=== PATIENT | male | born 1945 | race Caucasian/White ===

== ENCOUNTER 2022-04-29 12:52 | Inpatient (IN) | payer MEDICARE, MEDICAID, SELFPAY ==
[2022-04-29] VITALS (17 sets, daily range): BP systolic 76–157; BP diastolic 38–77; PULSE 79–124; RESP 20–35; TEMP 36.4–39.9; O2SAT 91–97; BMI 29.7
--- NOTE | ~2022-04-29 | US_ITS ---
EXAMINATION: US ABDOMEN LIMITED CLINICAL INFORMATION: Elevated LFTs. Fever.. COMPARISON: None TECHNIQUE: Real-time imaging of the gallbladder only.. FINDINGS: GALLBLADDER: Gallbladder is distended. Tumefactive sludge within the gallbladder. There is associated echogenic focus within this sludge which does not clearly demonstrate posterior acoustic shadowing. This is indeterminate for a stone therefore. Gallbladder wall measures 0.2 cm. (The gallbladder wall does appear to be thickened however on the CAT scan 04/29/2022.) No significant pericholecystic fluid.. There is positive ultrasound Lopez's sign. COMMON BILE DUCT: Common bile duct is dilated to a diameter 1.2 cm. No intrahepatic bile duct dilatation. FREE FLUID: None. US/US abdomen limited IMPRESSION: Distended gallbladder. Tumefactive sludge in the neck of the gallbladder. Possible gallstone. Positive ultrasound Lopez's sign. Findings equivocal for acute cholecystitis. Consider HIDA scan for further assessment. MRCP may be helpful for assessment of the gallbladder and bile ducts.
--- NOTE | ~2022-04-29 | XR_ITS ---
EXAMINATION: XR CHEST CLINICAL INFORMATION: Fever COMPARISON: None TECHNIQUE: 2 views of the chest were obtained. FINDINGS: Lung volume low. This causes crowding the bronchovascular markings. There is also linear atelectasis at both lung bases. No large pleural effusion. No dense consolidation. Marked arthropathy of the glenohumeral joints bilateral. Multilevel degenerative spondylosis spine. XR/XR chest 2V IMPRESSION: Low inspiratory effort with bibasilar atelectasis.
--- NOTE | ~2022-04-29 | XR_ITS ---
EXAMINATION: XR CHEST CLINICAL INFORMATION: This is a 76-year-old male who is status post right central venous catheter placement. COMPARISON: Comparison is made to a previous study dated 04/29/2022. TECHNIQUE: Frontal view of the chest was obtained. FINDINGS: A right neck catheter is seen with its tip at the cavoatrial junction. There are bilateral lower lobe patchy opacities suggestive of subsegmental pneumonitis versus atelectasis. There is a probable small left pleural effusion. No pneumothorax is seen. There is mild cardiomegaly. Osteoarthritic changes are noted in both shoulder joints. XR/XR chest 1V IMPRESSION: 1. The tip of the catheter is seen at the cavoatrial junction. There is no pneumothorax.
--- NOTE | ~2022-04-29 | CT_ITS ---
EXAMINATION: CT ABDOMEN AND PELVIS WITH CONTRAST CLINICAL INFORMATION: Abdominal pain and fever. COMPARISON: None TECHNIQUE: Multidetector volumetric images were obtained from the superior aspect of the liver through the pubic symphysis following administration 85 mL of Omnipaque 350 intravenous contrast. Sagittal and coronal reformatted images were obtained on the technologist's workstation. Oral contrast: No This CT examination was performed using dose optimization techniques as appropriate, variously including the following: *Automated exposure control *Adjustment of mA and/or kV according to patient size (this includes techniques or standardized protocols for targeted exams where dose is matched to indication/reason for exam; i.e. extremities or head) *Use of iterative reconstruction technique DLP: 1813 mGy-cm FINDINGS: LUNG BASES: Lungs are hypoinflated. There are opacities with air bronchograms from airspace disease or atelectasis in the inferior lingula and lower lobes. No pleural effusion. Atherosclerotic calcifications of coronary arteries and partially visualized thoracic aorta. LIVER: Liver has normal size, contour and parenchymal attenuation. Intrahepatic bile ducts are mildly dilated. No evidence of liver mass or abscess. GALLBLADDER AND BILIARY TREE: There is gallbladder hydrops. The gallbladder wall is mildly, diffusely thickened. No radiopaque calculi within the gallbladder lumen. The common bile duct is dilated up to 1.1 cm. No stones are seen within the dilated common duct. PANCREAS: Pancreas is diffusely atrophied and without acute abnormality. SPLEEN: Splenomegaly is present. The spleen measures up to 15 cm maximum dimension. ADRENAL GLANDS: Normal. KIDNEYS AND URETERS: A right ureteral stent is well-positioned. Small, 0.3 cm calyceal stone of the posterior mid right kidney. No right-sided hydroureteronephrosis. Both kidneys have lobulated contour. Left kidney exhibits mild cortical atrophy. A calyceal stone of the posterior left upper pole measures up to 1.7 cm maximum dimension, density of 940 Hounsfield units, approximately 7.4 cm deep from the skin surface at the posterior axillary line. No left-sided hydronephrosis or hydroureter. BLADDER: Decompressed by Butts catheter. The bladder wall appears to be diffusely thickened. BOWEL AND PERITONEUM: Stomach is unremarkable. No dilated bowel loops. A large amount fecal material is present in the sigmoid colon and rectum. This suggests likelihood of constipation. The subtle haziness of perirectal fat raises suspicion for mild proctitis. Diverticula of the sigmoid colon without diverticulitis. No abdominal free fluid or free air. ABDOMINAL WALL: Mild diastases of rectus abdominis muscles. VASCULATURE: Atherosclerotic calcification of the abdominal aorta without aneurysm. LYMPH NODES: The lymph nodes in the periportal region measure up to 0.9 cm short axis dimension. A lymph node with fatty hilum in the left para-aortic region is approximately 1 cm short axis dimension. Otherwise, no pathologic sized retroperitoneal, iliac or inguinal lymph nodes. PELVIC VISCERA: Prostate gland is unremarkable. SKELETAL: Streak artifact is produced by components of the right total hip arthroplasty. Bones are diffusely osteopenic. There is ankylosis of sacroiliac joints. Chronic height loss of multiple vertebra of the visualized thoracic and lumbar spine. No acute fractures. Multilevel degenerative arthropathy of the spine. CT/CT abdomen pelvis w con IMPRESSION: * Gallbladder hydrops and mild thickening of gallbladder wall. Although the common duct and intrahepatic ducts are dilated, no obstructing stones are visualized within the biliary tree. Also, no stones are identified within the hydropic gallbladder. Consider correlation with liver function tests, bilirubin levels and right upper quadrant ultrasound (or MRCP). Acute cholecystitis and cholangitis would be considered in this patient with abdominal pain and fever. * There are opacities with air bronchograms from airspace disease and/or atelectasis in the visualized bases. * Splenomegaly is of uncertain chronicity. There are no comparison abdominal imaging exams. * Bilateral renal stones. Well-positioned right ureteral stent in place. No hydronephrosis. * Large amount of fecal material in the sigmoid colon and rectum is suggestive of constipation. The subtle haziness of perirectal fat is suspicious for mild proctitis.
--- NOTE | ~2022-04-29 | NM_ITS ---
EXAMINATION: NUCLEAR MEDICINE HEPATOBILIARY WITHOUT PHARMACY. CLINICAL INFORMATION: Elevated LFTs, gallbladder hydrops. COMPARISON: CT abdomen and pelvis 04/29/2022 and ultrasound abdomen 04/29/2022. TECHNIQUE: Following intravenous and a 5 mCi of 99m technetium mebrofenin, imaging over the right upper quadrant was obtained up to one hour. Patient was unable to stay in one place Delayed 3.5 hours images were obtained. No CCK was given as patient is unable to stay after initial one hour of imaging.. FINDINGS: There is normal hepatic uptake without any focal defects. There is visualization of CBD and small bowel by 30 minutes. Gallbladder is not visualized up to 3 1/2 wires. NM/NM hepatobiliary wo pharm IMPRESSION: Obstructed cystic duct. Patent CBD. Normal hepatic uptake. Results were discussed with Dr. Dobson at 1:10 PM
--- NOTE | 2022-04-29 13:19 | ECG_ITS ---
Test Reason : FEVER Blood Pressure : / mmHG Vent. Rate : 122 BPM Atrial Rate : 122 BPM P-R Int : 152 ms QRS Dur : 132 ms QT Int : 334 ms P-R-T Axes : 046 -43 106 degrees QTc Int : 475 ms Sinus tachycardia Left axis deviation Left bundle branch block Abnormal ECG No previous ECGs available Referred By: Elana Jordan Electronically Signed By:JEFFERSON WAGGONER
--- NOTE | 2022-04-29 13:21 | ED_ITS ---
HPI - Abdominal Pain General Chief Complaint: Abdominal Pain <Elana López HENRY Jordan - Last Filed: 04/29/22 20:47> Stated Complaint: ABDO PAIN /FEVER <Elana López HENRY Jordan - Last Filed: 04/29/22 20:47> Time Seen by Provider: 04/29/22 12:56 <Elana López HENRY Jordan - Last Filed: 04/29/22 20:47> Source: patient <Elana BurtonHENRY lovelace - Last Filed: 04/29/22 20:47> Mode of arrival: EMS <Elana López HENRY Jordan - Last Filed: 04/29/22 20:47> Limitations: no limitations <Elana López HENRY Jordan - Last Filed: 04/29/22 20:47> History of Present Illness HPI narrative: Patient presents to the emergency department via EMS from a custodial facility, [facility]. Patient was reportedly given a new bowel medication this morning, questions stool softener. He began reporting lower abdominal pain this morning, was noted to have a temp of 101.3 degrees therefore he was transferred to the emergency department. Patient's only reports that his abdomen is hurting and he is very cold. Reports last bowel movement was yesterday night. Denies headache, nausea, vomiting, chest pain, shortness of breath. <Elana BurtonHENRY lovelace - Last Filed: 04/29/22 20:47> Related Data Home Medications: Home Medications Medication Instructions Recorded Confirmed acetaminophen 325 mg tablet 650 mg PO TID 04/29/22 04/29/22 ammonium lactate 12 % topical cream 1 appl topical BID 04/29/22 04/29/22 apixaban 5 mg tablet (Eliquis) 1 tab PO BID 04/29/22 04/29/22 ascorbic acid (vitamin C) 500 mg 500 mg PO BID 04/29/22 04/29/22 tablet cyanocobalamin (vitamin B-12) 500 500 mcg PO DAILY 04/29/22 04/29/22 mcg tablet diclofenac sodium 1 % topical gel 2 g topical Q6H PRN Pain, Mild 04/29/22 04/29/22 finasteride 5 mg tablet 1 tab PO DAILY 04/29/22 04/29/22 furosemide 20 mg tablet 20 mg PO Q2D 04/29/22 04/29/22 ipratropium 0.5 mg-albuterol 3 mg 3 ml inhalation Q6H PRN Shortness 04/29/22 04/29/22 (2.5 mg base)/3 mL nebulization Of Breath Or Wheezing soln lactulose 10 gram/15 mL oral 20 ml PO DAILY 04/29/22 04/29/22 solution lidocaine 4 % topical patch 2 patch topical DAILY PRN Pain, 04/29/22 04/29/22 (Aspercreme (lidocaine)) Mild magnesium oxide 400 mg (241.3 mg 400 mg PO DAILY 04/29/22 04/29/22 magnesium) tablet melatonin 3 mg tablet 3 mg PO BEDTIME PRN Sleep 04/29/22 04/29/22 metoprolol succinate 25 mg 1 tab PO DAILY 04/29/22 04/29/22 tablet,extended release 24 hr morphine 30 mg tablet,extended 1 tab PO BID PRN Pain, Severe 04/29/22 04/29/22 release multivitamin with minerals 1 tab PO DAILY 04/29/22 04/29/22 (Multiple Vitamin-Minerals tablet) nystatin 100,000 unit/gram topical 1 appl topical TID 04/29/22 04/29/22 cream oxycodone 5 mg tablet 5 mg PO Q6H PRN Pain, Moderate 04/29/22 04/29/22 pregabalin 75 mg capsule 1 cap PO BID 04/29/22 04/29/22 sennosides 8.6 mg tablet (senna) 17.2 mg PO BEDTIME 04/29/22 04/29/22 tamsulosin 0.4 mg capsule 2 cap PO BEDTIME 04/29/22 04/29/22 zinc 50 mg tablet 50 mg PO DAILY 04/29/22 04/29/22 <Elana Jordan CNP - Last Filed: 04/29/22 20:47> Allergies/Adverse Reactions: Allergies Allergy/AdvReac Type Severity Reaction Status Date / Time Penicillins Allergy Unknown Unknown Verified 04/29/22 13:18 <Elana Jordan CNP - Last Filed: 04/29/22 20:47> Review of Systems Review of Systems Constitutional : Positive Fever, positive Chills ENT/Mouth :? No sore throat, No Rhinorrhea Eyes: No Swelling, No Redness Cardiovascular : No Chest Pain, No SOB, No Edema Respiratory : No Cough, No Sputum, No Wheezing Gastrointestinal : No Nausea, no Vomiting, no Diarrhea, positive abdominal pain, No Hematochezia, No Melena Genitourinary : No Dysuria, No Urinary Frequency, No Hematuria, No Urgency? Musculoskeletal : No joint pain, No Myalgias, No Joint Swelling Skin : No Skin Lesions, No rash Neuro : No Weakness, No Numbness, No Dizziness, No Headache Psych : No Anxiety/Panic, No Depression <Elana Jordan CNP - Last Filed: 04/29/22 20:47> Yes all other systems are reviewed and are negative <Elana Jordan CNP - Last Filed: 04/29/22 20:47> [facility] Past Medical History Attestation statement: The following information was validated with the patient. <Elana Jordan CNP - Last Filed: 04/29/22 20:47> Medical History: Medical History Cervical stenosis of spine Chronic indwelling Butts catheter COVID-19 DVT (deep venous thrombosis) Hyperlipidemia Hypertension Juvenile rheumatoid arthritis NSTEMI (non-ST elevated myocardial infarction) Psoriatic arthritis Urinary retention <Elana Jordan CNP - Last Filed: 04/29/22 20:47> Social History Social History: Social History Advance Directives: Yes Advance Directives Information Provided: No Advance Directives on File: No <Elana Jordan CNP - Last Filed: 04/29/22 20:47> Physical Exam ED Vital Signs: Vital Signs - 24 hr 04/29/22 13:12 04/29/22 13:55 04/29/22 14:10 Temperature 101.4 F H Pulse Rate 121 H 79 124 H Respiratory Rate 35 H 28 H 32 H Blood Pressure 157/77 H 129/55 L 127/56 L Pulse Oximetry 93 94 94 Oxygen Delivery Method Nasal Cannula Nasal Cannula Nasal Cannula Oxygen Flow Rate 2 2 04/29/22 15:14 04/29/22 15:55 04/29/22 17:04 Temperature 100.8 F H 103.8 F H Pulse Rate 123 H 116 H 118 H Respiratory Rate 26 H 28 H 30 H Blood Pressure 139/59 L 118/50 L 78/39 L Pulse Oximetry 92 91 L 91 L Oxygen Delivery Method Nasal Cannula Nasal Cannula Nasal Cannula Oxygen Flow Rate 2 2 2 04/29/22 17:12 04/29/22 18:04 04/29/22 18:33 Temperature 102 F H Pulse Rate 108 H 99 96 Respiratory Rate 28 H 28 H 24 H Blood Pressure 88/43 L 83/38 L 76/38 L Pulse Oximetry 94 94 94 Oxygen Delivery Method Nasal Cannula Nasal Cannula Nasal Cannula Oxygen Flow Rate 2 2 04/29/22 19:39 04/29/22 21:01 Temperature Pulse Rate 91 Respiratory Rate 22 H Blood Pressure 90/49 L 91/41 L Pulse Oximetry 95 Oxygen Delivery Method Room Air Oxygen Flow Rate BMI result Body Mass Index 29.7 Vital signs have been reviewed as normal and appeared to be correct. Blood p ressure normal.? Tachycardic. Tachypnea. Febrile. <Elana Jordan CNP - Last Filed: 04/29/22 20:47> Vital Signs - 24 hr 04/29/22 13:12 04/29/22 13:55 04/29/22 14:10 Temperature 101.4 F H Pulse Rate 121 H 79 124 H Respiratory Rate 35 H 28 H 32 H Blood Pressure 157/77 H 129/55 L 127/56 L Pulse Oximetry 93 94 94 Oxygen Delivery Method Nasal Cannula Nasal Cannula Nasal Cannula Oxygen Flow Rate 2 2 04/29/22 15:14 04/29/22 15:55 04/29/22 17:04 Temperature 100.8 F H 103.8 F H Pulse Rate 123 H 116 H 118 H Respiratory Rate 26 H 28 H 30 H Blood Pressure 139/59 L 118/50 L 78/39 L Pulse Oximetry 92 91 L 91 L Oxygen Delivery Method Nasal Cannula Nasal Cannula Nasal Cannula Oxygen Flow Rate 2 2 2 04/29/22 17:12 04/29/22 18:04 04/29/22 18:33 Temperature 102 F H Pulse Rate 108 H 99 96 Respiratory Rate 28 H 28 H 24 H Blood Pressure 88/43 L 83/38 L 76/38 L Pulse Oximetry 94 94 94 Oxygen Delivery Method Nasal Cannula Nasal Cannula Nasal Cannula Oxygen Flow Rate 2 2 04/29/22 19:39 04/29/22 21:01 Temperature Pulse Rate 91 Respiratory Rate 22 H Blood Pressure 90/49 L 91/41 L Pulse Oximetry 95 Oxygen Delivery Method Room Air Oxygen Flow Rate BMI result Body Mass Index 29.7 <Ferdinand Miller MD - Last Filed: 04/29/22 21:35> Appearance: Alert.?Oriented to person, place and time. No acute distress.?Normal affect. Eyes: Pupils equal, round and reactive to light.? ENT: Pharynx normal.?? Neck: Normal inspection.? Neck supple.?? CVS: Heart sounds normal. Normal heart rate and rhythm.? Pulses normal.?? Respiratory: No respiratory distress.? Lung sounds clear to auscultation bilaterally?? Abdomen: Soft and diffusely tender throughout the lower abdomen Normoactive bowel sounds. Genitourinary: Chronic indwelling Butts catheter patent. Skin: Skin warm and dry.? Skin appears pale. Stage II pressure ulcers to the bilateral buttocks Extremities: No lower extremity edema.? Neuro: Moves all extremities spontaneously. Sensation intact bilaterally. No focal neuro deficits. <Elana Jordan CNP - Last Filed: 04/29/22 20:47> Course Course Course Narrative: Patient is a 76-year-old male with a past medical history of juvenile rheumatoid arthritis, psoriatic arthritis, history of DVT on Eliquis, cervical stenosis, hypertension, hyperlipidemia, anxiety, urinary retention with chronic Butts catheter, NSTEMI, prior COVID-19. Review of records from custodial facility indicate recent admissions to [facility]. January 2022 admitted for it ABDI, CHF exacerbation, NSTEMI, pneumonia, and sepsis due to obstruction of right ureter and pyelonephritis requiring ureteral stent. Developed acute respiratory failure requiring intubation and pressor support. In February 2022 use admitted for fever and abdominal pain found to have Gram- negative bacteremia, thought to be secondary to urosepsis treated with cephalosporin, Butts placed for urinary retention, and additionally found to have constipation with possible colitis. He was again admitted at [facility] in March due to nephrolithiasis and sepsis with blood cultures at that time notable for Gram-positive cocci and Evy glabrata. At the time of exam his abdomen is tender to palpation in lower quadrants. Will obtain labs, urinalysis, lactic acid, blood cultures, chest x-ray, CT of the abdomen and pelvis. He is febrile tachypneic tachycardic on oxygen at baseline. History of heart failure, per custodial facility no most recent LVEF 55-65%, unknown date. At this time will gently hydrate with normal saline 500mL fluid bolus, and cover with Rocephin IV. Patient received oral Tylenol prior to arrival. <Elana Jordan CNP - Last Filed: 04/29/22 20:47> Reevaluation(s) Reevaluation #1: CBC reveals leukocytosis 11.9, normocytic anemia hemoglobin 10.7 hematocrit 33.2. No lactic acidosis, defers sepsis fluid bolus. Urinalysis consistent with urinary tract infection. Patient noted to have elevated transaminases, alk-phos, elevated from prior outpatient lab comparison 04/14/2022 with AST 17 ALT 13 alk-phos 132. Has had prior right upper quadrant ultrasound and HIDA scan which showed no evidence of cholecystitis or biliary obstruction in January 2022 as he had an initial right upper quadrant ultrasound which revealed sludge within the gallbladder and had surgical consult. <Elana Jordan CNP - Last Filed: 04/29/22 20:47> Time: 14:24 <Elana Jordan CNP - Last Filed: 04/29/22 20:47> Reevaluation #2: EKG reveals sinus tachycardia with left bundle-branch block. No prior EKGs available for review, however review of documentation from custodial facility indicates prior left bundle-branch block noted. <Elana Jordan CNP - Last Filed: 04/29/22 20:47> Time: 15:39 <Elana Jordan CNP - Last Filed: 04/29/22 20:47> Reevaluation #3: CT the abdomen and pelvis notable for mild thickening of the gallbladder wall, no obstructive stones within the biliary tree. Transaminases are elevated though he has no right upper quadrant tenderness, negative Lopez sign, no jaundice. Bilateral renal stones without hydronephrosis. Large amount of fecal material in the sigmoid colon and rectum, no evidence of obstruction. Patient is now status post a very large bowel movement, with improvement in his abdominal pain. <Elana Jordan CNP - Last Filed: 04/29/22 20:47> Time: 16:46 <Elana Jordan CNP - Last Filed: 04/29/22 20:47> Additional Reevaluation(s): 165: Spoke with hospitalist Dr. Hayden who accepts patient for admission to medicine service. Based on CT findings and elevated transaminases will obtain right upper quadrant ultrasound. 1710: Notified by nursing staff of hypotension. Patient has received 500 mL normal saline thus far, will order sepsis fluid bolus at ideal body weight, w hich will add an additional 1500 mL. Fever has increased, will order additional Tylenol at this time. 1830: Ultrasound reveals a distended gallbladder with sludge in the neck possible gallstones, equivocal for acute cholecystitis with recommendations for HIDA scan and/or MRCP. 1905: Remains hypotensive despite IV fluids. He is mentating well, CA&Ox3, tachycardia has improved, skin is warm and dry Contacted machine ironer Dr Seth, for consultation to advises to give additional 500mL fluid bolus based on actual body weight. 1944: Discussed case with Erwin BECERRA from ICU, patient receive albumin as well as glucagon as patient is on long-acting beta-demond. PA at bedside for evaluation. If after interventions blood pressure normalizes and stabilizes will consider admission again to hospitalist service. Discussed this case with ED attending Dr. Miller as well. <Elana Jordan CNP - Last Filed: 04/29/22 20:47> Consultations Consultation #1: Pt was signed out to me at 9 PM,I spoke with Erwin ICU pt will be admitted to ICU,he asked me to consult Surgery because ? cholecystitis,I spoke with Dr Escamilla ,he reviwed the scan nd he is consulted.No surgery Tonight too unstable.Remain Hypotensive will go to ICU Erwin wants to hold norephinephrine at this time and continue fluids/albumine <Ferdinand Miller MD - Last Filed: 04/29/22 21:35> MDM - Abdominal Pain Medical Records Attestation: I reviewed the patient's medical records. <Elana Jordan CNP - Last Filed: 04/29/22 20:47> Lab Data Attestation: I reviewed the patient's lab results. <Elana Jordan CNP - Last Filed: 04/29/22 20:47> Result diagrams: : 04/29/22 13:59 04/29/22 13:59 <Elana Jordan, [employer] - Last Filed: 04/29/22 20:47> Labs: Lab Results 04/29/22 04/29/22 04/29/22 Range/Units 13:28 13:28 13:28 WBC (4.8-10.8) X10*3/uL RBC (4.60-5.80) X10*6/uL Hgb (14.0-18.0) g/dl Hct (42.0-52.0) % MCV (80.0-98.0) fL MCH (27.0-33.0) pg MCHC (31.0-36.0) g/dl RDW (11.0-16.0) % Plt Count (160-400) X10*3/uL MPV (9.4-12.4) fL Immature Gran % (Auto) (0.0-0.4) % Neut % (Auto) (45-73) % Lymph % (Auto) (20-40) % [facility] % (Auto) (2-11) % Eos % (Auto) (0-4) % Baso % (Auto) (0-2) % Lymph # (Auto) (1.2-4.9) X10*3/uL [facility] # (Auto) (0.1-1.2) X10*3/uL Eos # (Auto) (0.0-0.4) X10*3/uL Baso # (Auto) (0.0-0.2) X10*3/uL Abs Immat Gran (auto) (0.00-0.03) X10*3/uL Absolute Neuts (auto) (2.0-8.3) x10*3/uL Absolute Nucleated RBC (0.0-0.012) X10*3/uL Nucleated RBC % (auto) (0.0-0.2) /100WBC Smear Tech's Comments Sodium (135-145) mmol/L Potassium (3.3-5.1) mmol/L Chloride (96-108) mmol/L Carbon Dioxide (22-29) mmol/L Anion Gap (12-20) BUN (9-16) mg/dL Creatinine (0.5-1.4) mg/dL Estim Creat Clear Calc Estimated GFR POC Glucose (60-115) mg/dL Random Glucose (60-115) mg/dL Lactic Acid 1.2 (0.5-2.0) mmol/L Calcium (8.4-10.2) mg/dL Magnesium (1.6-2.6) mg/dL Total Bilirubin (0.0-1.0) mg/dL AST (5-37) U/L ALT (0-40) U/L Alkaline Phosphatase (39-117) U/L Troponin I High Sens 4.9 (<3.5-35.0) ng/L B-Natriuretic Peptide 185 H (<100) pg/mL Total Protein (6.5-8.0) g/dL Albumin (3.5-5.0) g/dL Lipase (8-78) U/L Urine Color Urine Appearance Urine pH (5.0-8.0) Ur Specific [place] (1.005-1.025) Urine Protein (NEG-TRACE) MG/DL Urine Glucose (UA) (NEG) MG/DL Urine Ketones (NEG) MG/DL Urine Blood (NEG) Urine Nitrite (NEG) Ur Leukocyte Esterase (NEG) Urine RBC (0) /HPF Urine WBC (0-4) /HPF Ur Squamous Epith Cells /LPF Urine Bacteria /LPF COVID-19 (ELVI) (Negative) COVID-19 Clin Com 04/29/22 04/29/22 04/29/22 Range/Units 13:31 13:59 13:59 WBC 11.9 H (4.8-10.8) X10*3/uL RBC 4.07 L (4.60-5.80) X10*6/uL Hgb 10.7 L (14.0-18.0) g/dl Hct 33.2 L (42.0-52.0) % MCV 81.6 (80.0-98.0) fL MCH 26.3 L (27.0-33.0) pg MCHC 32.2 (31.0-36.0) g/dl RDW 14.4 (11.0-16.0) % Plt Count 210 (160-400) X10*3/uL MPV 8.8 L (9.4-12.4) fL Immature Gran % (Auto) 0.3 (0.0-0.4) % Neut % (Auto) 96.4 H (45-73) % Lymph % (Auto) 2.0 L (20-40) % [facility] % (Auto) 1.1 L (2-11) % Eos % (Auto) 0.0 (0-4) % Baso % (Auto) 0.2 (0-2) % Lymph # (Auto) 0.2 L (1.2-4.9) X10*3/uL [facility] # (Auto) 0.1 (0.1-1.2) X10*3/uL Eos # (Auto) 0.0 (0.0-0.4) X10*3/uL Baso # (Auto) 0.0 (0.0-0.2) X10*3/uL Abs Immat Gran (auto) 0.04 H (0.00-0.03) X10*3/uL Absolute Neuts (auto) 11.5 H (2.0-8.3) x10*3/uL Absolute Nucleated RBC 0.000 (0.0-0.012) X10*3/uL Nucleated RBC % (auto) 0.0 (0.0-0.2) /100WBC Smear Tech's Comments VERIFIED Sodium 139 (135-145) mmol/L Potassium 4.0 (3.3-5.1) mmol/L Chloride 95 L (96-108) mmol/L Carbon Dioxide 32 H (22-29) mmol/L Anion Gap 16 (12-20) BUN 13 (9-16) mg/dL Creatinine 0.62 (0.5-1.4) mg/dL Estim Creat Clear Calc 111.5 Estimated GFR > 60 POC Glucose (60-115) mg/dL Random Glucose 198 H (60-115) mg/dL Lactic Acid (0.5-2.0) mmol/L Calcium 8.3 L (8.4-10.2) mg/dL Magnesium 1.8 (1.6-2.6) mg/dL Total Bilirubin 2.5 H (0.0-1.0) mg/dL AST 242 H (5-37) U/L ALT 152 H (0-40) U/L Alkaline Phosphatase 680 H (39-117) U/L Troponin I High Sens (<3.5-35.0) ng/L B-Natriuretic Peptide (<100) pg/mL Total Protein 6.7 (6.5-8.0) g/dL Albumin 3.3 L (3.5-5.0) g/dL Lipase 141 H (8-78) U/L Urine Color Urine Appearance Urine pH (5.0-8.0) Ur Specific [place] (1.005-1.025) Urine Protein (NEG-TRACE) MG/DL Urine Glucose (UA) (NEG) MG/DL Urine Ketones (NEG) MG/DL Urine Blood (NEG) Urine Nitrite (NEG) Ur Leukocyte Esterase (NEG) Urine RBC (0) /HPF Urine WBC (0-4) /HPF Ur Squamous Epith Cells /LPF Urine Bacteria /LPF COVID-19 (ELVI) Negative (Negative) COVID-19 Clin Com See Note 04/29/22 04/29/22 Range/Units 14:16 19:59 WBC (4.8-10.8) X10*3/uL RBC (4.60-5.80) X10*6/uL Hgb (14.0-18.0) g/dl Hct (42.0-52.0) % MCV (80.0-98.0) fL MCH (27.0-33.0) pg MCHC (31.0-36.0) g/dl RDW (11.0-16.0) % Plt Count (160-400) X10*3/uL MPV (9.4-12.4) fL Immature Gran % (Auto) (0.0-0.4) % Neut % (Auto) (45-73) % Lymph % (Auto) (20-40) % [facility] % (Auto) (2-11) % Eos % (Auto) (0-4) % Baso % (Auto) (0-2) % Lymph # (Auto) (1.2-4.9) X10*3/uL [facility] # (Auto) (0.1-1.2) X10*3/uL Eos # (Auto) (0.0-0.4) X10*3/uL Baso # (Auto) (0.0-0.2) X10*3/uL Abs Immat Gran (auto) (0.00-0.03) X10*3/uL Absolute Neuts (auto) (2.0-8.3) x10*3/uL Absolute Nucleated RBC (0.0-0.012) X10*3/uL Nucleated RBC % (auto) (0.0-0.2) /100WBC Smear Tech's Comments Sodium (135-145) mmol/L Potassium (3.3-5.1) mmol/L Chloride (96-108) mmol/L Carbon Dioxide (22-29) mmol/L Anion Gap (12-20) BUN (9-16) mg/dL Creatinine (0.5-1.4) mg/dL Estim Creat Clear Calc Estimated GFR POC Glucose 147 H (60-115) mg/dL Random Glucose (60-115) mg/dL Lactic Acid (0.5-2.0) mmol/L Calcium (8.4-10.2) mg/dL Magnesium (1.6-2.6) mg/dL Total Bilirubin (0.0-1.0) mg/dL AST (5-37) U/L ALT (0-40) U/L Alkaline Phosphatase (39-117) U/L Troponin I High Sens (<3.5-35.0) ng/L B-Natriuretic Peptide (<100) pg/mL Total Protein (6.5-8.0) g/dL Albumin (3.5-5.0) g/dL Lipase (8-78) U/L Urine Color YELLOW Urine Appearance HAZY Urine pH 7.5 (5.0-8.0) Ur Specific [place] 1.015 (1.005-1.025) Urine Protein TRACE (NEG-TRACE) MG/DL Urine Glucose (UA) NEG (NEG) MG/DL Urine Ketones NEG (NEG) MG/DL Urine Blood 3+ H (NEG) Urine Nitrite POS H (NEG) Ur Leukocyte Esterase 3+ H (NEG) Urine RBC 1-4 (0) /HPF Urine WBC 76-150 H (0-4) /HPF Ur Squamous Epith Cells NONE /LPF Urine Bacteria 4+ /LPF COVID-19 (ELVI) (Negative) COVID-19 Clin Com <Elana Jordan CNP - Last Filed: 04/29/22 20:47> Lab Results 04/29/22 04/29/22 04/29/22 Range/Units 13:28 13:28 13:28 WBC (4.8-10.8) X10*3/uL RBC (4.60-5.80) X10*6/uL Hgb (14.0-18.0) g/dl Hct (42.0-52.0) % MCV (80.0-98.0) fL MCH (27.0-33.0) pg MCHC (31.0-36.0) g/dl RDW (11.0-16.0) % Plt Count (160-400) X10*3/uL MPV (9.4-12.4) fL Immature Gran % (Auto) (0.0-0.4) % Neut % (Auto) (45-73) % Lymph % (Auto) (20-40) % [facility] % (Auto) (2-11) % Eos % (Auto) (0-4) % Baso % (Auto) (0-2) % Lymph # (Auto) (1.2-4.9) X10*3/uL [facility] # (Auto) (0.1-1.2) X10*3/uL Eos # (Auto) (0.0-0.4) X10*3/uL Baso # (Auto) (0.0-0.2) X10*3/uL Abs Immat Gran (auto) (0.00-0.03) X10*3/uL Absolute Neuts (auto) (2.0-8.3) x10*3/uL Absolute Nucleated RBC (0.0-0.012) X10*3/uL Nucleated RBC % (auto) (0.0-0.2) /100WBC Smear Tech's Comments Sodium (135-145) mmol/L Potassium (3.3-5.1) mmol/L Chloride (96-108) mmol/L Carbon Dioxide (22-29) mmol/L Anion Gap (12-20) BUN (9-16) mg/dL Creatinine (0.5-1.4) mg/dL Estim Creat Clear Calc Estimated GFR POC Glucose (60-115) mg/dL Random Glucose (60-115) mg/dL Lactic Acid 1.2 (0.5-2.0) mmol/L Calcium (8.4-10.2) mg/dL Magnesium (1.6-2.6) mg/dL Total Bilirubin (0.0-1.0) mg/dL AST (5-37) U/L ALT (0-40) U/L Alkaline Phosphatase (39-117) U/L Troponin I High Sens 4.9 (<3.5-35.0) ng/L B-Natriuretic Peptide 185 H (<100) pg/mL Total Protein (6.5-8.0) g/dL Albumin (3.5-5.0) g/dL Lipase (8-78) U/L Urine Color Urine Appearance Urine pH (5.0-8.0) Ur Specific [place] (1.005-1.025) Urine Protein (NEG-TRACE) MG/DL Urine Glucose (UA) (NEG) MG/DL Urine Ketones (NEG) MG/DL Urine Blood (NEG) Urine Nitrite (NEG) Ur Leukocyte Esterase (NEG) Urine RBC (0) /HPF Urine WBC (0-4) /HPF Ur Squamous Epith Cells /LPF Urine Bacteria /LPF COVID-19 (ELVI) (Negative) COVID-19 Clin Com 04/29/22 04/29/22 04/29/22 Range/Units 13:31 13:59 13:59 WBC 11.9 H (4.8-10.8) X10*3/uL RBC 4.07 L (4.60-5.80) X10*6/uL Hgb 10.7 L (14.0-18.0) g/dl Hct 33.2 L (42.0-52.0) % MCV 81.6 (80.0-98.0) fL MCH 26.3 L (27.0-33.0) pg MCHC 32.2 (31.0-36.0) g/dl RDW 14.4 (11.0-16.0) % Plt Count 210 (160-400) X10*3/uL MPV 8.8 L (9.4-12.4) fL Immature Gran % (Auto) 0.3 (0.0-0.4) % Neut % (Auto) 96.4 H (45-73) % Lymph % (Auto) 2.0 L (20-40) % [facility] % (Auto) 1.1 L (2-11) % Eos % (Auto) 0.0 (0-4) % Baso % (Auto) 0.2 (0-2) % Lymph # (Auto) 0.2 L (1.2-4.9) X10*3/uL [facility] # (Auto) 0.1 (0.1-1.2) X10*3/uL Eos # (Auto) 0.0 (0.0-0.4) X10*3/uL Baso # (Auto) 0.0 (0.0-0.2) X10*3/uL Abs Immat Gran (auto) 0.04 H (0.00-0.03) X10*3/uL Absolute Neuts (auto) 11.5 H (2.0-8.3) x10*3/uL Absolute Nucleated RBC 0.000 (0.0-0.012) X10*3/uL Nucleated RBC % (auto) 0.0 (0.0-0.2) /100WBC Smear Tech's Comments VERIFIED Sodium 139 (135-145) mmol/L Potassium 4.0 (3.3-5.1) mmol/L Chloride 95 L (96-108) mmol/L Carbon Dioxide 32 H (22-29) mmol/L Anion Gap 16 (12-20) BUN 13 (9-16) mg/dL Creatinine 0.62 (0.5-1.4) mg/dL Estim Creat Clear Calc 111.5 Estimated GFR > 60 POC Glucose (60-115) mg/dL Random Glucose 198 H (60-115) mg/dL Lactic Acid (0.5-2.0) mmol/L Calcium 8.3 L (8.4-10.2) mg/dL Magnesium 1.8 (1.6-2.6) mg/dL Total Bilirubin 2.5 H (0.0-1.0) mg/dL AST 242 H (5-37) U/L ALT 152 H (0-40) U/L Alkaline Phosphatase 680 H (39-117) U/L Troponin I High Sens (<3.5-35.0) ng/L B-Natriuretic Peptide (<100) pg/mL Total Protein 6.7 (6.5-8.0) g/dL Albumin 3.3 L (3.5-5.0) g/dL Lipase 141 H (8-78) U/L Urine Color Urine Appearance Urine pH (5.0-8.0) Ur Specific [place] (1.005-1.025) Urine Protein (NEG-TRACE) MG/DL Urine Glucose (UA) (NEG) MG/DL Urine Ketones (NEG) MG/DL Urine Blood (NEG) Urine Nitrite (NEG) Ur Leukocyte Esterase (NEG) Urine RBC (0) /HPF Urine WBC (0-4) /HPF Ur Squamous Epith Cells /LPF Urine Bacteria /LPF COVID-19 (ELVI) Negative (Negative) COVID-19 Clin Com See Note 04/29/22 04/29/22 Range/Units 14:16 19:59 WBC (4.8-10.8) X10*3/uL RBC (4.60-5.80) X10*6/uL Hgb (14.0-18.0) g/dl Hct (42.0-52.0) % MCV (80.0-98.0) fL MCH (27.0-33.0) pg MCHC (31.0-36.0) g/dl RDW (11.0-16.0) % Plt Count (160-400) X10*3/uL MPV (9.4-12.4) fL Immature Gran % (Auto) (0.0-0.4) % Neut % (Auto) (45-73) % Lymph % (Auto) (20-40) % [facility] % (Auto) (2-11) % Eos % (Auto) (0-4) % Baso % (Auto) (0-2) % Lymph # (Auto) (1.2-4.9) X10*3/uL [facility] # (Auto) (0.1-1.2) X10*3/uL Eos # (Auto) (0.0-0.4) X10*3/uL Baso # (Auto) (0.0-0.2) X10*3/uL Abs Immat Gran (auto) (0.00-0.03) X10*3/uL Absolute Neuts (auto) (2.0-8.3) x10*3/uL Absolute Nucleated RBC (0.0-0.012) X10*3/uL Nucleated RBC % (auto) (0.0-0.2) /100WBC Smear Tech's Comments Sodium (135-145) mmol/L Potassium (3.3-5.1) mmol/L Chloride (96-108) mmol/L Carbon Dioxide (22-29) mmol/L Anion Gap (12-20) BUN (9-16) mg/dL Creatinine (0.5-1.4) mg/dL Estim Creat Clear Calc Estimated GFR POC Glucose 147 H (60-115) mg/dL Random Glucose (60-115) mg/dL Lactic Acid (0.5-2.0) mmol/L Calcium (8.4-10.2) mg/dL Magnesium (1.6-2.6) mg/dL Total Bilirubin (0.0-1.0) mg/dL AST (5-37) U/L ALT (0-40) U/L Alkaline Phosphatase (39-117) U/L Troponin I High Sens (<3.5-35.0) ng/L B-Natriuretic Peptide (<100) pg/mL Total Protein (6.5-8.0) g/dL Albumin (3.5-5.0) g/dL Lipase (8-78) U/L Urine Color YELLOW Urine Appearance HAZY Urine pH 7.5 (5.0-8.0) Ur Specific [place] 1.015 (1.005-1.025) Urine Protein TRACE (NEG-TRACE) MG/DL Urine Glucose (UA) NEG (NEG) MG/DL Urine Ketones NEG (NEG) MG/DL Urine Blood 3+ H (NEG) Urine Nitrite POS H (NEG) Ur Leukocyte Esterase 3+ H (NEG) Urine RBC 1-4 (0) /HPF Urine WBC 76-150 H (0-4) /HPF Ur Squamous Epith Cells NONE /LPF Urine Bacteria 4+ /LPF COVID-19 (ELVI) (Negative) COVID-19 Clin Com <Ferdinand Miller MD - Last Filed: 04/29/22 21:35> Imaging Data Chest x-ray: Radiologist's impression: FINDINGS: Lung volume low. This causes crowding the bronchovascular markings. There is also linear atelectasis at both lung bases. No large pleural effusion. No dense consolidation. Marked arthropathy of the glenohumeral joints bilateral. Multilevel degenerative spondylosis spine. XR/XR chest 2V IMPRESSION: Low inspiratory effort with bibasilar atelectasis. <Elana Jordan CNP - Last Filed: 04/29/22 20:47> CT scan - abdomen: Radiologist's impression: CT/CT abdomen pelvis w con IMPRESSION: *? Gallbladder hydrops and mild thickening of gallbladder wall. Although the common duct and intrahepatic ducts are dilated, no obstructing stones are visualized within the biliary tree. Also, no stones are identified within the hydropic gallbladder. Consider correlation with liver function tests, bilirubin levels and right upper quadrant ultrasound (or MRCP). Acute cholecystitis and cholangitis would be considered in this patient with abdominal pain and fever. *? There are opacities with air bronchograms from airspace disease and/or atelectasis in the visualized bases. *? Splenomegaly is of uncertain chronicity. There are no comparison abdominal imaging exams. *? Bilateral renal stones. Well-positioned right ureteral stent in place. No hydronephrosis. *? Large amount of fecal material in the sigmoid colon and rectum is suggestive of constipation. The subtle haziness of perirectal fat is suspicious for mild proctitis. <Elana Jordan CNP - Last Filed: 04/29/22 20:47> US - abdomen: Radiologist's impression: US/US abdomen limited IMPRESSION: Distended gallbladder. Tumefactive sludge in the neck of the gallbladder. Possible gallstone. Positive ultrasound Lopez's sign. Findings equivocal for acute cholecystitis. Consider HIDA scan for further assessment. MRCP may be helpful for assessment of the gallbladder and bile ducts. <Elana Jordan CNP - Last Filed: 04/29/22 20:47> ECG Data Attestation: I personally reviewed and interpreted this ECG as follows: <Elana Jordan CNP - Last Filed: 04/29/22 20:47> ECG interpretation date: 04/29/22 <Elana Jordan CNP - Last Filed: 04/29/22 20:47> Interpretation: Rate: 122 Rhythm:? Sinus tachycardia with left bundle-branch block [place]:? Left axis deviation Normal P waves.? Normal HODA.??? ST T wave :? No ST depression, no T-wave inversion qTC: 475 prior studies:? None available for review The study has been interpreted contemporaneously by me. <Elana Jordan CNP - Last Filed: 04/29/22 20:47> Discharge Plan Discharge Clinical Impression: Elevated transaminase level, Acute hypotension, Catheter-associated urinary tract infection <Elana Jordan CNP - Last Filed: 04/29/22 20:47> Patient Disposition: Admitted As Inpatient <Elana Jordan CNP - Last Filed: 04/29/22 20:47>
[2022-04-29] MEDS: 0.9 % Sodium Chloride 1,000 ML 999 ML IV (13:33)
[2022-04-29] MEDS: Morphine Sulfate 4 MG/ML CARTRIDGE IVPUSH (13:40)
[2022-04-29 13:58] LABS: B Type Natriuretic Peptide 185 pg/mL (<100); Troponin-I High Sensitivity 4.9 ng/L (<3.5-35.0)
[2022-04-29] MEDS: cefTRIAXone sodium 2 GM in 0.9 % Sodium Chloride 50 ML IV (13:59)
[2022-04-29 14:01] LABS: Lactic Acid 1.2 mmol/L (0.5-2.0)
[2022-04-29 14:09] LABS: Basophils Percent Auto 0.2 % (0-2); Hematocrit 33.2 % (42.0-52.0); Hemoglobin 10.7 g/dl (14.0-18.0); Imm Gran Abs Auto 0.04 X10*3/uL (0.00-0.03); Imm Gran Pct Auto 0.3 % (0.0-0.4); Lymphocytes Absolute Auto 0.2 X10*3/uL (1.2-4.9); MANUAL DIFF FLAG SCAN; Mean Corpuscular HGB Conc 32.2 g/dl (31.0-36.0); Mean Corpuscular Hemoglobin 26.3 pg (27.0-33.0); Mean Corpuscular Volume 81.6 fL (80.0-98.0); Mean Platelet Volume 8.8 fL (9.4-12.4); Monocytes Absolute Auto 0.1 X10*3/uL (0.1-1.2); Monocytes Percent Auto 1.1 % (2-11); Neutrophils Absolute Auto 11.5 x10*3/uL (2.0-8.3); Neutrophils Percent Auto 96.4 % (45-73); Platelet Count 210 X10*3/uL (160-400); Red Blood Count 4.07 X10*6/uL (4.60-5.80); Red Cell Distribution Width 14.4 % (11.0-16.0); SCAN SMEAR FLAG 1; White Blood Count 11.9 X10*3/uL (4.8-10.8)
[2022-04-29 14:26] LABS: Alanine Aminotransferase 152 U/L (0-40); Albumin Level 3.3 g/dL (3.5-5.0); Alkaline Phosphatase 680 U/L (39-117); Anion Gap 16 (12-20); Aspartate Amino Transferase 242 U/L (5-37); Bilirubin Total 2.5 mg/dL (0.0-1.0); Blood Urea Nitrogen 13 mg/dL (9-16); Calcium 8.3 mg/dL (8.4-10.2); Carbon Dioxide 32 mmol/L (22-29); Chloride 95 mmol/L (96-108); Creatinine Clr Calc Pharmacy 111.5; Estimated Glomerular Filt Rate > 60; Glucose Random 198 mg/dL (60-115); Magnesium 1.8 mg/dL (1.6-2.6); Sodium 139 mmol/L (135-145); Total Protein 6.7 g/dL (6.5-8.0)
[2022-04-29 14:40] LABS: Appearance Urine HAZY; Color Urine YELLOW; Glucose Urine UA NEG (NEG); Leukocyte Esterase Urine 3+ (NEG); Nitrite Urine POS (NEG); PH 7.5 (5.0-8.0); Specific Gravity - Urine 1.015 (1.005-1.025); UACC Culture Trigger YES; Urine Blood 3+ (NEG); Urine Ketones NEG (NEG); Urine Protein TRACE MG/DL (NEG-TRACE)
[2022-04-29 14:50] LABS: SLIDE REVIEW VERIFIED
[2022-04-29 14:55] LABS: Bacteria Urine 4+ /LPF
[2022-04-29 15:01] LABS: Lipase 141 U/L (8-78)
[2022-04-29] MEDS: iohexoL 350 MG/ML 100 ML INFUS..BTL IV (15:04)
[2022-04-29 15:22] LABS: COVID-19 Test Negative (Negative)
[2022-04-29] MEDS: Acetaminophen Supp 650 MG SUPP.RECT PR (17:04)
--- NOTE | 2022-04-29 17:05 | PC.NURSE ---
pt had a very large loose stool
[2022-04-29] MEDS: 0.9 % Sodium Chloride 500 ML IV ×2 (17:16→19:13)
[2022-04-29] MEDS: 0.9 % Sodium Chloride 2,052 ML 2052 ML IV (18:04)
--- NOTE | 2022-04-29 18:14 | PHA.MEDREC ---
Pharmacy Consult ? Medication Reconciliation Pharmacy has completed the medication reconciliation. ORDER SUMMARY REPORT FROM [facility]
[2022-04-29] MEDS: Albumin Human 25 % 100 ML IV ×3 (19:47→23:29)
[2022-04-29] MEDS: Lactated Ringers 500 ML 1000 ML IVCONT (20:02)
[2022-04-29 20:10] LABS: Glucose, Whole Blood 147 mg/dL (60-115)
--- NOTE | 2022-04-29 20:33 | PM.CCHP ---
History of Present Illness Date of Service: 04/29/22 Attending physician on admission: Edgardo Seth Chief Complaint: Severe Sepsis HPI: ?76-year-old male with underlying history of cervical stenosis of the spine, chronic indwelling Butts catheter due to retention and BPH, COVID-19, DVT about 1 year ago currently on Eliquis, hypertension, hyperlipidemia, rheumatoid arthritis, and STEMI, so right thick arthritis among others presents to us after being seen in the emergency room where he was sent from a detention facility ([facility] rehab) due to complaints of abdominal pain. ?Reportedly the patient had received a new bowel regimen medication in the form of a stool softener.? Later on in the day the patient had complained of lower abdominal pain, developed a fever of 101.3 and at that point they decided to call EMS.? The patient's only complaint at the time was feeling centralized epigastric abdominal pain and feeling very cold without any nausea, vomiting, chest pain or shortness of breath. ? Upon arrival to the emergency room, the patient was noted to be normotensive but febrile with temperature of 101.4 degrees F, heart rate of 121, respiratory rate of 35 and O2 sat 93% on 2 L nasal cannula; discontinue for the next 3-4 hours however around 5 in the afternoon the patient decompensated with a blood pressure of 78/39, is still tachycardic and tachypneic. ?His initial workup reveal a white count of 11.9, hemoglobin of 10.7 and hematocrit 33.2, platelets 210.? Sodium 139, potassium 4.0, chloride 95, carbon dioxide 32, BUN 13, creatinine 0.62, random glucose 198, calcium 8.3, magnesium 1.8, lactic acid 1.2. ?LFTs were abnormal with total bilirubin of 2.5, SATB2 42, ALT 152, alk-phos 680, lipase [address] of the abdomen and pelvis suggest mild thickening of the gallbladder wall and common duct as well as intrahepatic duct dilation without visualized obstructing is tone as well as evidence of fecal material consistent with constipation.? A follow-up ultrasound was reported as distended gallbladder with to meth factive is large in the neck of the gallbladder and possible stone with a positive Lopez sign.? Findings equivocal for acute cholecystitis consider HIDA scan versus MRCP. ?At this point I kindly asked the ER physician to contact the general surgeon for further input in this matter, to which no surgical intervention was deemed that the time. ? During my evaluation, the patient does complain of epigastric pain radiating towards the right upper quadrant 8/10 in waves, sharp, lasting a few seconds to a few minutes at a time, not sure what makes it worse but pain medications make it better and the morphine he received earlier did help somewhat, denies any nausea or vomiting.? He stills feels very cold. ? Review of systems: As above, otherwise the patient denies any prior history of strokes, cold intolerance, migraine headaches, head trauma, no eyes, ears or nose problems, no problems swallowing or with phonation, no thyroid disease, denies any history of chest pain, palpitations, coronary disease, cough, sputum production, pneumonia, bronchitis, COPD or emphysema, nausea, vomiting, diarrhea, melena, hematochezia, hematemesis, hematuria, kidney stones, liver problems, immunocompromise state of any kind, no history of PE, ?all other review of systems were reviewed and they were all negative. ? Past Medical History:? As above ? Past Surgical History: RTKA Lithotripsy ? Family history: ?Noncontributory ? Social History:? Residing at a detention facility/rehab, no history of alcohol, tobacco drug use.? 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 ? CODE STATUS: FULL CODE ? Allergies: NKDA ? Home Medications: See Med Rec ? SEPSIS PHYSICAL EXAM 1999 VS: 90/49; 96; 24; 94% 1L NC; 102 F General:? Alert oriented x3 no acute distress.? Speaking full sentences.? Speech is well articulated, thought process is coherent.? Following all commands. Skin:? Stage I sacrocoxcygeal ulcer? and Stage II of the R buttock pressure wounds; leg edema 1+ pitting up to mid tibia bilaterally; old surgical scar of the R knee area, otherwise no lesions, rash. HEENT:? Head is normocephalic, atraumatic, pupils equal round reactive to light accommodation bilaterally.? Extraocular movements appear intact. ?Buccal mucosa is dry, Neck is supple without lymphadenopathy. Cardiac:? Clear S1-S2, no murmurs rubs or gallops. No JVD. Pulmonary:? Diminished lung sounds bilaterally, however clear without wheezes, rales or rhonchi. Abdomen:? Protuberant, positive bowel sounds in all 4 quadrants.? Soft, slightly tender over the epigastric area without rebound or guarding.? He does have a positive Lopez's sign.? No CVA tenderness. Musculoskeletal:? Range of motion of the upper and lower extremities is difficult at the major joints with section of the wrist and hands due to chronic pain and stiffness.? No crepitus. ?Edema as above , no calf tenderness , no leg asymmetry.? Gait not assessed at this point. Neurologic:? As above, cranial nerves 2-12 are grossly intact.? No focal deficits noted. Vascular:? 2+ pulses upper and lower extremities distally. ?Less than 2nd capillary refill of the finger and toes bilaterally upper and lower extremities respectively. ? SIGNIFICANT LABORATORY DATA:? As above ? REVIEW OF IMAGES: CT ABDOMEN AND PELVIS IMPRESSION: *? Gallbladder hydrops and mild thickening of gallbladder wall. Although the common duct and intrahepatic ducts are dilated, no obstructing stones are visualized within the biliary tree. Also, no stones are identified within the hydropic gallbladder. Consider correlation with liver function tests, bilirubin levels and right upper quadrant ultrasound (or MRCP). Acute cholecystitis and cholangitis would be considered in this patient with abdominal pain and fever. *? There are opacities with air bronchograms from airspace disease and/or atelectasis in the visualized bases. *? Splenomegaly is of uncertain chronicity. There are no comparison abdominal imaging exams. *? Bilateral renal stones. Well-positioned right ureteral stent in place. No hydronephrosis. *? Large amount of fecal material in the sigmoid colon and rectum is suggestive of constipation. The subtle haziness of perirectal fat is suspicious for mild proctitis. ? CXR IMPRESSION: Low inspiratory effort with bibasilar atelectasis. EKG REVIEW: Sinus tachycardia 122 bpm, no ST elevations or depressions, LBBB ? chronicity, QT 334. ? Bedside ultrasound for hemodynamic instability: There is left ventricular hypertrophy, no noticeable wall motion abnormality to my view.? There is no tricuspid regurgitation, there is 1+ mitral regurg. The IVC measures 1.4 cm and is fully collapsible with inspiration. ? ASSESSMENT AND PLAN: 1. Acute severe sepsis possible shock likely multifactorial in setting of UTI and gallbladder disease 2. Urinary tract infection 3. Transaminitis likely related to gallbladder disease, I do believe there is a possible non radio opaque obstructing stone of the gallbladder neck causing inflammation of the gallbladder as well as the pancreatitis, therefore choledocholithiasis is not yet ruled out, less likely acute cholangitis 4.?Acute pancreatitis secondary to 3. 5. Hypotension due to the above and worsened by narcotic administration, volume depletion in the setting of third-spacing 6. Sacrococcygeal pressure ulcers stage I and 2 present on admission 7. Pseudo hypocalcemia with corrected level of 9.4 8. Acute hypokalemia 9. Hypoalbuminemia 10. Nonobstructive nephrolithiasis 11. chronic constipation PLAN OF CARE: 1. Admit to ICU, vital signs, I's and O's, will place a central line in order to administer vasopressors, will start him on cefepime 2 g IV every 12 hours which will cover the UTI as well as its intra-abdominal pathology. ?Patient has received almost 3 L of IV fluids thus far and was treated with ceftriaxone.? I will switch this to cefepime in and will consider adding metronidazole to cover for Gram-negative and anaerobic organisms in the setting of possible intra-abdominal pathology. 2. Even though surgery Dr. Escamilla was consulted and stated that at that point was nothing to do from a surgical standpoint in regards to the gallbladder findings, I do believe there is something more to a, I will ask for a 2nd opinion from Dr. Rubio (sheet metal mechanic) to determine if the patient needs in the the HIDA scan versus MRCP or she could discuss the case with the surgeon to further evaluate the above-mentioned issue. 3. In the meantime the patient will be kept NPO, will monitor closely the calcium, phosphorus levels, repeat full set of laboratories including LFTs and lipase in the morning.? 4. Start Levophed and administered normal saline with 40 mEq is a potassium for replacement. 5. Will order IV fluids as the patient appears to be dehydrated both by clinical exam as well as per echo for the IVC is small and fully collapsible. 6. Given the degree of illness, I suspect it could be some sort of adrenal insufficiency therefore hydrocortisone 100 mg IV x1 will be given. 7. In addition the patient appears to be on long-acting beta-demond, therefore I wonder if he is retaining the byproducts, I will give him glucagon 1 mg IV x1. 8. I will hold Eliryneis for now for I do suspect that the patient will have some sort of procedure once we have better define what is happening with his gallbladder and biliary duct system. 9. I do not think the patient has an ammonia despite of the CT or x-ray findings given that there is no symptomatology associated with it, no hypoxia, no cough or sputum production, no complaints of shortness of breath. ? GI PROPHYLAXIS: ?IV ppi DVT PROPHYLAXIS: ?Pneumatic stockings only, Eliquis on hold. ? Clinical update 1. At 2104 I received a phone call from the ER physician who received a call from the lab reported an increase in his white count to 30, 000 (from 11,000) it appears that the labs were drawn after the steroids were given and I wonder if it was either drawn off the line or from the same arm.? Nevertheless the patient's blood pressure does not seem to have improved despite of IV fluids and albumin after 2nd bag therefore patient will be burnham to the ICU where I will place a central line in place him on pressors. ? 2234 the case was discussed with the sheet metal mechanic Dr. Rubio? who upon discussing the case and reviewing all of the information agrees that this could be related to a obstructing stone sitting at the neck of the gallbladder, will speak with the general surgeon and further guide the patient's care. ? 230 at this point, the sheet metal mechanic has discussed the case with the general surgeon who advises the patient would have a cholecystotomy placed by Interventional Radiology, given that the patient is mentating well, is on antibiotics and now fully supported with vasopressors, this will wait until the morning unless he decompensates at which point he would have to be transferred to a tertiary facility but this is not expected. ?Eventually once the patient is more stable he may have a cholecystectomy. ? 8 it was reported from the lab the patient has 2 positive blood cultures with Gram-negative organisms.? He is being covered with cefepime, I will add metronidazole for anaerobic coverage. ? Follow-up sepsis exam done at 02:05 120/70; 110, 21, 96% 1L NC , 97.7 General:? Alert oriented x3 no acute distress. Skin:? no changes from above Cardiac:? Clear S1-S2, no murmurs rubs or gallops. No JVD. Pulmonary:? Diminished lung sounds bilaterally, however clear without wheezes, rales or rhonchi. Abdomen:? Protuberant, positive bowel sounds in all 4 quadrants.? Soft, nontender, no rebound or guarding.? No CVA tenderness and no Lopez?s sign on exam at this point Vascular:? 2+ pulses upper and lower extremities distally. ?Less than 2nd capillary refill of the finger and toes bilaterally upper and lower extremities respectively. ? Will continue with the above-mentioned plan of care, plan cholecystostomy with CT guidance by Interventional Radiology in the morning. ? Critical care time used for critical evaluation of this patient, diagnosis, treatment and coordination of care, review her records and documentation, discussion and planning with other providers TOTAL CRITICAL CARE TIME 200 MIN . ? Patient's care was discussed in detail with Dr. Seth.? He is aware of all the above as well as the plan of care for this patient. [facility] Past Medical History Medical History Cervical stenosis of spine Chronic indwelling Butts catheter COVID-19 DVT (deep venous thrombosis) Hyperlipidemia Hypertension Juvenile rheumatoid arthritis NSTEMI (non-ST elevated myocardial infarction) Psoriatic arthritis Urinary retention Social History Social History Household Members: None Housing: Other Housing Other:: SNF Patient Tobacco Use Status: Never used Tobacco Use of substances other than those prescribed or required for medical reasons: No Have you been hit, kicked, punched, or otherwise hurt by someone within the past year? If so, by whom?: No Do you feel safe in your current relationship?: No Current Relationship Is there a partner from a previous relationship who is making you feel unsafe now?: No Are you made to feel afraid or neglected: No Advance Directives: Yes Advance Directives Information Provided: No Advance Directives on File: No Advance Directives Date on File: 04/30/22 Do you have thoughts of harming others: None Do you have a plan to hurt others: No Plan Recently lost weight without trying: No Nutrition Risks: No Nutritional Risk Meds Allergies Allergy/AdvReac Type Severity Reaction Status Date / Time Penicillins Allergy Unknown Unknown Verified 04/29/22 13:18 Active Medications: Current Medications Acetaminophen (Acetaminophen 325 Mg Tablet) 650 mg PO TID DAVID Albuterol/Ipratropium (Albuterol/Iprat 2.5/0.5mg 3 Ml Ampul.Neb) 3 ml INHALE Q6H PRN PRN Reason: Shortness Of Breath Or Wheezing Hydromorphone HCl (Hydromorphone Hcl 0.5 Mg/0.5 Ml Syringe) 0.5 mg IVPUSH Q2H PRN; Protocol PRN Reason: Pain, Moderate (Pain Scale 4-6 Hydromorphone HCl (Hydromorphone Hcl 1 Mg/Ml Syringe) 1 mg IVPUSH Q3H PRN; Protocol PRN Reason: Pain, Severe (Pain Scale 7-10) Cefepime HCl 2 gm/ Sodium (Chloride) 50 mls @ 100 mls/hr IV Q12H [facility] Last Admin: 04/29/22 23:23 Dose: 100 mls/hr Potassium Chloride/Sodium Chloride () 40 meq in 1,000 mls @ 150 mls/hr IVCONT .Q6H40M [facility] Last Admin: 04/29/22 22:17 Dose: 150 mls/hr Norepinephrine Bitartrate (Levophed) 8 mg in 250 mls @ 0 mls/hr IVCONT .Q0M DAVID; Protocol Lidocaine (Lidocaine 4 % Patch Adh..Patch) 2 patch TRANSDERMA DAILY PRN; Protocol PRN Reason: Pain, Mild Pharmacy Consult (Consult Rx Perform Med Rec) 1 each MISCELLANE ONCE PRN PRN Reason: Consult order Home Medications Medication Instructions Recorded Confirmed Last Taken Type acetaminophen 325 mg tablet 650 mg PO TID 04/29/22 04/29/22 Unknown History ammonium lactate 12 % topical cream 1 appl topical BID 04/29/22 04/29/22 Unknown History apixaban 5 mg tablet (Eliquis) 1 tab PO BID 04/29/22 04/29/22 Unknown History ascorbic acid (vitamin C) 500 mg 500 mg PO BID 04/29/22 04/29/22 Unknown History tablet cyanocobalamin (vitamin B-12) 500 500 mcg PO DAILY 04/29/22 04/29/22 Unknown History mcg tablet diclofenac sodium 1 % topical gel 2 g topical Q6H PRN Pain, Mild 04/29/22 04/29/22 Unknown History finasteride 5 mg tablet 1 tab PO DAILY 04/29/22 04/29/22 Unknown History furosemide 20 mg tablet 20 mg PO Q2D 04/29/22 04/29/22 Unknown History ipratropium 0.5 mg-albuterol 3 mg 3 ml inhalation Q6H PRN Shortness 04/29/22 04/29/22 Unknown History (2.5 mg base)/3 mL nebulization Of Breath Or Wheezing soln lactulose 10 gram/15 mL oral 20 ml PO DAILY 04/29/22 04/29/22 Unknown History solution lidocaine 4 % topical patch 2 patch topical DAILY PRN Pain, 04/29/22 04/29/22 Unknown History (Aspercreme (lidocaine)) Mild magnesium oxide 400 mg (241.3 mg 400 mg PO DAILY 04/29/22 04/29/22 Unknown History magnesium) tablet melatonin 3 mg tablet 3 mg PO BEDTIME PRN Sleep 04/29/22 04/29/22 Unknown History metoprolol succinate 25 mg 1 tab PO DAILY 04/29/22 04/29/22 Unknown History tablet,extended release 24 hr morphine 30 mg tablet,extended 1 tab PO BID PRN Pain, Severe 04/29/22 04/29/22 Unknown History release multivitamin with minerals 1 tab PO DAILY 04/29/22 04/29/22 Unknown History (Multiple Vitamin-Minerals tablet) nystatin 100,000 unit/gram topical 1 appl topical TID 04/29/22 04/29/22 Unknown History cream oxycodone 5 mg tablet 5 mg PO Q6H PRN Pain, Moderate 04/29/22 04/29/22 Unknown History pregabalin 75 mg capsule 1 cap PO BID 04/29/22 04/29/22 Unknown History sennosides 8.6 mg tablet (senna) 17.2 mg PO BEDTIME 04/29/22 04/29/22 Unknown History tamsulosin 0.4 mg capsule 2 cap PO BEDTIME 04/29/22 04/29/22 Unknown History zinc 50 mg tablet 50 mg PO DAILY 04/29/22 04/29/22 Unknown History Physical Exam Vital Signs: Vital Signs: Last Vital Signs Temp 97.7 F 04/29/22 23:07 Pulse 102 H 04/29/22 23:00 Resp 21 H 04/29/22 23:00 BP 115/59 L 04/29/22 23:00 Pulse Ox 94 04/29/22 23:00 O2 Del Method 04/29/22 23:00 O2 Flow Rate 2 04/29/22 23:00 Oxygen Flow Rate 1 04/29/22 21:45 BMI result Body Mass Index 29.7 Results Labs CBC and Chem 7: 04/29/22 21:22 04/29/22 21:22 Labs: Laboratory Results - last 24 hr 04/29/22 04/29/22 04/29/22 13:28 13:28 13:31 MCV MCH MCHC RDW Plt Count MPV Immature Gran % (Auto) Neut % (Auto) Lymph % (Auto) [place] % (Auto) Eos % (Auto) Baso % (Auto) Lymph # (Auto) [place] # (Auto) Eos # (Auto) Baso # (Auto) Abs Immat Gran (auto) Absolute Neuts (auto) Absolute Nucleated RBC Nucleated RBC % (auto) Smear Tech's Comments Anion Gap Estim Creat Clear Calc Estimated GFR POC Glucose Random Glucose Lactic Acid 1.2 Calcium Phosphorus Magnesium Total Bilirubin Direct Bilirubin AST ALT Alkaline Phosphatase B-Natriuretic Peptide 185 H Total Protein Albumin Lipase Urine Color Urine Appearance Urine pH Ur Specific [place] Urine Protein Urine Glucose (UA) Urine Ketones Urine Blood Urine Nitrite Ur Leukocyte Esterase Urine RBC Urine WBC Ur Squamous Epith Cells Urine Bacteria COVID-19 (ELVI) Negative COVID-19 Clin Com See Note 04/29/22 04/29/22 04/29/22 13:59 13:59 14:16 MCV 81.6 MCH 26.3 L MCHC 32.2 RDW 14.4 Plt Count 210 MPV 8.8 L Immature Gran % (Auto) 0.3 Neut % (Auto) 96.4 H Lymph % (Auto) 2.0 L [place] % (Auto) 1.1 L Eos % (Auto) 0.0 Baso % (Auto) 0.2 Lymph # (Auto) 0.2 L [place] # (Auto) 0.1 Eos # (Auto) 0.0 Baso # (Auto) 0.0 Abs Immat Gran (auto) 0.04 H Absolute Neuts (auto) 11.5 H Absolute Nucleated RBC 0.000 Nucleated RBC % (auto) 0.0 Smear Tech's Comments VERIFIED Anion Gap 16 Estim Creat Clear Calc 111.5 Estimated GFR > 60 POC Glucose Random Glucose 198 H Lactic Acid Calcium 8.3 L Phosphorus Magnesium 1.8 Total Bilirubin 2.5 H Direct Bilirubin AST 242 H ALT 152 H Alkaline Phosphatase 680 H B-Natriuretic Peptide Total Protein 6.7 Albumin 3.3 L Lipase 141 H Urine Color YELLOW Urine Appearance HAZY Urine pH 7.5 Ur Specific [place] 1.015 Urine Protein TRACE Urine Glucose (UA) NEG Urine Ketones NEG Urine Blood 3+ H Urine Nitrite POS H Ur Leukocyte Esterase 3+ H Urine RBC 1-4 Urine WBC 76-150 H Ur Squamous Epith Cells NONE Urine Bacteria 4+ COVID-19 (ELVI) COVID-19 Clin Com 04/29/22 04/29/22 04/29/22 19:59 21:22 21:22 MCV 82.8 MCH 25.9 L MCHC 31.3 RDW 14.6 Plt Count 197 MPV 9.4 Immature Gran % (Auto) 3.1 H Neut % (Auto) 92.4 H Lymph % (Auto) 1.1 L [place] % (Auto) 3.3 Eos % (Auto) 0.0 Baso % (Auto) 0.1 Lymph # (Auto) 0.3 L [place] # (Auto) 1.0 Eos # (Auto) 0.0 Baso # (Auto) 0.0 Abs Immat Gran (auto) 0.93 H Absolute Neuts (auto) 27.7 H Absolute Nucleated RBC 0.000 Nucleated RBC % (auto) 0.0 Smear Tech's Comments Anion Gap Estim Creat Clear Calc Estimated GFR POC Glucose 147 H Random Glucose Lactic Acid 1.1 Calcium Phosphorus Magnesium Total Bilirubin Direct Bilirubin AST ALT Alkaline Phosphatase B-Natriuretic Peptide Total Protein Albumin Lipase Urine Color Urine Appearance Urine pH Ur Specific [place] Urine Protein Urine Glucose (UA) Urine Ketones Urine Blood Urine Nitrite Ur Leukocyte Esterase Urine RBC Urine WBC Ur Squamous Epith Cells Urine Bacteria COVID-19 (ELVI) COVID-19 Clin Com 04/29/22 21:22 MCV MCH MCHC RDW Plt Count MPV Immature Gran % (Auto) Neut % (Auto) Lymph % (Auto) [place] % (Auto) Eos % (Auto) Baso % (Auto) Lymph # (Auto) [place] # (Auto) Eos # (Auto) Baso # (Auto) Abs Immat Gran (auto) Absolute Neuts (auto) Absolute Nucleated RBC Nucleated RBC % (auto) Smear Tech's Comments Anion Gap 15 Estim Creat Clear Calc 103.2 Estimated GFR > 60 POC Glucose Random Glucose 172 H Lactic Acid Calcium 7.6 L D Phosphorus 3.1 Magnesium Total Bilirubin 2.9 H Direct Bilirubin 2.6 H AST 161 H ALT 121 H Alkaline Phosphatase 529 H D B-Natriuretic Peptide Total Protein 5.6 L Albumin 3.1 L Lipase 834 H Urine Color Urine Appearance Urine pH Ur Specific [place] Urine Protein Urine Glucose (UA) Urine Ketones Urine Blood Urine Nitrite Ur Leukocyte Esterase Urine RBC Urine WBC Ur Squamous Epith Cells Urine Bacteria COVID-19 (ELVI) COVID-19 Clin Com Imaging Radiologist's Impressions: Impressions Abdomen/Pelvis CT 04/29/22 15:01 IMPRESSION: * Gallbladder hydrops and mild thickening of gallbladder wall. Although the common duct and intrahepatic ducts are dilated, no obstructing stones are visualized within the biliary tree. Also, no stones are identified within the hydropic gallbladder. Consider correlation with liver function tests, bilirubin levels and right upper quadrant ultrasound (or MRCP). Acute cholecystitis and cholangitis would be considered in this patient with abdominal pain and fever. * There are opacities with air bronchograms from airspace disease and/or atelectasis in the visualized bases. * Splenomegaly is of uncertain chronicity. There are no comparison abdominal imaging exams. * Bilateral renal stones. Well-positioned right ureteral stent in place. No hydronephrosis. * Large amount of fecal material in the sigmoid colon and rectum is suggestive of constipation. The subtle haziness of perirectal fat is suspicious for mild proctitis. Chest X-Ray 04/29/22 15:02 IMPRESSION: Low inspiratory effort with bibasilar atelectasis. Abdomen Ultrasound 04/29/22 17:29 IMPRESSION: Distended gallbladder. Tumefactive sludge in the neck of the gallbladder. Possible gallstone. Positive ultrasound Lopez's sign. Findings equivocal for acute cholecystitis. Consider HIDA scan for further assessment. MRCP may be helpful for assessment of the gallbladder and bile ducts. Chest X-Ray 04/29/22 23:05 IMPRESSION: 1. The tip of the catheter is seen at the cavoatrial junction. There is no pneumothorax.
[2022-04-29] MEDS: Magnesium Sulfate/H2O 2 GM/50 ML PIGGYBACK IV (20:56)
[2022-04-29 21:28] LABS: Basophils Percent Auto 0.1 % (0-2); Hematocrit 26.5 % (42.0-52.0); Hemoglobin 8.3 g/dl (14.0-18.0); Imm Gran Abs Auto 0.93 X10*3/uL (0.00-0.03); Imm Gran Pct Auto 3.1 % (0.0-0.4); Lymphocytes Absolute Auto 0.3 X10*3/uL (1.2-4.9); Lymphocytes Percent Auto 1.1 % (20-40); Mean Corpuscular HGB Conc 31.3 g/dl (31.0-36.0); Mean Corpuscular Hemoglobin 25.9 pg (27.0-33.0); Mean Corpuscular Volume 82.8 fL (80.0-98.0); Mean Platelet Volume 9.4 fL (9.4-12.4); Monocytes Percent Auto 3.3 % (2-11); Neutrophils Absolute Auto 27.7 x10*3/uL (2.0-8.3); Neutrophils Percent Auto 92.4 % (45-73); Platelet Count 197 X10*3/uL (160-400); Red Cell Distribution Width 14.6 % (11.0-16.0); SCAN SMEAR FLAG 1
[2022-04-29] MEDS: Hydrocortisone Sod Succ/PF 100 MG VIAL IVPUSH (21:32)
--- NOTE | 2022-04-29 21:33 | PC.NURSE ---
pt provided perineal care, linen change, barrier cream applied and wound dressing. pt asking this RN repeatedly for pain medication, pt informed that due to low BPs pt cannot have pain medication at this time, pt continues to ask for pain medication, MD at bedside to explain to pt once more why we cannot administer pain medication at this time. to note pt did get morphine shortly after arrival. pt repositioned in bed with pillows underneath sacrum.
[2022-04-29 21:37] LABS: Lactic Acid 1.1 mmol/L (0.5-2.0)
[2022-04-29 21:53] LABS: Alanine Aminotransferase 121 U/L (0-40); Albumin Level 3.1 g/dL (3.5-5.0); Alkaline Phosphatase 529 U/L (39-117); Anion Gap 15 (12-20); Aspartate Amino Transferase 161 U/L (5-37); Bilirubin Direct 2.6 mg/dL (0.0-0.5); Bilirubin Total 2.9 mg/dL (0.0-1.0); Blood Urea Nitrogen 15 mg/dL (9-16); Calcium 7.6 mg/dL (8.4-10.2); Carbon Dioxide 28 mmol/L (22-29); Chloride 101 mmol/L (96-108); Creatinine Clr Calc Pharmacy 103.2; Estimated Glomerular Filt Rate > 60; Glucose Random 172 mg/dL (60-115); Lipase 834 U/L (8-78); Phosphorus 3.1 mg/dL (2.7-4.5); Potassium 3.1 mmol/L (3.3-5.1); Sodium 141 mmol/L (135-145); Total Protein 5.6 g/dL (6.5-8.0)
[2022-04-29 21:55] LABS: MANUAL DIFF FLAG SCAN
--- NOTE | 2022-04-29 22:04 | PC.NURSE ---
per PA decision made to transfer pt to ICU due to blood pressures not improving. pt transfered by this RN and EDT.
[2022-04-29] MEDS: KCl 40 mEq in 0.9 % Sodium Chl 40 MEQ/1,000 ML IV.SOLN 150 MEQ IVCONT (22:17)
--- NOTE | 2022-04-29 22:18 | W.PM.CCHP ---
Procedures Date of Service Date of Service: 04/30/22 Central Line Placement Right IJ: Central Line Comments: The patient is fully alert and oriented x3, the procedure was explained in detail with the patient is well as the necessity is and risks of placing a central line, he verbally agrees to the procedure in the presence of both his nurse (Charla) as well as the charge nurse (katie) A quick time-out was made for clarification and proper patient identification, patient was positioned, landmarks were identified, US used to locate a? large compressible IJ.? The right neck was widely prepped and draped in a full sterile fashion.? Ultrasound was used to locate again the right IJ, the vein was cannulated on the 1st pass with an 18 gauge thin needle, dark nonpulsatile blood return was obtained.? The wire was threaded, a small incision was made at its base and dilator inserted.? A triple-lumen central venous catheter was advanced into the vein up to the hub without problems, wired was removed. Ports had? good blood return and flushed x3.? The catheter was secured with 3 sutures at 3 sites, a Biopatch and dry sterile dressing were applied. Post procedure chest x-ray showed the line to be in good position without pneumothorax.? No bleeding or complications noted. Consent for Procedure: Elective - informed consent obtained
[2022-04-29] MEDS: HYDROmorphone HCl 1 MG/ML SYRINGE IVPUSH ×2 (22:28→23:53)
[2022-04-29] MEDS: cefEPime HCl 2 GM in 0.9 % Sodium Chloride 50 ML IV (23:23)
[2022-04-30] VITALS (27 sets, daily range): BP systolic 84–138; BP diastolic 46–82; PULSE 69–110; RESP 12–119; TEMP 36.1–36.8; O2SAT 90–100; BMI 29.2
[2022-04-30] MEDS: metroNIDAZOLE/NS 500 MG/100 ML PIGGYBACK 100 MG IV ×3 (01:13→17:05)
[2022-04-30] MEDS: Pantoprazole Sodium 40 MG/10 ML VIAL IVPUSH (05:18)
[2022-04-30 05:19] LABS: Hemoglobin 8.7 g/dl (14.0-18.0); Mean Corpuscular HGB Conc 31.1 g/dl (31.0-36.0); Mean Corpuscular Hemoglobin 26.5 pg (27.0-33.0); Mean Corpuscular Volume 85.4 fL (80.0-98.0); Mean Platelet Volume 9.7 fL (9.4-12.4); Platelet Count 223 X10*3/uL (160-400); Red Blood Count 3.28 X10*6/uL (4.60-5.80); Red Cell Distribution Width 14.9 % (11.0-16.0)
[2022-04-30 05:26] LABS: INTERNATIONAL NORM RATIO 2.3 (0.9-1.1); Prothrombin Time 26.8 SEC (10.0-13.1)
[2022-04-30 05:28] LABS: Partial Thromboplastin Time 37.2 SEC (26.0-36.4)
[2022-04-30 05:41] LABS: Band Neutrophils Percent 23 % (3-5); Lymphocytes Absolute Manual 1.4 X10*3/uL (1.2-4.9); Lymphocytes Percent Manual 3 % (20-40); Monocytes Absolute Manual 0.9 X10*3/uL (0.1-1.2); Monocytes Percent Manual 2 % (2-11); Neutrophils Absolute Manual 43.7 X10*3/uL (2.0-8.3); Neutrophils Percent Manual 72 % (45-73)
[2022-04-30 05:42] LABS: Alanine Aminotransferase 112 U/L (0-40); Albumin Level 3.5 g/dL (3.5-5.0); Alkaline Phosphatase 478 U/L (39-117); Anion Gap 14 (12-20); Aspartate Amino Transferase 119 U/L (5-37); Bilirubin Direct 2.7 mg/dL (0.0-0.5); Bilirubin Total 3.2 mg/dL (0.0-1.0); Blood Urea Nitrogen 15 mg/dL (9-16); C Reactive Protein 18.45 mg/dL (< or = 0.50); Carbon Dioxide 31 mmol/L (22-29); Chloride 103 mmol/L (96-108); Creatinine Clr Calc Pharmacy 103.2; Estimated Glomerular Filt Rate > 60; Glucose Random 148 mg/dL (60-115); Lipase 215 U/L (8-78); Sodium 144 mmol/L (135-145); Total Protein 5.9 g/dL (6.5-8.0)
[2022-04-30 05:43] LABS: Basophilic Stippling 1+ (0-2) /OIF; Hypochromasia 1+ (5-14) /OIF; Large Platelet PRESENT; Platelet Estimate NORMAL (NORMAL); Platelet Morphology Comment NOTED; RBC Morphology NOTED
[2022-04-30 05:44] LABS: Dohle Bodies PRESENT; Polychromasia 1+ (0-2) /OIF
[2022-04-30 06:19] LABS: Lactic Acid 0.6 mmol/L (0.5-2.0)
--- NOTE | 2022-04-30 07:11 | PM.GICN ---
History of Present Illness Data of Consult Service Date: 04/30/22 Requesting physician: Erwin Mandujano Primary Care Provider: Deniz Livingston MD [facility] Reason for consult: pancreatritis and GB disease 76 YM with cervical stenosis, chronic indwelling Butts catheter due to retention and BPH, COVID-19, DVT about 1 year ago (on Eliquis), hypertension, hyperlipidemia, rheumatoid arthritis, and STEMI, arthritis transferred to [facility] ED on 04/29/22 from SNF ([facility]) with abdominal pain. ? Reportedly patient had received a new bowel regimen (a stool softener).? Patient complained of lower abdominal pain with fever of 101.3 and EMS was called.? The patient's only complaint at the time was epigastric pain and feeling very cold without any nausea, vomiting, chest pain or shortness of breath. ? In the ED, the patient was noted to be normotensive but febrile with temperature of 101.4 F, HR of 121, RR 35 and O2 sat 93% on 2 L nasal cannula; Around 5 pm, the patient decompensated with a blood pressure of 78/39, tachycardic and tachypneic. ? Labs showed wbc count 11.9, hemoglobin of 10.7 and hematocrit 33.2, platelets 210.? BUN 13, creatinine 0.62, random glucose 198, calcium 8.3, magnesium 1.8, lactic acid 1.2. ? LFTs were abnormal with total bilirubin of 2.5, AST 42, ALT 152, alk-phos 680, lipase 141 albumin 3.3. Pt was admitted to the ICU and continued to complain of feeling very cold with 8/10 epigastric pain radiating to the RUQ in waves, sharp, lasting a few seconds to a few minutes at a time, Pain improved after pt was given IV morphine.? Pt complains of joint pain and states abdominal pain is not too bad today. IMAGING STUDIES: 04/29/[address] SCAN SHOWED: ?Gallbladder hydrops and mild thickening of gallbladder wall. Although the common duct and intrahepatic ducts are dilated, no obstructing stones are visualized within the biliary tree. Also, no stones are identified within the hydropic gallbladder. Consider correlation with liver function tests, bilirubin levels and right upper quadrant ultrasound (or MRCP). Acute cholecystitis and cholangitis would be considered in this patient with abdominal pain and fever. *? There are opacities with air bronchograms from airspace disease and/or atelectasis in the visualized bases. *? Splenomegaly is of uncertain chronicity. There are no comparison abdominal imaging exams. *? Bilateral renal stones. Well-positioned right ureteral stent in place. No hydronephrosis. *? Large amount of fecal material in the sigmoid colon and rectum is suggestive of constipation. The subtle haziness of perirectal fat is suspicious for mild proctitis. ABDOMINAL ULTRASOUND SHOWED: Distended gallbladder. Tumefactive sludge in the neck of the gallbladder. Possible gallstone. Positive ultrasound Lopez's sign. Findings equivocal for acute cholecystitis. Consider HIDA scan for further assessment. MRCP may be helpful for assessment of the gallbladder and bile ducts. Review of Systems Review of Systems: Constitutional : Positive Fever, positive Chills ENT/Mouth :? No sore throat, No Rhinorrhea Eyes: No Swelling, No Redness Cardiovascular : No Chest Pain, No SOB, No Edema Respiratory : No Cough, No Sputum, No Wheezing Gastrointestinal : No Nausea, no Vomiting, no Diarrhea, positive abdominal pain, No Hematochezia, No Melena Genitourinary : No Dysuria, No Urinary Frequency, No Hematuria, No Urgency? Musculoskeletal : No joint pain, No Myalgias, No Joint Swelling Skin : No Skin Lesions, No rash Neuro : No Weakness, No Numbness, No Dizziness, No Headache Psych : No Anxiety/Panic, No Depression Yes all other systems are reviewed and are negative Neurologic: Reports confusion Psychiatric: Psychiatric: Reports confusion [facility] Past Medical History Medical History (Updated 05/21/22 @ 00:03 by Darius Malcolm) Anemia Catheter-associated urinary tract infection Cervical stenosis of spine Chronic indwelling Butts catheter COVID-19 DVT (deep venous thrombosis) ESBL (extended spectrum beta-lactamase) producing bacteria infection Hyperlipidemia Hypertension Juvenile rheumatoid arthritis NSTEMI (non-ST elevated myocardial infarction) Psoriatic arthritis Stage 2 skin ulcer of sacral region Urinary retention Surgical History Surgical History History of laparoscopic cholecystectomy (05/04/22) Social History Social History Household Members: None Housing: Other Housing Other:: SNF Patient Tobacco Use Status: Never used Tobacco Advance Directives Date on File: 04/30/22 service: No Current occupational status: unemployed Meds Allergies Allergy/AdvReac Type Severity Reaction Status Date / Time Penicillins Allergy Unknown Unknown Verified 04/29/22 13:18 Active Medications: Current Medications Acetaminophen (Acetaminophen 325 Mg Tablet) 650 mg PO TID [facility] Albuterol/Ipratropium (Albuterol/Iprat 2.5/0.5mg 3 Ml Ampul.Neb) 3 ml INHALE Q6H PRN PRN Reason: Shortness Of Breath Or Wheezing Hydromorphone HCl (Hydromorphone Hcl 0.5 Mg/0.5 Ml Syringe) 0.5 mg IVPUSH Q2H PRN; Protocol PRN Reason: Pain, Moderate (Pain Scale 4-6 Hydromorphone HCl (Hydromorphone Hcl 1 Mg/Ml Syringe) 1 mg IVPUSH Q3H PRN; Protocol PRN Reason: Pain, Severe (Pain Scale 7-10) Last Admin: 04/29/22 23:53 Dose: 1 mg Cefepime HCl 2 gm/ Sodium (Chloride) 50 mls @ 100 mls/hr IV Q12H [facility] Last Infusion: 04/30/22 00:01 Dose: Infused Norepinephrine Bitartrate (Levophed) 8 mg in 250 mls @ 0 mls/hr IVCONT .Q0M [facility]; Protocol Last Titration: 04/30/22 04:46 Dose: 0.05 mcg/kg/min, 8.33 mls/hr Metronidazole (Flagyl) 500 mg in 100 mls @ 100 mls/hr IV Q8H [facility] Last Infusion: 04/30/22 02:34 Dose: Infused Potassium Chloride/Dextrose/Sod Cl () 20 meq in 1,000 mls @ 80 mls/hr IVCONT .[id number] [facility] Lidocaine (Lidocaine 4 % Patch Adh..Patch) 2 patch TRANSDERMA DAILY PRN; Protocol PRN Reason: Pain, Mild Pantoprazole Sodium (Pantoprazole Sodium 40 Mg/10 Ml Vial) 40 mg IVPUSH DAILY@0630 [facility] Last Admin: 04/30/22 05:18 Dose: 40 mg Pharmacy Consult (Consult Rx Perform Med Rec) 1 each MISCELLANE ONCE PRN PRN Reason: Consult order Home Medications Medication Instructions Recorded Confirmed Last Taken Type acetaminophen 325 mg tablet 650 mg PO TID 04/29/22 05/25/22 Unknown History ammonium lactate 12 % topical cream 1 appl topical BID 04/29/22 05/25/22 Unknown History apixaban 5 mg tablet (Eliquis) 1 tab PO BID 04/29/22 05/25/22 Unknown History ascorbic acid (vitamin C) 500 mg 500 mg PO BID 04/29/22 05/25/22 Unknown History tablet cyanocobalamin (vitamin B-12) 500 500 mcg PO DAILY 04/29/22 05/25/22 Unknown History mcg tablet diclofenac sodium 1 % topical gel 2 g topical Q6H PRN Pain, Mild 04/29/22 05/25/22 Unknown History finasteride 5 mg tablet 1 tab PO DAILY 04/29/22 05/25/22 Unknown History furosemide 20 mg tablet 20 mg PO Q2D 04/29/22 05/25/22 Unknown History ipratropium 0.5 mg-albuterol 3 mg 3 ml inhalation Q6H PRN Shortness 04/29/22 05/25/22 Unknown History (2.5 mg base)/3 mL nebulization Of Breath Or Wheezing soln lactulose 10 gram/15 mL oral 20 ml PO DAILY 04/29/22 05/25/22 Unknown History solution lidocaine 4 % topical patch 2 patch topical DAILY PRN Pain, 04/29/22 05/25/22 Unknown History (Aspercreme (lidocaine)) Mild magnesium oxide 400 mg (241.3 mg 400 mg PO DAILY 04/29/22 05/25/22 Unknown History magnesium) tablet melatonin 3 mg tablet 3 mg PO BEDTIME PRN Sleep 04/29/22 05/25/22 Unknown History metoprolol succinate 25 mg 1 tab PO DAILY 04/29/22 05/25/22 Unknown History tablet,extended release 24 hr multivitamin with minerals 1 tab PO DAILY 04/29/22 05/25/22 Unknown History (Multiple Vitamin-Minerals tablet) nystatin 100,000 unit/gram topical 1 appl topical TID 04/29/22 05/25/22 Unknown History cream sennosides 8.6 mg tablet (senna) 17.2 mg PO BEDTIME 04/29/22 05/25/22 Unknown History tamsulosin 0.4 mg capsule 2 cap PO BEDTIME 04/29/22 05/25/22 Unknown History zinc 50 mg tablet 50 mg PO DAILY 04/29/22 05/25/22 Unknown History Physical Exam Vital Signs: Vital Signs: Last Vital Signs Temp 97 F 04/30/22 05:57 Pulse 91 04/30/22 07:00 Resp 22 H 04/30/22 07:00 BP 118/59 L 04/30/22 07:00 Pulse Ox 97 04/30/22 07:00 O2 Del Method 04/30/22 07:00 O2 Flow Rate 1 04/30/22 07:00 Oxygen Flow Rate 1 04/29/22 21:45 BMI result Body Mass Index 29.2 Const: General: no acute distress, confusion and ill appearing Nutritional Appearance: overweight Orientation/consciousness: confusion Limitations: no limitations HEENT: Head: Yes normal to inspection Ears: hearing grossly normal bilaterally Mouth: Normal oral and palatal mucosa present Eyes: Sclerae: sclerae normal Neck: Neck: Yes normal visual inspection Chest: Chest palpation & inspection: normal inspection of the chest Resp: Effort & Inspection: normal respiratory effort Auscultation: clear to auscultation bilaterally Cardio: Palpation: normal PMI Rate: regular rate Rhythm: regular rhythm Heart sounds: S1 normal heart sound present, S2 normal heart sound present and no murmurs GI: Palpation (GI): Soft to palpation, nontender and No hepatosplenomegaly present Auscultation: normal bowel sounds Rectal Exam - Male: Yes deferred Skin: General skin exam: no rashes or lesions noted Neuro: General: gait normal, moves all extremities and confusion Results Labs CBC & Chem 7: 05/12/22 06:11 05/13/22 10:44 Labs: Short CBC 04/29/22 04/29/22 04/30/22 Range/Units 13:59 21:22 05:10 WBC 11.9 H 30.0 H* 46.0 H* (4.8-10.8) X10*3/uL Hgb 10.7 L 8.3 L D 8.7 L (14.0-18.0) g/dl Hct 33.2 L 26.5 L D 28.0 L (42.0-52.0) % Plt Count 210 197 223 (160-400) X10*3/uL BMP 04/29/22 04/29/22 04/30/22 13:59 21:22 05:10 Sodium 139 141 144 Potassium 4.0 3.1 L D 4.0 D Chloride 95 L 101 103 Carbon Dioxide 32 H 28 31 H BUN 13 15 15 Creatinine 0.62 0.67 0.67 Calcium 8.3 L 7.6 L D 8.0 L Liver Function 04/29/22 04/29/22 04/30/22 Range/Units 13:59 21:22 05:10 Total Bilirubin 2.5 H 2.9 H 3.2 H (0.0-1.0) mg/dL Direct Bilirubin 2.6 H 2.7 H (0.0-0.5) mg/dL AST 242 H 161 H 119 H (5-37) U/L ALT 152 H 121 H 112 H (0-40) U/L Alkaline Phosphatase 680 H 529 H D 478 H (39-117) U/L Albumin 3.3 L 3.1 L 3.5 (3.5-5.0) g/dL Urine 04/29/22 Range/Units 14:16 Urine Color YELLOW Urine Appearance HAZY Urine pH 7.5 (5.0-8.0) Ur Specific [place] 1.015 (1.005-1.025) Urine Protein TRACE (NEG-TRACE) MG/DL Urine Glucose (UA) NEG (NEG) MG/DL Microbiology Microbiology Results: Microbiology 04/29/22 13:59 Blood - Venous Blood Culture - Preliminary Prelim: GNR Gram Stain only 04/29/22 13:28 Blood - Venous Blood Culture - Preliminary Prelim: GNR Gram Stain only Assessment and Plan (1) Elevated transaminase level: Status: Resolved (2) Abnormal CT scan, gallbladder: Status: Resolved Plan 76 YM with cervical stenosis, chronic indwelling Butts catheter (urinary retention and BPH), COVID-19, DVT about 1 year ago (on quis), hypertension, hyperlipidemia, rheumatoid arthritis, and STEMI, arthritis admitted to [facility] ICU on 04/29/22 with abdominal pain, fever and chills.? Pt decompensated yesterday evening with a blood pressure of 78/39, tachycardic and tachypneic and stabilized with IVF and pressors. ? Labs showed wbc count 11.9, hemoglobin of 10.7 and hematocrit 33.2, platelets 210.? BUN 13, creatinine 0.62, random glucose 198, calcium 8.3, magnesium 1.8, lactic acid 1.2. ? LFTs were abnormal with total bilirubin of 2.5, AST 42, ALT 152, alk-phos 680, lipase 141 albumin 3.3. Pt complains of joint pain and states abdominal pain is not too bad today. 04/29/[address] SCAN SHOWED: ?Gallbladder hydrops and mild thickening of gallbladder wall. Although the common duct and intrahepatic ducts are dilated, no obstructing stones are visualized within the biliary tree. Also, no stones are identified within the hydropic gallbladder. Acute cholecystitis and cholangitis would be considered in this patient with abdominal pain and fever. Large amount of fecal material in the sigmoid colon and rectum is suggestive of constipation. The subtle haziness of perirectal fat is suspicious for mild proctitis. ABDOMINAL ULTRASOUND SHOWED: Distended gallbladder. Tumefactive sludge in the neck of the gallbladder. Possible gallstone. Positive ultrasound Lopez's sign. Findings equivocal for acute cholecystitis. Pt has hydrops of GB likely due to cystic/CBD duct obstruction from biliary sludge AP and transaminases have improved with increase in TB RECOMMENDATIONS: 1. Agree with IVF, IV antibiotics and pain medications 2. Follow LFTs daily 3. GB decompression with percutaneous cholecystostomy by IR (pt was discussed with Dr Escamilla and Dr Kaminski) Dr Thompson estate conservator for GI over the weekend. Procedures Date of Service Date of Service: 04/30/22
[2022-04-30] MEDS: KCl 20 mEq in 5% Dex/0.45% Sod 20 MEQ/1,000 ML IV.SOLN 80 MEQ IVCONT ×2 (07:38→17:59)
[2022-04-30] MEDS: HYDROmorphone HCl 1 MG/ML SYRINGE IVPUSH ×4 (08:02→19:53)
[2022-04-30] MEDS: cefEPime HCl 2 GM in 0.9 % Sodium Chloride 50 ML IV ×2 (09:24→21:07)
--- NOTE | 2022-04-30 12:23 | MHC.CM.PN ---
Met with patient to complete CM assessment. Patient preferred this commercial real estate underwriter to call HCP. Called and spoke with Efrain Salmon. Patient is LTC @ [facility], plan to return there. Will need BLS for transport. IMM explained.
--- NOTE | 2022-04-30 15:16 | P.PNCC_ITS ---
Subjective Subjective Date of Service: 04/30/22 Interval History: a 76-year-old male at a [facility] facility about 1 year status post COVID infection complicated by DVT on Eliquis otherwise hypertensive hyperlipidemic remote ST-elevation [place] and a background of rheumatoid arthritis presents with abdominal pain and a fever of 101 noted to have a hydrops gallbladder with with elevated transaminases and total and indirect bilirubin as well as alkaline phosphatase and that is a question of common duct dilatation as well and he awaits cholecystostomy tube placement once the INR corrects and once he is at least 48-72 hours off of his Eliquis and currently is on cefepime and metron idazole Critical Care Time (minutes): 60 Physical Exam Vital Signs: Vital Signs: Last Vital Signs Temp 97.8 F 04/30/22 12:00 Pulse 79 04/30/22 14:00 Resp 16 04/30/22 14:00 BP 115/52 L 04/30/22 14:00 Pulse Ox 97 04/30/22 14:00 O2 Del Method 04/30/22 14:00 O2 Flow Rate 1 04/30/22 13:00 Oxygen Flow Rate 1 04/29/22 21:45 BMI result Body Mass Index 29.2 awake alert oriented and nonfocal bedside echo with a little bit of septal paradox due to an underlying left bundle branch block otherwise no wall motion abnormality no primary valve or pericardial disease tender right upper quadrant on abdominal exam chest is clear central venous pressure is about 6-7 after he received his loading dose of IV fluids and is currently off of his Levophed Objective Data Labs CBC & Chem 7: 04/30/22 05:10 04/30/22 05:10 Labs: Laboratory Results - last 24 hr 04/29/22 04/29/22 04/29/22 13:31 19:59 21:22 WBC RBC Hgb Hct MCV MCH MCHC RDW Plt Count MPV Immature Gran % (Auto) Neut % (Auto) Lymph % (Auto) [place] % (Auto) Eos % (Auto) Baso % (Auto) Lymph # (Auto) [place] # (Auto) Eos # (Auto) Baso # (Auto) Abs Immat Gran (auto) Absolute Neuts (auto) Absolute Nucleated RBC Nucleated RBC % (auto) Neutrophils % (Manual) Band Neutrophils % Lymphocytes % (Manual) Monocytes % (Manual) Abs Neuts (Manual) Lymphocytes # (Manual) Monocytes # (Manual) Dohle Bodies Platelet Estimate Large Platelets Plt Morphology Comment RBC Morphology Polychromasia Hypochromasia Basophilic Stippling Smear Path Review PT INR APTT Sodium Potassium Chloride Carbon Dioxide Anion Gap BUN Creatinine Estim Creat Clear Calc Estimated GFR POC Glucose 147 H Random Glucose Lactic Acid 1.1 Calcium Phosphorus Total Bilirubin Direct Bilirubin AST ALT Alkaline Phosphatase C-Reactive Protein Total Protein Albumin Lipase COVID-19 (ELVI) Negative COVID-19 Clin Com See Note 04/29/22 04/29/22 04/30/22 21:22 21:22 05:10 WBC 30.0 H* RBC 3.20 L D Hgb 8.3 L D Hct 26.5 L D MCV 82.8 MCH 25.9 L MCHC 31.3 RDW 14.6 Plt Count 197 MPV 9.4 Immature Gran % (Auto) 3.1 H Neut % (Auto) 92.4 H Lymph % (Auto) 1.1 L [place] % (Auto) 3.3 Eos % (Auto) 0.0 Baso % (Auto) 0.1 Lymph # (Auto) 0.3 L [place] # (Auto) 1.0 Eos # (Auto) 0.0 Baso # (Auto) 0.0 Abs Immat Gran (auto) 0.93 H Absolute Neuts (auto) 27.7 H Absolute Nucleated RBC 0.000 Nucleated RBC % (auto) 0.0 Neutrophils % (Manual) Band Neutrophils % Lymphocytes % (Manual) Monocytes % (Manual) Abs Neuts (Manual) Lymphocytes # (Manual) Monocytes # (Manual) Dohle Bodies Platelet Estimate Large Platelets Plt Morphology Comment RBC Morphology Polychromasia Hypochromasia Basophilic Stippling Smear Path Review PT INR APTT Sodium 141 144 Potassium 3.1 L D 4.0 D Chloride 101 103 Carbon Dioxide 28 31 H Anion Gap 15 14 BUN 15 15 Creatinine 0.67 0.67 Estim Creat Clear Calc 103.2 103.2 Estimated GFR > 60 > 60 POC Glucose Random Glucose 172 H 148 H Lactic Acid Calcium 7.6 L D 8.0 L Phosphorus 3.1 Total Bilirubin 2.9 H 3.2 H Direct Bilirubin 2.6 H 2.7 H AST 161 H 119 H ALT 121 H 112 H Alkaline Phosphatase 529 H D 478 H C-Reactive Protein 18.45 H Total Protein 5.6 L 5.9 L Albumin 3.1 L 3.5 Lipase 834 H 215 H COVID-19 (ELVI) COVID-19 [employer] 04/30/22 04/30/22 04/30/22 05:10 05:10 05:36 WBC 46.0 H* RBC 3.28 L Hgb 8.7 L Hct 28.0 L MCV 85.4 MCH 26.5 L MCHC 31.1 RDW 14.9 Plt Count 223 MPV 9.7 Immature Gran % (Auto) Cancelled Neut % (Auto) Cancelled Lymph % (Auto) Cancelled [place] % (Auto) Cancelled Eos % (Auto) Cancelled Baso % (Auto) Cancelled Lymph # (Auto) Cancelled [place] # (Auto) Cancelled Eos # (Auto) Cancelled Baso # (Auto) Cancelled Abs Immat Gran (auto) Cancelled Absolute Neuts (auto) Cancelled Absolute Nucleated RBC 0.000 Nucleated RBC % (auto) 0.0 Neutrophils % (Manual) 72 Band Neutrophils % 23 H Lymphocytes % (Manual) 3 L Monocytes % (Manual) 2 Abs Neuts (Manual) 43.7 H Lymphocytes # (Manual) 1.4 Monocytes # (Manual) 0.9 Dohle Bodies PRESENT Platelet Estimate NORMAL Large Platelets PRESENT Plt Morphology Comment NOTED RBC Morphology NOTED Polychromasia 1+ (0-2) Hypochromasia 1+ (5-14) Basophilic Stippling 1+ (0-2) Smear Path Review SEE NOTE PT 26.8 H INR 2.3 H APTT 37.2 H Sodium Potassium Chloride Carbon Dioxide Anion Gap BUN Creatinine Estim Creat Clear Calc Estimated GFR POC Glucose Random Glucose Lactic Acid 0.6 Calcium Phosphorus Total Bilirubin Direct Bilirubin AST ALT Alkaline Phosphatase C-Reactive Protein Total Protein Albumin Lipase COVID-19 (ELVI) COVID-19 Clin Com Microbiology Microbiology Results: Microbiology 04/29/22 13:59 Blood - Venous Blood Culture - Preliminary Gram negative zainab 04/29/22 13:28 Blood - Venous Blood Culture - Preliminary Gram negative zainab 04/29/22 Unknown Urine clean catch - Urine downs top Urine Culture - Preliminary Culture in progress. Progress Note: A&P Assessment and plan (1) Anemia: Status: Acute (2) Hydrops of gallbladder: Status: Acute (3) Gram negative sepsis: Status: Acute (4) Abnormal CT scan, gallbladder: Status: Acute (5) Elevated transaminase level: Status: Acute (6) Acute hypotension: Status: Acute (7) Catheter-associated urinary tract infection: Status: Acute Plan we will maintain antibiotics as above and we await the metabolism of the Eliquis and then his initial procedure will be cholecystostomy tube placement Quality Stroke Does the patient have a stroke diagnosis?: No VTE Prior VTE?: Yes VTE Risk Level:: Medical - moderate - high VTE Device Contraindication: N/A - Device Ordered VTE Drug Contraindication: N/A - Med Ordered
[2022-04-30] MEDS: Acetaminophen 325 MG TABLET 650 MG PO ×2 (16:49→19:53)
[2022-04-30] MEDS: HYDROmorphone HCl 0.5 MG/0.5 ML SYRINGE IVPUSH (16:50)
[2022-04-30] MEDS: Lidocaine 4 % Patch ADH..PATCH 2 PATCH TRANSDERMA (21:28)
[2022-05-01] VITALS (20 sets, daily range): BP systolic 126–166; BP diastolic 64–95; PULSE 71–93; RESP 15–26; TEMP 36.1–37.2; O2SAT 91–96
[2022-05-01] MEDS: HYDROmorphone HCl 1 MG/ML SYRINGE IVPUSH ×7 (00:05→22:46)
[2022-05-01] MEDS: metroNIDAZOLE/NS 500 MG/100 ML PIGGYBACK 100 MG IV (00:05)
[2022-05-01] MEDS: oxyCODONE HCl Immed Release 5 MG TABLET PO ×4 (02:10→23:16)
[2022-05-01] MEDS: Pantoprazole Sodium 40 MG/10 ML VIAL IVPUSH ×2 (05:56→05:57)
[2022-05-01 06:04] LABS: Basophils Percent Auto 0.1 % (0-2); Hemoglobin 8.7 g/dl (14.0-18.0); Imm Gran Abs Auto 1.02 X10*3/uL (0.00-0.03); Imm Gran Pct Auto 3.8 % (0.0-0.4); Lymphocytes Absolute Auto 0.9 X10*3/uL (1.2-4.9); Lymphocytes Percent Auto 3.2 % (20-40); MANUAL DIFF FLAG SCAN; Mean Corpuscular HGB Conc 31.1 g/dl (31.0-36.0); Mean Corpuscular Hemoglobin 25.9 pg (27.0-33.0); Mean Corpuscular Volume 83.3 fL (80.0-98.0); Mean Platelet Volume 9.9 fL (9.4-12.4); Monocytes Absolute Auto 0.9 X10*3/uL (0.1-1.2); Monocytes Percent Auto 3.4 % (2-11); Neutrophils Absolute Auto 24.3 x10*3/uL (2.0-8.3); Neutrophils Percent Auto 89.5 % (45-73); Platelet Count 197 X10*3/uL (160-400); Red Blood Count 3.36 X10*6/uL (4.60-5.80); SCAN SMEAR FLAG 1; White Blood Count 27.2 X10*3/uL (4.8-10.8)
[2022-05-01 06:27] LABS: Alanine Aminotransferase 89 U/L (0-40); Alkaline Phosphatase 395 U/L (39-117); Anion Gap 11 (12-20); Aspartate Amino Transferase 65 U/L (5-37); Bilirubin Direct 1.2 mg/dL (0.0-0.5); Bilirubin Total 1.5 mg/dL (0.0-1.0); Blood Urea Nitrogen 18 mg/dL (9-16); C Reactive Protein 17.14 mg/dL (< or = 0.50); Calcium 7.9 mg/dL (8.4-10.2); Carbon Dioxide 30 mmol/L (22-29); Chloride 103 mmol/L (96-108); Creatinine Clr Calc Pharmacy 114.2; Estimated Glomerular Filt Rate > 60; Glucose Random 137 mg/dL (60-115); Phosphorus 2.2 mg/dL (2.7-4.5); Sodium 140 mmol/L (135-145); Total Protein 5.5 g/dL (6.5-8.0)
[2022-05-01 06:29] LABS: SLIDE REVIEW VERIFIED
[2022-05-01 06:41] LABS: Lipase 37 U/L (8-78)
[2022-05-01] MEDS: KCl 20 mEq in 5% Dex/0.45% Sod 20 MEQ/1,000 ML IV.SOLN 80 MEQ IVCONT ×2 (07:05→19:42)
--- NOTE | 2022-05-01 07:35 | PM.CCPN ---
Subjective Subjective Date of Service: 05/01/22 Interval History: 76-year-old male hypertensive and hyperlipidemic with remote history of ST-elevation [place] and what and about a year status post COVID 19 infection that was complicated by deep vein thrombosis and he remains on Eliquis on entry complaining of abdominal pain has hydrops of his gallbladder acute elevation of liver enzymes including alkaline phosphatase and bilirubin which today are all resolving with the diminishing alkaline phosphatase total bilirubin and transaminases also today afebrile with diminishing white count and apparently he was supposed to have a cholecystostomy done but because he was less than 24 hours out from his last dose of Eliquis it was being delayed until either Tuesday or Tuesday depending on needs Critical Care Time (minutes): 35 Physical Exam Vital Signs: Vital Signs: Last Vital Signs Temp 97.9 F 04/30/22 20:00 Pulse 82 05/01/22 07:00 Resp 23 H 05/01/22 07:00 BP 143/83 H 05/01/22 07:00 Pulse Ox 94 05/01/22 07:00 O2 Del Method 05/01/22 07:00 O2 Flow Rate 1 04/30/22 13:00 Oxygen Flow Rate 1 04/29/22 21:45 BMI result Body Mass Index 29.2 off Levophed for 24 hours pressure is 140/80 sinus rhythm at rate 86 and oxygen saturation is 94% awake alert verbal oriented and nonfocal neurologically bedside echo is essentially mild diminished systolic reserve based on underlying left bundle branch block and dyssynchrony abdomen softer positive bowel sounds no organomegaly chest clear no adventitious sounds Objective Data Labs CBC & Chem 7: 05/01/22 05:45 05/01/22 05:45 Labs: Laboratory Results - last 24 hr 04/30/22 05/01/22 05/01/22 05:10 05:45 05:45 WBC 27.2 H RBC 3.36 L Hgb 8.7 L Hct 28.0 L MCV 83.3 MCH 25.9 L MCHC 31.1 RDW 15.0 Plt Count 197 MPV 9.9 Immature Gran % (Auto) 3.8 H Neut % (Auto) 89.5 H Lymph % (Auto) 3.2 L [place] % (Auto) 3.4 Eos % (Auto) 0.0 Baso % (Auto) 0.1 Lymph # (Auto) 0.9 L [place] # (Auto) 0.9 Eos # (Auto) 0.0 Baso # (Auto) 0.0 Abs Immat Gran (auto) 1.02 H Absolute Neuts (auto) 24.3 H Absolute Nucleated RBC 0.000 Nucleated RBC % (auto) 0.0 Smear Tech's Comments VERIFIED Smear Path Review SEE NOTE Sodium 140 Potassium 4.0 Chloride 103 Carbon Dioxide 30 H Anion Gap 11 L BUN 18 H Creatinine 0.60 Estim Creat Clear Calc 114.2 Estimated GFR > 60 Random Glucose 137 H Calcium 7.9 L Phosphorus 2.2 L Total Bilirubin 1.5 H Direct Bilirubin 1.2 H AST 65 H ALT 89 H Alkaline Phosphatase 395 H C-Reactive Protein 17.14 H Total Protein 5.5 L Albumin 3.0 L Lipase 37 Microbiology Microbiology Results: Microbiology 04/29/22 13:59 Blood - Venous Blood Culture - Preliminary Gram negative zainab 04/29/22 13:28 Blood - Venous Blood Culture - Preliminary Gram negative zainab 04/29/22 Unknown Urine clean catch - Urine downs top Urine Culture - Preliminary Culture in progress. Progress Note: A&P Assessment and plan (1) Gram negative sepsis: Status: Acute (2) Hydrops of gallbladder: Status: Acute (3) Anemia: Status: Acute (4) Abnormal CT scan, gallbladder: Status: Acute (5) Elevated transaminase level: Status: Acute (6) Acute hypotension: Status: Acute (7) Catheter-associated urinary tract infection: Status: Acute Plan so actually defervescing on antibiotics without drainage so presumably this could be a passing stone my based on his clinical improvement so before cholecystostomy is placed presumably on Tuesday with me might benefit from [facility] HIDA scanning to prove the necessity for the intervention Quality Stroke Does the patient have a stroke diagnosis?: No VTE Prior VTE?: Yes VTE Risk Level:: Medical - moderate - high VTE Device Contraindication: N/A - Device Ordered VTE Drug Contraindication: N/A - Med Ordered
[2022-05-01 07:57] LABS: Prothrombin Time 23.1 SEC (10.0-13.1)
[2022-05-01] MEDS: cefEPime HCl 2 GM in 0.9 % Sodium Chloride 50 ML IV ×2 (08:57→21:34)
[2022-05-01] MEDS: Acetaminophen 325 MG TABLET 650 MG PO ×3 (08:57→21:41)
--- NOTE | 2022-05-01 16:39 | PM.EVENT ---
Event Note Date of Service: 05/01/22 Event Note: Patient seen and examined by ICU team already. Seen and examined again Denies any new complaint. phyicalexam Appearance: Alert.? Oriented.? not in distress.?. cvs: rrr, [id number]. res: Air entry fair, no rales or wheezing. abd: soft , bs present. ext pulses present. neuro: nonfocal. Assessment and plan: Coordinated in ICU note. Patient admitted for gram-negative sepsis possible related to gallbladder infection concern versus UTI LFTs are improving Continue IV antibiotics ased on his clinical improvement so before cholecystostomy is placed presumably on Tuesday with me might benefit from [facility] HIDA scanning to prove the necessity for the intervention will add Id eval. hcp updated by icu .
--- NOTE | 2022-05-01 18:59 | MHC.CARE ---
CARE team consult requested by hospitalists for Erasto due to severe anxiety, CARE team met with Erasto and he is calm, cooperative and does NOT exhibit any anxiety or agitation. He talks about his hobbies of fishing and being outdoors and reports he has been irritable because he has been in and out of hospitals and nursing homes/rehabs for two years. He tells CARE team he has recently been at [facility] and is very sad he has not been able to get out doors and do the activities that he loves. He also reports his memory has not been good and he forgets things often. Floor RN reports Erasto is very needy, he is always calling on staff and despite setting boundaries and setting limits he will yell out and get extremely anxious if his demands are not meet immediately. CARE team recommended psych consult to explore possible anxiety medication and RN and hospitalists in agreement and will put request for consult in.
[2022-05-01] MEDS: traZODone HCL 25 MG HALFTAB 12.5 MG PO (19:37)
[2022-05-01] MEDS: Lidocaine 4 % Patch ADH..PATCH 2 PATCH TRANSDERMA (19:48)
[2022-05-01] MEDS: Melatonin 3 MG TABLET 6 MG PO (21:41)
[2022-05-02] VITALS (7 sets, daily range): BP systolic 137–178; BP diastolic 81–89; PULSE 79–86; RESP 18–20; TEMP 36.1–37.1; O2SAT 92–98
[2022-05-02] MEDS: HYDROmorphone HCl 0.5 MG/0.5 ML SYRINGE IVPUSH ×7 (02:03→22:02)
[2022-05-02 06:42] LABS: Hematocrit 28.3 % (42.0-52.0); Mean Corpuscular HGB Conc 31.8 g/dl (31.0-36.0); Mean Corpuscular Hemoglobin 26.1 pg (27.0-33.0); Mean Platelet Volume 10.2 fL (9.4-12.4); Platelet Count 186 X10*3/uL (160-400); Red Blood Count 3.45 X10*6/uL (4.60-5.80)
[2022-05-02] MEDS: oxyCODONE HCl Immed Release 5 MG TABLET PO ×3 (06:44→20:54)
[2022-05-02 08:00] LABS: Anion Gap 13 (12-20); Blood Urea Nitrogen 11 mg/dL (9-16); Calcium 7.9 mg/dL (8.4-10.2); Carbon Dioxide 27 mmol/L (22-29); Chloride 104 mmol/L (96-108); Creatinine Clr Calc Pharmacy 124.6; Estimated Glomerular Filt Rate > 60; Glucose Random 128 mg/dL (60-115); Potassium 3.9 mmol/L (3.3-5.1); Sodium 140 mmol/L (135-145)
[2022-05-02] MEDS: Acetaminophen 325 MG TABLET 650 MG PO ×3 (09:09→20:45)
[2022-05-02] MEDS: Finasteride 5 MG TABLET PO (09:09)
[2022-05-02] MEDS: Cyanocobalamin (Vitamin B-12) 500 MCG TABLET PO (09:09)
[2022-05-02] MEDS: Metoprolol Succinate ER 25 MG TAB.ER.24H PO (09:10)
[2022-05-02] MEDS: Zinc Sulfate 220 MG CAPSULE PO (09:10)
[2022-05-02] MEDS: Multivitamin TABLET 1 TAB PO (09:10)
[2022-05-02] MEDS: cefEPime HCl 2 GM in 0.9 % Sodium Chloride 50 ML IV ×2 (09:11→20:46)
[2022-05-02] MEDS: HYDROmorphone HCl 1 MG/ML SYRINGE IVPUSH (10:59)
[2022-05-02 11:38] LABS: Alanine Aminotransferase 60 U/L (0-40); Albumin Level 2.8 g/dL (3.5-5.0); Alkaline Phosphatase 343 U/L (39-117); Aspartate Amino Transferase 25 U/L (5-37); Bilirubin Direct 0.8 mg/dL (0.0-0.5); Total Protein 5.3 g/dL (6.5-8.0)
--- NOTE | 2022-05-02 12:45 | PM.PSYCN ---
History of Present Illness Date of Service: 05/02/2022 Chief Complaint: septic shock Reason for Consult: anxiety Sources of Information: patient interviewed and chart reviewed Additional Sources of Information: CARE consult HPI Narrative: Pt admitted 04/29 from physical rehab with abdo pain and pyrexia. On Iv Abx. Chronic pain with now acute pain and ?cholycystecomy tomorrow. CAREs team leatha noted 05/01 ref anxiety. Pt reports main issue has been pain management- fearful at night and leads to anxiety. Sleep broken in context of pain. No depresiosn, SI, HI, psychosis. Reports pain slightly better controlled today and this lessens anxiety. Aware of reaon for admisison, treatment plan (Abx and potential Sx tomorrow) etc.. No past psych history. Has chronic pain (arthritis) on [place] opioids x years. Has been at [facility] since April 2021. Past Psychiatric History: None Medical Evaluation Reviewed: Yes Personal & Social History: Has been at [facility] since April 2021 [facility] Medical History (Updated 04/30/22 @ 16:09 by Edgardo Seth MD) Anemia Cervical stenosis of spine Chronic indwelling Butts catheter COVID-19 DVT (deep venous thrombosis) Hyperlipidemia Hypertension Juvenile rheumatoid arthritis NSTEMI (non-ST elevated myocardial infarction) Psoriatic arthritis Urinary retention Diagnostics Vital Signs (24Hr): Vital Signs - 24 hr 05/01/22 14:00 05/01/22 16:00 05/01/22 19:41 Temperature 98.6 F Pulse Rate 93 Respiratory Rate 16 18 20 Blood Pressure 166/81 H Pulse Oximetry 92 Oxygen Delivery Method Room Air Oxygen Flow Rate 05/01/22 19:47 05/01/22 23:20 05/02/22 03:15 Temperature 98.9 F 97.8 F 97.8 F Pulse Rate 81 80 80 Respiratory Rate 18 17 19 Blood Pressure 166/79 H 126/64 169/84 H Pulse Oximetry 94 95 96 Oxygen Delivery Method Nasal Cannula Nasal Cannula Nasal Cannula Oxygen Flow Rate 1 1 1 05/02/22 07:51 Temperature 98.0 F Pulse Rate 79 Respiratory Rate 20 Blood Pressure 172/81 H Pulse Oximetry 92 Oxygen Delivery Method Room Air Oxygen Flow Rate BMI result Body Mass Index 29.2 Labs Results: 05/02/22 06:02 05/02/22 06:02 Labs: Laboratory Results - last 48 hr 05/01/22 05/01/22 05/01/22 05:45 05:45 07:37 WBC 27.2 H RBC 3.36 L Hgb 8.7 L Hct 28.0 L MCV 83.3 MCH 25.9 L MCHC 31.1 RDW 15.0 Plt Count 197 MPV 9.9 Immature Gran % (Auto) 3.8 H Neut % (Auto) 89.5 H Lymph % (Auto) 3.2 L [place] % (Auto) 3.4 Eos % (Auto) 0.0 Baso % (Auto) 0.1 Lymph # (Auto) 0.9 L [place] # (Auto) 0.9 Eos # (Auto) 0.0 Baso # (Auto) 0.0 Abs Immat Gran (auto) 1.02 H Absolute Neuts (auto) 24.3 H Absolute Nucleated RBC 0.000 Nucleated RBC % (auto) 0.0 Smear Tech's Comments VERIFIED PT 23.1 H INR 2.0 H Sodium 140 Potassium 4.0 Chloride 103 Carbon Dioxide 30 H Anion Gap 11 L BUN 18 H Creatinine 0.60 Estim Creat Clear Calc 114.2 Estimated GFR > 60 Random Glucose 137 H Calcium 7.9 L Phosphorus 2.2 L Total Bilirubin 1.5 H Direct Bilirubin 1.2 H AST 65 H ALT 89 H Alkaline Phosphatase 395 H C-Reactive Protein 17.14 H Total Protein 5.5 L Albumin 3.0 L Lipase 37 05/02/22 05/02/22 06:02 06:02 WBC 19.0 H RBC 3.45 L Hgb 9.0 L Hct 28.3 L MCV 82.0 MCH 26.1 L MCHC 31.8 RDW 15.0 Plt Count 186 MPV 10.2 Immature Gran % (Auto) Neut % (Auto) Lymph % (Auto) [place] % (Auto) Eos % (Auto) Baso % (Auto) Lymph # (Auto) [place] # (Auto) Eos # (Auto) Baso # (Auto) Abs Immat Gran (auto) Absolute Neuts (auto) Absolute Nucleated RBC 0.000 Nucleated RBC % (auto) 0.0 Smear Tech's Comments PT INR Sodium 140 Potassium 3.9 Chloride 104 Carbon Dioxide 27 Anion Gap 13 BUN 11 Creatinine 0.55 Estim Creat Clear Calc 124.6 Estimated GFR > 60 Random Glucose 128 H Calcium 7.9 L Phosphorus Total Bilirubin 1.0 Direct Bilirubin 0.8 H AST 25 D ALT 60 H Alkaline Phosphatase 343 H C-Reactive Protein Total Protein 5.3 L Albumin 2.8 L Lipase Imaging Radiology Impressions: ITS Impressions Abdomen/Pelvis CT 04/29/22 15:01 IMPRESSION: * Gallbladder hydrops and mild thickening of gallbladder wall. Although the common duct and intrahepatic ducts are dilated, no obstructing stones are visualized within the biliary tree. Also, no stones are identified within the hydropic gallbladder. Consider correlation with liver function tests, bilirubin levels and right upper quadrant ultrasound (or MRCP). Acute cholecystitis and cholangitis would be considered in this patient with abdominal pain and fever. * There are opacities with air bronchograms from airspace disease and/or atelectasis in the visualized bases. * Splenomegaly is of uncertain chronicity. There are no comparison abdominal imaging exams. * Bilateral renal stones. Well-positioned right ureteral stent in place. No hydronephrosis. * Large amount of fecal material in the sigmoid colon and rectum is suggestive of constipation. The subtle haziness of perirectal fat is suspicious for mild proctitis. Chest X-Ray 04/29/22 15:02 IMPRESSION: Low inspiratory effort with bibasilar atelectasis. Abdomen Ultrasound 04/29/22 17:29 IMPRESSION: Distended gallbladder. Tumefactive sludge in the neck of the gallbladder. Possible gallstone. Positive ultrasound Lopez's sign. Findings equivocal for acute cholecystitis. Consider HIDA scan for further assessment. MRCP may be helpful for assessment of the gallbladder and bile ducts. Chest X-Ray 04/29/22 23:05 IMPRESSION: 1. The tip of the catheter is seen at the cavoatrial junction. There is no pneumothorax. Mental Status Exam Mental Status Exam Narrative: Pleasant. Engaged. Alert and oriented. No depression, psychosis, SI, HI agitation. Insight good Medications Medications Current Medications Acetaminophen (Acetaminophen 325 Mg Tablet) 650 mg PO TID DAVID Last Admin: 05/02/22 09:09 Dose: 650 mg Albuterol/Ipratropium (Albuterol/Iprat 2.5/0.5mg 3 Ml Ampul.Neb) 3 ml INHALE Q6H PRN PRN Reason: Shortness Of Breath Or Wheezing Cyanocobalamin (Cyanocobalamin (Vitamin B-12) 500 Mcg Tablet) 500 mcg PO DAILY [facility] Last Admin: 05/02/22 09:09 Dose: 500 mcg Finasteride (Finasteride 5 Mg Tablet) 5 mg PO DAILY [facility] Last Admin: 05/02/22 09:09 Dose: 5 mg Hydromorphone HCl (Hydromorphone Hcl 0.5 Mg/0.5 Ml Syringe) 0.5 mg IVPUSH Q2H PRN; Protocol PRN Reason: Pain, Moderate (Pain Scale 4-6 Last Admin: 05/02/22 09:13 Dose: 0.5 mg Hydromorphone HCl (Hydromorphone Hcl 1 Mg/Ml Syringe) 1 mg IVPUSH Q3H PRN; Protocol PRN Reason: Pain, Severe (Pain Scale 7-10) Last Admin: 05/02/22 10:59 Dose: 1 mg Cefepime HCl 2 gm/ Sodium (Chloride) 50 mls @ 100 mls/hr IV Q12H [facility] Last Infusion: 05/02/22 09:58 Dose: Infused Lidocaine (Lidocaine 4 % Patch Adh..Patch) 2 patch TRANSDERMA DAILY PRN; Protocol PRN Reason: Pain, Mild Last Admin: 05/01/22 19:48 Dose: 2 patch Melatonin (Melatonin 3 Mg Tablet) 6 mg PO BEDTIME PRN PRN Reason: Sleep Last Admin: 05/01/22 21:41 Dose: 6 mg Metoprolol Succinate (Metoprolol Succinate Er 25 Mg Tab.Er.24h) 25 mg PO DAILY [facility]; Protocol Last Admin: 05/02/22 09:10 Dose: 25 mg Multivitamins/Vitamin C (Multivitamin Tablet) 1 tab PO DAILY [facility] Last Admin: 05/02/22 09:10 Dose: 1 tab Oxycodone HCl (Oxycodone Hcl Immed Release 5 Mg Tablet) 5 mg PO Q6H PRN PRN Reason: Pain, Mild (Pain Scale 1-3) Last Admin: 05/02/22 06:44 Dose: 5 mg Pantoprazole Sodium (Pantoprazole Sodium 40 Mg/10 Ml Vial) 40 mg IVPUSH DAILY@0630 [facility] Last Admin: 05/01/22 05:57 Dose: 40 mg Pharmacy Consult (Consult Rx Perform Med Rec) 1 each MISCELLANE ONCE PRN PRN Reason: Consult order Tamsulosin HCl (Tamsulosin Hcl 0.4 Mg Capsule) 0.8 mg PO BEDTIME DAVID Zinc Sulfate (Zinc Sulfate 220 Mg Capsule) 220 mg PO DAILY DAVID Last Admin: 05/02/22 09:10 Dose: 220 mg Allergies Allergies Allergy/AdvReac Type Severity Reaction Status Date / Time Penicillins Allergy Unknown Unknown Verified 04/29/22 13:18 Assessment & Plan Assessment & Plan (1) Hydrops of gallbladder: Status: Acute Code(s): K82.1 - Hydrops of gallbladder Plan Anxiety secondary to pain management with acute on chronic pain in context of ?gallbladder infection, pending potential surgery 05/03. rec: adequate pain management. If needed could use gabapentin 100mg as needed up to 4 times a day for anxiety. No further follow up needed. Signed off case. I spent minutes with the patient and/or on the patient floor today, greater than?50% of which was spent counseling/coordinating care. Patient educated on: medication risk/benefits and therapeutic strategies Informed Consent: understands
[2022-05-02] MEDS: Gabapentin 100 MG CAPSULE PO (14:19)
--- NOTE | 2022-05-02 14:47 | HO.PM.IMPN ---
Subjective Subjective Date of Service: 05/03/22 Interval History: sepsis /ecoli bactermia Review of Systems Patient denies any cough or phlegm or nausea or vomiting. Feels anxious abd pain intermittent but improving Physical Exam Vital Signs: Vital Signs: Last Vital Signs Temp 98.0 F 05/02/22 07:51 Pulse 79 05/02/22 07:51 Resp 20 05/02/22 12:00 BP 178/89 H 05/02/22 14:38 Pulse Ox 93 05/02/22 12:00 O2 Del Method 05/02/22 12:00 O2 Flow Rate 1 05/02/22 03:15 Oxygen Flow Rate 1 04/29/22 21:45 BMI result Body Mass Index 29.2 Appearance: Alert.? Oriented.? anxious?. cvs: rrr, [id number]. res:? Air entry fair, no rales or wheezing. abd: soft , some abd pain ( does not speicfy reason) says intermittent,bs present. ext pulses present. neuro:? nonfocal. Objective Data Active Medications Acetaminophen (Acetaminophen 325 Mg Tablet) 650 mg PO TID COUNT INCLUDES THE [facility] Last Admin: 05/02/22 14:19 Dose: 650 mg Documented By: ALFREDA Albuterol/Ipratropium (Albuterol/Iprat 2.5/0.5mg 3 Ml Ampul.Neb) 3 ml INHALE Q6H PRN PRN Reason: Shortness Of Breath Or Wheezing Cyanocobalamin (Cyanocobalamin (Vitamin B-12) 500 Mcg Tablet) 500 mcg PO DAILY COUNT INCLUDES [facility] Last Admin: 05/02/22 09:09 Dose: 500 mcg Documented By: ALFREDA Finasteride (Finasteride 5 Mg Tablet) 5 mg PO DAILY COUNT INCLUDES [facility] Last Admin: 05/02/22 09:09 Dose: 5 mg Documented By: ALFREDA Gabapentin (Gabapentin 100 Mg Capsule) 100 mg PO DAILY PRN PRN Reason: Anxiety Last Admin: 05/02/22 14:19 Dose: 100 mg Documented By: ALFREDA Hydromorphone HCl (Hydromorphone Hcl 0.5 Mg/0.5 Ml Syringe) 0.5 mg IVPUSH Q2H PRN; Protocol PRN Reason: Pain, Moderate (Pain Scale 4-6 Last Admin: 05/02/22 13:35 Dose: 0.5 mg Documented By: ALFREDA Hydromorphone HCl (Hydromorphone Hcl 1 Mg/Ml Syringe) 1 mg IVPUSH Q3H PRN; Protocol PRN Reason: Pain, Severe (Pain Scale 7-10) Last Admin: 05/02/22 10:59 Dose: 1 mg Documented By: ALFREDA Cefepime HCl 2 gm/ Sodium (Chloride) 50 mls @ 100 mls/hr IV Q12H COUNT INCLUDES THE [facility] Last Infusion: 05/02/22 09:58 Dose: 100 mls/hr Documented By: ALFREDA Lidocaine (Lidocaine 4 % Patch Adh..Patch) 2 patch TRANSDERMA DAILY PRN; Protocol PRN Reason: Pain, Mild Last Admin: 05/01/22 19:48 Dose: 2 patch Documented By: REBECA Melatonin (Melatonin 3 Mg Tablet) 6 mg PO BEDTIME PRN PRN Reason: Sleep Last Admin: 05/01/22 21:41 Dose: 6 mg Documented By: REBECA Metoprolol Succinate (Metoprolol Succinate Er 25 Mg Tab.Er.24h) 25 mg PO DAILY COUNT INCLUDES [facility]; Protocol Last Admin: 05/02/22 09:10 Dose: 25 mg Documented By: ALFREDA Multivitamins/Vitamin C (Multivitamin Tablet) 1 tab PO DAILY COUNT INCLUDES [facility] Last Admin: 05/02/22 09:10 Dose: 1 tab Documented By: ALFREDA Oxycodone HCl (Oxycodone Hcl Immed Release 5 Mg Tablet) 5 mg PO Q6H PRN PRN Reason: Pain, Mild (Pain Scale 1-3) Last Admin: 05/02/22 06:44 Dose: 5 mg Documented By: EUGENE Pantoprazole Sodium (Pantoprazole Sodium 40 Mg/10 Ml Vial) 40 mg IVPUSH DAILY@0630 COUNT INCLUDES [facility] Last Admin: 05/01/22 05:57 Dose: 40 mg Documented By: KOFFI Pharmacy Consult (Consult Rx Perform Med Rec) 1 each MISCELLANE ONCE PRN PRN Reason: Consult order Tamsulosin HCl (Tamsulosin Hcl 0.4 Mg Capsule) 0.8 mg PO BEDTIME COUNT INCLUDES THE [facility] Zinc Sulfate (Zinc Sulfate 220 Mg Capsule) 220 mg PO DAILY COUNT INCLUDES [facility] Last Admin: 05/02/22 09:10 Dose: 220 mg Documented By: ALFREDA Labs CBC & Chem 7: 05/03/22 08:15 05/03/22 08:15 Labs: Laboratory Results - last 24 hr 05/02/22 05/02/22 06:02 06:02 MCV 82.0 MCH 26.1 L MCHC 31.8 RDW 15.0 Plt Count 186 MPV 10.2 Absolute Nucleated RBC 0.000 Nucleated RBC % (auto) 0.0 Anion Gap 13 Estim Creat Clear Calc 124.6 Estimated GFR > 60 Random Glucose 128 H Calcium 7.9 L Total Bilirubin 1.0 Direct Bilirubin 0.8 H AST 25 D ALT 60 H Alkaline Phosphatase 343 H Total Protein 5.3 L Albumin 2.8 L Microbiology Microbiology Results: Microbiology 04/29/22 Unknown Urine Culture - Final Urine clean catch - Urine downs top Pseudomonas aeruginosa Citrobacter freundii 04/29/22 13:59 Blood Culture - Final Blood - Venous Escherichia coli 04/29/22 13:28 Blood Culture - Final Blood - Venous Escherichia coli Assessment and Plan (1) Gram negative sepsis: Status: Acute (2) Hydrops of gallbladder: Status: Acute Plan ?76-year-old male? hypertensive and hyperlipidemic with remote history of ST-elevation [place] and what and about a year status post COVID 19 infection that was complicated by deep vein thrombosis and he remains on Eliquis-came with abdominal pain-initially admitted to the ICU because of severe sepsis . 1. gram-negative sepsis possible related to gallbladder infection concern versus UTI Gallbladder hydrops and mild thickening of gallbladder wall. LFTs are improving urine culture -citrobacter and psudomonas blood culture -ecoli-senstive to ceftriaxone Continue IV antibiotics-cefpime, adjusted (taper )pain meds. as per Gi eval: may need cholecystostomy, we may add hida ( will d/w GI). added ID eval 2.htn: continue metoprolol 3.dvt : apixiban on hold in anticipation for possible cholecytostomy if needed , we will add hida scan inthe am add s/clovenox 4.bph has ch barton: continue flomax /fenestride. 5. possible anxiety: added psych -recomended gabapentin prn for anxiety dvt prophylax -on lovenox Quality Stroke Does the patient have a stroke diagnosis?: No VTE Prior VTE?: Yes VTE Risk Level:: Medical - moderate - high VTE Device Contraindication: N/A - Device Ordered VTE Drug Contraindication: N/A - Med Ordered
[2022-05-02] MEDS: Lidocaine 4 % Patch ADH..PATCH 2 PATCH TRANSDERMA (17:17)
[2022-05-02] MEDS: Enoxaparin Sodium 100 MG/ML SYRINGE 85 MG SUBCUT (18:40)
[2022-05-02] MEDS: Tamsulosin HCL 0.4 MG CAPSULE 0.8 MG PO (20:46)
[2022-05-02] MEDS: Melatonin 3 MG TABLET 6 MG PO (20:54)
[2022-05-03] MEDS: HYDROmorphone HCl 0.5 MG/0.5 ML SYRINGE IVPUSH ×11 (00:51→23:42)
[2022-05-03 03:32] VITALS: BP 159/79; PULSE 79; RESP 19; TEMP 36.9; O2SAT 96
[2022-05-03] MEDS: Pantoprazole Sodium 40 MG/10 ML VIAL IVPUSH (05:00)
[2022-05-03 07:59] VITALS: BP 166/86; PULSE 89; RESP 16; TEMP 36.8; O2SAT 93
[2022-05-03] MEDS: Metoprolol Succinate ER 25 MG TAB.ER.24H PO (08:30)
[2022-05-03] MEDS: Lactated Ringers 1,000 ML 80 ML IVCONT (08:31)
[2022-05-03 08:32] LABS: Hematocrit 31.4 % (42.0-52.0); Hemoglobin 9.8 g/dl (14.0-18.0); Mean Corpuscular HGB Conc 31.2 g/dl (31.0-36.0); Mean Corpuscular Hemoglobin 25.6 pg (27.0-33.0); Mean Platelet Volume 10.2 fL (9.4-12.4); Platelet Count 187 X10*3/uL (160-400); Red Blood Count 3.83 X10*6/uL (4.60-5.80); Red Cell Distribution Width 14.7 % (11.0-16.0); White Blood Count 11.1 X10*3/uL (4.8-10.8)
[2022-05-03 08:47] LABS: Anion Gap 18 (12-20); Blood Urea Nitrogen 10 mg/dL (9-16); Calcium 8.2 mg/dL (8.4-10.2); Carbon Dioxide 25 mmol/L (22-29); Chloride 104 mmol/L (96-108); Creatinine Clr Calc Pharmacy 126.9; Estimated Glomerular Filt Rate > 60; Glucose Random 66 mg/dL (60-115); Potassium 3.7 mmol/L (3.3-5.1); Sodium 143 mmol/L (135-145)
[2022-05-03 09:27] LABS: INTERNATIONAL NORM RATIO 1.4 (0.9-1.1); Prothrombin Time 16.5 SEC (10.0-13.1)
[2022-05-03] MEDS: cefEPime HCl 2 GM in 0.9 % Sodium Chloride 50 ML IV ×2 (10:36→21:16)
[2022-05-03] MEDS: Lidocaine 4 % Patch ADH..PATCH 2 PATCH TRANSDERMA (10:48)
[2022-05-03 11:07] VITALS: BP 169/79; PULSE 86; RESP 17; TEMP 36.6; O2SAT 99
[2022-05-03 11:37] VITALS: BMI 29.2
--- NOTE | 2022-05-03 11:40 | MHC.CLN ---
F/U PT WITH INCREASED RISK R/T PRESSURE INJURY AND NOW NPO/C/L DIET X 5 DAYS DIET RX: NPO WHEN DIET TO ADVANCE; RECOMMEND ENSURE TID TO INCREASE KCALS SUPP TO PROVIDE 1050KCALS, 60G PROTEIN MONITOR FOR DIET ADVANCEMENT IF DIET UNABLE TO ADVANCE TODAY; CONSULT RD FOR ALTERNATIVE NUTRITION SEE FULL CLINICAL NUTRITION ASSESSMENT
--- NOTE | 2022-05-03 14:24 | PM.CNGS ---
History of Present Illness Consult details Consult date: 05/03/22 Requesting physician: Joseph Dobson Narrative: 76-year-old male patient presented to the emergency department on 04/29/2022 with complaints of lower abdominal pain, fever of 101.3 as well as chills without nausea, vomiting, chest pain, or shortness of breath. He presented to the emergency department for further evaluation by EMS. His past history is significant for BPH, COVID-19, DVT currently on Eliquis, hypertension, hyperlipidemia, rheumatoid arthritis, and STEMI. He is resident of a care home facility. Workup revealed a WBC of 30 K and elevated LFTs. CT abdomen and pelvis revealed a large hydropic gallbladder. Ultrasound the abdomen was suggestive of sludge at the neck of the gallbladder with a sonographic Lopez sign. HIDA scan today revealed an obstructed cystic duct but a patent common bile duct. Surgical consultation is requested for possible cholecystectomy. Patient currently reports pain mainly in the right lower and right upper quadrant. Denies nausea or vomiting. He is hungry currently but has not eaten since admission. Review of Systems Constitutional: Constitutional: Reports chills, Reports fever(s), Denies poor appetite, Reports weakness and Denies weight gain Cardiovascular: Cardiovascular: Denies chest pain, Reports Epigastric Pain, Denies rapid heart rate, Denies palpitations and Reports dyspnea on exertion Respiratory: Respiratory: Reports dyspnea on exertion, Denies stridor and Denies wheezing Gastrointestinal: Gastrointestinal: Reports as per HPI, Reports abdominal pain, Denies constipation, Denies heartburn, Denies diarrhea, Denies vomiting and Denies hematemesis Genitourinary: Comments: Previous kidney stones Neurologic: Reports weakness Endocrine: Endocrine: Denies palpitations Allergic/Immunologic: Allergic/Immunologic: Denies wheezing PMF Past Medical History Medical History Anemia Cervical stenosis of spine Chronic indwelling Butts catheter COVID-19 DVT (deep venous thrombosis) Hyperlipidemia Hypertension Juvenile rheumatoid arthritis NSTEMI (non-ST elevated myocardial infarction) Psoriatic arthritis Urinary retention Social History Social History Household Members: None Housing: Other Housing Other:: SNF Patient Tobacco Use Status: Never used Tobacco Use of substances other than those prescribed or required for medical reasons: No Currently Displaying Signs/Symptoms of Drug Intoxication Withdrawal: No Have you been hit, kicked, punched, or otherwise hurt by someone within the past year? If so, by whom?: No Do you feel safe in your current relationship?: No Current Relationship Is there a partner from a previous relationship who is making you feel unsafe now?: No Are you made to feel afraid or neglected: No Advance Directives: Yes Advance Directives Information Provided: No Advance Directives on File: No Advance Directives Date on File: 04/30/22 Do you have thoughts of harming others: None Do you have a plan to hurt others: No Plan Recently lost weight without trying: No Nutrition Risks: No Nutritional Risk service: No Current occupational status: unemployed Meds Allergies Allergy/AdvReac Type Severity Reaction Status Date / Time Penicillins Allergy Unknown Unknown Verified 04/29/22 13:18 Active Medications: Current Medications Acetaminophen (Acetaminophen 325 Mg Tablet) 650 mg PO TID [facility] Last Admin: 05/03/22 08:36 Dose: Not Given Albuterol/Ipratropium (Albuterol/Iprat 2.5/0.5mg 3 Ml Ampul.Neb) 3 ml INHALE Q6H PRN PRN Reason: Shortness Of Breath Or Wheezing Cyanocobalamin (Cyanocobalamin (Vitamin B-12) 500 Mcg Tablet) 500 mcg PO DAILY [facility] Last Admin: 05/03/22 08:36 Dose: Not Given Enoxaparin Sodium (Enoxaparin Sodium 100 Mg/Ml Syringe) 85 mg SUBCUT ONCE [facility] Last Admin: 05/02/22 18:40 Dose: 85 mg Finasteride (Finasteride 5 Mg Tablet) 5 mg PO DAILY [facility] Last Admin: 05/03/22 08:36 Dose: Not Given Gabapentin (Gabapentin 100 Mg Capsule) 100 mg PO DAILY PRN PRN Reason: Anxiety Last Admin: 05/02/22 14:19 Dose: 100 mg Hydromorphone HCl (Hydromorphone Hcl 0.5 Mg/0.5 Ml Syringe) 0.5 mg IVPUSH Q2H PRN; Protocol PRN Reason: Pain, Moderate (Pain Scale 4-6 Last Admin: 05/03/22 13:27 Dose: 0.5 mg Hydromorphone HCl (Hydromorphone Hcl 1 Mg/Ml Syringe) 1 mg IVPUSH Q3H PRN; Protocol PRN Reason: Pain, Severe (Pain Scale 7-10) Last Admin: 05/02/22 10:59 Dose: 1 mg Cefepime HCl 2 gm/ Sodium (Chloride) 50 mls @ 100 mls/hr IV Q12H [facility] Last Infusion: 05/03/22 11:06 Dose: Infused Lactated Ringer's (Lr) 1,000 mls @ 80 mls/hr IVCONT .[id number] [facility] Last Admin: 05/03/22 08:31 Dose: 80 mls/hr Lidocaine (Lidocaine 4 % Patch Adh..Patch) 2 patch TRANSDERMA DAILY PRN; Protocol PRN Reason: Pain, Mild Last Admin: 05/03/22 10:48 Dose: 2 patch Melatonin (Melatonin 3 Mg Tablet) 6 mg PO BEDTIME PRN PRN Reason: Sleep Last Admin: 05/02/22 20:54 Dose: 6 mg Metoprolol Succinate (Metoprolol Succinate Er 25 Mg Tab.Er.24h) 25 mg PO DAILY [facility]; Protocol Last Admin: 05/03/22 08:30 Dose: 25 mg Multivitamins/Vitamin C (Multivitamin Tablet) 1 tab PO DAILY [facility] Last Admin: 05/03/22 08:36 Dose: Not Given Oxycodone HCl (Oxycodone Hcl Immed Release 5 Mg Tablet) 5 mg PO Q6H PRN PRN Reason: Pain, Mild (Pain Scale 1-3) Last Admin: 05/02/22 20:54 Dose: 5 mg Pantoprazole Sodium (Pantoprazole Sodium 40 Mg/10 Ml Vial) 40 mg IVPUSH DAILY@0630 [facility] Last Admin: 05/03/22 05:00 Dose: 40 mg Pharmacy Consult (Consult Rx Perform Med Rec) 1 each MISCELLANE ONCE PRN PRN Reason: Consult order Tamsulosin HCl (Tamsulosin Hcl 0.4 Mg Capsule) 0.8 mg PO BEDTIME [facility] Last Admin: 05/02/22 20:46 Dose: 0.8 mg Zinc Sulfate (Zinc Sulfate 220 Mg Capsule) 220 mg PO DAILY [facility] Last Admin: 05/03/22 08:37 Dose: Not Given Home Medications Medication Instructions Recorded Confirmed Last Taken Type acetaminophen 325 mg tablet 650 mg PO TID 04/29/22 04/29/22 Unknown History ammonium lactate 12 % topical cream 1 appl topical BID 04/29/22 04/29/22 Unknown History apixaban 5 mg tablet (Eliquis) 1 tab PO BID 04/29/22 04/29/22 Unknown History ascorbic acid (vitamin C) 500 mg 500 mg PO BID 04/29/22 04/29/22 Unknown History tablet cyanocobalamin (vitamin B-12) 500 500 mcg PO DAILY 04/29/22 04/29/22 Unknown History mcg tablet diclofenac sodium 1 % topical gel 2 g topical Q6H PRN Pain, Mild 04/29/22 04/29/22 Unknown History finasteride 5 mg tablet 1 tab PO DAILY 04/29/22 04/29/22 Unknown History furosemide 20 mg tablet 20 mg PO Q2D 04/29/22 04/29/22 Unknown History ipratropium 0.5 mg-albuterol 3 mg 3 ml inhalation Q6H PRN Shortness 04/29/22 04/29/22 Unknown History (2.5 mg base)/3 mL nebulization Of Breath Or Wheezing soln lactulose 10 gram/15 mL oral 20 ml PO DAILY 04/29/22 04/29/22 Unknown History solution lidocaine 4 % topical patch 2 patch topical DAILY PRN Pain, 04/29/22 04/29/22 Unknown History (Aspercreme (lidocaine)) Mild magnesium oxide 400 mg (241.3 mg 400 mg PO DAILY 04/29/22 04/29/22 Unknown History magnesium) tablet melatonin 3 mg tablet 3 mg PO BEDTIME PRN Sleep 04/29/22 04/29/22 Unknown History metoprolol succinate 25 mg 1 tab PO DAILY 04/29/22 04/29/22 Unknown History tablet,extended release 24 hr morphine 30 mg tablet,extended 1 tab PO BID PRN Pain, Severe 04/29/22 04/29/22 Unknown History release multivitamin with minerals 1 tab PO DAILY 04/29/22 04/29/22 Unknown History (Multiple Vitamin-Minerals tablet) nystatin 100,000 unit/gram topical 1 appl topical TID 04/29/22 04/29/22 Unknown History cream oxycodone 5 mg tablet 5 mg PO Q6H PRN Pain, Moderate 04/29/22 04/29/22 Unknown History pregabalin 75 mg capsule 1 cap PO BID 04/29/22 04/29/22 Unknown History sennosides 8.6 mg tablet (senna) 17.2 mg PO BEDTIME 04/29/22 04/29/22 Unknown History tamsulosin 0.4 mg capsule 2 cap PO BEDTIME 04/29/22 04/29/22 Unknown History zinc 50 mg tablet 50 mg PO DAILY 04/29/22 04/29/22 Unknown History Physical Exam Vital Signs: Vital Signs: Last Vital Signs Temp 97.8 F 05/03/22 11:07 Pulse 86 05/03/22 11:07 Resp 17 05/03/22 11:07 BP 169/79 H 05/03/22 11:07 Pulse Ox 99 05/03/22 11:07 O2 Del Method 05/03/22 11:07 O2 Flow Rate 2 05/03/22 11:07 Oxygen Flow Rate 1 04/29/22 21:45 BMI result Body Mass Index 29.2 Const: General: comfortable and well developed Nutritional Appearance: well nourished Orientation/consciousness: patient oriented x3 HEENT: Head: Yes normocephalic and Yes atraumatic Ears: hearing grossly normal bilaterally Eyes: Sclerae: sclerae normal EOM: EOMs intact bilaterally Resp: Effort & Inspection: normal respiratory effort, no cough and no respiratory distress Auscultation: diminished lung sounds (At base) bilateral GI: Inspection: Yes normal to inspection Palpation (GI): Soft to palpation, Tenderness to palpation present (GI) in the RUQ; Lopez's sign negative and with no rebound tenderness and no masses Percussion: Yes normal to percussion Auscultation: normal bowel sounds Rectal Exam - Male: Yes deferred Skin: General skin exam: no rashes or lesions noted and no jaundice Neuro: General: patient oriented x3 Extrem: General: Yes no clubbing, cyanosis or edema Results Labs Result diagrams: 05/03/22 08:15 05/03/22 08:15 Labs: Abnormal lab results 05/03/22 05/03/22 05/03/22 Range/Units 08:15 08:15 09:12 WBC 11.1 H (4.8-10.8) X10*3/uL RBC 3.83 L (4.60-5.80) X10*6/uL Hgb 9.8 L (14.0-18.0) g/dl Hct 31.4 L (42.0-52.0) % MCH 25.6 L (27.0-33.0) pg PT 16.5 H (10.0-13.1) SEC INR 1.4 H (0.9-1.1) Calcium 8.2 L (8.4-10.2) mg/dL Short CBC 05/03/22 Range/Units 08:15 WBC 11.1 H (4.8-10.8) X10*3/uL Hgb 9.8 L (14.0-18.0) g/dl Hct 31.4 L (42.0-52.0) % Plt Count 187 (160-400) X10*3/uL BMP 05/03/22 08:15 Sodium 143 Potassium 3.7 Chloride 104 Carbon Dioxide 25 BUN 10 Creatinine 0.54 Calcium 8.2 L Urine 04/29/22 Range/Units 14:16 Urine Color YELLOW Urine Appearance HAZY Urine pH 7.5 (5.0-8.0) Ur Specific [place] 1.015 (1.005-1.025) Urine Protein TRACE (NEG-TRACE) MG/DL Urine Glucose (UA) NEG (NEG) MG/DL All other labs normal. Assessment and Plan (1) Hydrops of gallbladder: Status: Acute (2) Gram negative sepsis: Status: Acute (3) Abnormal CT scan, gallbladder: Status: Acute Plan 76-year-old male patient with a recent history of sepsis possibly due to acute cholecystitis. Patient found to have a hydropic gallbladder by CT with sludge noted on ultrasound. Patient was initially in septic shock at which time I recommended cholecystostomy tube from hydropic gallbladder. Patient was in ICU and never had the cholecystostomy tube placed. Patient is now on proved but continues to have abdominal pain in the right upper quadrant and right lower quadrant. Laboratories are improving with normal dilation of the WBC improvement in the LFTs. I recommended a laparoscopic or possible open cholecystectomy if he is medically clear for this procedure. I discussed the procedure with the patient and he is willing to proceed the surgery. I spoke with Dr. Dobson who asked me to call his healthcare proxy, Maddy. Call was placed to her however there was no answer of her phone and her voicemail was full so no voicemail was left. Procedures Date of Service Date of Service: 05/03/22
--- NOTE | 2022-05-03 15:23 | MHC.CM.PN ---
per rounds pts lfts improving there an id consult, blood and urine cultures pending
[2022-05-03 15:37] VITALS: BP 170/79; PULSE 80; RESP 15; TEMP 36.6; O2SAT 98
[2022-05-03] MEDS: Acetaminophen 325 MG TABLET 650 MG PO ×2 (15:58→19:50)
[2022-05-03 16:29] LABS: INTERNATIONAL NORM RATIO 1.4 (0.9-1.1); Prothrombin Time 15.7 SEC (10.0-13.1)
[2022-05-03 16:32] LABS: Partial Thromboplastin Time 33.5 SEC (26.0-36.4)
--- NOTE | 2022-05-03 16:51 | HO.PM.IMPN ---
Subjective Subjective Date of Service: 05/03/22 Interval History: sepsis /ecoli bactermia Review of Systems Patient denies any cough or phlegm or nausea or vomiting. Feels less anxious today denies abd pain Physical Exam Vital Signs: Vital Signs: Last Vital Signs Temp 98 F 05/03/22 15:37 Pulse 80 05/03/22 15:37 Resp 15 05/03/22 15:37 BP 170/79 H 05/03/22 15:37 Pulse Ox 98 05/03/22 15:37 O2 Del Method 05/03/22 15:37 O2 Flow Rate 2 05/03/22 15:37 Oxygen Flow Rate 1 04/29/22 21:45 BMI result Body Mass Index 29.2 ?Appearance: Alert.? Oriented.? anxious?. cvs: rrr, [id number]. res:? Air entry fair, no rales or wheezing. abd: soft , some abd pain ( does not speicfy reason) says intermittent,bs present. ext pulses present. neuro:? nonfocal. Objective Data Active Medications Acetaminophen (Acetaminophen 325 Mg Tablet) 650 mg PO TID [facility] Last Admin: 05/03/22 15:58 Dose: 650 mg Documented By: ANGELA Albuterol/Ipratropium (Albuterol/Iprat 2.5/0.5mg 3 Ml Ampul.Neb) 3 ml INHALE Q6H PRN PRN Reason: Shortness Of Breath Or Wheezing Cyanocobalamin (Cyanocobalamin (Vitamin B-12) 500 Mcg Tablet) 500 mcg PO DAILY [facility] Last Admin: 05/03/22 08:36 Dose: Not Given Documented By: ANGELA Non-Admin Reason: NPO Enoxaparin Sodium (Enoxaparin Sodium 100 Mg/Ml Syringe) 90 mg SUBCUT Q12H [facility] Finasteride (Finasteride 5 Mg Tablet) 5 mg PO DAILY [facility] Last Admin: 05/03/22 08:36 Dose: Not Given Documented By: ANGELA Non-Admin Reason: NPO Gabapentin (Gabapentin 100 Mg Capsule) 100 mg PO DAILY PRN PRN Reason: Anxiety Last Admin: 05/02/22 14:19 Dose: 100 mg Documented By: ALFREDA Hydromorphone HCl (Hydromorphone Hcl 0.5 Mg/0.5 Ml Syringe) 0.5 mg IVPUSH Q2H PRN; Protocol PRN Reason: Pain, Moderate (Pain Scale 4-6 Last Admin: 05/03/22 15:58 Dose: 0.5 mg Documented By: ANGELA Hydromorphone HCl (Hydromorphone Hcl 1 Mg/Ml Syringe) 1 mg IVPUSH Q3H PRN; Protocol PRN Reason: Pain, Severe (Pain Scale 7-10) Last Admin: 05/02/22 10:59 Dose: 1 mg Documented By: ALFREDA Cefepime HCl 2 gm/ Sodium (Chloride) 50 mls @ 100 mls/hr IV Q12H [facility] Last Infusion: 05/03/22 11:06 Dose: 0 mls/hr Documented By: ANGELA Lidocaine (Lidocaine 4 % Patch Adh..Patch) 2 patch TRANSDERMA DAILY PRN; Protocol PRN Reason: Pain, Mild Last Admin: 05/03/22 10:48 Dose: 2 patch Documented By: ANGELA Melatonin (Melatonin 3 Mg Tablet) 6 mg PO BEDTIME PRN PRN Reason: Sleep Last Admin: 05/02/22 20:54 Dose: 6 mg Documented By: RONN Metoprolol Succinate (Metoprolol Succinate Er 25 Mg Tab.Er.24h) 25 mg PO DAILY [facility]; Protocol Last Admin: 05/03/22 08:30 Dose: 25 mg Documented By: ANGELA Multivitamins/Vitamin C (Multivitamin Tablet) 1 tab PO DAILY [facility] Last Admin: 05/03/22 08:36 Dose: Not Given Documented By: ANGELA Non-Admin Reason: NPO Oxycodone HCl (Oxycodone Hcl Immed Release 5 Mg Tablet) 5 mg PO Q6H PRN PRN Reason: Pain, Mild (Pain Scale 1-3) Last Admin: 05/02/22 20:54 Dose: 5 mg Documented By: RONN Pantoprazole Sodium (Pantoprazole Sodium 40 Mg/10 Ml Vial) 40 mg IVPUSH DAILY@0630 [facility] Last Admin: 05/03/22 05:00 Dose: 40 mg Documented By: RONN Pharmacy Consult (Consult Rx Perform Med Rec) 1 each MISCELLANE ONCE PRN PRN Reason: Consult order Tamsulosin HCl (Tamsulosin Hcl 0.4 Mg Capsule) 0.8 mg PO BEDTIME [facility] Last Admin: 05/02/22 20:46 Dose: 0.8 mg Documented By: RONN Zinc Sulfate (Zinc Sulfate 220 Mg Capsule) 220 mg PO DAILY [facility] Last Admin: 05/03/22 08:37 Dose: Not Given Documented By: ANGELA Non-Admin Reason: NPO Labs CBC & Chem 7: 05/03/22 08:15 05/03/22 08:15 Labs: Laboratory Results - last 24 hr 05/03/22 05/03/22 05/03/22 08:15 08:15 09:12 MCV 82.0 MCH 25.6 L MCHC 31.2 RDW 14.7 Plt Count 187 MPV 10.2 Absolute Nucleated RBC 0.000 Nucleated RBC % (auto) 0.0 PT 16.5 H INR 1.4 H APTT Anion Gap 18 Estim Creat Clear Calc 126.9 Estimated GFR > 60 Random Glucose 66 D Calcium 8.2 L 05/03/22 16:09 MCV MCH MCHC RDW Plt Count MPV Absolute Nucleated RBC Nucleated RBC % (auto) PT 15.7 H INR 1.4 H APTT 33.5 Anion Gap Estim Creat Clear Calc Estimated GFR Random Glucose Calcium Assessment and Plan (1) Hydrops of gallbladder: Status: Acute (2) Gram negative sepsis: Status: Acute Plan 76-year-old male? hypertensive and hyperlipidemic with remote history of ST-elevation [place], possible chf (etiology unclear) and what and about a year status post COVID 19 infection that was complicated by deep vein thrombosis and he remains on Eliquis-came with abdominal pain-initially admitted to the ICU because of severe sepsis . ( patient had few admissions to [facility] for sepsis/pneumonia, nstemi ,chf , gram neg sepsis in from last few months -january to now) -records are in the chart. 1. gram-negative sepsis possible related to gallbladder infection concern versus UTI Gallbladder hydrops and mild thickening of gallbladder wall. LFTs are improving urine culture -citrobacter and psudomonas blood culture -ecoli-senstive to ceftriaxone Continue IV antibiotics-cefpime, adjusted (taper )pain meds. as per Gi eval: may need cholecystostomy, we may add? hida ( will d/w GI). hida scan seems positive surgery eval added , also added cardiac clearence for surgery ( seems chronically sick , multiple cardiac risk factors as above) . 2.htn: continue metoprolol 3.dvt : apixiban on hold in anticipation for possible cholecytostomy s/clovenox 4.bph has ch barton: continue flomax /fenestride. 5. possible anxiety: added psych -recomended gabapentin prn for anxiety dvt prophylax -on lovenox family updated /surgery will update the family. Quality Stroke Does the patient have a stroke diagnosis?: No VTE Prior VTE?: Yes VTE Risk Level:: Medical - moderate - high VTE Device Contraindication: N/A - Device Ordered VTE Drug Contraindication: N/A - Med Ordered
[2022-05-03] MEDS: Enoxaparin Sodium 100 MG/ML SYRINGE 90 MG SUBCUT (18:21)
[2022-05-03] MEDS: Tamsulosin HCL 0.4 MG CAPSULE 0.8 MG PO (19:50)
[2022-05-03 20:00] VITALS: BP 151/73; PULSE 77; RESP 18; TEMP 36.8; O2SAT 98
[2022-05-03 23:38] VITALS: BP 163/88; PULSE 82; RESP 18; TEMP 37; O2SAT 96
[2022-05-04] VITALS (20 sets, daily range): BP systolic 117–176; BP diastolic 55–84; PULSE 80–100; RESP 16–26; TEMP 36.5–37.3; O2SAT 94–99
[2022-05-04] MEDS: HYDROmorphone HCl 0.5 MG/0.5 ML SYRINGE IVPUSH ×7 (01:39→23:46)
--- NOTE | 2022-05-04 04:15 | MHC.PIE ---
P 8 BEAT VTACH I.NOTED TO HAVE 8 BEAT VTACH ON TELE.PT ASLEEP,ASYMPTOMATIC.DR KNOX NOTIFIED.NO NEW ORDERS AT PRESENT E.CONT TO MONITOR
[2022-05-04] MEDS: Pantoprazole Sodium 40 MG/10 ML VIAL IVPUSH (06:02)
[2022-05-04 06:09] LABS: Hematocrit 31.2 % (42.0-52.0); Hemoglobin 9.7 g/dl (14.0-18.0); Mean Corpuscular HGB Conc 31.1 g/dl (31.0-36.0); Mean Corpuscular Hemoglobin 25.5 pg (27.0-33.0); Mean Corpuscular Volume 81.9 fL (80.0-98.0); Mean Platelet Volume 9.7 fL (9.4-12.4); Platelet Count 199 X10*3/uL (160-400); Red Blood Count 3.81 X10*6/uL (4.60-5.80); Red Cell Distribution Width 14.7 % (11.0-16.0)
[2022-05-04 06:36] LABS: Alanine Aminotransferase 33 U/L (0-40); Albumin Level 2.9 g/dL (3.5-5.0); Alkaline Phosphatase 300 U/L (39-117); Anion Gap 17 (12-20); Aspartate Amino Transferase 12 U/L (5-37); Bilirubin Direct 0.5 mg/dL (0.0-0.5); Bilirubin Total 0.7 mg/dL (0.0-1.0); Blood Urea Nitrogen 10 mg/dL (9-16); Carbon Dioxide 27 mmol/L (22-29); Chloride 101 mmol/L (96-108); Creatinine Clr Calc Pharmacy 122.3; Estimated Glomerular Filt Rate > 60; Glucose Random 71 mg/dL (60-115); Potassium 3.6 mmol/L (3.3-5.1); Sodium 141 mmol/L (135-145); Total Protein 5.6 g/dL (6.5-8.0)
[2022-05-04] MEDS: Acetaminophen 325 MG TABLET 650 MG PO (08:19)
[2022-05-04] MEDS: Cyanocobalamin (Vitamin B-12) 500 MCG TABLET PO (08:19)
[2022-05-04] MEDS: Multivitamin TABLET 1 TAB PO (08:19)
[2022-05-04] MEDS: Finasteride 5 MG TABLET PO (08:19)
[2022-05-04] MEDS: Zinc Sulfate 220 MG CAPSULE PO (08:19)
[2022-05-04] MEDS: Metoprolol Succinate ER 25 MG TAB.ER.24H PO (08:19)
[2022-05-04] MEDS: Potassium Chloride/H20 10 MEQ/100 ML PIGGYBACK 100 MEQ IV ×2 (09:17→10:51)
[2022-05-04] MEDS: Magnesium Sulfate/D5W 1 GM/100 ML PIGGYBACK IV (09:17)
[2022-05-04] MEDS: Lactated Ringers 1,000 ML 100 ML IVCONT ×2 (09:17→19:49)
[2022-05-04] MEDS: cefEPime HCl 2 GM in 0.9 % Sodium Chloride 50 ML IV ×2 (09:17→21:23)
[2022-05-04 09:21] LABS: Magnesium 1.6 mg/dL (1.6-2.6)
--- NOTE | 2022-05-04 10:39 | MHC.CLN ---
F/U PT IS DAY 5 NPO/C/L DIET PT WITH INCREASED RISK R/T PRESSURE INJURY AND NOW NPO/C/L DIET X 5 DAYS RECOMMEND PPN D10AA4.25 TO START AT 50ML/HR TODAY TO PROVIDE 612KCALS, 51G PROTEIN REPLETE LYTES NEEDED
--- NOTE | 2022-05-04 10:51 | P.PNGS_ITS ---
Subjective Subjective Date of Service: 05/04/22 Interval history: Patient reports continued abdominal pain in the right upper quadrant. He has not eaten at all this morning and is anxious to proceed with surgery. Physical Exam Vital Signs: Vital Signs: Last Vital Signs Temp 98.0 F 05/04/22 08:00 Pulse 80 05/04/22 08:00 Resp 17 05/04/22 08:00 BP 167/81 H 05/04/22 08:00 Pulse Ox 98 05/04/22 08:00 O2 Del Method 05/04/22 08:00 O2 Flow Rate 2 05/04/22 08:00 Oxygen Flow Rate 1 04/29/22 21:45 BMI result Body Mass Index 29.2 Const: General: no acute distress and well developed Nutritional Appearance: well nourished Orientation/consciousness: patient oriented x3 Limitations: no limitations Eyes: Sclerae: sclerae normal Resp: Effort & Inspection: normal respiratory effort, no audible wheezes, no cough and no respiratory distress Auscultation: clear to auscultation bilaterally GI: Inspection: Yes normal to inspection Palpation (GI): Soft to palpation, Tenderness to palpation present (GI) in the RUQ and Lopez's sign positive; with no rebound tenderness, no guarding and not rigid Auscultation: normal bowel sounds Rectal Exam - Male: Yes deferred Skin: General skin exam: no rashes or lesions noted Neuro: General: patient oriented x3 Extrem: General: Yes no clubbing, cyanosis or edema Objective Data Active Medications Acetaminophen (Acetaminophen 325 Mg Tablet) 650 mg PO TID [facility] Last Admin: 05/04/22 08:19 Dose: 650 mg Documented By: BRYAN Albuterol/Ipratropium (Albuterol/Iprat 2.5/0.5mg 3 Ml Ampul.Neb) 3 ml INHALE Q6H PRN PRN Reason: Shortness Of Breath Or Wheezing Cyanocobalamin (Cyanocobalamin (Vitamin B-12) 500 Mcg Tablet) 500 mcg PO DAILY [facility] Last Admin: 05/04/22 08:19 Dose: 500 mcg Documented By: DEEPAK-JONO Enoxaparin Sodium (Enoxaparin Sodium 100 Mg/Ml Syringe) 90 mg SUBCUT Q12H [facility] Last Admin: 05/03/22 18:21 Dose: 90 mg Documented By: ANGELA Finasteride (Finasteride 5 Mg Tablet) 5 mg PO DAILY [facility] Last Admin: 05/04/22 08:19 Dose: 5 mg Documented By: BRYAN Gabapentin (Gabapentin 100 Mg Capsule) 100 mg PO DAILY PRN PRN Reason: Anxiety Last Admin: 05/02/22 14:19 Dose: 100 mg Documented By: ALFREDA Hydromorphone HCl (Hydromorphone Hcl 0.5 Mg/0.5 Ml Syringe) 0.5 mg IVPUSH Q2H PRN; Protocol PRN Reason: Pain, Moderate (Pain Scale 4-6 Last Admin: 05/04/22 10:51 Dose: 0.5 mg Documented By: BRYAN Hydromorphone HCl (Hydromorphone Hcl 1 Mg/Ml Syringe) 1 mg IVPUSH Q3H PRN; Protocol PRN Reason: Pain, Severe (Pain Scale 7-10) Last Admin: 05/02/22 10:59 Dose: 1 mg Documented By: ALFREDA Cefepime HCl 2 gm/ Sodium (Chloride) 50 mls @ 100 mls/hr IV Q12H [facility] Last Infusion: 05/04/22 10:03 Dose: 0 mls/hr Documented By: BRYAN Lactated Ringer's (Lr) 1,000 mls @ 100 mls/hr IVCONT .Q10H [facility] Last Admin: 05/04/22 09:17 Dose: 100 mls/hr Documented By: BRYAN Lidocaine (Lidocaine 4 % Patch Adh..Patch) 2 patch TRANSDERMA DAILY PRN; Protocol PRN Reason: Pain, Mild Last Admin: 05/03/22 10:48 Dose: 2 patch Documented By: ANGELA Melatonin (Melatonin 3 Mg Tablet) 6 mg PO BEDTIME PRN PRN Reason: Sleep Last Admin: 05/02/22 20:54 Dose: 6 mg Documented By: RONN Metoprolol Succinate (Metoprolol Succinate Er 25 Mg Tab.Er.24h) 25 mg PO DAILY [facility]; Protocol Last Admin: 05/04/22 08:19 Dose: 25 mg Documented By: BRYAN Multivitamins/Vitamin C (Multivitamin Tablet) 1 tab PO DAILY [facility] Last Admin: 05/04/22 08:19 Dose: 1 tab Documented By: BRYAN Oxycodone HCl (Oxycodone Hcl Immed Release 5 Mg Tablet) 5 mg PO Q6H PRN PRN Reason: Pain, Mild (Pain Scale 1-3) Last Admin: 05/02/22 20:54 Dose: 5 mg Documented By: RONN Pantoprazole Sodium (Pantoprazole Sodium 40 Mg/10 Ml Vial) 40 mg IVPUSH DAILY@0630 [facility] Last Admin: 05/04/22 06:02 Dose: 40 mg Documented By: YOSEPH Pharmacy Consult (Consult Rx Perform Med Rec) 1 each MISCELLANE ONCE PRN PRN Reason: Consult order Tamsulosin HCl (Tamsulosin Hcl 0.4 Mg Capsule) 0.8 mg PO BEDTIME [facility] Last Admin: 05/03/22 19:50 Dose: 0.8 mg Documented By: EUGENE Zinc Sulfate (Zinc Sulfate 220 Mg Capsule) 220 mg PO DAILY [facility] Last Admin: 05/04/22 08:19 Dose: 220 mg Documented By: BRYAN Labs CBC & Chem 7: 05/04/22 05:49 05/04/22 05:49 Labs: Laboratory Results - last 24 hr 05/03/22 05/04/22 05/04/22 16:09 05:49 05:49 MCV 81.9 Cancelled MCH 25.5 L Cancelled MCHC 31.1 Cancelled RDW 14.7 Cancelled Plt Count 199 Cancelled MPV 9.7 Cancelled Absolute Nucleated RBC 0.000 Cancelled Nucleated RBC % (auto) 0.0 Cancelled PT 15.7 H INR 1.4 H APTT 33.5 Anion Gap Estim Creat Clear Calc Estimated GFR Random Glucose Calcium Magnesium Total Bilirubin Direct Bilirubin AST ALT Alkaline Phosphatase Total Protein Albumin 05/04/22 05:49 MCV MCH MCHC RDW Plt Count MPV Absolute Nucleated RBC Nucleated RBC % (auto) PT INR APTT Anion Gap 17 Estim Creat Clear Calc 122.3 Estimated GFR > 60 Random Glucose 71 Calcium 8.0 L Magnesium 1.6 Total Bilirubin 0.7 Direct Bilirubin 0.5 AST 12 D ALT 33 Alkaline Phosphatase 300 H Total Protein 5.6 L Albumin 2.9 L Procedures Date of Service Date of Service: 05/04/22 Progress Note: A&P Assessment and plan (1) Hydrops of gallbladder: Status: Acute Plan 76-year-old male patient presenting with hydrops of the gallbladder and previous history of sepsis possibly related to cholecystitis. Patient continues to have abdominal symptoms in the right upper quadrant and is anxious to proceed with a laparoscopic or possible open cholecystectomy. I discussed the procedure, risks, and alternatives with the patient as well as his his family members and he consents to a laparoscopic or possible open cholecystectomy. He has been added onto the operative schedule for today. Time Spent With Patient Time: Total time spent is greater than 50% in coordination of care (as documented) at patient's floor/unit and/or counseling patient: Quality Stroke Does the patient have a stroke diagnosis?: No VTE Prior VTE?: Yes VTE Risk Level:: Medical - moderate - high VTE Device Contraindication: N/A - Device Ordered VTE Drug Contraindication: N/A - Med Ordered
--- NOTE | 2022-05-04 11:36 | P.CONCA_ITS ---
History of Present Illness History of Present Illness Date of Service: 05/04/22 Requesting physician: Joseph Dobson Chief complaint: preop CV risk assessment Narrative: 76-year-old gentleman who presented with Gram-negative sepsis and hydrops of gallbladder. He is being assessed for cholecystectomy today. We have been asked to assess his perioperative risk. He has been in an out of hospital for many months. His presentations mostly have been with sepsis. He also has reported history of NSTEMI at [facility]. His troponins on this admission was 4.9. He has been denying chest pains or shortness of breath but has not been physically active for long time. EKG has shown left bundle-branch block. [facility] Past Medical History Medical History Anemia Cervical stenosis of spine Chronic indwelling Butts catheter COVID-19 DVT (deep venous thrombosis) Hyperlipidemia Hypertension Juvenile rheumatoid arthritis NSTEMI (non-ST elevated myocardial infarction) Psoriatic arthritis Urinary retention Social History Social History Household Members: None Housing: Other Housing Other:: SNF Patient Tobacco Use Status: Never used Tobacco Use of substances other than those prescribed or required for medical reasons: No Currently Displaying Signs/Symptoms of Drug Intoxication Withdrawal: No Have you been hit, kicked, punched, or otherwise hurt by someone within the past year? If so, by whom?: No Do you feel safe in your current relationship?: No Current Relationship Is there a partner from a previous relationship who is making you feel unsafe now?: No Are you made to feel afraid or neglected: No Are you DNR?: No Advance Directives: Yes Advance Directives Information Provided: No Advance Directives on File: No Advance Directives Date on File: 04/30/22 Do you have thoughts of harming others: None Do you have a plan to hurt others: No Plan Recently lost weight without trying: No Nutrition Risks: No Nutritional Risk service: No Current occupational status: unemployed Meds Allergies Allergy/AdvReac Type Severity Reaction Status Date / Time Penicillins Allergy Unknown Unknown Verified 04/29/22 13:18 Active Medications: Current Medications Acetaminophen (Acetaminophen 325 Mg Tablet) 650 mg PO TID [facility] Last Admin: 05/04/22 08:19 Dose: 650 mg Albuterol/Ipratropium (Albuterol/Iprat 2.5/0.5mg 3 Ml Ampul.Neb) 3 ml INHALE Q6H PRN PRN Reason: Shortness Of Breath Or Wheezing Cyanocobalamin (Cyanocobalamin (Vitamin B-12) 500 Mcg Tablet) 500 mcg PO DAILY [facility] Last Admin: 05/04/22 08:19 Dose: 500 mcg Enoxaparin Sodium (Enoxaparin Sodium 100 Mg/Ml Syringe) 90 mg SUBCUT Q12H [facility] Last Admin: 05/03/22 18:21 Dose: 90 mg Finasteride (Finasteride 5 Mg Tablet) 5 mg PO DAILY [facility] Last Admin: 05/04/22 08:19 Dose: 5 mg Gabapentin (Gabapentin 100 Mg Capsule) 100 mg PO DAILY PRN PRN Reason: Anxiety Last Admin: 05/02/22 14:19 Dose: 100 mg Hydromorphone HCl (Hydromorphone Hcl 0.5 Mg/0.5 Ml Syringe) 0.5 mg IVPUSH Q2H PRN; Protocol PRN Reason: Pain, Moderate (Pain Scale 4-6 Last Admin: 05/04/22 10:51 Dose: 0.5 mg Hydromorphone HCl (Hydromorphone Hcl 1 Mg/Ml Syringe) 1 mg IVPUSH Q3H PRN; Protocol PRN Reason: Pain, Severe (Pain Scale 7-10) Last Admin: 05/02/22 10:59 Dose: 1 mg Cefepime HCl 2 gm/ Sodium (Chloride) 50 mls @ 100 mls/hr IV Q12H [facility] Last Infusion: 05/04/22 10:03 Dose: Infused Lactated Ringer's (Lr) 1,000 mls @ 100 mls/hr IVCONT .Q10H [facility] Last Admin: 05/04/22 09:17 Dose: 100 mls/hr Lidocaine (Lidocaine 4 % Patch Adh..Patch) 2 patch TRANSDERMA DAILY PRN; Protocol PRN Reason: Pain, Mild Last Admin: 05/03/22 10:48 Dose: 2 patch Melatonin (Melatonin 3 Mg Tablet) 6 mg PO BEDTIME PRN PRN Reason: Sleep Last Admin: 05/02/22 20:54 Dose: 6 mg Metoprolol Succinate (Metoprolol Succinate Er 25 Mg Tab.Er.24h) 25 mg PO DAILY [facility]; Protocol Last Admin: 05/04/22 08:19 Dose: 25 mg Multivitamins/Vitamin C (Multivitamin Tablet) 1 tab PO DAILY [facility] Last Admin: 05/04/22 08:19 Dose: 1 tab Oxycodone HCl (Oxycodone Hcl Immed Release 5 Mg Tablet) 5 mg PO Q6H PRN PRN Reason: Pain, Mild (Pain Scale 1-3) Last Admin: 05/02/22 20:54 Dose: 5 mg Pantoprazole Sodium (Pantoprazole Sodium 40 Mg/10 Ml Vial) 40 mg IVPUSH DAILY@0630 [facility] Last Admin: 05/04/22 06:02 Dose: 40 mg Pharmacy Consult (Consult Rx Perform Med Rec) 1 each MISCELLANE ONCE PRN PRN Reason: Consult order Tamsulosin HCl (Tamsulosin Hcl 0.4 Mg Capsule) 0.8 mg PO BEDTIME [facility] Last Admin: 05/03/22 19:50 Dose: 0.8 mg Zinc Sulfate (Zinc Sulfate 220 Mg Capsule) 220 mg PO DAILY [facility] Last Admin: 05/04/22 08:19 Dose: 220 mg Home Medications Medication Instructions Recorded Confirmed Last Taken Type acetaminophen 325 mg tablet 650 mg PO TID 04/29/22 04/29/22 Unknown History ammonium lactate 12 % topical cream 1 appl topical BID 04/29/22 04/29/22 Unknown History apixaban 5 mg tablet (Eliquis) 1 tab PO BID 04/29/22 04/29/22 Unknown History ascorbic acid (vitamin C) 500 mg 500 mg PO BID 04/29/22 04/29/22 Unknown History tablet cyanocobalamin (vitamin B-12) 500 500 mcg PO DAILY 04/29/22 04/29/22 Unknown History mcg tablet diclofenac sodium 1 % topical gel 2 g topical Q6H PRN Pain, Mild 04/29/22 04/29/22 Unknown History finasteride 5 mg tablet 1 tab PO DAILY 04/29/22 04/29/22 Unknown History furosemide 20 mg tablet 20 mg PO Q2D 04/29/22 04/29/22 Unknown History ipratropium 0.5 mg-albuterol 3 mg 3 ml inhalation Q6H PRN Shortness 04/29/22 04/29/22 Unknown History (2.5 mg base)/3 mL nebulization Of Breath Or Wheezing soln lactulose 10 gram/15 mL oral 20 ml PO DAILY 04/29/22 04/29/22 Unknown History solution lidocaine 4 % topical patch 2 patch topical DAILY PRN Pain, 04/29/22 04/29/22 Unknown History (Aspercreme (lidocaine)) Mild magnesium oxide 400 mg (241.3 mg 400 mg PO DAILY 04/29/22 04/29/22 Unknown History magnesium) tablet melatonin 3 mg tablet 3 mg PO BEDTIME PRN Sleep 04/29/22 04/29/22 Unknown History metoprolol succinate 25 mg 1 tab PO DAILY 04/29/22 04/29/22 Unknown History tablet,extended release 24 hr morphine 30 mg tablet,extended 1 tab PO BID PRN Pain, Severe 04/29/22 04/29/22 Unknown History release multivitamin with minerals 1 tab PO DAILY 04/29/22 04/29/22 Unknown History (Multiple Vitamin-Minerals tablet) nystatin 100,000 unit/gram topical 1 appl topical TID 04/29/22 04/29/22 Unknown History cream oxycodone 5 mg tablet 5 mg PO Q6H PRN Pain, Moderate 04/29/22 04/29/22 Unknown History pregabalin 75 mg capsule 1 cap PO BID 04/29/22 04/29/22 Unknown History sennosides 8.6 mg tablet (senna) 17.2 mg PO BEDTIME 04/29/22 04/29/22 Unknown History tamsulosin 0.4 mg capsule 2 cap PO BEDTIME 04/29/22 04/29/22 Unknown History zinc 50 mg tablet 50 mg PO DAILY 04/29/22 04/29/22 Unknown History Physical Exam Vital Signs: Vital Signs: Last Vital Signs Temp 98.1 F 05/04/22 11:10 Pulse 86 05/04/22 11:10 Resp 17 05/04/22 11:10 BP 176/79 H 05/04/22 11:10 Pulse Ox 94 05/04/22 11:10 O2 Del Method 05/04/22 11:10 O2 Flow Rate 2 05/04/22 08:00 Oxygen Flow Rate 1 04/29/22 21:45 BMI result Body Mass Index 29.2 GENERAL APPEARANCE: in no acute distress, pleasant. NECK: no carotid bruit, no jugular venous distention. SKIN: no suspicious lesions, warm and dry. HEART: no murmurs, regular rate and rhythm. LUNGS: clear to auscultation bilaterally. ABDOMEN: soft, nontender. EXTREMITIES: no edema. PERIPHERAL PULSES: equal. NEUROLOGIC: No gross deficits, AAO X 3 Objective Labs and Meds Result diagrams: 05/04/22 05:49 05/04/22 05:49 Lab results: Laboratory Results - last 24 hr 05/03/22 05/04/22 05/04/22 16:09 05:49 05:49 WBC 9.0 Cancelled RBC 3.81 L Cancelled Hgb 9.7 L Cancelled Hct 31.2 L Cancelled MCV 81.9 Cancelled MCH 25.5 L Cancelled MCHC 31.1 Cancelled RDW 14.7 Cancelled Plt Count 199 Cancelled MPV 9.7 Cancelled Absolute Nucleated RBC 0.000 Cancelled Nucleated RBC % (auto) 0.0 Cancelled PT 15.7 H INR 1.4 H APTT 33.5 Sodium Potassium Chloride Carbon Dioxide Anion Gap BUN Creatinine Estim Creat Clear Calc Estimated GFR Random Glucose Calcium Magnesium Total Bilirubin Direct Bilirubin AST ALT Alkaline Phosphatase Total Protein Albumin 05/04/22 05:49 WBC RBC Hgb Hct MCV MCH MCHC RDW Plt Count MPV Absolute Nucleated RBC Nucleated RBC % (auto) PT INR APTT Sodium 141 Potassium 3.6 Chloride 101 Carbon Dioxide 27 Anion Gap 17 BUN 10 Creatinine 0.56 Estim Creat Clear Calc 122.3 Estimated GFR > 60 Random Glucose 71 Calcium 8.0 L Magnesium 1.6 Total Bilirubin 0.7 Direct Bilirubin 0.5 AST 12 D ALT 33 Alkaline Phosphatase 300 H Total Protein 5.6 L Albumin 2.9 L Imaging Radiologist's impression: Impressions Hepatobiliary Scan Nuclear Medicine 05/03/22 12:50 IMPRESSION: Obstructed cystic duct. Patent CBD. Normal hepatic uptake. Results were discussed with Dr. Dobson at 1:10 PM Assessment and Plan (1) Hydrops of gallbladder: Status: Acute (2) Preop cardiovascular exam: Status: Acute Plan 76-year-old gentleman who is here with Gram-negative sepsis. He has recovered but has been diagnosed with hydrops of gallbladder and needs cholecystectomy. Denying chest pain or shortness of breath. Physically he has not been active. Difficult to assess functional capacity which is the orozco determinant of perioperative risk. Overall he is intermediate to high risk for any procedures. I do not think doing a stress test will change this because his functional status is very poor and stress test will give us limited findings. Thank you for allowing me to participate in the care of your patient. Please feel free to contact me if you have any questions. Procedures Date of Service Date of Service: 05/04/22
--- NOTE | 2022-05-04 11:51 | HO.PM.IMPN ---
Subjective Subjective Date of Service: 05/04/22 Interval History: sepsis /ecoli bactermia Review of Systems Patient denies any chest pain or shortness of breath or fever chills Denies any new abdominal pain. Less anxious Physical Exam Vital Signs: Vital Signs: Last Vital Signs Temp 98.1 F 05/04/22 11:10 Pulse 86 05/04/22 11:10 Resp 17 05/04/22 11:10 BP 176/79 H 05/04/22 11:10 Pulse Ox 94 05/04/22 11:10 O2 Del Method 05/04/22 11:10 O2 Flow Rate 2 05/04/22 08:00 Oxygen Flow Rate 1 04/29/22 21:45 BMI result Body Mass Index 29.2 Appearance: Alert.? Oriented.? anxious?. cvs: rrr, [id number]. res:? Air entry fair, no rales or wheezing. abd: soft , some intermittent pain, nd ,bs present. ext pulses present. neuro:? nonfocal. Objective Data Active Medications Acetaminophen (Acetaminophen 325 Mg Tablet) 650 mg PO TID [facility] Last Admin: 05/04/22 08:19 Dose: 650 mg Documented By: BRYAN Albuterol/Ipratropium (Albuterol/Iprat 2.5/0.5mg 3 Ml Ampul.Neb) 3 ml INHALE Q6H PRN PRN Reason: Shortness Of Breath Or Wheezing Cyanocobalamin (Cyanocobalamin (Vitamin B-12) 500 Mcg Tablet) 500 mcg PO DAILY [facility] Last Admin: 05/04/22 08:19 Dose: 500 mcg Documented By: DEEPAK-JONO Enoxaparin Sodium (Enoxaparin Sodium 100 Mg/Ml Syringe) 90 mg SUBCUT Q12H [facility] Last Admin: 05/03/22 18:21 Dose: 90 mg Documented By: LYSBobo Finasteride (Finasteride 5 Mg Tablet) 5 mg PO DAILY [facility] Last Admin: 05/04/22 08:19 Dose: 5 mg Documented By: DEEPAK-JONO Gabapentin (Gabapentin 100 Mg Capsule) 100 mg PO DAILY PRN PRN Reason: Anxiety Last Admin: 05/02/22 14:19 Dose: 100 mg Documented By: ALFREDA Hydromorphone HCl (Hydromorphone Hcl 0.5 Mg/0.5 Ml Syringe) 0.5 mg IVPUSH Q2H PRN; Protocol PRN Reason: Pain, Moderate (Pain Scale 4-6 Last Admin: 05/04/22 10:51 Dose: 0.5 mg Documented By: BRYAN Hydromorphone HCl (Hydromorphone Hcl 1 Mg/Ml Syringe) 1 mg IVPUSH Q3H PRN; Protocol PRN Reason: Pain, Severe (Pain Scale 7-10) Last Admin: 05/02/22 10:59 Dose: 1 mg Documented By: ALFREDA Cefepime HCl 2 gm/ Sodium (Chloride) 50 mls @ 100 mls/hr IV Q12H [facility] Last Infusion: 05/04/22 10:03 Dose: 0 mls/hr Documented By: BRYAN Lactated Ringer's (Lr) 1,000 mls @ 100 mls/hr IVCONT .Q10H [facility] Last Admin: 05/04/22 09:17 Dose: 100 mls/hr Documented By: BRYAN Lidocaine (Lidocaine 4 % Patch Adh..Patch) 2 patch TRANSDERMA DAILY PRN; Protocol PRN Reason: Pain, Mild Last Admin: 05/03/22 10:48 Dose: 2 patch Documented By: ANGELA Melatonin (Melatonin 3 Mg Tablet) 6 mg PO BEDTIME PRN PRN Reason: Sleep Last Admin: 05/02/22 20:54 Dose: 6 mg Documented By: RONN Metoprolol Succinate (Metoprolol Succinate Er 25 Mg Tab.Er.24h) 25 mg PO DAILY [facility]; Protocol Last Admin: 05/04/22 08:19 Dose: 25 mg Documented By: BRYAN Multivitamins/Vitamin C (Multivitamin Tablet) 1 tab PO DAILY [facility] Last Admin: 05/04/22 08:19 Dose: 1 tab Documented By: BRYAN Oxycodone HCl (Oxycodone Hcl Immed Release 5 Mg Tablet) 5 mg PO Q6H PRN PRN Reason: Pain, Mild (Pain Scale 1-3) Last Admin: 05/02/22 20:54 Dose: 5 mg Documented By: RONN Pantoprazole Sodium (Pantoprazole Sodium 40 Mg/10 Ml Vial) 40 mg IVPUSH DAILY@0630 [facility] Last Admin: 05/04/22 06:02 Dose: 40 mg Documented By: YOSEPH Pharmacy Consult (Consult Rx Perform Med Rec) 1 each MISCELLANE ONCE PRN PRN Reason: Consult order Tamsulosin HCl (Tamsulosin Hcl 0.4 Mg Capsule) 0.8 mg PO BEDTIME [facility] Last Admin: 05/03/22 19:50 Dose: 0.8 mg Documented By: EUGENE Zinc Sulfate (Zinc Sulfate 220 Mg Capsule) 220 mg PO DAILY [facility] Last Admin: 05/04/22 08:19 Dose: 220 mg Documented By: BRYAN Labs CBC & Chem 7: 05/04/22 05:49 05/04/22 05:49 Labs: Laboratory Results - last 24 hr 05/03/22 05/04/22 05/04/22 16:09 05:49 05:49 MCV 81.9 Cancelled MCH 25.5 L Cancelled MCHC 31.1 Cancelled RDW 14.7 Cancelled Plt Count 199 Cancelled MPV 9.7 Cancelled Absolute Nucleated RBC 0.000 Cancelled Nucleated RBC % (auto) 0.0 Cancelled PT 15.7 H INR 1.4 H APTT 33.5 Anion Gap Estim Creat Clear Calc Estimated GFR Random Glucose Calcium Phosphorus Magnesium Total Bilirubin Direct Bilirubin AST ALT Alkaline Phosphatase Total Protein Albumin 05/04/22 05/04/22 05:49 11:10 MCV MCH MCHC RDW Plt Count MPV Absolute Nucleated RBC Nucleated RBC % (auto) PT INR APTT Anion Gap 17 Estim Creat Clear Calc 122.3 Estimated GFR > 60 Random Glucose 71 Calcium 8.0 L Phosphorus 3.0 Magnesium 1.6 Total Bilirubin 0.7 Direct Bilirubin 0.5 AST 12 D ALT 33 Alkaline Phosphatase 300 H Total Protein 5.6 L Albumin 2.9 L Assessment and Plan (1) Gram negative sepsis: Status: Acute (2) Hydrops of gallbladder: Status: Acute Plan 76-year-old male? hypertensive and hyperlipidemic with remote history of ST-elevation OR, possible chf (etiology unclear) ,htn ,lbbb,and what and about a year status post COVID 19 infection that was complicated by deep vein thrombosis and he remains on Eliquis-came with abdominal pain-initially admitted to the ICU because of severe sepsis . ( patient had few [facility] for sepsis/pneumonia, nstemi ,chf? , gram neg sepsis in from last few months -january to now) -records are in the chart. 1. gram-negative sepsis possible related to gallbladder infection concern versus UTI Gallbladder hydrops and mild thickening of gallbladder wall. LFTs are improving urine culture -citrobacter and psudomonas blood culture -ecoli-senstive to ceftriaxone Continue IV antibiotics-cefpime, adjusted (taper )pain meds. as per Gi eval/surgery:hida scan seems positive and hydrops of the gallbladder . seen by cardio-possible intermediate risk for surgery. surgery eval -possible lap letitia today. nutritional eval-added tpn 2.htn: continue metoprolol 3.dvt : apixiban on hold in anticipation for possible cholecytostomy ?s/clovenox 4.bph has ch barton: continue flomax /fenestride. 5. possible anxiety: added psych -recomended gabapentin prn for anxiety Seen after lap letitia (patient seems to be awake , has some soreness in lap letitia area, vital seems fine). Lap letitia site: Seems clean, no discharge. inpatient need:ecoli bacteremia, possible lap letitia . Quality Stroke Does the patient have a stroke diagnosis?: No VTE Prior VTE?: Yes VTE Risk Level:: Medical - moderate - high VTE Device Contraindication: N/A - Device Ordered VTE Drug Contraindication: N/A - Med Ordered
--- NOTE | 2022-05-04 11:56 | PC.NURSE ---
Awaiting cardiac clearance - draft in by Dr Akbar. Spoke with Dr Akbar over phone to expedite process per request of anesthesia team. Per Dr Akbar - patient intermediate to high risk, no stress or echo is going to change anything for him, he needs is gallbladder out. No further work up being ordered. Dr Akbar to notify Dr Peña of risk & to sign his note as soon as possible. Dr Marcial & Zen aware of risk/clearance.
--- NOTE | 2022-05-04 12:20 | P.CONAN_ITS ---
[facility] Active Problems Active Problems: All Active Problems (Updated 04/30/22 @ 16:09 by Edgardo Seth MD) Gram negative sepsis (Acute) Hydrops of gallbladder (Acute) Anemia (Acute) Abnormal CT scan, gallbladder (Acute) Elevated transaminase level (Acute) Acute hypotension (Acute) Catheter-associated urinary tract infection (Acute) Past Medical History Medical History Anemia Cervical stenosis of spine Chronic indwelling Butts catheter COVID-19 DVT (deep venous thrombosis) Hyperlipidemia Hypertension Juvenile rheumatoid arthritis NSTEMI (non-ST elevated myocardial infarction) Psoriatic arthritis Urinary retention Family History Family history of problems with anesthesia: No Surgical History History of Problems with Anesthesia: No Social History Social History Household Members: None Housing: Other Housing Other:: SNF Patient Tobacco Use Status: Never used Tobacco Use of substances other than those prescribed or required for medical reasons: No Currently Displaying Signs/Symptoms of Drug Intoxication Withdrawal: No Have you been hit, kicked, punched, or otherwise hurt by someone within the past year? If so, by whom?: No Do you feel safe in your current relationship?: No Current Relationship Is there a partner from a previous relationship who is making you feel unsafe now?: No Are you made to feel afraid or neglected: No Are you DNR?: No Advance Directives: Yes Advance Directives Information Provided: No Advance Directives on File: No Advance Directives Date on File: 04/30/22 Do you have thoughts of harming others: None Do you have a plan to hurt others: No Plan Recently lost weight without trying: No Nutrition Risks: No Nutritional Risk service: No Current occupational status: unemployed Meds Allergies Allergy/AdvReac Type Severity Reaction Status Date / Time Penicillins Allergy Unknown Unknown Verified 04/29/22 13:18 Active Medications: Current Medications Acetaminophen (Acetaminophen 325 Mg Tablet) 650 mg PO TID [facility] Last Admin: 05/04/22 08:19 Dose: 650 mg Albuterol/Ipratropium (Albuterol/Iprat 2.5/0.5mg 3 Ml Ampul.Neb) 3 ml INHALE Q6H PRN PRN Reason: Shortness Of Breath Or Wheezing Cyanocobalamin (Cyanocobalamin (Vitamin B-12) 500 Mcg Tablet) 500 mcg PO DAILY [facility] Last Admin: 05/04/22 08:19 Dose: 500 mcg Enoxaparin Sodium (Enoxaparin Sodium 100 Mg/Ml Syringe) 90 mg SUBCUT Q12H [facility] Last Admin: 05/03/22 18:21 Dose: 90 mg Finasteride (Finasteride 5 Mg Tablet) 5 mg PO DAILY [facility] Last Admin: 05/04/22 08:19 Dose: 5 mg Gabapentin (Gabapentin 100 Mg Capsule) 100 mg PO DAILY PRN PRN Reason: Anxiety Last Admin: 05/02/22 14:19 Dose: 100 mg Hydromorphone HCl (Hydromorphone Hcl 0.5 Mg/0.5 Ml Syringe) 0.5 mg IVPUSH Q2H PRN; Protocol PRN Reason: Pain, Moderate (Pain Scale 4-6 Last Admin: 05/04/22 10:51 Dose: 0.5 mg Hydromorphone HCl (Hydromorphone Hcl 1 Mg/Ml Syringe) 1 mg IVPUSH Q3H PRN; Protocol PRN Reason: Pain, Severe (Pain Scale 7-10) Last Admin: 05/02/22 10:59 Dose: 1 mg Cefepime HCl 2 gm/ Sodium (Chloride) 50 mls @ 100 mls/hr IV Q12H [facility] Last Infusion: 05/04/22 10:03 Dose: Infused Lactated Ringer's (Lr) 1,000 mls @ 100 mls/hr IVCONT .Q10H [facility] Last Admin: 05/04/22 09:17 Dose: 100 mls/hr Multivitamins 17 ml/ Trace Metals 1.7 ml/ Amino Acids/Electrolytes/Dextrose 1,200 mls @ 50 mls/hr IV DAILY@1800 [facility] Stop: 05/05/22 17:59 Lidocaine (Lidocaine 4 % Patch Adh..Patch) 2 patch TRANSDERMA DAILY PRN; Protocol PRN Reason: Pain, Mild Last Admin: 05/03/22 10:48 Dose: 2 patch Melatonin (Melatonin 3 Mg Tablet) 6 mg PO BEDTIME PRN PRN Reason: Sleep Last Admin: 05/02/22 20:54 Dose: 6 mg Metoprolol Succinate (Metoprolol Succinate Er 25 Mg Tab.Er.24h) 25 mg PO DAILY [facility]; Protocol Last Admin: 05/04/22 08:19 Dose: 25 mg Multivitamins/Vitamin C (Multivitamin Tablet) 1 tab PO DAILY [facility] Last Admin: 05/04/22 08:19 Dose: 1 tab Oxycodone HCl (Oxycodone Hcl Immed Release 5 Mg Tablet) 5 mg PO Q6H PRN PRN Reason: Pain, Mild (Pain Scale 1-3) Last Admin: 05/02/22 20:54 Dose: 5 mg Pantoprazole Sodium (Pantoprazole Sodium 40 Mg/10 Ml Vial) 40 mg IVPUSH DAILY@0630 [facility] Last Admin: 05/04/22 06:02 Dose: 40 mg Pharmacy Consult (Consult Rx Perform Med Rec) 1 each MISCELLANE ONCE PRN PRN Reason: Consult order Tamsulosin HCl (Tamsulosin Hcl 0.4 Mg Capsule) 0.8 mg PO BEDTIME [facility] Last Admin: 05/03/22 19:50 Dose: 0.8 mg Zinc Sulfate (Zinc Sulfate 220 Mg Capsule) 220 mg PO DAILY [facility] Last Admin: 05/04/22 08:19 Dose: 220 mg Home Medications Medication Instructions Recorded Confirmed Last Taken Type acetaminophen 325 mg tablet 650 mg PO TID 04/29/22 04/29/22 Unknown History ammonium lactate 12 % topical cream 1 appl topical BID 04/29/22 04/29/22 Unknown History apixaban 5 mg tablet (Eliquis) 1 tab PO BID 04/29/22 04/29/22 Unknown History ascorbic acid (vitamin C) 500 mg 500 mg PO BID 04/29/22 04/29/22 Unknown History tablet cyanocobalamin (vitamin B-12) 500 500 mcg PO DAILY 04/29/22 04/29/22 Unknown History mcg tablet diclofenac sodium 1 % topical gel 2 g topical Q6H PRN Pain, Mild 04/29/22 04/29/22 Unknown History finasteride 5 mg tablet 1 tab PO DAILY 04/29/22 04/29/22 Unknown History furosemide 20 mg tablet 20 mg PO Q2D 04/29/22 04/29/22 Unknown History ipratropium 0.5 mg-albuterol 3 mg 3 ml inhalation Q6H PRN Shortness 04/29/22 04/29/22 Unknown History (2.5 mg base)/3 mL nebulization Of Breath Or Wheezing soln lactulose 10 gram/15 mL oral 20 ml PO DAILY 04/29/22 04/29/22 Unknown History solution lidocaine 4 % topical patch 2 patch topical DAILY PRN Pain, 04/29/22 04/29/22 Unknown History (Aspercreme (lidocaine)) Mild magnesium oxide 400 mg (241.3 mg 400 mg PO DAILY 04/29/22 04/29/22 Unknown History magnesium) tablet melatonin 3 mg tablet 3 mg PO BEDTIME PRN Sleep 04/29/22 04/29/22 Unknown History metoprolol succinate 25 mg 1 tab PO DAILY 04/29/22 04/29/22 Unknown History tablet,extended release 24 hr morphine 30 mg tablet,extended 1 tab PO BID PRN Pain, Severe 04/29/22 04/29/22 Unknown History release multivitamin with minerals 1 tab PO DAILY 04/29/22 04/29/22 Unknown History (Multiple Vitamin-Minerals tablet) nystatin 100,000 unit/gram topical 1 appl topical TID 04/29/22 04/29/22 Unknown History cream oxycodone 5 mg tablet 5 mg PO Q6H PRN Pain, Moderate 04/29/22 04/29/22 Unknown History pregabalin 75 mg capsule 1 cap PO BID 04/29/22 04/29/22 Unknown History sennosides 8.6 mg tablet (senna) 17.2 mg PO BEDTIME 04/29/22 04/29/22 Unknown History tamsulosin 0.4 mg capsule 2 cap PO BEDTIME 04/29/22 04/29/22 Unknown History zinc 50 mg tablet 50 mg PO DAILY 04/29/22 04/29/22 Unknown History Exam Exam Date and Time: May 04, 2022 1220 Height,Weight and Vital Signs: Height 5 ft 8 in Weight 87.2 kg Last Vital Signs Temp 98.1 F 05/04/22 11:10 Pulse 86 05/04/22 11:10 Resp 17 05/04/22 11:10 BP 176/79 H 05/04/22 11:10 Pulse Ox 94 05/04/22 11:10 O2 Del Method 05/04/22 11:10 O2 Flow Rate 2 05/04/22 08:00 Oxygen Flow Rate 1 04/29/22 21:45 Pertinent Lab Results Pertinent Lab Results: Laboratory Tests 04/29/22 04/29/22 04/29/22 13:28 13:28 13:28 WBC RBC Hgb Hct MCV MCH MCHC RDW Plt Count MPV Immature Gran % (Auto) Neut % (Auto) Lymph % (Auto) [place] % (Auto) Eos % (Auto) Baso % (Auto) Lymph # (Auto) [place] # (Auto) Eos # (Auto) Baso # (Auto) Abs Immat Gran (auto) Absolute Neuts (auto) Absolute Nucleated RBC Nucleated RBC % (auto) Neutrophils % (Manual) Band Neutrophils % Lymphocytes % (Manual) Monocytes % (Manual) Abs Neuts (Manual) Lymphocytes # (Manual) Monocytes # (Manual) Dohle Bodies Platelet Estimate Large Platelets Plt Morphology Comment RBC Morphology Polychromasia Hypochromasia Basophilic Stippling Smear Tech's Comments Smear Path Review PT INR APTT Sodium Potassium Chloride Carbon Dioxide Anion Gap BUN Creatinine Estim Creat Clear Calc Estimated GFR POC Glucose Random Glucose Lactic Acid 1.2 Calcium Phosphorus Magnesium Total Bilirubin Direct Bilirubin AST ALT Alkaline Phosphatase Troponin I High Sens 4.9 C-Reactive Protein B-Natriuretic Peptide 185 H Total Protein Albumin Lipase Urine Color Urine Appearance Urine pH Ur Specific [place] Urine Protein Urine Glucose (UA) Urine Ketones Urine Blood Urine Nitrite Ur Leukocyte Esterase Urine RBC Urine WBC Ur Squamous Epith Cells Urine Bacteria COVID-19 (ELVI) COVID-19 Clin Com 04/29/22 04/29/22 04/29/22 13:31 13:59 13:59 WBC 11.9 H RBC 4.07 L Hgb 10.7 L Hct 33.2 L MCV 81.6 MCH 26.3 L MCHC 32.2 RDW 14.4 Plt Count 210 MPV 8.8 L Immature Gran % (Auto) 0.3 Neut % (Auto) 96.4 H Lymph % (Auto) 2.0 L [place] % (Auto) 1.1 L Eos % (Auto) 0.0 Baso % (Auto) 0.2 Lymph # (Auto) 0.2 L [place] # (Auto) 0.1 Eos # (Auto) 0.0 Baso # (Auto) 0.0 Abs Immat Gran (auto) 0.04 H Absolute Neuts (auto) 11.5 H Absolute Nucleated RBC 0.000 Nucleated RBC % (auto) 0.0 Neutrophils % (Manual) Band Neutrophils % Lymphocytes % (Manual) Monocytes % (Manual) Abs Neuts (Manual) Lymphocytes # (Manual) Monocytes # (Manual) Dohle Bodies Platelet Estimate Large Platelets Plt Morphology Comment RBC Morphology Polychromasia Hypochromasia Basophilic Stippling Smear Tech's Comments VERIFIED Smear Path Review PT INR APTT Sodium 139 Potassium 4.0 Chloride 95 L Carbon Dioxide 32 H Anion Gap 16 BUN 13 Creatinine 0.62 Estim Creat Clear Calc 111.5 Estimated GFR > 60 POC Glucose Random Glucose 198 H Lactic Acid Calcium 8.3 L Phosphorus Magnesium 1.8 Total Bilirubin 2.5 H Direct Bilirubin AST 242 H ALT 152 H Alkaline Phosphatase 680 H Troponin I High Sens C-Reactive Protein B-Natriuretic Peptide Total Protein 6.7 Albumin 3.3 L Lipase 141 H Urine Color Urine Appearance Urine pH Ur Specific [place] Urine Protein Urine Glucose (UA) Urine Ketones Urine Blood Urine Nitrite Ur Leukocyte Esterase Urine RBC Urine WBC Ur Squamous Epith Cells Urine Bacteria COVID-19 (ELVI) Negative COVID-19 [employer] Com See Note 04/29/22 04/29/22 04/29/22 14:16 19:59 21:22 WBC RBC Hgb Hct MCV MCH MCHC RDW Plt Count MPV Immature Gran % (Auto) Neut % (Auto) Lymph % (Auto) [place] % (Auto) Eos % (Auto) Baso % (Auto) Lymph # (Auto) [place] # (Auto) Eos # (Auto) Baso # (Auto) Abs Immat Gran (auto) Absolute Neuts (auto) Absolute Nucleated RBC Nucleated RBC % (auto) Neutrophils % (Manual) Band Neutrophils % Lymphocytes % (Manual) Monocytes % (Manual) Abs Neuts (Manual) Lymphocytes # (Manual) Monocytes # (Manual) Dohle Bodies Platelet Estimate Large Platelets Plt Morphology Comment RBC Morphology Polychromasia Hypochromasia Basophilic Stippling Smear Tech's Comments Smear Path Review PT INR APTT Sodium Potassium Chloride Carbon Dioxide Anion Gap BUN Creatinine Estim Creat Clear Calc Estimated GFR POC Glucose 147 H Random Glucose Lactic Acid 1.1 Calcium Phosphorus Magnesium Total Bilirubin Direct Bilirubin AST ALT Alkaline Phosphatase Troponin I High Sens C-Reactive Protein B-Natriuretic Peptide Total Protein Albumin Lipase Urine Color YELLOW Urine Appearance HAZY Urine pH 7.5 Ur Specific [place] 1.015 Urine Protein TRACE Urine Glucose (UA) NEG Urine Ketones NEG Urine Blood 3+ H Urine Nitrite POS H Ur Leukocyte Esterase 3+ H Urine RBC 1-4 Urine WBC 76-150 H Ur Squamous Epith Cells NONE Urine Bacteria 4+ COVID-19 (ELVI) COVID-19 Clin Com 04/29/22 04/29/2204/30/22 21:22 21:22 05:10 WBC 30.0 H* RBC 3.20 L D Hgb 8.3 L D Hct 26.5 L D MCV 82.8 MCH 25.9 L MCHC 31.3 RDW 14.6 Plt Count 197 MPV 9.4 Immature Gran % (Auto) 3.1 H Neut % (Auto) 92.4 H Lymph % (Auto) 1.1 L [place] % (Auto) 3.3 Eos % (Auto) 0.0 Baso % (Auto) 0.1 Lymph # (Auto) 0.3 L [place] # (Auto) 1.0 Eos # (Auto) 0.0 Baso # (Auto) 0.0 Abs Immat Gran (auto) 0.93 H Absolute Neuts (auto) 27.7 H Absolute Nucleated RBC 0.000 Nucleated RBC % (auto) 0.0 Neutrophils % (Manual) Band Neutrophils % Lymphocytes % (Manual) Monocytes % (Manual) Abs Neuts (Manual) Lymphocytes # (Manual) Monocytes # (Manual) Dohle Bodies Platelet Estimate Large Platelets Plt Morphology Comment RBC Morphology Polychromasia Hypochromasia Basophilic Stippling Smear Tech's Comments Smear Path Review PT INR APTT Sodium 141 144 Potassium 3.1 L D 4.0 D Chloride 101 103 Carbon Dioxide 28 31 H Anion Gap 15 14 BUN 15 15 Creatinine 0.67 0.67 Estim Creat Clear Calc 103.2 103.2 Estimated GFR > 60 > 60 POC Glucose Random Glucose 172 H 148 H Lactic Acid Calcium 7.6 L D 8.0 L Phosphorus 3.1 Magnesium Total Bilirubin 2.9 H 3.2 H Direct Bilirubin 2.6 H 2.7 H AST 161 H 119 H ALT 121 H 112 H Alkaline Phosphatase 529 H D 478 H Troponin I High Sens C-Reactive Protein 18.45 H B-Natriuretic Peptide Total Protein 5.6 L 5.9 L Albumin 3.1 L 3.5 Lipase 834 H 215 H Urine Color Urine Appearance Urine pH Ur Specific [place] Urine Protein Urine Glucose (UA) Urine Ketones Urine Blood Urine Nitrite Ur Leukocyte Esterase Urine RBC Urine WBC Ur Squamous Epith Cells Urine Bacteria COVID-19 (ELVI) COVID-19 Clin Com 04/30/22 04/30/22 04/30/22 05:10 05:10 05:36 WBC 46.0 H* RBC 3.28 L Hgb 8.7 L Hct 28.0 L MCV 85.4 MCH 26.5 L MCHC 31.1 RDW 14.9 Plt Count 223 MPV 9.7 Immature Gran % (Auto) Cancelled Neut % (Auto) Cancelled Lymph % (Auto) Cancelled [place] % (Auto) Cancelled Eos % (Auto) Cancelled Baso % (Auto) Cancelled Lymph # (Auto) Cancelled [place] # (Auto) Cancelled Eos # (Auto) Cancelled Baso # (Auto) Cancelled Abs Immat Gran (auto) Cancelled Absolute Neuts (auto) Cancelled Absolute Nucleated RBC 0.000 Nucleated RBC % (auto) 0.0 Neutrophils % (Manual) 72 Band Neutrophils % 23 H Lymphocytes % (Manual) 3 L Monocytes % (Manual) 2 Abs Neuts (Manual) 43.7 H Lymphocytes # (Manual) 1.4 Monocytes # (Manual) 0.9 Dohle Bodies PRESENT Platelet Estimate NORMAL Large Platelets PRESENT Plt Morphology Comment NOTED RBC Morphology NOTED Polychromasia 1+ (0-2) Hypochromasia 1+ (5-14) Basophilic Stippling 1+ (0-2) Smear Tech's Comments Smear Path Review SEE NOTE PT 26.8 H INR 2.3 H APTT 37.2 H Sodium Potassium Chloride Carbon Dioxide Anion Gap BUN Creatinine Estim Creat Clear Calc Estimated GFR POC Glucose Random Glucose Lactic Acid 0.6 Calcium Phosphorus Magnesium Total Bilirubin Direct Bilirubin AST ALT Alkaline Phosphatase Troponin I High Sens C-Reactive Protein B-Natriuretic Peptide Total Protein Albumin Lipase Urine Color Urine Appearance Urine pH Ur Specific [place] Urine Protein Urine Glucose (UA) Urine Ketones Urine Blood Urine Nitrite Ur Leukocyte Esterase Urine RBC Urine WBC Ur Squamous Epith Cells Urine Bacteria COVID-19 (ELVI) COVID-19 Clin Com 05/01/22 05/01/22 05/01/22 05:45 05:45 07:37 WBC 27.2 H RBC 3.36 L Hgb 8.7 L Hct 28.0 L MCV 83.3 MCH 25.9 L MCHC 31.1 RDW 15.0 Plt Count 197 MPV 9.9 Immature Gran % (Auto) 3.8 H Neut % (Auto) 89.5 H Lymph % (Auto) 3.2 L [place] % (Auto) 3.4 Eos % (Auto) 0.0 Baso % (Auto) 0.1 Lymph # (Auto) 0.9 L [place] # (Auto) 0.9 Eos # (Auto) 0.0 Baso # (Auto) 0.0 Abs Immat Gran (auto) 1.02 H Absolute Neuts (auto) 24.3 H Absolute Nucleated RBC 0.000 Nucleated RBC % (auto) 0.0 Neutrophils % (Manual) Band Neutrophils % Lymphocytes % (Manual) Monocytes % (Manual) Abs Neuts (Manual) Lymphocytes # (Manual) Monocytes # (Manual) Dohle Bodies Platelet Estimate Large Platelets Plt Morphology Comment RBC Morphology Polychromasia Hypochromasia Basophilic Stippling Smear Tech's Comments VERIFIED Smear Path Review PT 23.1 H INR 2.0 H APTT Sodium 140 Potassium 4.0 Chloride 103 Carbon Dioxide 30 H Anion Gap 11 L BUN 18 H Creatinine 0.60 Estim Creat Clear Calc 114.2 Estimated GFR > 60 POC Glucose Random Glucose 137 H Lactic Acid Calcium 7.9 L Phosphorus 2.2 L Magnesium Total Bilirubin 1.5 H Direct Bilirubin 1.2 H AST 65 H ALT 89 H Alkaline Phosphatase 395 H Troponin I High Sens C-Reactive Protein 17.14 H B-Natriuretic Peptide Total Protein 5.5 L Albumin 3.0 L Lipase 37 Urine Color Urine Appearance Urine pH Ur Specific [place] Urine Protein Urine Glucose (UA) Urine Ketones Urine Blood Urine Nitrite Ur Leukocyte Esterase Urine RBC Urine WBC Ur Squamous Epith Cells Urine Bacteria COVID-19 (ELVI) COVID-19 Clin Com 05/02/22 05/02/22 05/03/22 06:02 06:02 08:15 WBC 19.0 H 11.1 H RBC 3.45 L 3.83 L Hgb 9.0 L 9.8 L Hct 28.3 L 31.4 L MCV 82.0 82.0 MCH 26.1 L 25.6 L MCHC 31.8 31.2 RDW 15.0 14.7 Plt Count 186 187 MPV 10.2 10.2 Immature Gran % (Auto) Neut % (Auto) Lymph % (Auto) [place] % (Auto) Eos % (Auto) Baso % (Auto) Lymph # (Auto) [place] # (Auto) Eos # (Auto) Baso # (Auto) Abs Immat Gran (auto) Absolute Neuts (auto) Absolute Nucleated RBC 0.000 0.000 Nucleated RBC % (auto) 0.0 0.0 Neutrophils % (Manual) Band Neutrophils % Lymphocytes % (Manual) Monocytes % (Manual) Abs Neuts (Manual) Lymphocytes # (Manual) Monocytes # (Manual) Dohle Bodies Platelet Estimate Large Platelets Plt Morphology Comment RBC Morphology Polychromasia Hypochromasia Basophilic Stippling Smear Tech's Comments Smear Path Review PT INR APTT Sodium 140 Potassium 3.9 Chloride 104 Carbon Dioxide 27 Anion Gap 13 BUN 11 Creatinine 0.55 Estim Creat Clear Calc 124.6 Estimated GFR > 60 POC Glucose Random Glucose 128 H Lactic Acid Calcium 7.9 L Phosphorus Magnesium Total Bilirubin 1.0 Direct Bilirubin 0.8 H AST 25 D ALT 60 H Alkaline Phosphatase 343 H Troponin I High Sens C-Reactive Protein B-Natriuretic Peptide Total Protein 5.3 L Albumin 2.8 L Lipase Urine Color Urine Appearance Urine pH Ur Specific [place] Urine Protein Urine Glucose (UA) Urine Ketones Urine Blood Urine Nitrite Ur Leukocyte Esterase Urine RBC Urine WBC Ur Squamous Epith Cells Urine Bacteria COVID-19 (ELVI) COVID-19 Clin Com 05/03/22 05/03/22 05/03/22 08:15 09:12 16:09 WBC RBC Hgb Hct MCV MCH MCHC RDW Plt Count MPV Immature Gran % (Auto) Neut % (Auto) Lymph % (Auto) [place] % (Auto) Eos % (Auto) Baso % (Auto) Lymph # (Auto) [place] # (Auto) Eos # (Auto) Baso # (Auto) Abs Immat Gran (auto) Absolute Neuts (auto) Absolute Nucleated RBC Nucleated RBC % (auto) Neutrophils % (Manual) Band Neutrophils % Lymphocytes % (Manual) Monocytes % (Manual) Abs Neuts (Manual) Lymphocytes # (Manual) Monocytes # (Manual) Dohle Bodies Platelet Estimate Large Platelets Plt Morphology Comment RBC Morphology Polychromasia Hypochromasia Basophilic Stippling Smear Tech's Comments Smear Path Review PT 16.5 H 15.7 H INR 1.4 H 1.4 H APTT 33.5 Sodium 143 Potassium 3.7 Chloride 104 Carbon Dioxide 25 Anion Gap 18 BUN 10 Creatinine 0.54 Estim Creat Clear Calc 126.9 Estimated GFR > 60 POC Glucose Random Glucose 66 D Lactic Acid Calcium 8.2 L Phosphorus Magnesium Total Bilirubin Direct Bilirubin AST ALT Alkaline Phosphatase Troponin I High Sens C-Reactive Protein B-Natriuretic Peptide Total Protein Albumin Lipase Urine Color Urine Appearance Urine pH Ur Specific [place] Urine Protein Urine Glucose (UA) Urine Ketones Urine Blood Urine Nitrite Ur Leukocyte Esterase Urine RBC Urine WBC Ur Squamous Epith Cells Urine Bacteria COVID-19 (ELVI) COVID-19 Clin Com 05/04/22 05/04/22 05/04/22 05:49 05:49 05:49 WBC 9.0 Cancelled RBC 3.81 L Cancelled Hgb 9.7 L Cancelled Hct 31.2 L Cancelled MCV 81.9 Cancelled MCH 25.5 L Cancelled MCHC 31.1 Cancelled RDW 14.7 Cancelled Plt Count 199 Cancelled MPV 9.7 Cancelled Immature Gran % (Auto) Neut % (Auto) Lymph % (Auto) [place] % (Auto) Eos % (Auto) Baso % (Auto) Lymph # (Auto) [place] # (Auto) Eos # (Auto) Baso # (Auto) Abs Immat Gran (auto) Absolute Neuts (auto) Absolute Nucleated RBC 0.000 Cancelled Nucleated RBC % (auto) 0.0 Cancelled Neutrophils % (Manual) Band Neutrophils % Lymphocytes % (Manual) Monocytes % (Manual) Abs Neuts (Manual) Lymphocytes # (Manual) Monocytes # (Manual) Dohle Bodies Platelet Estimate Large Platelets Plt Morphology Comment RBC Morphology Polychromasia Hypochromasia Basophilic Stippling Smear Tech's Comments Smear Path Review PT INR APTT Sodium 141 Potassium 3.6 Chloride 101 Carbon Dioxide 27 Anion Gap 17 BUN 10 Creatinine 0.56 Estim Creat Clear Calc 122.3 Estimated GFR > 60 POC Glucose Random Glucose 71 Lactic Acid Calcium 8.0 L Phosphorus Magnesium 1.6 Total Bilirubin 0.7 Direct Bilirubin 0.5 AST 12 D ALT 33 Alkaline Phosphatase 300 H Troponin I High Sens C-Reactive Protein B-Natriuretic Peptide Total Protein 5.6 L Albumin 2.9 L Lipase Urine Color Urine Appearance Urine pH Ur Specific [place] Urine Protein Urine Glucose (UA) Urine Ketones Urine Blood Urine Nitrite Ur Leukocyte Esterase Urine RBC Urine WBC Ur Squamous Epith Cells Urine Bacteria COVID-19 (ELVI) COVID-19 Clin Com 05/04/22 11:10 WBC RBC Hgb Hct MCV MCH MCHC RDW Plt Count MPV Immature Gran % (Auto) Neut % (Auto) Lymph % (Auto) [place] % (Auto) Eos % (Auto) Baso % (Auto) Lymph # (Auto) [place] # (Auto) Eos # (Auto) Baso # (Auto) Abs Immat Gran (auto) Absolute Neuts (auto) Absolute Nucleated RBC Nucleated RBC % (auto) Neutrophils % (Manual) Band Neutrophils % Lymphocytes % (Manual) Monocytes % (Manual) Abs Neuts (Manual) Lymphocytes # (Manual) Monocytes # (Manual) Dohle Bodies Platelet Estimate Large Platelets Plt Morphology Comment RBC Morphology Polychromasia Hypochromasia Basophilic Stippling Smear Tech's Comments Smear Path Review PT INR APTT Sodium Potassium Chloride Carbon Dioxide Anion Gap BUN Creatinine Estim Creat Clear Calc Estimated GFR POC Glucose Random Glucose Lactic Acid Calcium Phosphorus 3.0 Magnesium Total Bilirubin Direct Bilirubin AST ALT Alkaline Phosphatase Troponin I High Sens C-Reactive Protein B-Natriuretic Peptide Total Protein Albumin Lipase Urine Color Urine Appearance Urine pH Ur Specific [place] Urine Protein Urine Glucose (UA) Urine Ketones Urine Blood Urine Nitrite Ur Leukocyte Esterase Urine RBC Urine WBC Ur Squamous Epith Cells Urine Bacteria COVID-19 (ELVI) COVID-19 Clin Com Airway Mallampati Class: III TM Dist: >3cm Neck ROM: Limited Denture: Upper Loose/Missing/Broken Teeth: Yes and Lower Assessment and Plan Assessment Anesthesia Assessment: Anesthesia Plan Discussed and Chart Reviewed Final Anesthetic Review Family History of Problems with Anesthesia: No History of Problems with Anesthesia: No NPO: Yes ASA Class: III and Emergency Final Preanesthetic Review: No Changes in Pt Med Stat, Meds/Allgs Chart Reviewed, Consent Obtained/Reviewed and Anes Risks/Benef Reviewed Patient Risk: Intermediate Procedure Risk: Intermediate Anesthetic Plan Anesthetic Plan: GA Disposition: Standard PACU and Inp. Admit - Standard Bed
--- NOTE | 2022-05-04 15:00 | P.OP_ITS ---
Operative Note Operative Note Date of Service: 05/04/22 Narrative: Preoperative diagnosis: Acute cholecystitis due to cholelithiasis Postoperative diagnosis: Same Procedure: Laparoscopic cholecystectomy Surgeon: Ry Escamilla MD Brush Head Maker: RENETTA Parks Anesthesia: General endotracheal Indications for procedure: 76-year-old male patient presenting with recent history of sepsis found to have a hydropic gallbladder by CT and elevated liver function tests. Patient reports abdominal pain in the right upper quadrant which has persisted during his admission. He presents today for laparoscopic or open cholecystectomy. Operative findings: Acutely inflamed, hydropic gallbladder, markedly distended with dense adhesions. Gallbladder is intrahepatic as well. Specimen: gallbladder Estimated blood loss: 20 mL Complications: non Procedure details: Patient was brought to the OR and placed in a supine position. After administering general anesthesia the patient's abdomen was prepped with ChloraPrep and draped in a sterile fashion. Local anesthesia consi sting of 0.5% Sensorcaine without epinephrine was infiltrated in a periumbilical region. A 5 mm incision was made above the umbilicus in a transverse fashion. a 5 mm Visiport trocar was inserted while insufflation with CO2. The abdominal cavity was entered and the abdomen insufflated to a pressure of 15 mmHg. The camera was inserted in the abdomen explored. A 12 mm trocar was then placed in the epigastrium. Two 5 mm trocars placed in the right upper quadrant by the child life assistant. The patient was placed in reverse Trendelenburg positioning and rotated to the left. Dense adhesions were noted to the surface of the gallbladder and liver. These were taken down using Endo Cricket and electrocautery. The gallbladder was grasped with the fundus and retracted cephalad by the child life assistant. The gallbladder was markedly distended and was unable to be grasped therefore a needle was inserted into the gallbladder in the gallbladder drained of the hydropic fluid. The infundibulum was then grasped and retracted away from the liver bed, also by the child life assistant. The Bradlyn dissector was then used by the surgeon to dissect the peritoneum off the infundibulum to reveal the junction with the cystic duct. Cystic artery was noted slightly medial and posterior to the cystic duct. After obtaining a critical view the cystic duct was doubly clipped and divided. The cystic artery was then doubly clipped and divided. The gallbladder was then dissected off the liver bed using electrocautery with an L hook. As the gallbladder was very intrahepatic, laparoscopic peanuts reviews to assist in the dissection off the liver bed. Hemostasis was assured all times using the electrocautery. When the gallbladder is completely dissected off the liver bed was placed in an Endo- Catch bag and brought out through the epigastric incision. The gallbladder was sent to pathology for further examination. A large Quoc-Simon drain was left in place and brought out through the lateral trocar incision. This was connected to the skin using a 3-0 nylon suture. The drain was left at the gallbladder fossa. The abdomen was then re-examined. The liver bed was irrigated and suctioned dry. No bleeding or bile leak could be identified. CO2 was then evacuated and all trocars removed. Fascia was closed at the epigastric incision using a [id number] 0 Polysorb suture. Skin was closed in all incisions using a subcuticular 4 0 Polysorb suture by both the surgeon and child life assistant. Sterile dressings consisting of Steri-Strips, 2 x 2 gauze, and Tegaderm were then applied. The patient tolerated the procedure well. Sponge instrument and needle counts reported as correct. The patient was transferred to PACU in stable condition.
[2022-05-04] MEDS: fentaNYL citrate/PF 100 MCG/2 ML VIAL 50 MCG IVPUSH ×2 (15:13→15:18)
[2022-05-04] MEDS: HYDROmorphone HCl 0.5 MG/0.5 ML SYRINGE 0.25 MG IVPUSH ×4 (15:30→15:55)
[2022-05-04] MEDS: Enoxaparin Sodium 100 MG/ML SYRINGE 90 MG SUBCUT (18:04)
[2022-05-04 18:38] LABS: INTERNATIONAL NORM RATIO 1.2 (0.9-1.1); Prothrombin Time 14.2 SEC (10.0-13.1)
--- NOTE | 2022-05-04 19:10 | PC.NURSE ---
pt refusing to be repositioned this shift. prn pain meds administered w/ minimal effect. pt scheduled for OR, report given, OR techs transporting pt. report taken from OR upon pt arrival. safety and fall precautions in place. call byrd within reach.
[2022-05-05] VITALS (8 sets, daily range): BP systolic 130–147; BP diastolic 63–72; PULSE 74–90; RESP 16–20; TEMP 36.1–37; O2SAT 97–99
[2022-05-05] MEDS: HYDROmorphone HCl 0.5 MG/0.5 ML SYRINGE IVPUSH ×8 (02:59→20:51)
[2022-05-05] MEDS: Enoxaparin Sodium 100 MG/ML SYRINGE 90 MG SUBCUT ×2 (05:25→18:08)
[2022-05-05] MEDS: Pantoprazole Sodium 40 MG/10 ML VIAL IVPUSH (05:36)
[2022-05-05 06:33] LABS: Blood Urea Nitrogen 12 mg/dL (9-16); Creatinine Clr Calc Pharmacy 103.8; Estimated Glomerular Filt Rate > 60
[2022-05-05 06:36] LABS: Anion Gap 15 (12-20); Calcium 7.8 mg/dL (8.4-10.2); Carbon Dioxide 28 mmol/L (22-29); Chloride 101 mmol/L (96-108); Glucose Random 192 mg/dL (60-115); Potassium 3.8 mmol/L (3.3-5.1); Sodium 140 mmol/L (135-145)
[2022-05-05] MEDS: oxyCODONE HCl Immed Release 5 MG TABLET PO ×2 (08:58→16:02)
[2022-05-05] MEDS: Metoprolol Succinate ER 25 MG TAB.ER.24H PO (09:00)
[2022-05-05] MEDS: Zinc Sulfate 220 MG CAPSULE PO (09:00)
[2022-05-05] MEDS: Multivitamin TABLET 1 TAB PO (09:00)
[2022-05-05] MEDS: Finasteride 5 MG TABLET PO (09:01)
[2022-05-05] MEDS: Cyanocobalamin (Vitamin B-12) 500 MCG TABLET PO (09:01)
[2022-05-05] MEDS: Lactated Ringers 1,000 ML 100 ML IVCONT (09:18)
[2022-05-05] MEDS: cefEPime HCl 2 GM in 0.9 % Sodium Chloride 50 ML IV (10:07)
[2022-05-05 10:15] LABS: Albumin Level 2.9 g/dL (3.5-5.0); Magnesium 1.6 mg/dL (1.6-2.6); Phosphorus 3.4 mg/dL (2.7-4.5); Triglycerides 125 mg/dL
--- NOTE | 2022-05-05 10:35 | HO.PM.IMPN ---
Subjective Subjective Date of Service: 05/05/22 Interval History: the patient was seen and evaluated this morning Laying in bed, reporting back and abdominal pain On TPN for now Growing ESBL E coli in blood cultures No reported other overnight events. Systemic review: No fever, chills or weakness No chest pain, palpitation No shortness of breath or coughing Reporting abdominal pain, nausea or vomiting No urinary symptoms No any rash or wounds Physical Exam Vital Signs: Vital Signs: Last Vital Signs Temp 97.8 F 05/05/22 07:29 Pulse 86 05/05/22 07:29 Resp 20 05/05/22 07:29 BP 140/63 H 05/05/22 07:29 Pulse Ox 99 05/05/22 07:29 O2 Del Method 05/05/22 07:29 O2 Flow Rate 2 05/05/22 07:29 Oxygen Flow Rate 1 04/29/22 21:45 BMI result Body Mass Index 29.2 Const: Other: Constitutional : Alert, in distress from pain Neck : Normal inspection, Supple Cardiovascular : RRR, no JVP, no lower extremity edema Respiratory : fair bilateral air entry, no crackles, wheezes or rhonchi, on oxygen supplement Gastrointestinal: soft, lax, Normal bowel sounds, generalized tenderness, surgical drain with small serous fluid Skin : Warm, Dry Neurological : Alert & oriented x3, No focal deficit , CN 2-12 within normal Objective Data Active Medications Albuterol/Ipratropium (Albuterol/Iprat 2.5/0.5mg 3 Ml Ampul.Neb) 3 ml INHALE Q6H PRN PRN Reason: Shortness Of Breath Or Wheezing Cyanocobalamin (Cyanocobalamin (Vitamin B-12) 500 Mcg Tablet) 500 mcg PO DAILY [facility] Last Admin: 05/05/22 09:01 Dose: 500 mcg Documented By: TOY Enoxaparin Sodium (Enoxaparin Sodium 100 Mg/Ml Syringe) 90 mg SUBCUT Q12H [facility] Last Admin: 05/05/22 05:25 Dose: 90 mg Documented By: YOSEPH Finasteride (Finasteride 5 Mg Tablet) 5 mg PO DAILY [facility] Last Admin: 05/05/22 09:01 Dose: 5 mg Documented By: TOY Gabapentin (Gabapentin 100 Mg Capsule) 100 mg PO DAILY PRN PRN Reason: Anxiety Last Admin: 05/02/22 14:19 Dose: 100 mg Documented By: ALFREDA Hydromorphone HCl (Hydromorphone Hcl 0.5 Mg/0.5 Ml Syringe) 0.5 mg IVPUSH Q2H PRN; Protocol PRN Reason: Pain, Moderate (Pain Scale 4-6 Last Admin: 05/05/22 09:00 Dose: 0.5 mg Documented By: TOY Cefepime HCl 2 gm/ Sodium (Chloride) 50 mls @ 100 mls/hr IV Q12H [facility] Last Admin: 05/05/22 10:07 Dose: 100 mls/hr Documented By: TOY Lactated Ringer's (Lr) 1,000 mls @ 100 mls/hr IVCONT .Q10H [facility] Last Admin: 05/05/22 09:18 Dose: 100 mls/hr Documented By: TOY Multivitamins 17 ml/ Trace Metals 1.7 ml/ Amino Acids/Electrolytes/Dextrose 1,200 mls @ 50 mls/hr IV DAILY@1800 [facility] Stop: 05/05/22 17:59 Last Admin: 05/04/22 18:04 Dose: 50 mls/hr Documented By: DEEPAK-SOFFA Acetaminophen (Ofirmev) 1,000 mg in 100 mls @ 400 mls/hr IV Q6H [facility] Last Infusion: 05/05/22 05:50 Dose: 0 mls/hr Documented By: YOSEPH Meropenem 1 gm/ Sodium (Chloride) 100 mls @ 200 mls/hr IV Q8H [facility] Last Admin: 05/05/22 09:47 Dose: 200 mls/hr Documented By: TOY Multivitamins 12 ml/ Trace Metals 1.2 ml/ Amino Acids/Electrolytes/Dextrose 1,680 mls @ 70 mls/hr IV DAILY@1800 [facility] Stop: 05/06/22 17:59 Lidocaine (Lidocaine 4 % Patch Adh..Patch) 2 patch TRANSDERMA DAILY PRN; Protocol PRN Reason: Pain, Mild Last Admin: 05/03/22 10:48 Dose: 2 patch Documented By: PERCYZ Melatonin (Melatonin 3 Mg Tablet) 6 mg PO BEDTIME PRN PRN Reason: Sleep Last Admin: 05/02/22 20:54 Dose: 6 mg Documented By: HO.CROP Metoprolol Succinate (Metoprolol Succinate Er 25 Mg Tab.Er.24h) 25 mg PO DAILY [facility]; Protocol Last Admin: 05/05/22 09:00 Dose: 25 mg Documented By: TOY Multivitamins/Vitamin C (Multivitamin Tablet) 1 tab PO DAILY [facility] Last Admin: 05/05/22 09:00 Dose: 1 tab Documented By: TOY Ondansetron HCl (Ondansetron Hcl 4 Mg/2 Ml Vial) 4 mg IVPUSH ONCE PRN PRN Reason: Nausea and Vomiting Oxycodone HCl (Oxycodone Hcl Immed Release 5 Mg Tablet) 5 mg PO Q6H PRN PRN Reason: Pain, Mild (Pain Scale 1-3) Last Admin: 05/05/22 08:58 Dose: 5 mg Documented By: TOY Pharmacy Consult (Consult Rx Perform Med Rec) 1 each MISCELLANE ONCE PRN PRN Reason: Consult order Tamsulosin HCl (Tamsulosin Hcl 0.4 Mg Capsule) 0.8 mg PO BEDTIME [facility] Last Admin: 05/04/22 21:35 Dose: Not Given Documented By: FABIOLA Non-Admin Reason: NPO Zinc Sulfate (Zinc Sulfate 220 Mg Capsule) 220 mg PO DAILY [facility] Last Admin: 05/05/22 09:00 Dose: 220 mg Documented By: TOY Labs CBC & Chem 7: 05/04/22 05:49 05/05/22 05:45 Labs: Laboratory Results - last 24 hr 05/04/22 05/04/22 05/05/22 11:10 18:20 05:45 PT 14.2 H INR 1.2 H Anion Gap 15 Estim Creat Clear Calc 103.8 Estimated GFR > 60 Random Glucose 192 H D Calcium 7.8 L Phosphorus 3.0 3.4 Magnesium 1.6 Albumin 2.9 L Triglycerides 125 Assessment and Plan (1) ESBL (extended spectrum beta-lactamase) producing bacteria infection: Status: Acute (2) Hydrops of gallbladder: Status: Acute Plan 76-year-old male? hypertensive and hyperlipidemic with remote history of ST-elevation CT, possible chf (etiology unclear) ,htn ,lbbb,and what and about a year status post COVID 19 infection that was complicated by deep vein thrombosis and he remains on Eliquis-came with abdominal pain-initially admitted to the ICU because of severe sepsis . ( patient had few admissions to [facility] for sepsis/pneumonia, nstemi ,chf? , gram neg sepsis in from last few months -january to now) -records are in the chart. ESBL E coli bacteremia Secondary to hydrops of gallbladder Pod 1 post cholecystectomy LFTs improving Start meropenem nutritional eval-continue tpn Advanced diet as tolerated Pending ID evaluation UTI related to chronic Barton catheter urine culture -citrobacter and psudomonas resistant to meropenem Continue cefepime htn continue metoprolol History of dvt Restart Eliquis once tolerates p.o. bph has ch barton continue flomax /fenestride. anxiety: Psych evaluation appreciated, recomended gabapentin prn for anxiety DVT PPX Lovenox The patient will continue to need overnight hospital stay for treatment of ESBL bacteremia and advancing diet after surgery to prevent possible decompensation. Quality Stroke Does the patient have a stroke diagnosis?: No VTE Prior VTE?: Yes VTE Risk Level:: Medical - moderate - high VTE Device Contraindication: N/A - Device Ordered VTE Drug Contraindication: N/A - Med Ordered
--- NOTE | 2022-05-05 11:24 | MHC.CLN ---
F/U TPN CONTINUES RECOMMEND DAY 2 INCREASE FORMULA D10AA4.25 AT 70ML/HR TO PROVIDE 857KCALS, 71G PROTEIN REVIEWED LABS; DISCUSSED WITH PHARMACY REPLETE LYTES NEEDED NOTED TRIGS WNL
--- NOTE | 2022-05-05 13:02 | MHC.CM.PN ---
Per ROUNDS discussion, Patient is not yet medically cleared for dc (post surgery, Bacteremic, TPN); Returning to [facility] is the plan and CM will continue to follow.
--- NOTE | 2022-05-05 14:20 | HO.WOUNDCONS ---
History of Present Illness Data of Consult Service Date: 05/05/22 Requesting physician: Georgette Hayden Primary Care Provider: Deniz Livingston MD HPI Reason for consult: scral /buttock wounds the patient is a 76-year-old male who has complicated medical history who came in complaining of abdominal pain epi gastric pain elevated LFTs. He was septic and hypertensive and was admitted to the ICU from the emergency room. CT scan and abdominal ultrasound workup revealed high drops of the all bladder elevate his were elevated was determined that he had cholecystitis. Plan was to get it closed ostomy tube however this was never carried out. In the meantime the patient was resuscitated in the ICU and did better and eventually 2 days ago underwent laparoscopic cholecystectomy with the drain placement. He has done okay since then. He does not move around much he says he has osteoarthritis issues and everything hurts and he has difficulty moving around. During this time he has some skin breakdown on the buttock areas probably more secondary to some shear injury in most of this looks like stage I of not little bit into stage II. There is no evidence of breakdown past the skin layer. Everything is sore to the patient and his complaints PMFSH Medical History Anemia Cervical stenosis of spine Chronic indwelling Butts catheter COVID-19 DVT (deep venous thrombosis) Hyperlipidemia Hypertension Juvenile rheumatoid arthritis NSTEMI (non-ST elevated myocardial infarction) Psoriatic arthritis Urinary retention Social History Household Members: None Housing: Other Housing Other:: SNF Patient Tobacco Use Status: Never used Tobacco Use of substances other than those prescribed or required for medical reasons: No Currently Displaying Signs/Symptoms of Drug Intoxication Withdrawal: No Have you been hit, kicked, punched, or otherwise hurt by someone within the past year? If so, by whom?: No Do you feel safe in your current relationship?: No Current Relationship Is there a partner from a previous relationship who is making you feel unsafe now?: No Are you made to feel afraid or neglected: No Are you DNR?: No Advance Directives: Yes Advance Directives Information Provided: No Advance Directives on File: No Advance Directives Date on File: 04/30/22 Do you have thoughts of harming others: None Do you have a plan to hurt others: No Plan Recently lost weight without trying: No Nutrition Risks: No Nutritional Risk service: No Current occupational status: unemployed Meds Allergies Allergy/AdvReac Type Severity Reaction Status Date / Time Penicillins Allergy Unknown Unknown Verified 04/29/22 13:18 Active Medications: Current Medications Albuterol/Ipratropium (Albuterol/Iprat 2.5/0.5mg 3 Ml Ampul.Neb) 3 ml INHALE Q6H PRN PRN Reason: Shortness Of Breath Or Wheezing Cyanocobalamin (Cyanocobalamin (Vitamin B-12) 500 Mcg Tablet) 500 mcg PO DAILY [facility] Last Admin: 05/06/22 10:32 Dose: 500 mcg Enoxaparin Sodium (Enoxaparin Sodium 100 Mg/Ml Syringe) 90 mg SUBCUT Q12H [facility] Last Admin: 05/06/22 06:25 Dose: 90 mg Finasteride (Finasteride 5 Mg Tablet) 5 mg PO DAILY [facility] Last Admin: 05/06/22 10:32 Dose: 5 mg Gabapentin (Gabapentin 100 Mg Capsule) 100 mg PO DAILY PRN PRN Reason: Anxiety Last Admin: 05/05/22 16:36 Dose: 100 mg Hydromorphone HCl (Hydromorphone Hcl 0.5 Mg/0.5 Ml Syringe) 0.5 mg IVPUSH Q2H PRN; Protocol PRN Reason: Pain, Moderate (Pain Scale 4-6 Last Admin: 05/06/22 13:29 Dose: 0.5 mg Acetaminophen (Ofirmev) 1,000 mg in 100 mls @ 400 mls/hr IV Q6H [facility] Last Infusion: 05/06/22 10:11 Dose: Infused Meropenem 1 gm/ Sodium (Chloride) 100 mls @ 200 mls/hr IV Q8H [facility] Last Infusion: 05/06/22 12:06 Dose: Infused Multivitamins 12 ml/ Trace Metals 1.2 ml/ Amino Acids/Electrolytes/Dextrose 1,680 mls @ 70 mls/hr IV DAILY@1800 [facility] Stop: 05/06/22 17:59 Last Admin: 05/05/22 18:09 Dose: 70 mls/hr Multivitamins 10 ml/ Trace Metals 1 ml/ Amino Acids/Electrolytes/Dextrose 2,000 mls @ 83.333 mls/hr IV DAILY@1800 [facility] Stop: 05/07/22 17:59 Fat Emulsion Intravenous (Intralipid) 168 mls @ 14 mls/hr IVCONT BID@0600,1800 [facility] Stop: 05/07/22 17:59 Lidocaine (Lidocaine 4 % Patch Adh..Patch) 2 patch TRANSDERMA DAILY PRN; Protocol PRN Reason: Pain, Mild Last Admin: 05/05/22 23:40 Dose: 2 patch Melatonin (Melatonin 3 Mg Tablet) 6 mg PO BEDTIME PRN PRN Reason: Sleep Last Admin: 05/02/22 20:54 Dose: 6 mg Metoprolol Succinate (Metoprolol Succinate Er 25 Mg Tab.Er.24h) 25 mg PO DAILY [facility]; Protocol Last Admin: 05/06/22 10:32 Dose: 25 mg Multivitamins/Vitamin C (Multivitamin Tablet) 1 tab PO DAILY [facility] Last Admin: 05/06/22 10:32 Dose: 1 tab Ondansetron HCl (Ondansetron Hcl 4 Mg/2 Ml Vial) 4 mg IVPUSH ONCE PRN PRN Reason: Nausea and Vomiting Oxycodone HCl (Oxycodone Hcl Immed Release 5 Mg Tablet) 10 mg PO Q4H PRN PRN Reason: Pain, Severe (Pain Scale 7-10) Last Admin: 05/06/22 10:55 Dose: 10 mg Pharmacy Consult (Consult Rx Perform Med Rec) 1 each MISCELLANE ONCE PRN PRN Reason: Consult order Tamsulosin HCl (Tamsulosin Hcl 0.4 Mg Capsule) 0.8 mg PO BEDTIME [facility] Last Admin: 05/05/22 20:50 Dose: 0.8 mg Zinc Oxide (Zinc Oxide 20% Ointment 28.35 Gm Tube) 1 appl TOPICAL ONCE PRN; Protocol PRN Reason: Rash Zinc Sulfate (Zinc Sulfate 220 Mg Capsule) 220 mg PO DAILY [facility] Last Admin: 05/06/22 10:33 Dose: 220 mg Home Medications Medication Instructions Recorded Confirmed Last Taken Type acetaminophen 325 mg tablet 650 mg PO TID 04/29/22 04/29/22 Unknown History ammonium lactate 12 % topical cream 1 appl topical BID 04/29/22 04/29/22 Unknown History apixaban 5 mg tablet (Eliquis) 1 tab PO BID 04/29/22 04/29/22 Unknown History ascorbic acid (vitamin C) 500 mg 500 mg PO BID 04/29/22 04/29/22 Unknown History tablet cyanocobalamin (vitamin B-12) 500 500 mcg PO DAILY 04/29/22 04/29/22 Unknown History mcg tablet diclofenac sodium 1 % topical gel 2 g topical Q6H PRN Pain, Mild 04/29/22 04/29/22 Unknown History finasteride 5 mg tablet 1 tab PO DAILY 04/29/22 04/29/22 Unknown History furosemide 20 mg tablet 20 mg PO Q2D 04/29/22 04/29/22 Unknown History ipratropium 0.5 mg-albuterol 3 mg 3 ml inhalation Q6H PRN Shortness 04/29/22 04/29/22 Unknown History (2.5 mg base)/3 mL nebulization Of Breath Or Wheezing soln lactulose 10 gram/15 mL oral 20 ml PO DAILY 04/29/22 04/29/22 Unknown History solution lidocaine 4 % topical patch 2 patch topical DAILY PRN Pain, 04/29/22 04/29/22 Unknown History (Aspercreme (lidocaine)) Mild magnesium oxide 400 mg (241.3 mg 400 mg PO DAILY 04/29/22 04/29/22 Unknown History magnesium) tablet melatonin 3 mg tablet 3 mg PO BEDTIME PRN Sleep 04/29/22 04/29/22 Unknown History metoprolol succinate 25 mg 1 tab PO DAILY 04/29/22 04/29/22 Unknown History tablet,extended release 24 hr morphine 30 mg tablet,extended 1 tab PO BID PRN Pain, Severe 04/29/22 04/29/22 Unknown History release multivitamin with minerals 1 tab PO DAILY 04/29/22 04/29/22 Unknown History (Multiple Vitamin-Minerals tablet) nystatin 100,000 unit/gram topical 1 appl topical TID 04/29/22 04/29/22 Unknown History cream oxycodone 5 mg tablet 5 mg PO Q6H PRN Pain, Moderate 04/29/22 04/29/22 Unknown History pregabalin 75 mg capsule 1 cap PO BID 04/29/22 04/29/22 Unknown History sennosides 8.6 mg tablet (senna) 17.2 mg PO BEDTIME 04/29/22 04/29/22 Unknown History tamsulosin 0.4 mg capsule 2 cap PO BEDTIME 04/29/22 04/29/22 Unknown History zinc 50 mg tablet 50 mg PO DAILY 04/29/22 04/29/22 Unknown History Physical Exam Vital Signs and Narrative: Vital Signs: Last Vital Signs Temp 96.8 F 05/06/22 11:24 Pulse 63 05/06/22 11:24 Resp 20 05/06/22 11:24 BP 126/60 05/06/22 11:24 Pulse Ox 100 05/06/22 11:24 O2 Del Method 05/06/22 11:24 O2 Flow Rate 2 05/06/22 11:24 Oxygen Flow Rate 1 04/29/22 21:45 BMI result Body Mass Index 29.2 Skin: Other: bilateral buttock areas and sacral areas have just an extensive rough skin area with maybe some breakdown of the epidermal down into the dermal tissue but no fatty tissue noted. The area was covered with barrier cream and coated it completely revealing no deeper open wounds. 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 Results Labs CBC and Chem 7: 05/04/22 05:49 05/06/22 07:14 Labs: Laboratory Results - last 24 hr 05/05/22 05/06/22 17:47 07:14 Anion Gap 9 L Estim Creat Clear Calc 114.2 Estimated GFR > 60 Random Glucose 212 H Calcium 8.1 L Phosphorus 3.1 Magnesium 1.7 Total Bilirubin 0.5 Direct Bilirubin 0.4 AST 12 ALT 26 Alkaline Phosphatase 249 H Total Protein 5.4 L Albumin 2.8 L Assessment and Plan (1) Stage 2 skin ulcer of sacral region: Status: Acute Plan Stage II sacral pressure ulcer plan is to continue with offloading and moving him. This is important to do as he does not move very much on his own secondary to his arthritis some pain. Keep the area dry. Use general rests zinc oxide in this area and no need to cover. This was extensively discussed with the patient and his nursing staff.
--- NOTE | 2022-05-05 16:00 | HO.POSTANES ---
Post Anesthesia Evaluation Post Anesthesia Evaluation Vital Signs: Vital Signs Temp Pulse Resp BP Pulse Ox O2 Del Method O2 Flow Rate 05/05/22 15:07 97.5 F 81 18 138/65 99 Nasal Cannula 2 05/05/22 11:00 97.0 F 82 20 147/68 H 98 Nasal Cannula 2 05/05/22 07:29 97.8 F 86 20 140/63 H 99 Nasal Cannula 2 05/05/22 05:23 20 Anesthesia: General Endotracheal-GETA Mental Status: Awake Pain Control: Satisfactory Nausea/Vomiting: None Hydration: Adequate Anesthesia-Related Issues: No Anes. Related Issues
--- NOTE | 2022-05-05 16:14 | P.CNID_ITS ---
History of Present Illness Data of Consult Service Date: 05/05/22 Requesting physician: Georgette Hayden Primary Care Provider: Deniz Livingstno MD HPI Reason for consult: sepsis,ESBL E coli He presents with RUQ discomfort day of admission,03/28. He had blood cultures drawn E coli ESBL. He had hydrops and cholecystectomy yesterday. He has been in [facility]dc for a year since COVID,NC and failure to thrive. He had hospitalzations at [facility] over few months and had gram negative bact eremia. He has chronic Butts. Review of Systems Review of Systems: Yes all other systems are reviewed and are negative PMFSH Past Medical History Medical History Anemia Cervical stenosis of spine Chronic indwelling Butts catheter COVID-19 DVT (deep venous thrombosis) Hyperlipidemia Hypertension Juvenile rheumatoid arthritis NSTEMI (non-ST elevated myocardial infarction) Psoriatic arthritis Urinary retention Family History Family history: reviewed and not pertinent Social History Social History Household Members: None Housing: Other Housing Other:: SNF Patient Tobacco Use Status: Never used Tobacco Use of substances other than those prescribed or required for medical reasons: No Currently Displaying Signs/Symptoms of Drug Intoxication Withdrawal: No Have you been hit, kicked, punched, or otherwise hurt by someone within the past year? If so, by whom?: No Do you feel safe in your current relationship?: No Current Relationship Is there a partner from a previous relationship who is making you feel unsafe now?: No Are you made to feel afraid or neglected: No Are you DNR?: No Advance Directives: Yes Advance Directives Information Provided: No Advance Directives on File: No Advance Directives Date on File: 04/30/22 Do you have thoughts of harming others: None Do you have a plan to hurt others: No Plan Recently lost weight without trying: No Nutrition Risks: No Nutritional Risk service: No Current occupational status: unemployed Meds Allergies Allergy/AdvReac Type Severity Reaction Status Date / Time Penicillins Allergy Unknown Unknown Verified 04/29/22 13:18 Active Medications: Current Medications Albuterol/Ipratropium (Albuterol/Iprat 2.5/0.5mg 3 Ml Ampul.Neb) 3 ml INHALE Q6H PRN PRN Reason: Shortness Of Breath Or Wheezing Cyanocobalamin (Cyanocobalamin (Vitamin B-12) 500 Mcg Tablet) 500 mcg PO DAILY [facility] Last Admin: 05/05/22 09:01 Dose: 500 mcg Enoxaparin Sodium (Enoxaparin Sodium 100 Mg/Ml Syringe) 90 mg SUBCUT Q12H [facility] Last Admin: 05/05/22 05:25 Dose: 90 mg Finasteride (Finasteride 5 Mg Tablet) 5 mg PO DAILY [facility] Last Admin: 05/05/22 09:01 Dose: 5 mg Gabapentin (Gabapentin 100 Mg Capsule) 100 mg PO DAILY PRN PRN Reason: Anxiety Last Admin: 05/02/22 14:19 Dose: 100 mg Hydromorphone HCl (Hydromorphone Hcl 0.5 Mg/0.5 Ml Syringe) 0.5 mg IVPUSH Q2H PRN; Protocol PRN Reason: Pain, Moderate (Pain Scale 4-6 Last Admin: 05/05/22 14:28 Dose: 0.5 mg Cefepime HCl 2 gm/ Sodium (Chloride) 50 mls @ 100 mls/hr IV Q12H [facility] Last Infusion: 05/05/22 11:15 Dose: Infused Multivitamins 17 ml/ Trace Metals 1.7 ml/ Amino Acids/Electrolytes/Dextrose 1,200 mls @ 50 mls/hr IV DAILY@1800 [facility] Stop: 05/05/22 17:59 Last Admin: 05/04/22 18:04 Dose: 50 mls/hr Acetaminophen (Ofirmev) 1,000 mg in 100 mls @ 400 mls/hr IV Q6H [facility] Last Infusion: 05/05/22 12:05 Dose: Infused Meropenem 1 gm/ Sodium (Chloride) 100 mls @ 200 mls/hr IV Q8H [facility] Last Infusion: 05/05/22 11:14 Dose: Infused Multivitamins 12 ml/ Trace Metals 1.2 ml/ Amino Acids/Electrolytes/Dextrose 1,680 mls @ 70 mls/hr IV DAILY@1800 [facility] Stop: 05/06/22 17:59 Lidocaine (Lidocaine 4 % Patch Adh..Patch) 2 patch TRANSDERMA DAILY PRN; Protocol PRN Reason: Pain, Mild Last Admin: 05/03/22 10:48 Dose: 2 patch Melatonin (Melatonin 3 Mg Tablet) 6 mg PO BEDTIME PRN PRN Reason: Sleep Last Admin: 05/02/22 20:54 Dose: 6 mg Metoprolol Succinate (Metoprolol Succinate Er 25 Mg Tab.Er.24h) 25 mg PO DAILY [facility]; Protocol Last Admin: 05/05/22 09:00 Dose: 25 mg Multivitamins/Vitamin C (Multivitamin Tablet) 1 tab PO DAILY [facility] Last Admin: 05/05/22 09:00 Dose: 1 tab Ondansetron HCl (Ondansetron Hcl 4 Mg/2 Ml Vial) 4 mg IVPUSH ONCE PRN PRN Reason: Nausea and Vomiting Oxycodone HCl (Oxycodone Hcl Immed Release 5 Mg Tablet) 5 mg PO Q6H PRN PRN Reason: Pain, Mild (Pain Scale 1-3) Last Admin: 05/05/22 16:02 Dose: 5 mg Pharmacy Consult (Consult Rx Perform Med Rec) 1 each MISCELLANE ONCE PRN PRN Reason: Consult order Tamsulosin HCl (Tamsulosin Hcl 0.4 Mg Capsule) 0.8 mg PO BEDTIME [facility] Last Admin: 05/04/22 21:35 Dose: Not Given Zinc Sulfate (Zinc Sulfate 220 Mg Capsule) 220 mg PO DAILY [facility] Last Admin: 05/05/22 09:00 Dose: 220 mg Home Medications Medication Instructions Recorded Confirmed Last Taken Type acetaminophen 325 mg tablet 650 mg PO TID 04/29/22 04/29/22 Unknown History ammonium lactate 12 % topical cream 1 appl topical BID 04/29/22 04/29/22 Unknown History apixaban 5 mg tablet (Eliquis) 1 tab PO BID 04/29/22 04/29/22 Unknown History ascorbic acid (vitamin C) 500 mg 500 mg PO BID 04/29/22 04/29/22 Unknown History tablet cyanocobalamin (vitamin B-12) 500 500 mcg PO DAILY 04/29/22 04/29/22 Unknown History mcg tablet diclofenac sodium 1 % topical gel 2 g topical Q6H PRN Pain, Mild 04/29/2204/19 Unknown History finasteride 5 mg tablet 1 tab PO DAILY 04/29/22 04/29/22 Unknown History furosemide 20 mg tablet 20 mg PO Q2D 04/29/22 04/29/22 Unknown History ipratropium 0.5 mg-albuterol 3 mg 3 ml inhalation Q6H PRN Shortness 04/29/22 04/29/22 Unknown History (2.5 mg base)/3 mL nebulization Of Breath Or Wheezing soln lactulose 10 gram/15 mL oral 20 ml PO DAILY 04/29/22 04/29/22 Unknown History solution lidocaine 4 % topical patch 2 patch topical DAILY PRN Pain, 04/29/22 04/29/22 Unknown History (Aspercreme (lidocaine)) Mild magnesium oxide 400 mg (241.3 mg 400 mg PO DAILY 04/29/22 04/29/22 Unknown History magnesium) tablet melatonin 3 mg tablet 3 mg PO BEDTIME PRN Sleep 04/29/22 04/29/22 Unknown History metoprolol succinate 25 mg 1 tab PO DAILY 04/29/22 04/29/22 Unknown History tablet,extended release 24 hr morphine 30 mg tablet,extended 1 tab PO BID PRN Pain, Severe 04/29/22 04/29/22 Unknown History release multivitamin with minerals 1 tab PO DAILY 04/29/22 04/29/22 Unknown History (Multiple Vitamin-Minerals tablet) nystatin 100,000 unit/gram topical 1 appl topical TID 04/29/22 04/29/22 Unknown History cream oxycodone 5 mg tablet 5 mg PO Q6H PRN Pain, Moderate 04/29/22 04/29/22 Unknown History pregabalin 75 mg capsule 1 cap PO BID 04/29/22 04/29/22 Unknown History sennosides 8.6 mg tablet (senna) 17.2 mg PO BEDTIME 04/29/22 04/29/22 Unknown History tamsulosin 0.4 mg capsule 2 cap PO BEDTIME 04/29/22 04/29/22 Unknown History zinc 50 mg tablet 50 mg PO DAILY 04/29/22 04/29/22 Unknown History Physical Exam Vital Signs: Vital Signs: Last Vital Signs Temp 97.5 F 05/05/22 15:07 Pulse 81 05/05/22 15:07 Resp 18 05/05/22 15:07 BP 138/65 05/05/22 15:07 Pulse Ox 99 05/05/22 15:07 O2 Del Method 05/05/22 15:07 O2 Flow Rate 2 05/05/22 15:07 Oxygen Flow Rate 1 04/29/22 21:45 BMI result Body Mass Index 29.2 Const: General: cooperative HEENT: Head: Yes normal to inspection Face and sinus: Yes normal facial exam Mouth: Normal oral and palatal mucosa present Teeth and gingiva: dentition normal Eyes: General: appearance normal, both eyes and all related structures Pupils: Equal, round and reactive pupils present Resp: Effort & Inspection: normal respiratory effort Cardio: Rate: regular rate Rhythm: regular rhythm GI: Other: appropriately postop Palpation (GI): Soft to palpation and nontender : General: Yes no CVA tenderness Back/Spine/Pelvis: Back: no CVA tenderness Skin: General skin exam: no rashes or lesions noted Neuro: General: moves all extremities Cranial nerves: Yes Equal, round and reactive pupils present Extrem: General: Yes normal to inspection Psych: Appearance: grossly normal Results Labs CBC & Chem 7: 05/04/22 05:49 05/05/22 05:45 Labs: BMP 05/05/22 05:45 Sodium 140 Potassium 3.8 Chloride 101 Carbon Dioxide 28 BUN 12 Creatinine 0.66 Calcium 7.8 L Liver Function 05/05/22 Range/Units 05:45 Albumin 2.9 L (3.5-5.0) g/dL Microbiology Microbiology Results: Microbiology 04/29/22 Unknown Urine clean catch - Urine downs top Urine Culture - Final Pseudomonas aeruginosa Citrobacter freundii 04/29/22 13:59 Blood - Venous Blood Culture - Final Escherichia coli 04/29/22 13:28 Blood - Venous Blood Culture - Final Escherichia coli Assessment and Plan (1) ESBL (extended spectrum beta-lactamase) producing bacteria infection: Status: Acute ESBL E coli likely from gallbladder Urine with Citrobacter and Pseudomonas old inactive bacteriruia and pyuria (2) Gram negative sepsis: Status: Acute (3) Hydrops of gallbladder: Status: Acute Plan 14 days Merem or Ertapenem. No need to treat urinary Citrobacter or Pseudomonas and stop Cefepime.
--- NOTE | 2022-05-05 16:23 | P.PNGS_ITS ---
Subjective Subjective Date of Service: 05/05/22 Interval history: Patient complains of incisional pain, reports not being hungry this morning. Denies nausea or vomiting. No flatus or BM. Physical Exam Vital Signs: Vital Signs: Last Vital Signs Temp 97.5 F 05/05/22 15:07 Pulse 81 05/05/22 15:07 Resp 18 05/05/22 15:07 BP 138/65 05/05/22 15:07 Pulse Ox 99 05/05/22 15:07 O2 Del Method 05/05/22 15:07 O2 Flow Rate 2 05/05/22 15:07 Oxygen Flow Rate 1 04/29/22 21:45 BMI result Body Mass Index 29.2 Const: General: ill appearing Nutritional Appearance: well nourished Orientation/consciousness: patient oriented x3 Eyes: Sclerae: sclerae normal GI: Other: Trocar incisions are clean, dry, and intact without redness or discharge. Abdomen is otherwise soft and nondistended. СВЕТЛАНА drain intact draining serosanguineous fluid. Neuro: General: patient oriented x3 Objective Data Active Medications Albuterol/Ipratropium (Albuterol/Iprat 2.5/0.5mg 3 Ml Ampul.Neb) 3 ml INHALE Q6H PRN PRN Reason: Shortness Of Breath Or Wheezing Cyanocobalamin (Cyanocobalamin (Vitamin B-12) 500 Mcg Tablet) 500 mcg PO DAILY [facility] Last Admin: 05/05/22 09:01 Dose: 500 mcg Documented By: TOY Enoxaparin Sodium (Enoxaparin Sodium 100 Mg/Ml Syringe) 90 mg SUBCUT Q12H [facility] Last Admin: 05/05/22 05:25 Dose: 90 mg Documented By: YOSEPH Finasteride (Finasteride 5 Mg Tablet) 5 mg PO DAILY [facility] Last Admin: 05/05/22 09:01 Dose: 5 mg Documented By: TOY Gabapentin (Gabapentin 100 Mg Capsule) 100 mg PO DAILY PRN PRN Reason: Anxiety Last Admin: 05/02/22 14:19 Dose: 100 mg Documented By: ALFREDA Hydromorphone HCl (Hydromorphone Hcl 0.5 Mg/0.5 Ml Syringe) 0.5 mg IVPUSH Q2H PRN; Protocol PRN Reason: Pain, Moderate (Pain Scale 4-6 Last Admin: 05/05/22 14:28 Dose: 0.5 mg Documented By: TOY Multivitamins 17 ml/ Trace Metals 1.7 ml/ Amino Acids/Electrolytes/Dextrose 1,200 mls @ 50 mls/hr IV DAILY@1800 [facility] Stop: 05/05/22 17:59 Last Admin: 05/04/22 18:04 Dose: 50 mls/hr Documented By: N-SOFFA Acetaminophen (Ofirmev) 1,000 mg in 100 mls @ 400 mls/hr IV Q6H [facility] Last Infusion: 05/05/22 12:05 Dose: 0 mls/hr Documented By: TOY Meropenem 1 gm/ Sodium (Chloride) 100 mls @ 200 mls/hr IV Q8H [facility] Last Infusion: 05/05/22 11:14 Dose: 0 mls/hr Documented By: TOY Multivitamins 12 ml/ Trace Metals 1.2 ml/ Amino Acids/Electrolytes/Dextrose 1,680 mls @ 70 mls/hr IV DAILY@1800 [facility] Stop: 05/06/22 17:59 Lidocaine (Lidocaine 4 % Patch Adh..Patch) 2 patch TRANSDERMA DAILY PRN; Protocol PRN Reason: Pain, Mild Last Admin: 05/03/22 10:48 Dose: 2 patch Documented By: ANGELA Melatonin (Melatonin 3 Mg Tablet) 6 mg PO BEDTIME PRN PRN Reason: Sleep Last Admin: 05/02/22 20:54 Dose: 6 mg Documented By: RONN Metoprolol Succinate (Metoprolol Succinate Er 25 Mg Tab.Er.24h) 25 mg PO DAILY [facility]; Protocol Last Admin: 05/05/22 09:00 Dose: 25 mg Documented By: TOY Multivitamins/Vitamin C (Multivitamin Tablet) 1 tab PO DAILY [facility] Last Admin: 05/05/22 09:00 Dose: 1 tab Documented By: TOY Ondansetron HCl (Ondansetron Hcl 4 Mg/2 Ml Vial) 4 mg IVPUSH ONCE PRN PRN Reason: Nausea and Vomiting Oxycodone HCl (Oxycodone Hcl Immed Release 5 Mg Tablet) 5 mg PO Q6H PRN PRN Reason: Pain, Mild (Pain Scale 1-3) Last Admin: 05/05/22 16:02 Dose: 5 mg Documented By: TOY Pharmacy Consult (Consult Rx Perform Med Rec) 1 each MISCELLANE ONCE PRN PRN Reason: Consult order Tamsulosin HCl (Tamsulosin Hcl 0.4 Mg Capsule) 0.8 mg PO BEDTIME [facility] Last Admin: 05/04/22 21:35 Dose: Not Given Documented By: FABIOLA Non-Admin Reason: NPO Zinc Sulfate (Zinc Sulfate 220 Mg Capsule) 220 mg PO DAILY [facility] Last Admin: 05/05/22 09:00 Dose: 220 mg Documented By: TOY Labs CBC & Chem 7: 05/04/22 05:49 05/05/22 05:45 Labs: Laboratory Results - last 24 hr 05/04/22 05/05/22 18:20 05:45 PT 14.2 H INR 1.2 H Anion Gap 15 Estim Creat Clear Calc 103.8 Estimated GFR > 60 Random Glucose 192 H D Calcium 7.8 L Phosphorus 3.4 Magnesium 1.6 Albumin 2.9 L Triglycerides 125 Procedures Date of Service Date of Service: 05/05/22 Progress Note: A&P Assessment and plan (1) Hydrops of gallbladder: Status: Acute Plan Pod 1 status post laparoscopic cholecystectomy for acute cholecystitis due to cholelithiasis. Patient has incisional pain and is moaning because of the pain. Wounds are clean, dry and intact without evidence of infection bleeding. СВЕТЛАНА in place draining serosanguineous fluid. Will start clear liquids today and monitor СВЕТЛАНА output. Time Spent With Patient Time: Total time spent is greater than 50% in coordination of care (as documented) at patient's floor/unit and/or counseling patient: Quality Stroke Does the patient have a stroke diagnosis?: No VTE Prior VTE?: Yes VTE Risk Level:: Medical - moderate - high VTE Device Contraindication: N/A - Device Ordered VTE Drug Contraindication: N/A - Med Ordered
[2022-05-05] MEDS: Gabapentin 100 MG CAPSULE PO (16:36)
[2022-05-05 18:21] LABS: Alanine Aminotransferase 26 U/L (0-40); Albumin Level 2.8 g/dL (3.5-5.0); Alkaline Phosphatase 249 U/L (39-117); Aspartate Amino Transferase 12 U/L (5-37); Bilirubin Direct 0.4 mg/dL (0.0-0.5); Bilirubin Total 0.5 mg/dL (0.0-1.0); Total Protein 5.4 g/dL (6.5-8.0)
--- NOTE | 2022-05-05 19:05 | PC.NURSE ---
Pt diet advanced today, tolerating well, has decreased PO intake. Pt had scant amt of BM today. Pt being repositioned after pain med administration. wound care MD assessed pt with RN at bedside. Per MD, place cream on pt's wound, do not placing dressing over wound bed. MD also adjusted pt's prn pain medications, increasing Oxy to 10mg d/t pt c/o increased pain despite current medication regimen. Central line dressing changed this shift. СВЕТЛАНА dressing change performed with md at bedside d/t dressing being saturated w/ serosang fluid. barton care perfomed, pt bathed this shift. safety can fall precautions in place. call byrd within reach.
[2022-05-05] MEDS: Tamsulosin HCL 0.4 MG CAPSULE 0.8 MG PO (20:50)
[2022-05-05] MEDS: oxyCODONE HCl Immed Release 5 MG TABLET 10 MG PO (23:02)
[2022-05-05] MEDS: Lidocaine 4 % Patch ADH..PATCH 2 PATCH TRANSDERMA (23:40)
[2022-05-06] VITALS (7 sets, daily range): BP systolic 114–126; BP diastolic 56–60; PULSE 63–77; RESP 17–20; TEMP 36–37.1; O2SAT 98–100
[2022-05-06] MEDS: HYDROmorphone HCl 0.5 MG/0.5 ML SYRINGE IVPUSH ×4 (03:01→21:30)
[2022-05-06] MEDS: Enoxaparin Sodium 100 MG/ML SYRINGE 90 MG SUBCUT ×2 (06:25→17:19)
[2022-05-06 07:40] LABS: Anion Gap 9 (12-20); Blood Urea Nitrogen 15 mg/dL (9-16); Calcium 8.1 mg/dL (8.4-10.2); Carbon Dioxide 32 mmol/L (22-29); Chloride 101 mmol/L (96-108); Creatinine Clr Calc Pharmacy 114.2; Estimated Glomerular Filt Rate > 60; Glucose Random 212 mg/dL (60-115); Sodium 138 mmol/L (135-145)
--- NOTE | 2022-05-06 07:44 | P.PNGS_ITS ---
Subjective Subjective Date of Service: 05/06/22 Interval history: Patient is more comfortable with adjustments to his pain medication. Physical Exam Vital Signs: Vital Signs: Last Vital Signs Temp 98.1 F 05/06/22 04:00 Pulse 72 05/06/22 04:00 Resp 17 05/06/22 04:00 BP 124/58 L 05/06/22 04:00 Pulse Ox 100 05/06/22 04:00 O2 Del Method 05/06/22 04:00 O2 Flow Rate 2 05/06/22 04:00 Oxygen Flow Rate 1 04/29/22 21:45 BMI result Body Mass Index 29.2 Const: General: tired appearing Nutritional Appearance: well nourished Eyes: Sclerae: sclerae normal GI: Inspection: Yes normal to inspection Palpation (GI): Soft to palpation, Tenderness to palpation present (GI) in the RUQ, no guarding and not rigid Percussion: Yes normal to percussion Auscultation: normal bowel sounds Extrem: General: Yes normal to inspection Objective Data Active Medications Albuterol/Ipratropium (Albuterol/Iprat 2.5/0.5mg 3 Ml Ampul.Neb) 3 ml INHALE Q6H PRN PRN Reason: Shortness Of Breath Or Wheezing Cyanocobalamin (Cyanocobalamin (Vitamin B-12) 500 Mcg Tablet) 500 mcg PO DAILY [facility] Last Admin: 05/05/22 09:01 Dose: 500 mcg Documented By: TOY Enoxaparin Sodium (Enoxaparin Sodium 100 Mg/Ml Syringe) 90 mg SUBCUT Q12H [facility] Last Admin: 05/06/22 06:25 Dose: 90 mg Documented By: ROSS Finasteride (Finasteride 5 Mg Tablet) 5 mg PO DAILY [facility] Last Admin: 05/05/22 09:01 Dose: 5 mg Documented By: TOY Gabapentin (Gabapentin 100 Mg Capsule) 100 mg PO DAILY PRN PRN Reason: Anxiety Last Admin: 05/05/22 16:36 Dose: 100 mg Documented By: TOY Hydromorphone HCl (Hydromorphone Hcl 0.5 Mg/0.5 Ml Syringe) 0.5 mg IVPUSH Q2H PRN; Protocol PRN Reason: Pain, Moderate (Pain Scale 4-6 Last Admin: 05/06/22 03:01 Dose: 0.5 mg Documented By: ROSS Acetaminophen (Ofirmev) 1,000 mg in 100 mls @ 400 mls/hr IV Q6H [facility] Last Admin: 05/06/22 06:22 Dose: 400 mls/hr Documented By: ROSS Meropenem 1 gm/ Sodium (Chloride) 100 mls @ 200 mls/hr IV Q8H [facility] Last Infusion: 05/05/22 23:45 Dose: 0 mls/hr Documented By: ROSS Multivitamins 12 ml/ Trace Metals 1.2 ml/ Amino Acids/Electrolytes/Dextrose 1 ,680 mls @ 70 mls/hr IV DAILY@1800 [facility] Stop: 05/06/22 17:59 Last Admin: 05/05/22 18:09 Dose: 70 mls/hr Documented By: TOY Lidocaine (Lidocaine 4 % Patch Adh..Patch) 2 patch TRANSDERMA DAILY PRN; Protocol PRN Reason: Pain, Mild Last Admin: 05/05/22 23:40 Dose: 2 patch Documented By: ROSS Melatonin (Melatonin 3 Mg Tablet) 6 mg PO BEDTIME PRN PRN Reason: Sleep Last Admin: 05/02/22 20:54 Dose: 6 mg Documented By: RONN Metoprolol Succinate (Metoprolol Succinate Er 25 Mg Tab.Er.24h) 25 mg PO DAILY [facility]; Protocol Last Admin: 05/05/22 09:00 Dose: 25 mg Documented By: TOY Multivitamins/Vitamin C (Multivitamin Tablet) 1 tab PO DAILY [facility] Last Admin: 05/05/22 09:00 Dose: 1 tab Documented By: TOY Ondansetron HCl (Ondansetron Hcl 4 Mg/2 Ml Vial) 4 mg IVPUSH ONCE PRN PRN Reason: Nausea and Vomiting Oxycodone HCl (Oxycodone Hcl Immed Release 5 Mg Tablet) 10 mg PO Q4H PRN PRN Reason: Pain, Severe (Pain Scale 7-10) Last Admin: 05/05/22 23:02 Dose: 10 mg Documented By: ROSS Pharmacy Consult (Consult Rx Perform Med Rec) 1 each MISCELLANE ONCE PRN PRN Reason: Consult order Tamsulosin HCl (Tamsulosin Hcl 0.4 Mg Capsule) 0.8 mg PO BEDTIME [facility] Last Admin: 05/05/22 20:50 Dose: 0.8 mg Documented By: ROSS Zinc Oxide (Zinc Oxide 20% Ointment 28.35 Gm Tube) 1 appl TOPICAL ONCE PRN; Protocol PRN Reason: Rash Zinc Sulfate (Zinc Sulfate 220 Mg Capsule) 220 mg PO DAILY [facility] Last Admin: 05/05/22 09:00 Dose: 220 mg Documented By: TOY Labs CBC & Chem 7: 05/04/22 05:49 05/06/22 07:14 Labs: Laboratory Results - last 24 hr 05/05/22 05/05/22 05/06/22 05:45 17:47 07:14 Anion Gap 9 L Estim Creat Clear Calc 114.2 Estimated GFR > 60 Random Glucose 212 H Calcium 8.1 L Phosphorus 3.4 Magnesium 1.6 Total Bilirubin 0.5 Direct Bilirubin 0.4 AST 12 ALT 26 Alkaline Phosphatase 249 H Total Protein 5.4 L Albumin 2.9 L 2.8 L Triglycerides 125 Procedures Date of Service Date of Service: 05/06/22 Progress Note: A&P Assessment and plan (1) Hydrops of gallbladder: Status: Acute Plan Pod 2 following laparoscopic cholecystectomy for hydropic gallbladder. Patient continues with incisional pain following the procedure. Pain control appears fair today with a change in his pain medications. Encouraged out of bed ambulation. Advance diet as tolerated. Time Spent With Patient Time: Total time spent is greater than 50% in coordination of care (as documented) at patient's floor/unit and/or counseling patient: Quality Stroke Does the patient have a stroke diagnosis?: No VTE Prior VTE?: Yes VTE Risk Level:: Medical - moderate - high VTE Device Contraindication: N/A - Device Ordered VTE Drug Contraindication: N/A - Med Ordered
[2022-05-06 07:49] LABS: Magnesium 1.7 mg/dL (1.6-2.6); Phosphorus 3.1 mg/dL (2.7-4.5)
[2022-05-06] MEDS: Metoprolol Succinate ER 25 MG TAB.ER.24H PO (10:32)
[2022-05-06] MEDS: Cyanocobalamin (Vitamin B-12) 500 MCG TABLET PO (10:32)
[2022-05-06] MEDS: Multivitamin TABLET 1 TAB PO (10:32)
[2022-05-06] MEDS: Finasteride 5 MG TABLET PO (10:32)
[2022-05-06] MEDS: Zinc Sulfate 220 MG CAPSULE PO (10:33)
[2022-05-06] MEDS: oxyCODONE HCl Immed Release 5 MG TABLET 10 MG PO ×2 (10:55→18:55)
--- NOTE | 2022-05-06 11:12 | MHC.CLN ---
F/U TPN CONTINUES DIET ADVANCED TODAY BUT PO INTAKE REMAINS POOR RECOMMEND DAY 3 INCREASE FORMULA D10AA4.25 AT 83.33ML/HR TO PROVIDE 1020KCALS, 85G PROTEIN (1.1G/KG BASED ON CMW) WILL ADD 14 ML OF 20% LIPIDS TO PROVIDE AN ADDITIONAL 672KCALS (1692KCALS TOTAL; 22KCALS/KG) REVIEWED LABS; DISCUSSED WITH PHARMACY REPLETE LYTES NEEDED MONITOR PO INTAKE CLOSELY
--- NOTE | 2022-05-06 15:36 | P.PNIM_ITS ---
Subjective Subjective Date of Service: 05/06/22 Interval History: the patient was seen and evaluated this morning Laying in bed, reporting back and abdominal pain On TPN for now Has ESBL E coli in blood cultures No reported other overnight events. Systemic review: No fever, chills or weakness No chest pain, palpitation No shortness of breath or coughing Reporting abdominal pain, nausea or vomiting No urinary symptoms No any rash or wounds Physical Exam Vital Signs: Vital Signs: Last Vital Signs Temp 97.6 F 05/06/22 15:14 Pulse 71 05/06/22 15:14 Resp 17 05/06/22 15:14 BP 119/56 L 05/06/22 15:14 Pulse Ox 100 05/06/22 15:14 O2 Del Method 05/06/22 15:14 O2 Flow Rate 2 05/06/22 15:14 Oxygen Flow Rate 1 04/29/22 21:45 BMI result Body Mass Index 29.2 Const: Other: Constitutional : Alert, in distress from pain Neck : Normal inspection, Supple Cardiovascular : RRR, no JVP, no lower extremity edema Respiratory : fair bilateral air entry, no crackles, wheezes or rhonchi, on oxygen supplement Gastrointestinal: soft, lax, Normal bowel sounds, generalized tenderness, surgical drain with small serous fluid Skin : Warm, Dry, stage II decubitus ulcers with no drainage Neurological : Alert & oriented x3, No focal deficit , CN 2-12 within normal Objective Data Active Medications Albuterol/Ipratropium (Albuterol/Iprat 2.5/0.5mg 3 Ml Ampul.Neb) 3 ml INHALE Q6H PRN PRN Reason: Shortness Of Breath Or Wheezing Cyanocobalamin (Cyanocobalamin (Vitamin B-12) 500 Mcg Tablet) 500 mcg PO DAILY [facility] Last Admin: 05/06/22 10:32 Dose: 500 mcg Documented By: KECIA Enoxaparin Sodium (Enoxaparin Sodium 100 Mg/Ml Syringe) 90 mg SUBCUT Q12H [facility] Last Admin: 05/06/22 06:25 Dose: 90 mg Documented By: ROSS Finasteride (Finasteride 5 Mg Tablet) 5 mg PO DAILY [facility] Last Admin: 05/06/22 10:32 Dose: 5 mg Documented By: KECIA Gabapentin (Gabapentin 100 Mg Capsule) 100 mg PO DAILY PRN PRN Reason: Anxiety Last Admin: 05/05/22 16:36 Dose: 100 mg Documented By: TOY Hydromorphone HCl (Hydromorphone Hcl 0.5 Mg/0.5 Ml Syringe) 0.5 mg IVPUSH Q2H PRN; Protocol PRN Reason: Pain, Moderate (Pain Scale 4-6 Last Admin: 05/06/22 13:29 Dose: 0.5 mg Documented By: CITLALLI Acetaminophen (Ofirmev) 1,000 mg in 100 mls @ 400 mls/hr IV Q6H [facility] Last Infusion: 05/06/22 10:11 Dose: 0 mls/hr Documented By: KECIA Meropenem 1 gm/ Sodium (Chloride) 100 mls @ 200 mls/hr IV Q8H [facility] Last Infusion: 05/06/22 12:06 Dose: 0 mls/hr Documented By: KECIA Multivitamins 12 ml/ Trace Metals 1.2 ml/ Amino Acids/Electrolytes/Dextrose 1,680 mls @ 70 mls/hr IV DAILY@1800 [facility] Stop: 05/06/22 17:59 Last Admin: 05/05/22 18:09 Dose: 70 mls/hr Documented By: TOY Multivitamins 10 ml/ Trace Metals 1 ml/ Amino Acids/Electrolytes/Dextrose 2,000 mls @ 83.333 mls/hr IV DAILY@1800 [facility] Stop: 05/07/22 17:59 Fat Emulsion Intravenous (Intralipid) 168 mls @ 14 mls/hr IVCONT BID@0600,1800 [facility] Stop: 05/07/22 17:59 Lidocaine (Lidocaine 4 % Patch Adh..Patch) 2 patch TRANSDERMA DAILY PRN; Protocol PRN Reason: Pain, Mild Last Admin: 05/05/22 23:40 Dose: 2 patch Documented By: ROSS Melatonin (Melatonin 3 Mg Tablet) 6 mg PO BEDTIME PRN PRN Reason: Sleep Last Admin: 05/02/22 20:54 Dose: 6 mg Documented By: RONN Metoprolol Succinate (Metoprolol Succinate Er 25 Mg Tab.Er.24h) 25 mg PO DAILY [facility]; Protocol Last Admin: 05/06/22 10:32 Dose: 25 mg Documented By: KECIA Multivitamins/Vitamin C (Multivitamin Tablet) 1 tab PO DAILY [facility] Last Admin: 05/06/22 10:32 Dose: 1 tab Documented By: KECIA Ondansetron HCl (Ondansetron Hcl 4 Mg/2 Ml Vial) 4 mg IVPUSH ONCE PRN PRN Reason: Nausea and Vomiting Oxycodone HCl (Oxycodone Hcl Immed Release 5 Mg Tablet) 10 mg PO Q4H PRN PRN Reason: Pain, Severe (Pain Scale 7-10) Last Admin: 05/06/22 10:55 Dose: 10 mg Documented By: KECIA Pharmacy Consult (Consult Rx Perform Med Rec) 1 each MISCELLANE ONCE PRN PRN Reason: Consult order Tamsulosin HCl (Tamsulosin Hcl 0.4 Mg Capsule) 0.8 mg PO BEDTIME [facility] Last Admin: 05/05/22 20:50 Dose: 0.8 mg Documented By: ROSS Zinc Oxide (Zinc Oxide 20% Ointment 28.35 Gm Tube) 1 appl TOPICAL ONCE PRN; Protocol PRN Reason: Rash Zinc Sulfate (Zinc Sulfate 220 Mg Capsule) 220 mg PO DAILY [facility] Last Admin: 05/06/22 10:33 Dose: 220 mg Documented By: KECIA Labs CBC & Chem 7: 05/04/22 05:49 05/06/22 07:14 Labs: Laboratory Results - last 24 hr 05/05/22 05/06/22 17:47 07:14 Anion Gap 9 L Estim Creat Clear Calc 114.2 Estimated GFR > 60 Random Glucose 212 H Calcium 8.1 L Phosphorus 3.1 Magnesium 1.7 Total Bilirubin 0.5 Direct Bilirubin 0.4 AST 12 ALT 26 Alkaline Phosphatase 249 H Total Protein 5.4 L Albumin 2.8 L Assessment and Plan (1) Stage 2 skin ulcer of sacral region: Status: Acute (2) ESBL (extended spectrum beta-lactamase) producing bacteria infection: Status: Acute (3) Hydrops of gallbladder: Status: Acute Plan 76-year-old male? 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 ( [facility]neumonia, nstemi ,chf? , gram neg sepsis in from last few months -january to now) -records are in the chart. ESBL E coli bacteremia Secondary to hydrops of gallbladder Pod 2 post cholecystectomy LFTs improving Continue meropenem On TPN, consider DC tomorrow if tolerating diet well Advanced diet as tolerated ID evaluation , 14 days of meropenem or ertapenem, no need to treat Pseudomonas Pending Midline placement UTI related to chronic Barton catheter urine culture -citrobacter and psudomonas resistant to meropenem DC cefepime per ID evaluation Stage II decubitus ulcers Pending wound care evaluation Local measures, turned the patient of id htn continue metoprolol History of dvt Restart Eliquis once tolerates p.o. bph has ch barton continue flomax anxiety Psych evaluation appreciated, recomended gabapentin prn for anxiety DVT PPX Lovenox The patient will continue to need overnight hospital stay for treatment of ESBL bacteremia and advancing diet as tolerated after surgery to prevent possible decompensation. Quality Stroke Does the patient have a stroke diagnosis?: No VTE Prior VTE?: Yes VTE Risk Level:: Medical - moderate - high VTE Device Contraindication: N/A - Device Ordered VTE Drug Contraindication: N/A - Med Ordered
[2022-05-06] MEDS: Fat Emulsions 20% 250 ML 14 ML IVCONT (18:46)
[2022-05-06] MEDS: Gabapentin 100 MG CAPSULE PO (18:54)
[2022-05-06] MEDS: Tamsulosin HCL 0.4 MG CAPSULE 0.8 MG PO (21:29)
[2022-05-06] MEDS: Melatonin 3 MG TABLET 6 MG PO (21:30)
[2022-05-07] MEDS: oxyCODONE HCl Immed Release 5 MG TABLET 10 MG PO ×5 (00:51→22:54)
[2022-05-07] MEDS: HYDROmorphone HCl 0.5 MG/0.5 ML SYRINGE IVPUSH (03:44)
[2022-05-07 04:00] VITALS: BP 119/56; PULSE 82; RESP 20; TEMP 37; O2SAT 95
[2022-05-07] MEDS: Enoxaparin Sodium 100 MG/ML SYRINGE 90 MG SUBCUT (06:07)
[2022-05-07] MEDS: Fat Emulsions 20% 250 ML 14 ML IVCONT (06:08)
[2022-05-07 06:27] LABS: Hematocrit 29.4 % (42.0-52.0); Hemoglobin 8.8 g/dl (14.0-18.0); Mean Corpuscular HGB Conc 29.9 g/dl (31.0-36.0); Mean Corpuscular Hemoglobin 25.7 pg (27.0-33.0); Mean Corpuscular Volume 85.7 fL (80.0-98.0); Mean Platelet Volume 10.2 fL (9.4-12.4); Platelet Count 187 X10*3/uL (160-400); Red Blood Count 3.43 X10*6/uL (4.60-5.80); Red Cell Distribution Width 15.2 % (11.0-16.0)
[2022-05-07 07:06] LABS: Alanine Aminotransferase 17 U/L (0-40); Albumin Level 2.6 g/dL (3.5-5.0); Alkaline Phosphatase 203 U/L (39-117); Anion Gap 10 (12-20); Aspartate Amino Transferase 11 U/L (5-37); Bilirubin Direct 0.3 mg/dL (0.0-0.5); Bilirubin Total 0.5 mg/dL (0.0-1.0); Blood Urea Nitrogen 19 mg/dL (9-16); Calcium 8.2 mg/dL (8.4-10.2); Carbon Dioxide 33 mmol/L (22-29); Chloride 99 mmol/L (96-108); Creatinine Clr Calc Pharmacy 120.2; Estimated Glomerular Filt Rate > 60; Glucose Random 196 mg/dL (60-115); Magnesium 1.8 mg/dL (1.6-2.6); Phosphorus 2.5 mg/dL (2.7-4.5); Potassium 4.2 mmol/L (3.3-5.1); Sodium 138 mmol/L (135-145); Total Protein 5.2 g/dL (6.5-8.0); Triglycerides 111 mg/dL
[2022-05-07 08:00] VITALS: BP 133/60; PULSE 74; RESP 20; TEMP 36.8; O2SAT 98
[2022-05-07] MEDS: HYDROmorphone HCl 0.5 MG/0.5 ML SYRINGE 1 MG IVPUSH ×5 (08:56→21:17)
[2022-05-07] MEDS: Finasteride 5 MG TABLET PO (09:01)
[2022-05-07] MEDS: Multivitamin TABLET 1 TAB PO (09:01)
[2022-05-07] MEDS: Metoprolol Succinate ER 25 MG TAB.ER.24H PO (09:01)
[2022-05-07] MEDS: Zinc Sulfate 220 MG CAPSULE PO (09:01)
[2022-05-07] MEDS: Cyanocobalamin (Vitamin B-12) 500 MCG TABLET PO (09:01)
--- NOTE | 2022-05-07 11:09 | P.PNIM_ITS ---
Subjective Subjective Date of Service: 05/07/22 Interval History: cc: abd pain interval history:no bm, tolerated breakfast Cardiovascular Cardiovascular: Reports no additional cardiovascular complaints Respiratory Respiratory: Reports no additional respiratory complaints Physical Exam Vital Signs: Vital Signs: Last Vital Signs Temp 98.2 F 05/07/22 08:00 Pulse 74 05/07/22 08:00 Resp 20 05/07/22 08:00 BP 133/60 05/07/22 08:00 Pulse Ox 98 05/07/22 08:00 O2 Del Method 05/07/22 08:00 O2 Flow Rate 2 05/07/22 08:00 Oxygen Flow Rate 2 05/06/22 15:00 BMI result Body Mass Index 29.2 Const: Other: Constitutional : Alert, in distress from pain Neck : Normal inspection, Supple Cardiovascular : RRR, no JVP, no lower extremity edema Respiratory : fair bilateral air entry, no crackles, wheezes or rhonchi, on oxygen supplement Gastrointestinal: soft, lax, Normal bowel sounds, generalized tenderness, surgical drain with small serous fluid Skin : Warm, Dry, stage II decubitus ulcers with no drainage Neurological : Alert & oriented x3, No focal deficit , CN 2-12 within normal Objective Data Active Medications Albuterol/Ipratropium (Albuterol/Iprat 2.5/0.5mg 3 Ml Ampul.Neb) 3 ml INHALE Q6H PRN PRN Reason: Shortness Of Breath Or Wheezing Apixaban (Apixaban 5 Mg Tablet) 5 mg PO BID [facility] Cyanocobalamin (Cyanocobalamin (Vitamin B-12) 500 Mcg Tablet) 500 mcg PO DAILY [facility] Last Admin: 05/07/22 09:01 Dose: 500 mcg Documented By: CITLALLI Finasteride (Finasteride 5 Mg Tablet) 5 mg PO DAILY [facility] Last Admin: 05/07/22 09:01 Dose: 5 mg Documented By: CITLALLI Gabapentin (Gabapentin 100 Mg Capsule) 100 mg PO DAILY PRN PRN Reason: Anxiety Last Admin: 05/06/22 18:54 Dose: 100 mg Documented By: KECIA Hydromorphone HCl (Hydromorphone Hcl 0.5 Mg/0.5 Ml Syringe) 1 mg IVPUSH Q2H PRN; Protocol PRN Reason: Pain, Severe (Pain Scale 7-10) Last Admin: 05/07/22 08:56 Dose: 1 mg Documented By: CITLALLI Meropenem 1 gm/ Sodium (Chloride) 100 mls @ 200 mls/hr IV Q8H [facility] Last Admin: 05/07/22 09:22 Dose: 200 mls/hr Documented By: CITLALLI Multivitamins 10 ml/ Trace Metals 1 ml/ Amino Acids/Electrolytes/Dextrose 2,000 mls @ 83.333 mls/hr IV DAILY@1800 [facility] Stop: 05/07/22 17:59 Last Admin: 05/06/22 18:48 Dose: 83.33 mls/hr Documented By: KECIA Fat Emulsion Intravenous (Intralipid) 168 mls @ 14 mls/hr IVCONT BID@0600,1800 [facility] Stop: 05/07/22 17:59 Last Admin: 05/07/22 06:08 Dose: 14 mls/hr Documented By: ROSS Lidocaine (Lidocaine 4 % Patch Adh..Patch) 2 patch TRANSDERMA DAILY PRN; Protocol PRN Reason: Pain, Mild Last Admin: 05/05/22 23:40 Dose: 2 patch Documented By: ROSS Melatonin (Melatonin 3 Mg Tablet) 6 mg PO BEDTIME PRN PRN Reason: Sleep Last Admin: 05/06/22 21:30 Dose: 6 mg Documented By: ROSS Metoprolol Succinate (Metoprolol Succinate Er 25 Mg Tab.Er.24h) 25 mg PO DAILY [facility]; Protocol Last Admin: 05/07/22 09:01 Dose: 25 mg Documented By: CITLALLI Multivitamins/Vitamin C (Multivitamin Tablet) 1 tab PO DAILY [facility] Last Admin: 05/07/22 09:01 Dose: 1 tab Documented By: CITLALLI Ondansetron HCl (Ondansetron Hcl 4 Mg/2 Ml Vial) 4 mg IVPUSH ONCE PRN PRN Reason: Nausea and Vomiting Oxycodone HCl (Oxycodone Hcl Immed Release 5 Mg Tablet) 10 mg PO Q4H PRN PRN Reason: Pain, Severe (Pain Scale 7-10) Last Admin: 05/07/22 10:42 Dose: 10 mg Documented By: CITLALLI Pharmacy Consult (Consult Rx Perform Med Rec) 1 each MISCELLANE ONCE PRN PRN Reason: Consult order Tamsulosin HCl (Tamsulosin Hcl 0.4 Mg Capsule) 0.8 mg PO BEDTIME [facility] Last Admin: 05/06/22 21:29 Dose: 0.8 mg Documented By: ROSS Zinc Oxide (Zinc Oxide 20% Ointment 28.35 Gm Tube) 1 appl TOPICAL ONCE PRN; Protocol PRN Reason: Rash Zinc Sulfate (Zinc Sulfate 220 Mg Capsule) 220 mg PO DAILY [facility] Last Admin: 05/07/22 09:01 Dose: 220 mg Documented By: CITLALLI Zolpidem Tartrate (Zolpidem Tartrate 5 Mg Tablet) 5 mg PO BEDTIME PRN PRN Reason: Insomnia Labs CBC & Chem 7: 05/07/22 06:10 05/07/22 06:10 Labs: Laboratory Results - last 24 hr 05/07/22 05/07/22 06:10 06:10 MCV 85.7 MCH 25.7 L MCHC 29.9 L RDW 15.2 Plt Count 187 MPV 10.2 Absolute Nucleated RBC 0.000 Nucleated RBC % (auto) 0.0 Anion Gap 10 L Estim Creat Clear Calc 120.2 Estimated GFR > 60 Random Glucose 196 H Calcium 8.2 L Phosphorus 2.5 L Magnesium 1.8 Total Bilirubin 0.5 Direct Bilirubin 0.3 AST 11 ALT 17 Alkaline Phosphatase 203 H Total Protein 5.2 L Albumin 2.6 L Triglycerides 111 Assessment and Plan (1) Stage 2 skin ulcer of sacral region: Status: Acute (2) ESBL (extended spectrum beta-lactamase) producing bacteria infection: Status: Acute (3) Hydrops of gallbladder: Status: Acute Plan 76-year-old male? hypertensive and hyperlipidemic with remote history of ST- elevation [place], possible chf (etiology unclear) ,htn ,lbbb,and what and about a year status post COVID 19 infection that was complicated by deep vein thrombosis and he remains on Eliquis-came with abdominal pain-initially admitted to the ICU because of severe sepsis . ( patient had few admissions [facility] for sepsis/pneumonia, nstemi ,chf? , gram neg sepsis in from last few months -january to now) -records are in the chart. ESBL E coli bacteremia Secondary to hydrops of gallbladder Pod 3 post cholecystectomy LFTs improving Continue meropenem tolerating diet, will dc tpn ID evaluation , 14 days of meropenem or ertapenem, no need to treat Pseudomonas Pending Midline placement Stage II decubitus ulcers Pending wound care evaluation Local measures, turned the patient of id htn continue metoprolol History of dvt Eliquis bph has ch barton continue flomax anxiety Psych evaluation appreciated, recomended gabapentin prn for anxiety DVT PPX Lovenox reason for continued hospitalization:awaiting return of bowel function Quality Stroke Does the patient have a stroke diagnosis?: No VTE Prior VTE?: Yes VTE Risk Level:: Medical - moderate - high VTE Device Contraindication: N/A - Device Ordered VTE Drug Contraindication: N/A - Med Ordered
[2022-05-07 11:30] VITALS: BP 133/63; PULSE 78; RESP 20; TEMP 37.1; O2SAT 98
--- NOTE | 2022-05-07 11:48 | MHC.CLN ---
F/U TPN D/C TODAY DIET ADVANCED TO LOW FAT RECOMMEND STARTING ENSURE TID TO INCREASE KCALS SUPP TO PROVIDE 1050KCALS, 60G PROTEIN MONITOR PO INTAKE CLOSELY
--- NOTE | 2022-05-07 13:36 | MHC.CM.PN ---
per rounds no anticapted dc at this time plan remains return to [facility]
--- NOTE | 2022-05-07 14:05 | PM.PNGS ---
Subjective Subjective Date of Service: 05/07/22 Interval history: Patient continues to complain of incisional pain mainly in the right upper quadrant. He was able to tolerate some food and denied nausea or vomiting. He also complains of back pain. Physical Exam Vital Signs: Vital Signs: Last Vital Signs Temp 98.8 F 05/07/22 11:30 Pulse 78 05/07/22 11:30 Resp 20 05/07/22 11:30 BP 133/63 05/07/22 11:30 Pulse Ox 98 05/07/22 11:30 O2 Del Method 05/07/22 11:30 O2 Flow Rate 2 05/07/22 08:00 Oxygen Flow Rate 2 05/06/22 15:00 BMI result Body Mass Index 29.2 Const: General: tired appearing Nutritional Appearance: well nourished Orientation/consciousness: patient oriented x3 Limitations: no limitations Neck: Neck: Yes normal visual inspection and Yes no JVD Resp: Effort & Inspection: normal respiratory effort, no audible wheezes, no cough and no respiratory distress GI: Other: Trocar incisions are clean, dry, and intact without redness or discharge. СВЕТЛАНА is draining serous fluid. СВЕТЛАНА was removed and dry sterile dressings applied. Skin: General skin exam: no rashes or lesions noted Neuro: General: patient oriented x3 Extrem: General: Yes no clubbing, cyanosis or edema Objective Data Active Medications Albuterol/Ipratropium (Albuterol/Iprat 2.5/0.5mg 3 Ml Ampul.Neb) 3 ml INHALE Q6H PRN PRN Reason: Shortness Of Breath Or Wheezing Apixaban (Apixaban 5 Mg Tablet) [address] [facility] Cyanocobalamin (Cyanocobalamin (Vitamin B-12) 500 Mcg Tablet) [address] [facility] Last Admin: 05/07/22 09:01 Dose: 500 mcg Documented By: CITLALLI Finasteride (Finasteride 5 Mg Tablet) [address] [facility] Last Admin: 05/07/22 09:01 Dose: 5 mg Documented By: CITLALLI Gabapentin (Gabapentin 100 Mg Capsule) 100 mg PO DAILY PRN PRN Reason: Anxiety Last Admin: 05/06/22 18:54 Dose: 100 mg Documented By: KECIA Hydromorphone HCl (Hydromorphone Hcl 0.5 Mg/0.5 Ml Syringe) 1 mg IVPUSH Q2H PRN; Protocol PRN Reason: Pain, Severe (Pain Scale 7-10) Last Admin: 05/07/22 12:24 Dose: 1 mg Documented By: CITLALLI Meropenem 1 gm/ Sodium (Chloride) 100 mls @ 200 mls/hr IV Q8H [facility] Last Infusion: 05/07/22 11:42 Dose: 0 mls/hr Documented By: KECIA Multivitamins 10 ml/ Trace Metals 1 ml/ Amino Acids/Electrolytes/Dextrose 2,000 mls @ 83.333 mls/hr IV DAILY@1800 [facility] Stop: 05/07/22 17:59 Last Admin: 05/06/22 18:48 Dose: 83.33 mls/hr Documented By: KECIA Fat Emulsion Intravenous (Intralipid) 168 mls @ 14 mls/hr IVCONT BID@0600,1800 [facility] Stop: 05/07/22 17:59 Last Admin: 05/07/22 06:08 Dose: 14 mls/hr Documented By: ROSS Lidocaine (Lidocaine 4 % Patch Adh..Patch) 2 patch TRANSDERMA DAILY PRN; Protocol PRN Reason: Pain, Mild Last Admin: 05/05/22 23:40 Dose: 2 patch Documented By: ROSS Melatonin (Melatonin 3 Mg Tablet) 6 mg PO BEDTIME PRN PRN Reason: Sleep Last Admin: 05/06/22 21:30 Dose: 6 mg Documented By: ROSS Metoprolol Succinate (Metoprolol Succinate Er 25 Mg Tab.Er.24h) [address] [facility]; Protocol Last Admin: 05/07/22 09:01 Dose: 25 mg Documented By: CITLALLI Multivitamins/Vitamin C (Multivitamin Tablet) [address] [facility] Last Admin: 05/07/22 09:01 Dose: 1 tab Documented By: CITLALLI Ondansetron HCl (Ondansetron Hcl 4 Mg/2 Ml Vial) 4 mg IVPUSH ONCE PRN PRN Reason: Nausea and Vomiting Oxycodone HCl (Oxycodone Hcl Immed Release 5 Mg Tablet) 10 mg PO Q4H PRN PRN Reason: Pain, Severe (Pain Scale 7-10) Last Admin: 05/07/22 10:42 Dose: 10 mg Documented By: CITLALLI Pharmacy Consult (Consult Rx Perform Med Rec) 1 each MISCELLANE ONCE PRN PRN Reason: Consult order Tamsulosin HCl (Tamsulosin Hcl 0.4 Mg Capsule) 0.[address] [facility] Last Admin: 05/06/22 21:29 Dose: 0.8 mg Documented By: ROSS Zinc Oxide (Zinc Oxide 20% Ointment 28.35 Gm Tube) 1 appl TOPICAL ONCE PRN; Protocol PRN Reason: Rash Zinc Sulfate (Zinc Sulfate 220 Mg Capsule) [address] [facility] Last Admin: 05/07/22 09:01 Dose: 220 mg Documented By: CITLALLI Zolpidem Tartrate (Zolpidem Tartrate 5 Mg Tablet) 5 mg PO BEDTIME PRN PRN Reason: Insomnia Labs CBC & Chem 7: 05/07/22 06:10 05/07/22 06:10 Labs: Laboratory Results - last 24 hr 05/07/22 05/07/22 06:10 06:10 MCV 85.7 MCH 25.7 L MCHC 29.9 L RDW 15.2 Plt Count 187 MPV 10.2 Absolute Nucleated RBC 0.000 Nucleated RBC % (auto) 0.0 Anion Gap 10 L Estim Creat Clear Calc 120.2 Estimated GFR > 60 Random Glucose 196 H Calcium 8.2 L Phosphorus 2.5 L Magnesium 1.8 Total Bilirubin 0.5 Direct Bilirubin 0.3 AST 11 ALT 17 Alkaline Phosphatase 203 H Total Protein 5.2 L Albumin 2.6 L Triglycerides 111 Procedures Date of Service Date of Service: 05/07/22 Progress Note: A&P Assessment and plan (1) Hydrops of gallbladder: Status: Acute (2) Elevated transaminase level: Status: Acute Plan 76-year-old male patient presenting with hydrops of the gallbladder due to gallstones. He is status post laparoscopic cholecystectomy. His postoperative course has been marked by incisional pain as well as chronic back pain. He reports previously taking pain medication prior to surgery. He is able to tolerate some food although his appetite is poor at this point. It does not appear that he has gotten out of bed since the surgery. Time Spent With Patient Time: Total time spent is greater than 50% in coordination of care (as documented) at patient's floor/unit and/or counseling patient: Quality Stroke Does the patient have a stroke diagnosis?: No VTE Prior VTE?: Yes VTE Risk Level:: Medical - moderate - high VTE Device Contraindication: N/A - Device Ordered VTE Drug Contraindication: N/A - Med Ordered
[2022-05-07] MEDS: TiZANidine HCL 4 MG TABLET PO (14:17)
--- NOTE | 2022-05-07 16:38 | HO.MIDLINE_ITS ---
Midline Insertion MIDLINE INSERTION Diagnosis: [E Coli Bacteremia] Indication: Jail Antibiotics needed Pertinent Labs: Reviewed Technique: Using sterile technique including cap and mask, glove and drape, the right arm was prepped and draped in the usual sterile fashion of full barrier technique with CHG. Using ultrasound guidance, right cephalic vein access was obtained once by Prosper Reina RN, but unable to advance midline. Right cephalic vein was accessed twice by Piotr Feliciano RN and midline placed on second attempt. A 20G X10CM Power [place] ST midline was positioned. The procedure was performed in S272. Ultrasound was used to document vein patency and for needle entry. A formal ultrasound picture was recorded. Vascular Supervisor [employer] has released the line for use and it is currently dressed with a StatLock, Tegaderm, and CHG disc. Verification has been performed for blood return and line patency. Arm Circumference:pt refused (too much pain) Equipment: BARD PowerGlide ST midline Catheter Type: [id number] NON-PASV midline Lot #: [id number]
[2022-05-07 20:00] VITALS: BP 133/65; PULSE 82; RESP 18; TEMP 36.6; O2SAT 97
[2022-05-07] MEDS: Melatonin 3 MG TABLET 6 MG PO (20:49)
[2022-05-07] MEDS: Apixaban 5 MG TABLET PO (20:49)
[2022-05-07] MEDS: Tamsulosin HCL 0.4 MG CAPSULE 0.8 MG PO (20:49)
[2022-05-07] MEDS: Heparin Sodium,Porcine Flush 50 UNITS, 0.9 % Sodium Chloride Flush 5 ML IVFLUSH (21:00)
[2022-05-07 21:17] VITALS: RESP 18
[2022-05-07] MEDS: Gabapentin 100 MG CAPSULE PO (22:54)
[2022-05-07 23:58] VITALS: BP 133/89; PULSE 76; RESP 17; TEMP 37; O2SAT 98
[2022-05-08] VITALS (9 sets, daily range): BP systolic 124–151; BP diastolic 65–76; PULSE 77–84; RESP 16–20; TEMP 36.1–36.7; O2SAT 92–100
[2022-05-08] MEDS: HYDROmorphone HCl 0.5 MG/0.5 ML SYRINGE 1 MG IVPUSH ×10 (00:26→23:37)
[2022-05-08] MEDS: oxyCODONE HCl Immed Release 5 MG TABLET 10 MG PO ×4 (03:43→20:14)
[2022-05-08 06:54] LABS: Hematocrit 28.6 % (42.0-52.0); Hemoglobin 8.8 g/dl (14.0-18.0); Mean Corpuscular HGB Conc 30.8 g/dl (31.0-36.0); Mean Corpuscular Hemoglobin 25.9 pg (27.0-33.0); Mean Corpuscular Volume 84.1 fL (80.0-98.0); Mean Platelet Volume 10.5 fL (9.4-12.4); Platelet Count 226 X10*3/uL (160-400); Red Cell Distribution Width 15.3 % (11.0-16.0); White Blood Count 10.2 X10*3/uL (4.8-10.8)
[2022-05-08 07:18] LABS: Anion Gap 11 (12-20); Blood Urea Nitrogen 16 mg/dL (9-16); Calcium 8.4 mg/dL (8.4-10.2); Carbon Dioxide 36 mmol/L (22-29); Chloride 97 mmol/L (96-108); Creatinine Clr Calc Pharmacy 129.3; Estimated Glomerular Filt Rate > 60; Glucose Fasting 139 mg/dL (60-99); Potassium 4.2 mmol/L (3.3-5.1); Sodium 140 mmol/L (135-145)
[2022-05-08] MEDS: Heparin Sodium,Porcine Flush 50 UNITS, 0.9 % Sodium Chloride Flush 5 ML IVFLUSH ×3 (08:23→20:15)
[2022-05-08] MEDS: Finasteride 5 MG TABLET PO (08:24)
[2022-05-08] MEDS: Multivitamin TABLET 1 TAB PO (08:24)
[2022-05-08] MEDS: Zinc Sulfate 220 MG CAPSULE PO (08:25)
[2022-05-08] MEDS: Metoprolol Succinate ER 25 MG TAB.ER.24H PO (08:25)
[2022-05-08] MEDS: Cyanocobalamin (Vitamin B-12) 500 MCG TABLET PO (08:25)
[2022-05-08] MEDS: Apixaban 5 MG TABLET PO ×2 (08:25→20:15)
--- NOTE | 2022-05-08 09:28 | P.PNGS_ITS ---
Subjective Subjective Date of Service: 05/08/22 Interval history: Patient reports difficulty sleeping. Was not given Ambien last night and reports not sleeping all night. He continues to report pain mainly in the back and right shoulder. Abdominal pain seems improved however. He is tolerating his diet without nausea or vomiting. He was reported to have had a bowel movement yesterday. Physical Exam Vital Signs: Vital Signs: Last Vital Signs Temp 97.7 F 05/08/22 07:54 Pulse 82 05/08/22 07:54 Resp 18 05/08/22 07:54 BP 132/69 05/08/22 07:54 Pulse Ox 98 05/08/22 07:54 O2 Del Method 05/08/22 07:54 O2 Flow Rate 2 05/08/22 07:54 Oxygen Flow Rate 2 05/07/22 15:00 BMI result Body Mass Index 29.2 Const: General: no acute distress Nutritional Appearance: well nourished Orientation/consciousness: patient oriented x3 Limitations: no limitations Resp: Effort & Inspection: normal respiratory effort GI: Other: Abdominal incisions are clean, dry, and intact without redness or discharge. Abdomen is soft and nondistended. Neuro: General: patient oriented x3 Extrem: General: Yes normal to inspection Objective Data Active Medications Albuterol/Ipratropium (Albuterol/Iprat 2.5/0.5mg 3 Ml Ampul.Neb) 3 ml INHALE Q6H PRN PRN Reason: Shortness Of Breath Or Wheezing Apixaban (Apixaban 5 Mg Tablet) 5 mg PO BID ON LICENSE OF [facility] Last Admin: 05/08/22 08:25 Dose: 5 mg Documented By: ALANNAH Heparin Sodium (Porcine) 50 (units/ Sodium Chloride 5 ml) 0 units IVFLUSH TID ON LICENSE OF [facility] Last Admin: 05/08/22 08:23 Dose: 50 unit Documented By: ALANNAH Cyanocobalamin (Cyanocobalamin (Vitamin B-12) 500 Mcg Tablet) 500 mcg PO DAILY ON LICENSE OF [facility] Last Admin: 05/08/22 08:25 Dose: 500 mcg Documented By: ALANNAH Finasteride (Finasteride 5 Mg Tablet) 5 mg PO DAILY ON LICENSE OF [facility] Last Admin: 05/08/22 08:24 Dose: 5 mg Documented By: ALANNAH Gabapentin (Gabapentin 100 Mg Capsule) 100 mg PO DAILY PRN PRN Reason: Anxiety Last Admin: 05/07/22 22:54 Dose: 100 mg Documented By: SHYAM Hydromorphone HCl (Hydromorphone Hcl 0.5 Mg/0.5 Ml Syringe) 1 mg IVPUSH Q2H PRN; Protocol PRN Reason: Pain, Severe (Pain Scale 7-10) Last Admin: 05/08/22 08:26 Dose: 1 mg Documented By: ALANNAH Meropenem 1 gm/ Sodium (Chloride) 100 mls @ 200 mls/hr IV Q8H DAVID Last Admin: 05/08/22 08:25 Dose: 200 mls/hr Documented By: ALANNAH Lidocaine (Lidocaine 4 % Patch Adh..Patch) 2 patch TRANSDERMA DAILY PRN; Protocol PRN Reason: Pain, Mild Last Admin: 05/05/22 23:40 Dose: 2 patch Documented By: ROSS Melatonin (Melatonin 3 Mg Tablet) 6 mg PO BEDTIME PRN PRN Reason: Sleep Last Admin: 05/07/22 20:49 Dose: 6 mg Documented By: SHYAM Metoprolol Succinate (Metoprolol Succinate Er 25 Mg Tab.Er.24h) 25 mg PO DAILY ON LICENSE OF [facility]; Protocol Last Admin: 05/08/22 08:25 Dose: 25 mg Documented By: ALANNAH Multivitamins/Vitamin C (Multivitamin Tablet) 1 tab PO DAILY ON LICENSE OF [facility] Last Admin: 05/08/22 08:24 Dose: 1 tab Documented By: ALANNAH Ondansetron HCl (Ondansetron Hcl 4 Mg/2 Ml Vial) 4 mg IVPUSH ONCE PRN PRN Reason: Nausea and Vomiting Oxycodone HCl (Oxycodone Hcl Immed Release 5 Mg Tablet) 10 mg PO Q4H PRN PRN Reason: Pain, Severe (Pain Scale 7-10) Last Admin: 05/08/22 08:24 Dose: 10 mg Documented By: ALANNAH Pharmacy Consult (Consult Rx Perform Med Rec) 1 each MISCELLANE ONCE PRN PRN Reason: Consult order Tamsulosin HCl (Tamsulosin Hcl 0.4 Mg Capsule) 0.8 mg PO BEDTIME ON LICENSE OF [facility] Last Admin: 05/07/22 20:49 Dose: 0.8 mg Documented By: SHYAM Zinc Oxide (Zinc Oxide 20% Ointment 28.35 Gm Tube) 1 appl TOPICAL ONCE PRN; Protocol PRN Reason: Rash Zinc Sulfate (Zinc Sulfate 220 Mg Capsule) 220 mg PO DAILY [facility] Last Admin: 05/08/22 08:25 Dose: 220 mg Documented By: ALANNAH Zolpidem Tartrate (Zolpidem Tartrate 5 Mg Tablet) 5 mg PO BEDTIME PRN PRN Reason: Insomnia Labs CBC & Chem 7: 05/08/22 06:10 05/08/22 06:24 Labs: Laboratory Results - last 24 hr 05/08/22 05/08/22 06:10 06:24 MCV 84.1 MCH 25.9 L MCHC 30.8 L RDW 15.3 Plt Count 226 MPV 10.5 Absolute Nucleated RBC 0.000 Nucleated RBC % (auto) 0.0 Anion Gap 11 L Estim Creat Clear Calc 129.3 Estimated GFR > 60 Random Glucose TNP Fasting Glucose 139 H Calcium 8.4 Procedures Date of Service Date of Service: 05/08/22 Progress Note: A&P Assessment and plan (1) Hydrops of gallbladder: Status: Acute (2) Elevated transaminase level: Status: Acute Plan POD #4 s/p laparoscopic cholecystectomy for hydropic gallbladder. Patient appears much improved and is tolerating a diet. He continues to have chronic back and shoulder pain from arthritis. Because of this he is having difficulty sleeping. Patient needs to be out of bed and ambulate, sit up in chair. Needs to be transition to oral pain medication. Time Spent With Patient Time: Total time spent is greater than 50% in coordination of care (as documented) at patient's floor/unit and/or counseling patient: Quality Stroke Does the patient have a stroke diagnosis?: No VTE Prior VTE?: Yes VTE Risk Level:: Medical - moderate - high VTE Device Contraindication: N/A - Device Ordered VTE Drug Contraindication: N/A - Med Ordered
--- NOTE | 2022-05-08 10:14 | HO.PM.IMPN ---
Subjective Subjective Date of Service: 05/08/22 Interval History: cc: abd pain interval history: had bm Cardiovascular Cardiovascular: Reports no additional cardiovascular complaints Respiratory Respiratory: Reports no additional respiratory complaints Physical Exam Vital Signs: Vital Signs: Last Vital Signs Temp 97.7 F 05/08/22 07:54 Pulse 82 05/08/22 07:54 Resp 18 05/08/22 07:54 BP 132/69 05/08/22 07:54 Pulse Ox 98 05/08/22 07:54 O2 Del Method 05/08/22 07:54 O2 Flow Rate 2 05/08/22 07:54 Oxygen Flow Rate 2 05/07/22 15:00 BMI result Body Mass Index 29.2 Const: General: no acute distress Nutritional Appearance: well nourished Orientation/consciousness: patient oriented x3 Limitations: no limitations Resp: Effort & Inspection: normal respiratory effort GI: Other: Abdominal incisions are clean, dry, and intact without redness or discharge. Abdomen is soft and nondistended. Neuro: General: patient oriented x3 Extrem: General: Yes normal to inspection Objective Data Active Medications Albuterol/Ipratropium (Albuterol/Iprat 2.5/0.5mg 3 Ml Ampul.Neb) 3 ml INHALE Q6H PRN PRN Reason: Shortness Of Breath Or Wheezing Apixaban (Apixaban 5 Mg Tablet) 5 mg PO BID [facility] Last Admin: 05/08/22 08:25 Dose: 5 mg Documented By: ALANNAH Heparin Sodium (Porcine) 50 (units/ Sodium Chloride 5 ml) 0 units IVFLUSH TID [facility] Last Admin: 05/08/22 08:23 Dose: 50 unit Documented By: ALANNAH Cyanocobalamin (Cyanocobalamin (Vitamin B-12) 500 Mcg Tablet) 500 mcg PO DAILY [facility] Last Admin: 05/08/22 08:25 Dose: 500 mcg Documented By: ALANNAH Finasteride (Finasteride 5 Mg Tablet) 5 mg PO DAILY [facility] Last Admin: 05/08/22 08:24 Dose: 5 mg Documented By: ALANNAH Gabapentin (Gabapentin 100 Mg Capsule) 100 mg PO DAILY PRN PRN Reason: Anxiety Last Admin: 05/07/22 22:54 Dose: 100 mg Documented By: GUERITAUMOC Hydromorphone HCl (Hydromorphone Hcl 0.5 Mg/0.5 Ml Syringe) 1 mg IVPUSH Q2H PRN; Protocol PRN Reason: Pain, Severe (Pain Scale 7-10) Last Admin: 05/08/22 08:26 Dose: 1 mg Documented By: ALANNAH Meropenem 1 gm/ Sodium (Chloride) 100 mls @ 200 mls/hr IV Q8H [facility] Last Admin: 05/08/22 08:25 Dose: 200 mls/hr Documented By: ALANNAH Lidocaine (Lidocaine 4 % Patch Adh..Patch) 2 patch TRANSDERMA DAILY PRN; Protocol PRN Reason: Pain, Mild Last Admin: 05/05/22 23:40 Dose: 2 patch Documented By: ROSS Melatonin (Melatonin 3 Mg Tablet) 6 mg PO BEDTIME PRN PRN Reason: Sleep Last Admin: 05/07/22 20:49 Dose: 6 mg Documented By: SHYAM Metoprolol Succinate (Metoprolol Succinate Er 25 Mg Tab.Er.24h) 25 mg PO DAILY [facility]; Protocol Last Admin: 05/08/22 08:25 Dose: 25 mg Documented By: ALANNAH Multivitamins/Vitamin C (Multivitamin Tablet) 1 tab PO DAILY [facility] Last Admin: 05/08/22 08:24 Dose: 1 tab Documented By: ALANNAH Ondansetron HCl (Ondansetron Hcl 4 Mg/2 Ml Vial) 4 mg IVPUSH ONCE PRN PRN Reason: Nausea and Vomiting Oxycodone HCl (Oxycodone Hcl Immed Release 5 Mg Tablet) 10 mg PO Q4H PRN PRN Reason: Pain, Severe (Pain Scale 7-10) Last Admin: 05/08/22 08:24 Dose: 10 mg Documented By: ALANNAH Pharmacy Consult (Consult Rx Perform Med Rec) 1 each MISCELLANE ONCE PRN PRN Reason: Consult order Tamsulosin HCl (Tamsulosin Hcl 0.4 Mg Capsule) 0.8 mg PO BEDTIME [facility] Last Admin: 05/07/22 20:49 Dose: 0.8 mg Documented By: SHYAM Zinc Oxide (Zinc Oxide 20% Ointment 28.35 Gm Tube) 1 appl TOPICAL ONCE PRN; Protocol PRN Reason: Rash Zinc Sulfate (Zinc Sulfate 220 Mg Capsule) 220 mg PO DAILY [facility] Last Admin: 05/08/22 08:25 Dose: 220 mg Documented By: ALANNAH Zolpidem Tartrate (Zolpidem Tartrate 5 Mg Tablet) 5 mg PO BEDTIME PRN PRN Reason: Insomnia Labs CBC & Chem 7: 05/08/22 06:10 05/08/22 06:24 Labs: Laboratory Results - last 24 hr 05/08/22 05/08/22 06:10 06:24 MCV 84.1 MCH 25.9 L MCHC 30.8 L RDW 15.3 Plt Count 226 MPV 10.5 Absolute Nucleated RBC 0.000 Nucleated RBC % (auto) 0.0 Anion Gap 11 L Estim Creat Clear Calc 129.3 Estimated GFR > 60 Random Glucose TNP Fasting Glucose 139 H Calcium 8.4 Assessment and Plan (1) Stage 2 skin ulcer of sacral region: Status: Acute (2) ESBL (extended spectrum beta-lactamase) producing bacteria infection: Status: Acute (3) Hydrops of gallbladder: Status: Acute Plan 76-year-old male? hypertensive and hyperlipidemic with remote history of ST-elevation [place], possible chf (etiology unclear) ,htn ,lbbb,and what and about a year status post COVID 19 infection that was complicated by deep vein thrombosis and he remains on Eliquis-came with abdominal pain-initially admitted to the ICU because of severe sepsis . ( patient had few admissions to [facility] for sepsis/pneumonia, nstemi ,chf? , gram neg sepsis in from last few months -may to now) -records are in the chart. ESBL E coli bacteremia Secondary to hydrops of gallbladder Pod 4 post cholecystectomy LFTs improving Continue meropenem tolerating diet, had BM ID evaluation , 14 days of meropenem or ertapenem, no need to treat Pseudomonas, end may 18 Midline placed Stage II decubitus ulcers Pending wound care evaluation Local measures, turned the patient of id htn continue metoprolol History of dvt Eliquis bph has ch barton continue flomax anxiety Psych evaluation appreciated, recomended gabapentin prn for anxiety DVT PPX Lovenox reason for continued hospitalization: in pain requiring iv pain meds Quality Stroke Does the patient have a stroke diagnosis?: No VTE Prior VTE?: Yes VTE Risk Level:: Medical - moderate - high VTE Device Contraindication: N/A - Device Ordered VTE Drug Contraindication: N/A - Med Ordered
[2022-05-08] MEDS: Lidocaine 4 % Patch ADH..PATCH 2 PATCH TRANSDERMA (10:40)
[2022-05-08] MEDS: clonazePAM 0.5 MG TABLET PO (11:43)
[2022-05-08] MEDS: QUEtiapine Fumarate 25 MG TABLET PO (13:07)
[2022-05-08] MEDS: Tamsulosin HCL 0.4 MG CAPSULE 0.8 MG PO (20:15)
[2022-05-08] MEDS: Melatonin 3 MG TABLET 6 MG PO (20:15)
[2022-05-09] VITALS: BP 156/69; PULSE 84; RESP 17; TEMP 37.1; O2SAT 91
[2022-05-09] MEDS: oxyCODONE HCl Immed Release 5 MG TABLET 10 MG PO ×4 (01:02→16:27)
[2022-05-09] MEDS: QUEtiapine Fumarate 25 MG TABLET PO ×3 (01:04→22:40)
[2022-05-09 07:12] VITALS: BP 159/70; PULSE 79; RESP 19; TEMP 36.7; O2SAT 96
[2022-05-09] MEDS: Heparin Sodium,Porcine Flush 50 UNITS, 0.9 % Sodium Chloride Flush 5 ML IVFLUSH ×3 (07:24→21:49)
[2022-05-09] MEDS: HYDROmorphone HCl 0.5 MG/0.5 ML SYRINGE 1 MG IVPUSH ×4 (07:27→21:50)
[2022-05-09] MEDS: Finasteride 5 MG TABLET PO (07:27)
[2022-05-09] MEDS: Metoprolol Succinate ER 25 MG TAB.ER.24H PO (07:28)
[2022-05-09] MEDS: Lidocaine 4 % Patch ADH..PATCH 2 PATCH TRANSDERMA (07:28)
[2022-05-09] MEDS: Apixaban 5 MG TABLET PO ×2 (07:28→21:50)
[2022-05-09] MEDS: Cyanocobalamin (Vitamin B-12) 500 MCG TABLET PO (07:28)
[2022-05-09] MEDS: Multivitamin TABLET 1 TAB PO (07:28)
[2022-05-09] MEDS: Zinc Sulfate 220 MG CAPSULE PO (07:28)
[2022-05-09 07:52] LABS: Hematocrit 26.9 % (42.0-52.0); Hemoglobin 8.4 g/dl (14.0-18.0); Mean Corpuscular HGB Conc 31.2 g/dl (31.0-36.0); Mean Corpuscular Hemoglobin 26.1 pg (27.0-33.0); Mean Corpuscular Volume 83.5 fL (80.0-98.0); Mean Platelet Volume 9.8 fL (9.4-12.4); Platelet Count 194 X10*3/uL (160-400); Red Blood Count 3.22 X10*6/uL (4.60-5.80); Red Cell Distribution Width 15.3 % (11.0-16.0); White Blood Count 8.4 X10*3/uL (4.8-10.8)
[2022-05-09 08:16] LABS: Anion Gap 10 (12-20); Blood Urea Nitrogen 9 mg/dL (9-16); Calcium 8.5 mg/dL (8.4-10.2); Carbon Dioxide 40 mmol/L (22-29); Chloride 96 mmol/L (96-108); Creatinine Clr Calc Pharmacy 148.9; Estimated Glomerular Filt Rate > 60; Glucose Fasting 112 mg/dL (60-99); Potassium 3.9 mmol/L (3.3-5.1); Sodium 142 mmol/L (135-145)
--- NOTE | 2022-05-09 09:46 | PM.PNGS ---
Subjective Subjective Date of Service: 05/09/22 Interval history: Patient complaining of back pain from skin sore. Denies significant abdominal pain. He was able to tolerate a regular diet today without nausea or vomiting. Physical Exam Vital Signs: Vital Signs: Last Vital Signs Temp 98.1 F 05/09/22 07:12 Pulse 79 05/09/22 07:12 Resp 19 05/09/22 07:12 BP 159/70 H 05/09/22 07:12 Pulse Ox 96 05/09/22 07:12 O2 Del Method 05/09/22 07:12 O2 Flow Rate 2 05/09/22 07:12 Oxygen Flow Rate 2 05/08/22 15:00 BMI result Body Mass Index 29.2 Const: General: in distress (Due to back pain) and anxious Nutritional Appearance: well nourished Orientation/consciousness: patient oriented x3 Limitations: no limitations Resp: Effort & Inspection: normal respiratory effort GI: Other: Trocar incisions are clean Inspection: Yes normal to inspection Palpation (GI): Soft to palpation, nontender, no guarding and not rigid Neuro: General: patient oriented x3 Extrem: Right upper extremity: shoulder/upper arm (Tenderness due to arthritis) Objective Data Active Medications Albuterol/Ipratropium (Albuterol/Iprat 2.5/0.5mg 3 Ml Ampul.Neb) 3 ml INHALE Q6H PRN PRN Reason: Shortness Of Breath Or Wheezing Apixaban (Apixaban 5 Mg Tablet) 5 mg PO BID [facility] Last Admin: 05/09/22 07:28 Dose: 5 mg Documented By: LUCINA Heparin Sodium (Porcine) 50 (units/ Sodium Chloride 5 ml) 0 units IVFLUSH TID [facility] Last Admin: 05/09/22 07:24 Dose: 5 unit Documented By: LUCINA Cyanocobalamin (Cyanocobalamin (Vitamin B-12) 500 Mcg Tablet) 500 mcg PO DAILY [facility] Last Admin: 05/09/22 07:28 Dose: 500 mcg Documented By: LUCINA Finasteride (Finasteride 5 Mg Tablet) 5 mg PO DAILY [facility] Last Admin: 05/09/22 07:27 Dose: 5 mg Documented By: LUCINA Gabapentin (Gabapentin 100 Mg Capsule) 100 mg PO DAILY PRN PRN Reason: Anxiety Last Admin: 05/07/22 22:54 Dose: 100 mg Documented By: SHYAM Hydromorphone HCl (Hydromorphone Hcl 0.5 Mg/0.5 Ml Syringe) 1 mg IVPUSH Q2H PRN; Protocol PRN Reason: Pain, Severe (Pain Scale 7-10) Last Admin: 05/09/22 07:27 Dose: 1 mg Documented By: LUCINA Meropenem 1 gm/ Sodium (Chloride) 100 mls @ 200 mls/hr IV Q8H DAVID Stop: 05/19/22 00:29 Last Infusion: 05/09/22 08:22 Dose: 200 mls/hr Documented By: LUCINA Lidocaine (Lidocaine 4 % Patch Adh..Patch) 2 patch TRANSDERMA DAILY PRN; Protocol PRN Reason: Pain, Mild Last Admin: 05/09/22 07:28 Dose: 2 patch Documented By: LUCINA Melatonin (Melatonin 3 Mg Tablet) 6 mg PO BEDTIME PRN PRN Reason: Sleep Last Admin: 05/08/22 20:15 Dose: 6 mg Documented By: SUSAN Metoprolol Succinate (Metoprolol Succinate Er 25 Mg Tab.Er.24h) 25 mg PO DAILY [facility]; Protocol Last Admin: 05/09/22 07:28 Dose: 25 mg Documented By: LUCINA Multivitamins/Vitamin C (Multivitamin Tablet) 1 tab PO DAILY [facility] Last Admin: 05/09/22 07:28 Dose: 1 tab Documented By: LUCINA Ondansetron HCl (Ondansetron Hcl 4 Mg/2 Ml Vial) 4 mg IVPUSH ONCE PRN PRN Reason: Nausea and Vomiting Oxycodone HCl (Oxycodone Hcl Immed Release 5 Mg Tablet) 10 mg PO Q4H PRN PRN Reason: Pain, Severe (Pain Scale 7-10) Last Admin: 05/09/22 06:26 Dose: 10 mg Documented By: YOSEPH Pharmacy Consult (Consult Rx Perform Med Rec) 1 each MISCELLANE ONCE PRN PRN Reason: Consult order Quetiapine Fumarate (Quetiapine Fumarate 25 Mg Tablet) 25 mg PO BID PRN PRN Reason: agitation Last Admin: 05/09/22 09:05 Dose: 25 mg Documented By: LUCINA Tamsulosin HCl (Tamsulosin Hcl 0.4 Mg Capsule) 0.8 mg PO BEDTIME [facility] Last Admin: 05/08/22 20:15 Dose: 0.8 mg Documented By: SUSAN Zinc Oxide (Zinc Oxide 20% Ointment 28.35 Gm Tube) 1 appl TOPICAL ONCE PRN; Protocol PRN Reason: Rash Zinc Sulfate (Zinc Sulfate 220 Mg Capsule) 220 mg PO DAILY [facility] Last Admin: 05/09/22 07:28 Dose: 220 mg Documented By: LUCINA Zolpidem Tartrate (Zolpidem Tartrate 5 Mg Tablet) 5 mg PO BEDTIME PRN PRN Reason: Insomnia Labs CBC & Chem 7: 05/09/22 07:43 05/09/22 07:43 Labs: Laboratory Results - last 24 hr 05/09/22 05/09/22 07:43 07:43 MCV 83.5 MCH 26.1 L MCHC 31.2 RDW 15.3 Plt Count 194 MPV 9.8 Absolute Nucleated RBC 0.000 Nucleated RBC % (auto) 0.0 Anion Gap 10 L Estim Creat Clear Calc 148.9 Estimated GFR > 60 Random Glucose TNP Fasting Glucose 112 H Calcium 8.5 Procedures Date of Service Date of Service: 05/09/22 Progress Note: A&P Assessment and plan (1) Hydrops of gallbladder: Status: Acute (2) Elevated transaminase level: Status: Acute Plan 76-year-old male patient status post laparoscopic cholecystectomy for hydropic gallbladder. Patient now tolerating regular diet and having bowel movements. Patient with multiple other complaints including arthritic shoulder and back pain as well as decubitus skin changes. Recommend getting patient out of bed and into a chair. Should be rolled side the side while in bed. Further management per primary team. Time Spent With Patient Time: Total time spent is greater than 50% in coordination of care (as documented) at patient's floor/unit and/or counseling patient: Quality Stroke Does the patient have a stroke diagnosis?: No VTE Prior VTE?: Yes VTE Risk Level:: Medical - moderate - high VTE Device Contraindication: N/A - Device Ordered VTE Drug Contraindication: N/A - Med Ordered
[2022-05-09 09:57] LABS: VBG Base Excess 27.3 mmol/L; VBG HCO3 53 mmol/L (22-26); VBG pCO2 64 mmHg; VBG pH 7.53 (7.32-7.43); VBG pO2 108 mmHg
[2022-05-09 09:59] LABS: Venous Blood Gas Refer to POC result
--- NOTE | 2022-05-09 10:23 | P.PNIM_ITS ---
Subjective Subjective Date of Service: 05/09/22 Interval History: cc: abd pain interval history: had bm, anxious Cardiovascular Cardiovascular: Reports no additional cardiovascular complaints Respiratory Respiratory: Reports no additional respiratory complaints Physical Exam Vital Signs: Vital Signs: Last Vital Signs Temp 98.1 F 05/09/22 07:12 Pulse 79 05/09/22 07:12 Resp 19 05/09/22 07:12 BP 159/70 H 05/09/22 07:12 Pulse Ox 96 05/09/22 07:12 O2 Del Method 05/09/22 07:12 O2 Flow Rate 2 05/09/22 07:12 Oxygen Flow Rate 2 05/08/22 15:00 BMI result Body Mass Index 29.2 stage II buttocks Const: General: in distress (Due to back pain) and anxious Nutritional Appearance: well nourished Orientation/consciousness: patient oriented x3 Limitations: no limitations Resp: Effort & Inspection: normal respiratory effort GI: Other: Trocar incisions are clean Inspection: Yes normal to inspection Palpation (GI): Soft to palpation, nontender, no guarding and not rigid Neuro: General: patient oriented x3 Extrem: Right upper extremity: shoulder/upper arm (Tenderness due to arthritis) Objective Data Active Medications Albuterol/Ipratropium (Albuterol/Iprat 2.5/0.5mg 3 Ml Ampul.Neb) 3 ml INHALE Q6H PRN PRN Reason: Shortness Of Breath Or Wheezing Apixaban (Apixaban 5 Mg Tablet) 5 mg PO BID [facility] Last Admin: 05/09/22 07:28 Dose: 5 mg Documented By: LUCINA Heparin Sodium (Porcine) 50 (units/ Sodium Chloride 5 ml) 0 units IVFLUSH TID [facility] Last Admin: 05/09/22 07:24 Dose: 5 unit Documented By: LUCINA Cyanocobalamin (Cyanocobalamin (Vitamin B-12) 500 Mcg Tablet) 500 mcg PO DAILY [facility] Last Admin: 05/09/22 07:28 Dose: 500 mcg Documented By: LUCINA Finasteride (Finasteride 5 Mg Tablet) 5 mg PO DAILY [facility] Last Admin: 05/09/22 07:27 Dose: 5 mg Documented By: LUCINA Gabapentin (Gabapentin 100 Mg Capsule) 100 mg PO DAILY PRN PRN Reason: Anxiety Last Admin: 05/07/22 22:54 Dose: 100 mg Documented By: SYHAM Hydromorphone HCl (Hydromorphone Hcl 0.5 Mg/0.5 Ml Syringe) 1 mg IVPUSH Q2H PRN; Protocol PRN Reason: Pain, Severe (Pain Scale 7-10) Last Admin: 05/09/22 07:27 Dose: 1 mg Documented By: LUCINA Meropenem 1 gm/ Sodium (Chloride) 100 mls @ 200 mls/hr IV Q8H DAVID Stop: 05/19/22 00:29 Last Infusion: 05/09/22 08:22 Dose: 200 mls/hr Documented By: LUCINA Lidocaine (Lidocaine 4 % Patch Adh..Patch) 2 patch TRANSDERMA DAILY PRN; Protocol PRN Reason: Pain, Mild Last Admin: 05/09/22 07:28 Dose: 2 patch Documented By: LUCINA Melatonin (Melatonin 3 Mg Tablet) 6 mg PO BEDTIME PRN PRN Reason: Sleep Last Admin: 05/08/22 20:15 Dose: 6 mg Documented By: SUSNA Metoprolol Succinate (Metoprolol Succinate Er 25 Mg Tab.Er.24h) 25 mg PO DAILY [facility]; Protocol Last Admin: 05/09/22 07:28 Dose: 25 mg Documented By: LUCINA Multivitamins/Vitamin C (Multivitamin Tablet) 1 tab PO DAILY [facility] Last Admin: 05/09/22 07:28 Dose: 1 tab Documented By: LUCINA Ondansetron HCl (Ondansetron Hcl 4 Mg/2 Ml Vial) 4 mg IVPUSH ONCE PRN PRN Reason: Nausea and Vomiting Oxycodone HCl (Oxycodone Hcl Immed Release 5 Mg Tablet) 10 mg PO Q4H PRN PRN Reason: Pain, Severe (Pain Scale 7-10) Last Admin: 05/09/22 06:26 Dose: 10 mg Documented By: YOSEPH Pharmacy Consult (Consult Rx Perform Med Rec) 1 each MISCELLANE ONCE PRN PRN Reason: Consult order Quetiapine Fumarate (Quetiapine Fumarate 25 Mg Tablet) 25 mg PO BID PRN PRN Reason: agitation Last Admin: 05/09/22 09:05 Dose: 25 mg Documented By: LUCINA Tamsulosin HCl (Tamsulosin Hcl 0.4 Mg Capsule) 0.8 mg PO BEDTIME [facility] Last Admin: 05/08/22 20:15 Dose: 0.8 mg Documented By: SUSAN Zinc Oxide (Zinc Oxide 20% Ointment 28.35 Gm Tube) 1 appl TOPICAL ONCE PRN; Protocol PRN Reason: Rash Zinc Sulfate (Zinc Sulfate 220 Mg Capsule) 220 mg PO DAILY [facility] Last Admin: 05/09/22 07:28 Dose: 220 mg Documented By: LUCINA Zolpidem Tartrate (Zolpidem Tartrate 5 Mg Tablet) 5 mg PO BEDTIME PRN PRN Reason: Insomnia Labs CBC & Chem 7: 05/09/22 07:43 05/09/22 07:43 Labs: Laboratory Results - last 24 hr 05/09/22 05/09/22 05/09/22 07:43 07:43 09:52 MCV 83.5 MCH 26.1 L MCHC 31.2 RDW 15.3 Plt Count 194 MPV 9.8 Absolute Nucleated RBC 0.000 Nucleated RBC % (auto) 0.0 VBG pH 7.53 H VBG pCO2 64 VBG pO2 108 VBG HCO3 53 H VBG O2 Saturation 100.0 VBG Base Excess 27.3 Anion Gap 10 L Estim Creat Clear Calc 148.9 Estimated GFR > 60 Random Glucose TNP Fasting Glucose 112 H Calcium 8.5 Assessment and Plan (1) Stage 2 skin ulcer of sacral region: Status: Acute (2) ESBL (extended spectrum beta-lactamase) producing bacteria infection: Status: Acute (3) Hydrops of gallbladder: Status: Acute Plan 76-year-old male? hypertensive and hyperlipidemic with remote history of ST- elevation [place], possible chf (etiology unclear) ,htn ,lbbb,and what and about a year status post COVID 19 infection that was complicated by deep vein thrombosis and he remains on Eliquis-came with abdominal pain-initially admitted to the ICU because of severe sepsis . ( patient had few admissions to [facility] for sepsis/pneumonia, nstemi ,chf? , gram neg sepsis in from last few months -january to now) -records are in the chart. ESBL E coli bacteremia Secondary to hydrops of gallbladder Pod 5 post cholecystectomy LFTs improving Continue meropenem tolerating diet, had BM ID evaluation , 14 days of meropenem or ertapenem, no need to treat Pseudomonas, end may 18 Midline placed metabolic alkalosis nephro eval monitor Stage II decubitus ulcers Local measures htn continue metoprolol History of dvt Eliquis bph has ch barton continue flomax anxiety Psych evaluation appreciated, recomended gabapentin prn for anxiety DVT PPX Lovenox reason for continued hospitalization: wrosening alkalosis Quality Stroke Does the patient have a stroke diagnosis?: No VTE Prior VTE?: Yes VTE Risk Level:: Medical - moderate - high VTE Device Contraindication: N/A - Device Ordered VTE Drug Contraindication: N/A - Med Ordered
[2022-05-09 11:59] VITALS: BP 147/68; PULSE 75; RESP 18; TEMP 36.5; O2SAT 97
--- NOTE | 2022-05-09 13:16 | PC.NURSE ---
Pt alert and oriented x3-4. Pt C/O severe pain to the back, legs, right shoulder and knees. Pt given Diluadid every 2 hrs as well Oxycodone 10mg Q4hrs with some effect. Pt is also very anxious and stating I am going crazy. PRN Seroquel given with some effect. Pt calls family constantly, calls the nurses station as soon as one leaves the room, calls switchboard or the nursing supervisor concrete stone finishing even when staff is right in the room. Pt continues on 2L O2 via NC. He desatts with no O2 but does not display any signs and symptoms of respiratory distress. Pt has bilateral buttocks wounds. They are mostly excoriated. Wounds cleansed with soap and water and new foam dressing applied. Pt is also on a low air loss mattress. Pt up in the chair via mechanical lift. Critical high bicarb of 40 this am. notified. Urine Electrolytes ordered and obtained.
[2022-05-09 13:37] LABS: Creatinine Urine 15.26 mg/dL
[2022-05-09 16:15] VITALS: BP 140/60; PULSE 70; RESP 18; TEMP 36.7; O2SAT 96
--- NOTE | 2022-05-09 18:09 | PM.CNNEP ---
History of Present Illness Reason for Consult Consult date: 05/09/22 Chief Complaint Chief complaint: preop CV risk assessment Review of Systems Review of Systems Patient denies any chest pain or shortness of breath or fever chills Denies any new abdominal pain. Less anxious Yes all other systems are reviewed and are negative Constitutional: Reports chills, Reports fever(s), Denies poor appetite, Reports weakness and Denies weight gain Cardiovascular: Reports no additional cardiovascular complaints, Denies chest pain, Reports Epigastric Pain, Denies rapid heart rate, Denies palpitations and Reports dyspnea on exertion Respiratory: Reports no additional respiratory complaints, Reports dyspnea on exertion, Denies stridor and Denies wheezing Gastrointestinal: Reports as per HPI, Reports abdominal pain, Denies constipation, Denies heartburn, Denies diarrhea, Denies vomiting and Denies hematemesis Reports weakness Endocrine: Denies palpitations Allergic/Immunologic: Denies wheezing PMFSH Past Medical History Medical History Anemia Cervical stenosis of spine Chronic indwelling Barton catheter COVID-19 DVT (deep venous thrombosis) Hyperlipidemia Hypertension Juvenile rheumatoid arthritis NSTEMI (non-ST elevated myocardial infarction) Psoriatic arthritis Urinary retention Family History Family history: reviewed and not pertinent Social History Social History Household Members: None Housing: Other Housing Other:: SNF Patient Tobacco Use Status: Never used Tobacco Use of substances other than those prescribed or required for medical reasons: No Currently Displaying Signs/Symptoms of Drug Intoxication Withdrawal: No Have you been hit, kicked, punched, or otherwise hurt by someone within the past year? If so, by whom?: No Do you feel safe in your current relationship?: No Current Relationship Is there a partner from a previous relationship who is making you feel unsafe now?: No Are you made to feel afraid or neglected: No Are you DNR?: No Advance Directives: Yes Advance Directives Information Provided: No Advance Directives on File: No Advance Directives Date on File: 04/30/22 Do you have thoughts of harming others: None Do you have a plan to hurt others: No Plan Recently lost weight without trying: No Nutrition Risks: No Nutritional Risk service: No Current occupational status: unemployed Meds Allergies Allergy/AdvReac Type Severity Reaction Status Date / Time Penicillins Allergy Unknown Unknown Verified 04/29/22 13:18 Active Medications: Current Medications Albuterol/Ipratropium (Albuterol/Iprat 2.5/0.5mg 3 Ml Ampul.Neb) 3 ml INHALE Q6H PRN PRN Reason: Shortness Of Breath Or Wheezing Apixaban (Apixaban 5 Mg Tablet) 5 mg PO BID [facility] Last Admin: 05/09/22 07:28 Dose: 5 mg Heparin Sodium (Porcine) 50 (units/ Sodium Chloride 5 ml) 0 units IVFLUSH TID [facility] Last Admin: 05/09/22 16:26 Dose: 50 unit Cyanocobalamin (Cyanocobalamin (Vitamin B-12) 500 Mcg Tablet) 500 mcg PO DAILY [facility] Last Admin: 05/09/22 07:28 Dose: 500 mcg Finasteride (Finasteride 5 Mg Tablet) 5 mg PO DAILY [facility] Last Admin: 05/09/22 07:27 Dose: 5 mg Gabapentin (Gabapentin 100 Mg Capsule) 100 mg PO DAILY PRN PRN Reason: Anxiety Last Admin: 05/07/22 22:54 Dose: 100 mg Hydromorphone HCl (Hydromorphone Hcl 0.5 Mg/0.5 Ml Syringe) 1 mg IVPUSH Q2H PRN; Protocol PRN Reason: Pain, Severe (Pain Scale 7-10) Last Admin: 05/09/22 16:27 Dose: 1 mg Meropenem 1 gm/ Sodium (Chloride) 100 mls @ 200 mls/hr IV Q8H [facility] Stop: 05/19/22 00:29 Last Infusion: 05/09/22 17:46 Dose: Infused Lidocaine (Lidocaine 4 % Patch Adh..Patch) 2 patch TRANSDERMA DAILY PRN; Protocol PRN Reason: Pain, Mild Last Admin: 05/09/22 07:28 Dose: 2 patch Melatonin (Melatonin 3 Mg Tablet) 6 mg PO BEDTIME PRN PRN Reason: Sleep Last Admin: 05/08/22 20:15 Dose: 6 mg Metoprolol Succinate (Metoprolol Succinate Er 25 Mg Tab.Er.24h) 25 mg PO DAILY [facility]; Protocol Last Admin: 05/09/22 07:28 Dose: 25 mg Multivitamins/Vitamin C (Multivitamin Tablet) 1 tab PO DAILY [facility] Last Admin: 05/09/22 07:28 Dose: 1 tab Ondansetron HCl (Ondansetron Hcl 4 Mg/2 Ml Vial) 4 mg IVPUSH ONCE PRN PRN Reason: Nausea and Vomiting Oxycodone HCl (Oxycodone Hcl Immed Release 5 Mg Tablet) 10 mg PO Q4H PRN PRN Reason: Pain, Severe (Pain Scale 7-10) Last Admin: 05/09/22 16:27 Dose: 10 mg Pharmacy Consult (Consult Rx Perform Med Rec) 1 each MISCELLANE ONCE PRN PRN Reason: Consult order Quetiapine Fumarate (Quetiapine Fumarate 25 Mg Tablet) 25 mg PO BID PRN PRN Reason: agitation Last Admin: 05/09/22 09:05 Dose: 25 mg Tamsulosin HCl (Tamsulosin Hcl 0.4 Mg Capsule) 0.8 mg PO BEDTIME [facility] Last Admin: 05/08/22 20:15 Dose: 0.8 mg Zinc Oxide (Zinc Oxide 20% Ointment 28.35 Gm Tube) 1 appl TOPICAL ONCE PRN; Protocol PRN Reason: Rash Zinc Sulfate (Zinc Sulfate 220 Mg Capsule) 220 mg PO DAILY [facility] Last Admin: 05/09/22 07:28 Dose: 220 mg Zolpidem Tartrate (Zolpidem Tartrate 5 Mg Tablet) 5 mg PO BEDTIME PRN PRN Reason: Insomnia Home Medications Medication Instructions Recorded Confirmed Last Taken Type acetaminophen 325 mg tablet 650 mg PO TID 04/29/22 04/29/22 Unknown History ammonium lactate 12 % topical cream 1 appl topical BID 04/29/22 04/29/22 Unknown History apixaban 5 mg tablet (Eliquis) 1 tab PO BID 04/29/22 04/29/22 Unknown History ascorbic acid (vitamin C) 500 mg 500 mg PO BID 04/29/22 04/29/22 Unknown History tablet cyanocobalamin (vitamin B-12) 500 500 mcg PO DAILY 04/29/22 04/29/22 Unknown History mcg tablet diclofenac sodium 1 % topical gel 2 g topical Q6H PRN Pain, Mild 04/29/22 04/29/22 Unknown History finasteride 5 mg tablet 1 tab PO DAILY 04/29/22 04/29/22 Unknown History furosemide 20 mg tablet 20 mg PO Q2D 04/29/22 04/29/22 Unknown History ipratropium 0.5 mg-albuterol 3 mg 3 ml inhalation Q6H PRN Shortness 04/29/22 04/29/22 Unknown History (2.5 mg base)/3 mL nebulization Of Breath Or Wheezing soln lactulose 10 gram/15 mL oral 20 ml PO DAILY 04/29/22 04/29/22 Unknown History solution lidocaine 4 % topical patch 2 patch topical DAILY PRN Pain, 04/29/22 04/29/22 Unknown History (Aspercreme (lidocaine)) Mild magnesium oxide 400 mg (241.3 mg 400 mg PO DAILY 04/29/22 04/29/22 Unknown History magnesium) tablet melatonin 3 mg tablet 3 mg PO BEDTIME PRN Sleep 04/29/22 04/29/22 Unknown History metoprolol succinate 25 mg 1 tab PO DAILY 04/29/22 04/29/22 Unknown History tablet,extended release 24 hr morphine 30 mg tablet,extended 1 tab PO BID PRN Pain, Severe 04/29/22 04/29/22 Unknown History release multivitamin with minerals 1 tab PO DAILY 04/29/22 04/29/22 Unknown History (Multiple Vitamin-Minerals tablet) nystatin 100,000 unit/gram topical 1 appl topical TID 04/29/22 04/29/22 Unknown History cream oxycodone 5 mg tablet 5 mg PO Q6H PRN Pain, Moderate 04/29/22 04/29/22 Unknown History pregabalin 75 mg capsule 1 cap PO BID 04/29/22 04/29/22 Unknown History sennosides 8.6 mg tablet (senna) 17.2 mg PO BEDTIME 04/29/22 04/29/22 Unknown History tamsulosin 0.4 mg capsule 2 cap PO BEDTIME 04/29/22 04/29/22 Unknown History zinc 50 mg tablet 50 mg PO DAILY 04/29/22 04/29/22 Unknown History Physical Exam Vital Signs: Last Vital Signs Temp 98.0 F 05/09/22 16:15 Pulse 70 05/09/22 16:15 Resp 18 05/09/22 16:15 BP 140/60 H 05/09/22 16:15 Pulse Ox 96 05/09/22 16:15 O2 Del Method 05/09/22 16:15 O2 Flow Rate 2 05/09/22 16:15 Oxygen Flow Rate 2 05/08/22 15:00 BMI result Body Mass Index 29.2 Const Other: Constitutional : Alert, in distress from pain Neck : Normal inspection, Supple Cardiovascular : RRR, no JVP, no lower extremity edema Respiratory : fair bilateral air entry, no crackles, wheezes or rhonchi, on oxygen supplement Gastrointestinal: soft, lax, Normal bowel sounds, generalized tenderness, surgical drain with small serous fluid Skin : Warm, Dry, stage II decubitus ulcers with no drainage Neurological : Alert & oriented x3, No focal deficit , CN 2-12 within normal General: cooperative, comfortable, no acute distress, well developed, in distress (Due to back pain), anxious, ill appearing and tired appearing Nutritional Appearance: well nourished Orientation/consciousness: patient oriented x3 Limitations: no limitations and No language barrier HEENT Head: Yes normal to inspection, Yes normocephalic and Yes atraumatic Ears: hearing grossly normal bilaterally Face and sinus: Yes normal facial exam Mouth: Normal oral and palatal mucosa present Teeth and gingiva: dentition normal Eyes General: appearance normal, both eyes and all related structures Sclerae: sclerae normal Pupils: Equal, round and reactive pupils present EOM: EOMs intact bilaterally Neck Neck: Yes normal visual inspection and Yes no JVD Resp Effort & Inspection: normal respiratory effort, no audible wheezes, no cough and no respiratory distress Auscultation: clear to auscultation bilaterally and diminished lung sounds (At base) bilateral Cardio Rate: regular rate Rhythm: regular rhythm GI Other: Trocar incisions are clean Inspection: Yes normal to inspection Palpation (GI): Soft to palpation, nontender, no guarding, not rigid and no masses Percussion: Yes normal to percussion Auscultation: normal bowel sounds Rectal Exam - Male: Yes deferred General: Yes no CVA tenderness Back/Spine/Pelvis Back: no CVA tenderness Skin Other: bilateral buttock areas and sacral areas have just an extensive rough skin area with maybe some breakdown of the epidermal down into the dermal tissue but no fatty tissue noted. The area was covered with barrier cream and coated it completely revealing no deeper open wounds. 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 General skin exam: no rashes or lesions noted and no jaundice Neuro General: patient oriented x3 and moves all extremities Cranial nerves: Yes Equal, round and reactive pupils present Extrem General: Yes normal to inspection and Yes no clubbing, cyanosis or edema Right upper extremity: shoulder/upper arm (Tenderness due to arthritis) Psych Appearance: grossly normal Results Lab Results Result Diagrams: 05/09/22 07:43 05/09/22 07:43 Lab results: Chemistry 05/07/22 05/08/22 05/09/22 06:10 06:24 07:43 Sodium 138 140 142 Potassium 4.2 4.2 3.9 Carbon Dioxide 33 H 36 H 40 H* BUN 19 H 16 9 Creatinine 0.57 0.53 0.46 L Calcium 8.2 L 8.4 8.5 Phosphorus 2.5 L Hematology 05/07/22 05/08/22 05/09/22 06:10 06:10 07:43 WBC 9.0 10.2 8.4 Hgb 8.8 L 8.8 L 8.4 L Plt Count 187 226 194 Urine Studies 05/09/22 13:13 Urine Creatinine 15.26 Assessment and Plan (1) ESBL (extended spectrum beta-lactamase) producing bacteria infection: Status: Acute (2) Hydrops of gallbladder: Status: Acute (3) Metabolic alkalosis: Status: Acute no report of N OR V or diuretics so cause of alkalosis in not obvious it is sudden so other causes like hyper ald are unlikely volume replete with normal saline, normalize potassium with potassium chloride, hold all diuretics Plan 76-year-old male? hypertensive and hyperlipidemic with remote history of ST-elevation ID, possible chf (etiology unclear) ,htn ,lbbb,and what and about a year status post COVID 19 infection that was complicated by deep vein thrombosis and he remains on Eliquis-came with abdominal pain-initially admitted to the ICU because of severe sepsis . ( patient had few admissions to [facility] for sepsis/pneumonia, nstemi ,chf? , gram neg sepsis in from last few months -january to now) -records are in the chart. ESBL E coli bacteremia Secondary to hydrops of gallbladder Pod 5 post cholecystectomy LFTs improving Continue meropenem tolerating diet, had BM ID evaluation , 14 days of meropenem or ertapenem, no need to treat Pseudomonas, end may 18 Midline placed metabolic alkalosis nephro eval monitor Stage II decubitus ulcers Local measures htn continue metoprolol History of dvt Eliquis bph has ch barton continue flomax anxiety Psych evaluation appreciated, recomended gabapentin prn for anxiety DVT PPX Lovenox reason for continued hospitalization: wrosening alkalosis Procedures Date of Service Date of Service: 05/09/22
[2022-05-09 20:00] VITALS: BP 186/83; PULSE 84; RESP 20; TEMP 36.8; O2SAT 97
[2022-05-09] MEDS: Tamsulosin HCL 0.4 MG CAPSULE 0.8 MG PO (21:50)
[2022-05-09] MEDS: Zolpidem Tartrate 5 MG TABLET PO (22:40)
[2022-05-10] MEDS: HYDROmorphone HCl 0.5 MG/0.5 ML SYRINGE 1 MG IVPUSH ×5 (06:00→19:17)
[2022-05-10 07:28] LABS: Hematocrit 28.3 % (42.0-52.0); Hemoglobin 8.6 g/dl (14.0-18.0); Mean Corpuscular HGB Conc 30.4 g/dl (31.0-36.0); Mean Corpuscular Hemoglobin 25.7 pg (27.0-33.0); Mean Corpuscular Volume 84.7 fL (80.0-98.0); Mean Platelet Volume 9.9 fL (9.4-12.4); Platelet Count 205 X10*3/uL (160-400); Red Blood Count 3.34 X10*6/uL (4.60-5.80); Red Cell Distribution Width 15.3 % (11.0-16.0); White Blood Count 7.2 X10*3/uL (4.8-10.8)
[2022-05-10 07:49] VITALS: BP 178/84; PULSE 81; RESP 20; TEMP 36.8; O2SAT 98
[2022-05-10 07:51] LABS: Anion Gap 11 (12-20); Blood Urea Nitrogen 6 mg/dL (9-16); Calcium 8.4 mg/dL (8.4-10.2); Carbon Dioxide 43 mmol/L (22-29); Chloride 93 mmol/L (96-108); Creatinine Clr Calc Pharmacy 155.7; Estimated Glomerular Filt Rate > 60; Glucose Fasting 91 mg/dL (60-99); Potassium 3.9 mmol/L (3.3-5.1); Sodium 143 mmol/L (135-145)
[2022-05-10] MEDS: 0.9 % Sodium Chloride 1,000 ML 125 ML IVCONT (09:19)
[2022-05-10] MEDS: Heparin Sodium,Porcine Flush 50 UNITS, 0.9 % Sodium Chloride Flush 5 ML IVFLUSH ×3 (09:19→20:39)
[2022-05-10] MEDS: Zinc Sulfate 220 MG CAPSULE PO (09:20)
[2022-05-10] MEDS: Metoprolol Succinate ER 25 MG TAB.ER.24H PO (09:20)
[2022-05-10] MEDS: Multivitamin TABLET 1 TAB PO (09:20)
[2022-05-10] MEDS: Finasteride 5 MG TABLET PO (09:20)
[2022-05-10] MEDS: Apixaban 5 MG TABLET PO ×2 (09:20→20:38)
[2022-05-10] MEDS: Cyanocobalamin (Vitamin B-12) 500 MCG TABLET PO (09:20)
[2022-05-10] MEDS: Lidocaine 4 % Patch ADH..PATCH 2 PATCH TRANSDERMA (09:36)
--- NOTE | 2022-05-10 10:31 | HO.PM.IMPN ---
Subjective Subjective Date of Service: 05/10/22 Interval History: cc: abd pain interval history: had bm, anxious Cardiovascular Cardiovascular: Reports no additional cardiovascular complaints Respiratory Respiratory: Reports no additional respiratory complaints Physical Exam Vital Signs: Vital Signs: Last Vital Signs Temp 98.3 F 05/10/22 07:49 Pulse 81 05/10/22 07:49 Resp 20 05/10/22 07:49 BP 178/84 H 05/10/22 07:49 Pulse Ox 98 05/10/22 07:49 O2 Del Method 05/10/22 07:49 O2 Flow Rate 2 05/10/22 07:49 Oxygen Flow Rate 2 05/08/22 15:00 BMI result Body Mass Index 29.2 Const: Other: Constitutional : Alert, in distress from pain Neck : Normal inspection, Supple Cardiovascular : RRR, no JVP, no lower extremity edema Respiratory : fair bilateral air entry, no crackles, wheezes or rhonchi, on oxygen supplement Gastrointestinal: soft, lax, Normal bowel sounds, generalized tenderness, surgical drain with small serous fluid Skin : Warm, Dry, stage II decubitus ulcers with no drainage Neurological : Alert & oriented x3, No focal deficit , CN 2-12 within normal General: cooperative, comfortable, no acute distress, well developed, in distress (Due to back pain), anxious, ill appearing and tired appearing Nutritional Appearance: well nourished Orientation/consciousness: patient oriented x3 Limitations: no limitations and No language barrier HEENT: Head: Yes normal to inspection, Yes normocephalic and Yes atraumatic Ears: hearing grossly normal bilaterally Face and sinus: Yes normal facial exam Mouth: Normal oral and palatal mucosa present Teeth and gingiva: dentition normal Eyes: General: appearance normal, both eyes and all related structures Sclerae: sclerae normal Pupils: Equal, round and reactive pupils present EOM: EOMs intact bilaterally Neck: Neck: Yes normal visual inspection and Yes no JVD Resp: Effort & Inspection: normal respiratory effort, no audible wheezes, no cough and no respiratory distress Auscultation: clear to auscultation bilaterally and diminished lung sounds (At base) bilateral Cardio: Rate: regular rate Rhythm: regular rhythm GI: Other: Trocar incisions are clean Inspection: Yes normal to inspection Palpation (GI): Soft to palpation, nontender, no guarding, not rigid and no masses Percussion: Yes normal to percussion Auscultation: normal bowel sounds Rectal Exam - Male: Yes deferred : General: Yes no CVA tenderness Back/Spine/Pelvis: Back: no CVA tenderness Skin: Other: bilateral buttock areas and sacral areas have just an extensive rough skin area with maybe some breakdown of the epidermal down into the dermal tissue but no fatty tissue noted. The area was covered with barrier cream and coated it completely revealing no deeper open wounds. 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 General skin exam: no rashes or lesions noted and no jaundice Neuro: General: patient oriented x3 and moves all extremities Cranial nerves: Yes Equal, round and reactive pupils present Extrem: General: Yes normal to inspection and Yes no clubbing, cyanosis or edema Right upper extremity: shoulder/upper arm (Tenderness due to arthritis) Psych: Appearance: grossly normal Objective Data Active Medications Albuterol/Ipratropium (Albuterol/Iprat 2.5/0.5mg 3 Ml Ampul.Neb) 3 ml INHALE Q6H PRN PRN Reason: Shortness Of Breath Or Wheezing Apixaban (Apixaban 5 Mg Tablet) 5 mg PO BID [facility] Last Admin: 05/10/22 09:20 Dose: 5 mg Documented By: LIDYA Heparin Sodium (Porcine) 50 (units/ Sodium Chloride 5 ml) 0 units IVFLUSH TID [facility] Last Admin: 05/10/22 09:19 Dose: 50 unit Documented By: LIDYA Cyanocobalamin (Cyanocobalamin (Vitamin B-12) 500 Mcg Tablet) 500 mcg PO DAILY [facility] Last Admin: 05/10/22 09:20 Dose: 500 mcg Documented By: LIDYA Finasteride (Finasteride 5 Mg Tablet) 5 mg PO DAILY [facility] Last Admin: 05/10/22 09:20 Dose: 5 mg Documented By: LIDYA Gabapentin (Gabapentin 100 Mg Capsule) 100 mg PO DAILY PRN PRN Reason: Anxiety Last Admin: 05/07/22 22:54 Dose: 100 mg Documented By: SHYAM Hydromorphone HCl (Hydromorphone Hcl 0.5 Mg/0.5 Ml Syringe) 1 mg IVPUSH Q2H PRN; Protocol PRN Reason: Pain, Severe (Pain Scale 7-10) Last Admin: 05/10/22 06:00 Dose: 1 mg Documented By: YUDITH Meropenem 1 gm/ Sodium (Chloride) 100 mls @ 200 mls/hr IV Q8H [facility] Stop: 05/19/22 00:29 Last Admin: 05/10/22 09:19 Dose: 200 mls/hr Documented By: LIDYA Sodium Chloride (Ns) 1,000 mls @ 125 mls/hr IVCONT .Q8H [facility] Stop: 05/10/22 15:59 Last Admin: 05/10/22 09:19 Dose: 125 mls/hr Documented By: LIDYA Lidocaine (Lidocaine 4 % Patch Adh..Patch) 2 patch TRANSDERMA DAILY PRN; Protocol PRN Reason: Pain, Mild Last Admin: 05/10/22 09:36 Dose: 2 patch Documented By: LIDYA Melatonin (Melatonin 3 Mg Tablet) 6 mg PO BEDTIME PRN PRN Reason: Sleep Last Admin: 05/08/22 20:15 Dose: 6 mg Documented By: SUSAN Metoprolol Succinate (Metoprolol Succinate Er 25 Mg Tab.Er.24h) 25 mg PO DAILY [facility]; Protocol Last Admin: 05/10/22 09:20 Dose: 25 mg Documented By: LIDYA Multivitamins/Vitamin C (Multivitamin Tablet) 1 tab PO DAILY [facility] Last Admin: 05/10/22 09:20 Dose: 1 tab Documented By: LIDYA Ondansetron HCl (Ondansetron Hcl 4 Mg/2 Ml Vial) 4 mg IVPUSH ONCE PRN PRN Reason: Nausea and Vomiting Oxycodone HCl (Oxycodone Hcl Immed Release 5 Mg Tablet) 10 mg PO Q4H PRN PRN Reason: Pain, Severe (Pain Scale 7-10) Last Admin: 05/09/22 16:27 Dose: 10 mg Documented By: ALANNAH Pharmacy Consult (Consult Rx Perform Med Rec) 1 each MISCELLANE ONCE PRN PRN Reason: Consult order Quetiapine Fumarate (Quetiapine Fumarate 25 Mg Tablet) 25 mg PO BID PRN PRN Reason: agitation Last Admin: 05/09/22 22:40 Dose: 25 mg Documented By: YUDITH Tamsulosin HCl (Tamsulosin Hcl 0.4 Mg Capsule) 0.8 mg PO BEDTIME [facility] Last Admin: 05/09/22 21:50 Dose: 0.8 mg Documented By: YUDITH Zinc Oxide (Zinc Oxide 20% Ointment 28.35 Gm Tube) 1 appl TOPICAL ONCE PRN; Protocol PRN Reason: Rash Zinc Sulfate (Zinc Sulfate 220 Mg Capsule) 220 mg PO DAILY [facility] Last Admin: 05/10/22 09:20 Dose: 220 mg Documented By: LIDYA Zolpidem Tartrate (Zolpidem Tartrate 5 Mg Tablet) 5 mg PO BEDTIME PRN PRN Reason: Insomnia Last Admin: 05/09/22 22:40 Dose: 5 mg Documented By: YUDITH Labs CBC & Chem 7: 05/10/22 06:11 05/10/22 06:11 Labs: Laboratory Results - last 24 hr 05/09/22 05/10/22 05/10/22 13:13 06:11 06:11 MCV 84.7 MCH 25.7 L MCHC 30.4 L RDW 15.3 Plt Count 205 MPV 9.9 Absolute Nucleated RBC 0.000 Nucleated RBC % (auto) 0.0 Anion Gap 11 L Estim Creat Clear Calc 155.7 Estimated GFR > 60 Random Glucose TNP Fasting Glucose 91 Calcium 8.4 Ur Random Sodium 114.0 Ur Random Potassium 21.0 Ur Random Chloride 141.0 Urine Creatinine 15.26 Assessment and Plan (1) Stage 2 skin ulcer of sacral region: Status: Acute (2) ESBL (extended spectrum beta-lactamase) producing bacteria infection: Status: Acute (3) Hydrops of gallbladder: Status: Acute Plan 76-year-old male? hypertensive and hyperlipidemic with remote history of ST-elevation [place], possible chf (etiology unclear) ,htn ,lbbb,and what and about a year status post COVID 19 infection that was complicated by deep vein thrombosis and he remains on Eliquis-came with abdominal pain-initially admitted to the ICU because of severe sepsis . ( patient had few admissions to [facility] for sepsis/pneumonia, nstemi ,chf? , gram neg sepsis in from last few months -january to now) -records are in the chart. ESBL E coli bacteremia Secondary to hydrops of gallbladder Pod 6 post cholecystectomy LFTs improving Continue meropenem tolerating diet, had BM ID evaluation , 14 days of meropenem or ertapenem, no need to treat Pseudomonas, end may 18 Midline placed metabolic alkalosis low serum chloride, high urine chloride, not on diuretics will give NS, monitor nephro following Stage II decubitus ulcers Local measures htn continue metoprolol History of dvt Eliquis bph has ch barton continue flomax anxiety Psych evaluation appreciated, recommended gabapentin prn for anxiety DVT PPX Lovenox reason for continued hospitalization: worsening alkalosis Quality Stroke Does the patient have a stroke diagnosis?: No VTE Prior VTE?: Yes VTE Risk Level:: Medical - moderate - high VTE Device Contraindication: N/A - Device Ordered VTE Drug Contraindication: N/A - Med Ordered
--- NOTE | 2022-05-10 11:49 | MHC.CLN ---
F/U TPN DISCONTINUED 05/07. DIET=REGULAR, LOWFAT WITH ENSURE TID. SUPPLEMENT PROVIDES ADDITIONAL 1050 KCALS, 60 G PROTEIN. CURRENT INTAKE POOR, 0-25% CONTINUE TO FOLLOW FOR PO INTAKE.
[2022-05-10 11:57] VITALS: BP 163/74; PULSE 83; RESP 20; TEMP 37.1; O2SAT 97
--- NOTE | 2022-05-10 12:04 | MHC.CM.PN ---
per rounds pt needs to be on iv antibiotics till 05/18 not ready for dc at this time [facility]
[2022-05-10] MEDS: oxyCODONE HCl Immed Release 5 MG TABLET 10 MG PO (13:00)
[2022-05-10] MEDS: QUEtiapine Fumarate 25 MG TABLET PO ×2 (14:24→20:38)
[2022-05-10 15:00] VITALS: O2SAT 96
[2022-05-10 15:32] VITALS: BP 161/74; PULSE 70; RESP 18; TEMP 36.8; O2SAT 97
--- NOTE | 2022-05-10 16:45 | P.PNNP_ITS ---
Subjective Subjective Date of Service: 05/10/22 Interval history: Seen and examiend, events noted HCO3 43 this am Physical Exam Vital Signs: Vital Signs: Last Vital Signs Temp 98.3 F 05/10/22 15:32 Pulse 70 05/10/22 15:32 Resp 18 05/10/22 15:32 BP 161/74 H 05/10/22 15:32 Pulse Ox 97 05/10/22 15:32 O2 Del Method 05/10/22 15:32 O2 Flow Rate 2 05/10/22 11:57 Oxygen Flow Rate 2 05/08/22 15:00 BMI result Body Mass Index 29.2 Const: Other: Constitutional : Alert, in distress from pain Neck : Normal inspection, Supple Cardiovascular : RRR, no JVP, no lower extremity edema Respiratory : fair bilateral air entry, no crackles, wheezes or rhonchi, on oxygen supplement Gastrointestinal: soft, lax, Normal bowel sounds, generalized tenderness, surgical drain with small serous fluid Skin : Warm, Dry, stage II decubitus ulcers with no drainage Neurological : Alert & oriented x3, No focal deficit , CN 2-12 within normal General: cooperative, comfortable, no acute distress, well developed, in distress (Due to back pain), anxious, ill appearing and tired appearing N utritional Appearance: well nourished Orientation/consciousness: patient oriented x3 Limitations: no limitations and No language barrier HEENT: Head: Yes normal to inspection, Yes normocephalic and Yes atraumatic Ears: hearing grossly normal bilaterally Face and sinus: Yes normal facial exam Mouth: Normal oral and palatal mucosa present Teeth and gingiva: dentition normal Eyes: General: appearance normal, both eyes and all related structures Sclerae: sclerae normal Pupils: Equal, round and reactive pupils present EOM: EOMs intact bilaterally Neck: Neck: Yes normal visual inspection and Yes no JVD Resp: Effort & Inspection: normal respiratory effort, no audible wheezes, no cough and no respiratory distress Auscultation: clear to auscultation bilaterally and diminished lung sounds (At base) bilateral Cardio: Rate: regular rate Rhythm: regular rhythm GI: Other: Trocar incisions are clean Inspection: Yes normal to inspection Palpation (GI): Soft to palpation, nontender, no guarding, not rigid and no masses Percussion: Yes normal to percussion Auscultation: normal bowel sounds Rectal Exam - Male: Yes deferred : General: Yes no CVA tenderness Back/Spine/Pelvis: Back: no CVA tenderness Skin: Other: bilateral buttock areas and sacral areas have just an extensive rough skin area with maybe some breakdown of the epidermal down into the dermal tissue but no fatty tissue noted. The area was covered with barrier cream and coated it completely revealing no deeper open wounds. 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 General skin exam: no rashes or lesions noted and no jaundice Neuro: General: patient oriented x3 and moves all extremities Cranial nerves: Yes Equal, round and reactive pupils present Extrem: General: Yes normal to inspection and Yes no clubbing, cyanosis or edema Right upper extremity: shoulder/upper arm (Tenderness due to arthritis) Psych: Appearance: grossly normal Objective Data Labs CBC & Chem 7: 05/10/22 06:11 05/10/22 06:11 Labs: Laboratory Results - last 24 hr 05/10/22 05/10/22 06:11 06:11 WBC 7.2 RBC 3.34 L Hgb 8.6 L Hct 28.3 L MCV 84.7 MCH 25.7 L MCHC 30.4 L RDW 15.3 Plt Count 205 MPV 9.9 Absolute Nucleated RBC 0.000 Nucleated RBC % (auto) 0.0 Sodium 143 Potassium 3.9 Chloride 93 L Carbon Dioxide 43 H* Anion Gap 11 L BUN 6 L Creatinine 0.44 L Estim Creat Clear Calc 155.7 Estimated GFR > 60 Random Glucose TNP Fasting Glucose 91 Calcium 8.4 Microbiology Microbiology Results: Microbiology 04/29/22 Unknown Urine clean catch - Urine downs top Urine Culture - Final Pseudomonas aeruginosa Citrobacter freundii 04/29/22 13:59 Blood - Venous Blood Culture - Final Escherichia coli 04/29/22 13:28 Blood - Venous Blood Culture - Final Escherichia coli Procedures Date of Service Date of Service: 05/10/22 Assessment & Plan Assessment and plan (1) Stage 2 skin ulcer of sacral region: Status: Acute (2) ESBL (extended spectrum beta-lactamase) producing bacteria infection: Status: Acute (3) Hydrops of gallbladder: Status: Acute Plan 1. Metabolic Alkalosis of ? etiol: typical the cause can de surmized by the histoy with either GI loss of H+ --vomiting or rare cases of ZE asoc diaerrhea Urinary losses thru dehydration primary hyperaldo states His hsitory does not support any of these and furhtermore his elevate UrCl would go against a vol resposnive metabolic alkalosis REC: repeat urne studies; may need to treat with diamox short teerm will follow with nathan Time Spent With Patient Time: Total time spent is greater than 50% in coordination of care (as documented) at patient's floor/unit and/or counseling patient: Progress Note: Quality Stroke Does the patient have a stroke diagnosis?: No
[2022-05-10 19:26] VITALS: BP 141/65; PULSE 86; RESP 18; TEMP 37.1; O2SAT 96
[2022-05-10] MEDS: Melatonin 3 MG TABLET 6 MG PO (20:35)
[2022-05-10] MEDS: Tamsulosin HCL 0.4 MG CAPSULE 0.8 MG PO (20:37)
[2022-05-10] MEDS: Gabapentin 100 MG CAPSULE PO (20:38)
[2022-05-10] MEDS: Zolpidem Tartrate 5 MG TABLET PO (20:38)
[2022-05-11] VITALS (7 sets, daily range): BP systolic 149–177; BP diastolic 70–77; PULSE 72–92; RESP 17–20; TEMP 36.6–36.8; O2SAT 2–99
[2022-05-11 06:56] LABS: Hematocrit 27.2 % (42.0-52.0); Hemoglobin 8.4 g/dl (14.0-18.0); Mean Corpuscular HGB Conc 30.9 g/dl (31.0-36.0); Mean Corpuscular Hemoglobin 25.8 pg (27.0-33.0); Mean Corpuscular Volume 83.4 fL (80.0-98.0); Mean Platelet Volume 9.5 fL (9.4-12.4); Platelet Count 207 X10*3/uL (160-400); Red Blood Count 3.26 X10*6/uL (4.60-5.80); Red Cell Distribution Width 15.4 % (11.0-16.0); White Blood Count 6.9 X10*3/uL (4.8-10.8)
[2022-05-11 07:23] LABS: Anion Gap 10 (12-20); Blood Urea Nitrogen 4 mg/dL (9-16); Calcium 8.3 mg/dL (8.4-10.2); Carbon Dioxide 45 mmol/L (22-29); Chloride 92 mmol/L (96-108); Creatinine Clr Calc Pharmacy 159.3; Estimated Glomerular Filt Rate > 60; Glucose Fasting 108 mg/dL (60-99); Potassium 3.4 mmol/L (3.3-5.1); Sodium 144 mmol/L (135-145)
[2022-05-11] MEDS: Lidocaine 4 % Patch ADH..PATCH 2 PATCH TRANSDERMA (07:29)
[2022-05-11] MEDS: HYDROmorphone HCl 0.5 MG/0.5 ML SYRINGE 1 MG IVPUSH ×4 (07:30→20:20)
[2022-05-11] MEDS: Finasteride 5 MG TABLET PO (07:30)
[2022-05-11] MEDS: Apixaban 5 MG TABLET PO ×2 (07:31→20:19)
[2022-05-11] MEDS: Metoprolol Succinate ER 25 MG TAB.ER.24H PO (07:31)
[2022-05-11] MEDS: Zinc Sulfate 220 MG CAPSULE PO (07:32)
[2022-05-11] MEDS: QUEtiapine Fumarate 25 MG TABLET PO (07:32)
[2022-05-11] MEDS: Multivitamin TABLET 1 TAB PO (07:32)
[2022-05-11] MEDS: Cyanocobalamin (Vitamin B-12) 500 MCG TABLET PO (07:35)
[2022-05-11] MEDS: Heparin Sodium,Porcine Flush 50 UNITS, 0.9 % Sodium Chloride Flush 5 ML IVFLUSH ×3 (07:44→20:19)
[2022-05-11] MEDS: Potassium Chloride Packet 20 MEQ PACKET 40 MEQ PO (09:57)
[2022-05-11] MEDS: 0.9 % Sodium Chloride 1,000 ML 100 ML IVCONT ×2 (09:58→20:20)
[2022-05-11 10:46] LABS: Appearance Urine Clear; Color Urine Yellow; Glucose Urine UA Negative (Negative); Leukocyte Esterase Urine Trace (Negative); Nitrite Urine Positive (Negative); PH 7.5 (5.0-8.0); Urine Blood Negative (Negative); Urine Ketones Negative (Negative); Urine Protein 30 (1+) mg/dL (Neg-Trace)
[2022-05-11 10:48] LABS: Potassium Urine Random 15.2 mmol/L
[2022-05-11] MEDS: acetaZOLAMIDE sodium 500 MG VIAL IVPUSH ×2 (10:48→20:19)
[2022-05-11 10:57] LABS: Bacteria Urine None Seen (None Seen); Hyaline Casts Urine 0-2 /LPF (0-2); RBC Urine 0-2 /HPF (0-2); Squamous Epithelial Cell Urine 0-2 /HPF (0-2)
[2022-05-11 10:58] LABS: UACC Culture Trigger NO
--- NOTE | 2022-05-11 12:20 | P.PNIM_ITS ---
Subjective Subjective Date of Service: 05/11/22 Interval History: cc: abd pain interval history: anxious, in pain, lethargic Cardiovascular Cardiovascular: Reports no additional cardiovascular complaints Respiratory Respiratory: Reports no additional respiratory complaints Physical Exam Vital Signs: Vital Signs: Last Vital Signs Temp 98 F 05/11/22 11:35 Pulse 74 05/11/22 11:35 Resp 18 05/11/22 11:35 BP 160/77 H 05/11/22 11:35 Pulse Ox 98 05/11/22 11:35 O2 Del Method 05/11/22 11:35 O2 Flow Rate 2 05/11/22 11:35 Oxygen Flow Rate 2 05/10/22 15:00 BMI result Body Mass Index 29.2 General: lethargic, ill appearing Resp: Crackles bilateral, no accessory muscles used CVS: S1,S2,RRR GI: soft, non tender, non distended Neuro: motor grossly intact, lethargic Psych: appropriate affect, impaired insight Objective Data Active Medications Acetazolamide (Acetazolamide Sodium 500 Mg Vial) 500 mg IVPUSH Q8H [facility] Stop: 05/12/22 03:01 Last Admin: 05/11/22 10:48 Dose: 500 mg Documented By: LIDYA Albuterol/Ipratropium (Albuterol/Iprat 2.5/0.5mg 3 Ml Ampul.Neb) 3 ml INHALE Q 6H PRN PRN Reason: Shortness Of Breath Or Wheezing Apixaban (Apixaban 5 Mg Tablet) 5 mg PO BID [facility] Last Admin: 05/11/22 07:31 Dose: 5 mg Documented By: LIDYA Heparin Sodium (Porcine) 50 (units/ Sodium Chloride 5 ml) 0 units IVFLUSH TID [facility] Last Admin: 05/11/22 07:44 Dose: 50 unit Documented By: LIDYA Cyanocobalamin (Cyanocobalamin (Vitamin B-12) 500 Mcg Tablet) 500 mcg PO DAILY [facility] Last Admin: 05/11/22 07:35 Dose: 500 mcg Documented By: LIDYA Finasteride (Finasteride 5 Mg Tablet) 5 mg PO DAILY [facility] Last Admin: 05/11/22 07:30 Dose: 5 mg Documented By: LIDYA Gabapentin (Gabapentin 100 Mg Capsule) 100 mg PO DAILY PRN PRN Reason: Anxiety Last Admin: 05/10/22 20:38 Dose: 100 mg Documented By: YUDITH Hydromorphone HCl (Hydromorphone Hcl 0.5 Mg/0.5 Ml Syringe) 1 mg IVPUSH Q2H PRN; Protocol PRN Reason: Pain, Severe (Pain Scale 7-10) Last Admin: 05/11/22 07:30 Dose: 1 mg Documented By: LIDYA Meropenem 1 gm/ Sodium (Chloride) 100 mls @ 200 mls/hr IV Q8H [facility] Stop: 05/19/22 00:29 Last Infusion: 05/11/22 09:54 Dose: 0 mls/hr Documented By: LIDYA Sodium Chloride (Ns) 1,000 mls @ 100 mls/hr IVCONT .Q10H [facility] Last Admin: 05/11/22 09:58 Dose: 100 mls/hr Documented By: LIDYA Lidocaine (Lidocaine 4 % Patch Adh..Patch) 2 patch TRANSDERMA DAILY PRN; Protocol PRN Reason: Pain, Mild Last Admin: 05/11/22 07:29 Dose: 2 patch Documented By: LIDYA Melatonin (Melatonin 3 Mg Tablet) 6 mg PO BEDTIME PRN PRN Reason: Sleep Last Admin: 05/10/22 20:35 Dose: 6 mg Documented By: YUDITH Metoprolol Succinate (Metoprolol Succinate Er 25 Mg Tab.Er.24h) 25 mg PO DAILY [facility]; Protocol Last Admin: 05/11/22 07:31 Dose: 25 mg Documented By: LIDYA Multivitamins/Vitamin C (Multivitamin Tablet) 1 tab PO DAILY [facility] Last Admin: 05/11/22 07:32 Dose: 1 tab Documented By: LIDYA Ondansetron HCl (Ondansetron Hcl 4 Mg/2 Ml Vial) 4 mg IVPUSH ONCE PRN PRN Reason: Nausea and Vomiting Pharmacy Consult (Consult Rx Perform Med Rec) 1 each MISCELLANE ONCE PRN PRN Reason: Consult order Quetiapine Fumarate (Quetiapine Fumarate 25 Mg Tablet) 25 mg PO BID PRN PRN Reason: agitation Last Admin: 05/11/22 07:32 Dose: 25 mg Documented By: LIDYA Tamsulosin HCl (Tamsulosin Hcl 0.4 Mg Capsule) 0.8 mg PO BEDTIME [facility] Last Admin: 05/10/22 20:37 Dose: 0.8 mg Documented By: YUDITH Zinc Oxide (Zinc Oxide 20% Ointment 28.35 Gm Tube) 1 appl TOPICAL ONCE PRN; Protocol PRN Reason: Rash Zinc Sulfate (Zinc Sulfate 220 Mg Capsule) 220 mg PO DAILY [facility] Last Admin: 05/11/22 07:32 Dose: 220 mg Documented By: LIDYA Zolpidem Tartrate (Zolpidem Tartrate 5 Mg Tablet) 5 mg PO BEDTIME PRN PRN Reason: Insomnia Last Admin: 05/10/22 20:38 Dose: 5 mg Documented By: YUDITH Labs CBC & Chem 7: 05/11/22 06:35 05/11/22 06:35 Labs: Laboratory Results - last 24 hr 05/11/22 05/11/22 05/11/22 06:35 06:35 10:11 MCV 83.4 MCH 25.8 L MCHC 30.9 L RDW 15.4 Plt Count 207 MPV 9.5 Absolute Nucleated RBC 0.000 Nucleated RBC % (auto) 0.0 Anion Gap 10 L Estim Creat Clear Calc 159.3 Estimated GFR > 60 Random Glucose TNP Fasting Glucose 108 H Calcium 8.3 L Urine Color Yellow Urine Appearance Clear Urine pH 7.5 Ur Specific [place] 1.010 Urine Protein 30 (1+) H Urine Glucose (UA) Negative Urine Ketones Negative Urine Blood Negative Urine Nitrite Positive H Ur Leukocyte Esterase Trace H Urine RBC 0-2 Urine WBC 11-20 H Ur Squamous Epith Cells 0-2 Urine Bacteria None Seen Hyaline Casts 0-2 Ur Random Sodium Ur Random Potassium Ur Random Chloride 05/11/22 10:11 MCV MCH MCHC RDW Plt Count MPV Absolute Nucleated RBC Nucleated RBC % (auto) Anion Gap Estim Creat Clear Calc Estimated GFR Random Glucose Fasting Glucose Calcium Urine Color Urine Appearance Urine pH Ur Specific [place] Urine Protein Urine Glucose (UA) Urine Ketones Urine Blood Urine Nitrite Ur Leukocyte Esterase Urine RBC Urine WBC Ur Squamous Epith Cells Urine Bacteria Hyaline Casts Ur Random Sodium 84.0 Ur Random Potassium 15.2 Ur Random Chloride 87.0 Assessment and Plan (1) Stage 2 skin ulcer of sacral region: Status: Acute (2) ESBL (extended spectrum beta-lactamase) producing bacteria infection: Status: Acute (3) Hydrops of gallbladder: Status: Acute Plan 76-year-old male? hypertensive and hyperlipidemic with remote history of ST- elevation [place], possible chf (etiology unclear) ,htn ,lbbb,and what and about a year status post COVID 19 infection that was complicated by deep vein thrombosis and he remains on Eliquis-came with abdominal pain-initially admitted to the ICU because of severe sepsis . ( patient had few admissions to [facility] for sepsis/pneumonia, nstemi ,chf? , gram neg sepsis in from last few months -january to now) -records are in the chart. ESBL E coli bacteremia Secondary to hydrops of gallbladder Pod 7 post cholecystectomy LFTs improving Continue meropenem tolerating diet, had BM ID evaluation , 14 days of meropenem or ertapenem, no need to treat Pseudomonas, end may 18 Midline placed metabolic alkalosis low serum chloride, high urine chloride, not on diuretics ? due to meropenem causing renal K+ and H+ loss will give NS, diamox, potassium monitor bmp d/w ID and renal, will continue meropenem and manage metabolic effects rather than changing to gentamicin Stage II decubitus ulcers Local measures htn continue metoprolol History of dvt Eliquis bph has ch barton continue flomax anxiety Psych evaluation appreciated, recommended gabapentin prn for anxiety DVT PPX Lovenox reason for continued hospitalization: worsening alkalosis Quality Stroke Does the patient have a stroke diagnosis?: No VTE Prior VTE?: Yes VTE Risk Level:: Medical - moderate - high VTE Device Contraindication: N/A - Device Ordered VTE Drug Contraindication: N/A - Med Ordered
[2022-05-11 14:59] LABS: Osmolality Urine 321 mosm/kg (373-1093)
[2022-05-11] MEDS: Tamsulosin HCL 0.4 MG CAPSULE 0.8 MG PO (20:19)
[2022-05-11] MEDS: Zolpidem Tartrate 5 MG TABLET PO (20:25)
[2022-05-11] MEDS: Melatonin 3 MG TABLET 6 MG PO (20:25)
--- NOTE | 2022-05-11 21:06 | PM.PNNEP ---
Subjective Subjective Date of Service: 05/11/22 Interval history: Seen and examined, events noted Physical Exam Vital Signs: Vital Signs: Last Vital Signs Temp 97.9 F 05/11/22 19:23 Pulse 92 05/11/22 19:23 Resp 18 05/11/22 20:20 BP 177/74 H 05/11/22 19:23 Pulse Ox 96 05/11/22 19:23 O2 Del Method 05/11/22 19:23 O2 Flow Rate 2 05/11/22 19:23 Oxygen Flow Rate 2 05/10/22 15:00 BMI result Body Mass Index 29.2 Const: Other: Constitutional : Alert, in distress from pain Neck : Normal inspection, Supple Cardiovascular : RRR, no JVP, no lower extremity edema Respiratory : fair bilateral air entry, no crackles, wheezes or rhonchi, on oxygen supplement Gastrointestinal: soft, lax, Normal bowel sounds, generalized tenderness, surgical drain with small serous fluid Skin : Warm, Dry, stage II decubitus ulcers with no drainage Neurological : Alert & oriented x3, No focal deficit , CN 2-12 within normal General: cooperative, comfortable, no acute distress, well developed, in distress (Due to back pain), anxious, ill appearing and tired appearing Nutritional Appearance: well nourished Orientation/consciousness: patient oriented x3 Limitations: no limitations and No language barrier HEENT: Head: Yes normal to inspection, Yes normocephalic and Yes atraumatic Ears: hearing grossly normal bilaterally Face and sinus: Yes normal facial exam Mouth: Normal oral and palatal mucosa present Teeth and gingiva: dentition normal Eyes: General: appearance normal, both eyes and all related structures Sclerae: sclerae normal Pupils: Equal, round and reactive pupils present EOM: EOMs intact bilaterally Neck: Neck: Yes normal visual inspection and Yes no JVD Resp: Effort & Inspection: normal respiratory effort, no audible wheezes, no cough and no respiratory distress Auscultation: clear to auscultation bilaterally and diminished lung sounds (At base) bilateral Cardio: Rate: regular rate Rhythm: regular rhythm GI: Other: Trocar incisions are clean Inspection: Yes normal to inspection Palpation (GI): Soft to palpation, nontender, no guarding, not rigid and no masses Percussion: Yes normal to percussion Auscultation: normal bowel sounds Rectal Exam - Male: Yes deferred : General: Yes no CVA tenderness Back/Spine/Pelvis: Back: no CVA tenderness Skin: Other: bilateral buttock areas and sacral areas have just an extensive rough skin area with maybe some breakdown of the epidermal down into the dermal tissue but no fatty tissue noted. The area was covered with barrier cream and coated it completely revealing no deeper open wounds. 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 General skin exam: no rashes or lesions noted and no jaundice Neuro: General: patient oriented x3 and moves all extremities Cranial nerves: Yes Equal, round and reactive pupils present Extrem: General: Yes normal to inspection and Yes no clubbing, cyanosis or edema Right upper extremity: shoulder/upper arm (Tenderness due to arthritis) Psych: Appearance: grossly normal Objective Data Labs CBC & Chem 7: 05/11/22 06:35 05/11/22 06:35 Labs: Laboratory Results - last 24 hr 05/11/22 05/11/22 05/11/22 06:35 06:35 10:11 WBC 6.9 RBC 3.26 L Hgb 8.4 L Hct 27.2 L MCV 83.4 MCH 25.8 L MCHC 30.9 L RDW 15.4 Plt Count 207 MPV 9.5 Absolute Nucleated RBC 0.000 Nucleated RBC % (auto) 0.0 Sodium 144 Potassium 3.4 Chloride 92 L Carbon Dioxide 45 H* Anion Gap 10 L BUN 4 L Creatinine 0.43 L Estim Creat Clear Calc 159.3 Estimated GFR > 60 Random Glucose TNP Fasting Glucose 108 H Calcium 8.3 L Urine Color Yellow Urine Appearance Clear Urine pH 7.5 Ur Specific [place] 1.010 Urine Protein 30 (1+) H Urine Glucose (UA) Negative Urine Ketones Negative Urine Blood Negative Urine Nitrite Positive H Ur Leukocyte Esterase Trace H Urine RBC 0-2 Urine WBC 11-20 H Ur Squamous Epith Cells 0-2 Urine Bacteria None Seen Hyaline Casts 0-2 Urine Osmolality Ur Random Sodium Ur Random Potassium Ur Random Chloride 05/11/22 05/11/22 10:11 13:41 WBC RBC Hgb Hct MCV MCH MCHC RDW Plt Count MPV Absolute Nucleated RBC Nucleated RBC % (auto) Sodium Potassium Chloride Carbon Dioxide Anion Gap BUN Creatinine Estim Creat Clear Calc Estimated GFR Random Glucose Fasting Glucose Calcium Urine Color Urine Appearance Urine pH Ur Specific [place] Urine Protein Urine Glucose (UA) Urine Ketones Urine Blood Urine Nitrite Ur Leukocyte Esterase Urine RBC Urine WBC Ur Squamous Epith Cells Urine Bacteria Hyaline Casts Urine Osmolality 321 L Ur Random Sodium 84.0 Ur Random Potassium 15.2 Ur Random Chloride 87.0 Microbiology Microbiology Results: Microbiology 04/29/22 Unknown Urine clean catch - Urine downs top Urine Culture - Final Pseudomonas aeruginosa Citrobacter freundii 04/29/22 13:59 Blood - Venous Blood Culture - Final Escherichia coli 04/29/22 13:28 Blood - Venous Blood Culture - Final Escherichia coli Procedures Date of Service Date of Service: 05/11/22 Assessment & Plan Assessment and plan (1) Stage 2 skin ulcer of sacral region: Status: Acute (2) ESBL (extended spectrum beta-lactamase) producing bacteria infection: Status: Acute (3) Hydrops of gallbladder: Status: Acute Plan 1. Metabolic Alkalosis of ? etiol: typical the cause can de surmized by the histoy with either GI loss of H+ --vomiting or rare cases of ZE asoc diaerrhea Urinary losses thru dehydration primary hyperaldo states case reports of B-lactam causing metabolic alk d/t anion component of B-lac forcing H and K urine excretion--as pointed out by Hospitalist the timing fitsforthisbut it is surprising how signif the incr HCO3 is REC: agree withconsideration of switch ABx to gent but ID prefersnot todo this so will try IV diamox and replace K and track K and HCO3 clsoely will follow with nathan Time Spent With Patient Time: Total time spent is greater than 50% in coordination of care (as documented) at patient's floor/unit and/or counseling patient: Progress Note: Quality Stroke Does the patient have a stroke diagnosis?: No
[2022-05-11 21:51] LABS: Anion Gap 13 (12-20); Carbon Dioxide 34 mmol/L (22-29); Chloride 97 mmol/L (96-108); Potassium 3.8 mmol/L (3.3-5.1); Sodium 140 mmol/L (135-145)
[2022-05-12] VITALS (9 sets, daily range): BP systolic 119–157; BP diastolic 60–70; PULSE 75–85; RESP 16–20; TEMP 36.2–36.9; O2SAT 97–100
[2022-05-12] MEDS: QUEtiapine Fumarate 25 MG TABLET PO ×2 (00:06→09:31)
[2022-05-12] MEDS: HYDROmorphone HCl 0.5 MG/0.5 ML SYRINGE 1 MG IVPUSH ×4 (00:07→09:30)
[2022-05-12] MEDS: oxyCODONE HCl Immed Release 5 MG TABLET PO ×5 (01:14→20:57)
[2022-05-12] MEDS: acetaZOLAMIDE sodium 500 MG VIAL IVPUSH (02:30)
[2022-05-12] MEDS: 0.9 % Sodium Chloride 1,000 ML 100 ML IVCONT ×2 (06:32→16:42)
[2022-05-12 07:08] LABS: Hematocrit 26.7 % (42.0-52.0); Hemoglobin 8.1 g/dl (14.0-18.0); Mean Corpuscular HGB Conc 30.3 g/dl (31.0-36.0); Mean Corpuscular Hemoglobin 25.5 pg (27.0-33.0); Mean Platelet Volume 9.8 fL (9.4-12.4); Platelet Count 229 X10*3/uL (160-400); Red Blood Count 3.18 X10*6/uL (4.60-5.80); Red Cell Distribution Width 15.5 % (11.0-16.0); White Blood Count 7.7 X10*3/uL (4.8-10.8)
[2022-05-12 07:28] LABS: Anion Gap 10 (12-20); Blood Urea Nitrogen 6 mg/dL (9-16); Calcium 7.9 mg/dL (8.4-10.2); Carbon Dioxide 37 mmol/L (22-29); Chloride 99 mmol/L (96-108); Creatinine Clr Calc Pharmacy 152.3; Estimated Glomerular Filt Rate > 60; Glucose Fasting 147 mg/dL (60-99); Potassium 3.4 mmol/L (3.3-5.1); Sodium 143 mmol/L (135-145)
[2022-05-12] MEDS: Heparin Sodium,Porcine Flush 50 UNITS, 0.9 % Sodium Chloride Flush 5 ML IVFLUSH ×3 (09:28→20:59)
[2022-05-12] MEDS: Cyanocobalamin (Vitamin B-12) 500 MCG TABLET PO (09:31)
[2022-05-12] MEDS: Metoprolol Succinate ER 25 MG TAB.ER.24H PO (09:31)
[2022-05-12] MEDS: Multivitamin TABLET 1 TAB PO (09:31)
[2022-05-12] MEDS: Zinc Sulfate 220 MG CAPSULE PO (09:32)
[2022-05-12] MEDS: Finasteride 5 MG TABLET PO (09:32)
[2022-05-12] MEDS: Apixaban 5 MG TABLET PO ×2 (09:33→20:58)
--- NOTE | 2022-05-12 10:59 | MHC.CM.PN ---
Per ROUNDS discussion, Patient is not yet medically cleared for dc (IV Dilaudid today, IV Meropenem); Returning to LTC @ [facility] is the goal and CM will continue to follow.
--- NOTE | 2022-05-12 12:13 | P.PNIM_ITS ---
Subjective Subjective Date of Service: 05/12/22 Interval History: the patient was seen and evaluated this morning Laying in bed, feeling better overall but not comfortable in the bed Tolerating diet No reported other overnight events. Systemic review: No fever, chills or weakness No chest pain, palpitation No shortness of breath or coughing No abdominal pain, nausea or vomiting No urinary symptoms No any rash or wounds Physical Exam Vital Signs: Vital Signs: Last Vital Signs Temp 97.9 F 05/12/22 11:29 Pulse 75 05/12/22 11:29 Resp 20 05/12/22 11:29 BP 130/60 05/12/22 11:29 Pulse Ox 100 05/12/22 11:29 O2 Del Method 05/12/22 11:29 O2 Flow Rate 2 05/12/22 11:29 Oxygen Flow Rate 2 05/11/22 15:00 BMI result Body Mass Index 29.2 Const: Other: Constitutional : Alert, in distress from pain Neck : Normal inspection, Supple Cardiovascular : RRR, no JVP, no lower extremity edema Respiratory : fair bilateral air entry, no crackles, wheezes or rhonchi, on oxygen supplement Gastrointestinal: soft, lax, Normal bowel sounds, no tenderness Skin : Warm, Dry, stage II decubitus ulcers with no drainage Neurological : Alert & oriented x3, No focal deficit , CN 2-12 within normal Objective Data Active Medications Albuterol/Ipratropium (Albuterol/Iprat 2.5/0.5mg 3 Ml Ampul.Neb) 3 ml INHALE Q6H PRN PRN Reason: Shortness Of Breath Or Wheezing Apixaban (Apixaban 5 Mg Tablet) 5 mg PO BID [facility] Last Admin: 05/12/22 09:33 Dose: 5 mg Documented By: MARGARITA Heparin Sodium (Porcine) 50 (units/ Sodium Chloride 5 ml) 0 units IVFLUSH TID [facility] Last Admin: 05/12/22 09:28 Dose: 50 unit Documented By: MARGARITA Cyanocobalamin (Cyanocobalamin (Vitamin B-12) 500 Mcg Tablet) 500 mcg PO DAILY [facility] Last Admin: 05/12/22 09:31 Dose: 500 mcg Documented By: MARGARITA Finasteride (Finasteride 5 Mg Tablet) 5 mg PO DAILY [facility] Last Admin: 05/12/22 09:32 Dose: 5 mg Documented By: MARGARITA Meropenem 1 gm/ Sodium (Chloride) 100 mls @ 200 mls/hr IV Q8H [facility] Stop: 05/19/22 00:29 Last Infusion: 05/12/22 11:11 Dose: 0 mls/hr Documented By: MARGARITA Sodium Chloride (Ns) 1,000 mls @ 100 mls/hr IVCONT .Q10H [facility] Last Admin: 05/12/22 06:32 Dose: 100 mls/hr Documented By: SHYAM Lactulose (Lactulose 20 Gm/30 Ml Solution) 13.333 gm PO DAILY [facility] Lidocaine (Lidocaine 4 % Patch Adh..Patch) 2 patch TRANSDERMA DAILY PRN; Protocol PRN Reason: Pain, Mild Last Admin: 05/11/22 07:29 Dose: 2 patch Documented By: LIDYA Magnesium Oxide (Magnesium Oxide 400 Mg Tablet) 400 mg PO DAILY [facility] Melatonin (Melatonin 3 Mg Tablet) 6 mg PO BEDTIME PRN PRN Reason: Sleep Last Admin: 05/11/22 20:25 Dose: 6 mg Documented By: SHYAM Metoprolol Succinate (Metoprolol Succinate Er 25 Mg Tab.Er.24h) 25 mg PO DAILY [facility]; Protocol Last Admin: 05/12/22 09:31 Dose: 25 mg Documented By: MARGARITA Morphine Sulfate (Morphine Sulfate Er 30 Mg Tablet.Er) 30 mg PO BID PRN PRN Reason: Pain, Severe Multivitamins/Vitamin C (Multivitamin Tablet) 1 tab PO DAILY [facility] Last Admin: 05/12/22 09:31 Dose: 1 tab Documented By: MARGARITA Ondansetron HCl (Ondansetron Hcl 4 Mg/2 Ml Vial) 4 mg IVPUSH ONCE PRN PRN Reason: Nausea and Vomiting Oxycodone HCl (Oxycodone Hcl Immed Release 5 Mg Tablet) 5 mg PO Q4H PRN PRN Reason: Pain, Severe (Pain Scale 7-10) Last Admin: 05/12/22 07:54 Dose: 5 mg Documented By: SHYAM Pharmacy Consult (Consult Rx Perform Med Rec) 1 each MISCELLANE ONCE PRN PRN Reason: Consult order Pregabalin (Pregabalin 75 Mg Capsule) 75 mg PO BID [facility] Quetiapine Fumarate (Quetiapine Fumarate 25 Mg Tablet) 25 mg PO BID PRN PRN Reason: agitation Last Admin: 05/12/22 09:31 Dose: 25 mg Documented By: MARGARITA Senna (Sennosides 8.6 Mg Tablet) 17.2 mg PO BEDTIME [facility] Tamsulosin HCl (Tamsulosin Hcl 0.4 Mg Capsule) 0.8 mg PO BEDTIME [facility] Last Admin: 05/11/22 20:19 Dose: 0.8 mg Documented By: SHYAM Zinc Oxide (Zinc Oxide 20% Ointment 28.35 Gm Tube) 1 appl TOPICAL ONCE PRN; Protocol PRN Reason: Rash Zinc Sulfate (Zinc Sulfate 220 Mg Capsule) 220 mg PO DAILY [facility] Last Admin: 05/12/22 09:32 Dose: 220 mg Documented By: MARGARITA Zolpidem Tartrate (Zolpidem Tartrate 5 Mg Tablet) 5 mg PO BEDTIME PRN PRN Reason: Insomnia Last Admin: 05/11/22 20:25 Dose: 5 mg Documented By: SHYAM Labs CBC & Chem 7: 05/12/22 06:11 05/12/22 06:11 Labs: Laboratory Results - last 24 hr 05/11/22 05/11/22 05/12/22 13:41 21:16 06:11 MCV MCH MCHC RDW Plt Count MPV Absolute Nucleated RBC Nucleated RBC % (auto) Anion Gap 13 10 L Estim Creat Clear Calc 152.3 Estimated GFR > 60 Random Glucose TNP Fasting Glucose 147 H D Calcium 7.9 L Urine Osmolality 321 L 05/12/22 06:11 MCV 84.0 MCH 25.5 L MCHC 30.3 L RDW 15.5 Plt Count 229 MPV 9.8 Absolute Nucleated RBC 0.000 Nucleated RBC % (auto) 0.0 Anion Gap Estim Creat Clear Calc Estimated GFR Random Glucose Fasting Glucose Calcium Urine Osmolality Assessment and Plan (1) Metabolic alkalosis: Status: Acute (2) ESBL (extended spectrum beta-lactamase) producing bacteria infection: Status: Acute (3) Bacteremia: Status: Acute Plan 76-year-old male? hypertensive and hyperlipidemic with remote history of ST- elevation CT, possible chf (etiology unclear) ,htn ,lbbb,and what and about a y ear status post COVID 19 infection that was complicated by deep vein thrombosis and he remains on Eliquis-came with abdominal pain-initially admitted to the ICU because of severe sepsis . ( patient had few admissions to [facility] for sepsis/pneumonia, nstemi ,chf? , gram neg sepsis in from last few months -january to now) -records are in the chart. ESBL E coli bacteremia Secondary to hydrops of gallbladder Pod 8 post cholecystectomy LFTs improving Continue meropenem tolerating diet, had BM ID evaluation , 14 days of meropenem or ertapenem, no need to treat Pseudomonas, end may 18 Midline placed metabolic alkalosis Improving low serum chloride, high urine chloride, not on diuretics ? due to meropenem causing renal K+ and H+ loss Continue NS, diamox, potassium monitor bmp d/w ID and renal, will continue meropenem and manage metabolic effects rather than changing to gentamicin Stage II decubitus ulcers Local measures htn continue metoprolol History of dvt Eliquis bph has ch barton continue flomax anxiety Psych evaluation appreciated, recommended gabapentin prn for anxiety DVT PPX Lovenox reason for continued hospitalization: ESBL E coli bacteremia on meropenem with worsening alkalosis pending safe discharge plan and resolve electrolyte abnormality to prevent possible decompensation. Quality Stroke Does the patient have a stroke diagnosis?: No VTE Prior VTE?: Yes VTE Risk Level:: Medical - moderate - high VTE Device Contraindication: N/A - Device Ordered VTE Drug Contraindication: N/A - Med Ordered
[2022-05-12] MEDS: Lactulose 20 GM/30 ML SOLUTION 13.333 GM PO (12:19)
[2022-05-12] MEDS: Pregabalin 75 MG CAPSULE PO ×2 (12:19→20:59)
[2022-05-12] MEDS: Magnesium Oxide 400 MG TABLET PO (12:19)
[2022-05-12] MEDS: Morphine Sulfate ER 30 MG TABLET.ER PO (12:19)
[2022-05-12] MEDS: acetaZOLAMIDE 250 MG TABLET PO ×3 (13:59→21:04)
[2022-05-12] MEDS: Ertapenem Sodium 1 GM in 0.9 % Sodium Chloride 50 ML IV (16:47)
--- NOTE | 2022-05-12 19:02 | P.PNNP_ITS ---
Subjective Subjective Date of Service: 05/12/22 Interval history: Seen and examined, events noted Physical Exam Vital Signs: Vital Signs: Last Vital Signs Temp 97.3 F 05/12/22 15:13 Pulse 82 05/12/22 15:13 Resp 18 05/12/22 15:13 BP 150/70 H 05/12/22 15:13 Pulse Ox 98 05/12/22 15:13 O2 Del Method 05/12/22 15:13 O2 Flow Rate 2 05/12/22 15:13 Oxygen Flow Rate 2 05/12/22 15:00 BMI result Body Mass Index 29.2 Const: Other: Constitutional : Alert, in distress from pain Neck : Normal inspection, Supple Cardiovascular : RRR, no JVP, no lower extremity edema Respiratory : fair bilateral air entry, no crackles, wheezes or rhonchi, on oxygen supplement Gastrointestinal: soft, lax, Normal bowel sounds, generalized tenderness, surgical drain with small serous fluid Skin : Warm, Dry, stage II decubitus ulcers with no drainage Neurological : Alert & oriented x3, No focal deficit , CN 2-12 within normal General: cooperative, comfortable, no acute distress, well developed, in dis tress (Due to back pain), anxious, ill appearing and tired appearing Nutritional Appearance: well nourished Orientation/consciousness: patient jarrett ented x3 Limitations: no limitations and No language barrier HEENT: Head: Yes normal to inspection, Yes normocephalic and Yes atraumatic Ears: hearing grossly normal bilaterally Face and sinus: Yes normal facial exam Mouth: Normal oral and palatal mucosa present Teeth and gingiva: dentition normal Eyes: General: appearance normal, both eyes and all related structures Sclerae: sclerae normal Pupils: Equal, round and reactive pupils present EOM: EOMs intact bilaterally Neck: Neck: Yes normal visual inspection and Yes no JVD Resp: Effort & Inspection: normal respiratory effort, no audible wheezes, no cough and no respiratory distress Auscultation: clear to auscultation bilaterally and diminished lung sounds (At base) bilateral Cardio: Rate: regular rate Rhythm: regular rhythm GI: Other: Trocar incisions are clean Inspection: Yes normal to inspection Palpation (GI): Soft to palpation, nontender, no guarding, not rigid and no masses Percussion: Yes normal to percussion Auscultation: normal bowel sounds Rectal Exam - Male: Yes deferred : General: Yes no CVA tenderness Back/Spine/Pelvis: Back: no CVA tenderness Skin: Other: bilateral buttock areas and sacral areas have just an extensive rough skin area with maybe some breakdown of the epidermal down into the dermal tissue but no fatty tissue noted. The area was covered with barrier cream and coated it co mpletely revealing no deeper open wounds. 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 General skin exam: no rashes or lesions noted and no jaundice Neuro: General: patient oriented x3 and moves all extremities Cranial nerves: Yes Equal, round and reactive pupils present Extrem: General: Yes normal to inspection and Yes no clubbing, cyanosis or e sawyer Right upper extremity: shoulder/upper arm (Tenderness due to arthritis) Psych: Appearance: grossly normal Objective Data Labs CBC & Chem 7: 05/12/22 06:11 05/12/22 06:11 Labs: Laboratory Results - last 24 hr 05/11/22 05/12/22 05/12/22 21:16 06:11 06:11 WBC 7.7 RBC 3.18 L Hgb 8.1 L Hct 26.7 L MCV 84.0 MCH 25.5 L MCHC 30.3 L RDW 15.5 Plt Count 229 MPV 9.8 Absolute Nucleated RBC 0.000 Nucleated RBC % (auto) 0.0 Sodium 140 143 Potassium 3.8 3.4 Chloride 97 99 Carbon Dioxide 34 H 37 H Anion Gap 13 10 L BUN 6 L Creatinine 0.45 L Estim Creat Clear Calc 152.3 Estimated GFR > 60 Random Glucose TNP Fasting Glucose 147 H D Calcium 7.9 L Microbiology Microbiology Results: Microbiology 04/29/22 Unknown Urine clean catch - Urine downs top Urine Culture - Final Pseudomonas aeruginosa Citrobacter freundii 04/29/22 13:59 Blood - Venous Blood Culture - Final Escherichia coli 04/29/22 13:28 Blood - Venous Blood Culture - Final Escherichia coli Procedures Date of Service Date of Service: 05/12/22 Assessment & Plan Assessment and plan (1) Stage 2 skin ulcer of sacral region: Status: Acute (2) ESBL (extended spectrum beta-lactamase) producing bacteria infection: Status: Acute (3) Hydrops of gallbladder: Status: Acute Plan 1. Metabolic Alkalosis of ? etiol: typical the cause can de surmized by the histoy with either GI loss of H+ --vomiting or rare cases of ZE asoc diaerrhea Urinary losses thru dehydration primary hyperaldo states case reports of B-lactam causing metabolic alk d/t anion component of B-lac forcing H and K urine excretion--as pointed out by Hospitalist the timing fits for this but it is surprising how signif the incr HCO3 is Decrease HCO3 withIV Diamix 45--> 35 REC: agree with consideration of switch ABx to gent but ID prefers not to do this; will switch IV to Po diamx to see if this will be adequate to control HCO3; replace K will follow with nathan Time Spent With Patient Time: Total time spent is greater than 50% in coordination of care (as documented) at patient's floor/unit and/or counseling patient: Progress Note: Quality Stroke Does the patient have a stroke diagnosis?: No
--- NOTE | 2022-05-12 19:51 | MHC.CLN ---
F/U DIET=REGULAR, LOWFAT WITH ENSURE TID. SUPPLEMENT PROVIDES ADDITIONAL 1050 KCALS, 60 G PROTEIN. GOOD INTAKE X MOST RECENT 3 DAYS, USUALLY 75%. STAGE II WOUND TO BUTTOCKS. SUPPLEMENT PROVIDES ADDITIONAL KCALS/PROTEIN TO PROMOTE WOUND HEALING. CONTINUE TO FOLLOW FOR PO INTAKE.
[2022-05-12] MEDS: Tamsulosin HCL 0.4 MG CAPSULE 0.8 MG PO (20:56)
[2022-05-12] MEDS: Melatonin 3 MG TABLET 6 MG PO (20:56)
[2022-05-12] MEDS: Zolpidem Tartrate 5 MG TABLET PO (20:57)
[2022-05-12] MEDS: Sennosides 8.6 MG TABLET 17.2 MG PO (20:58)
[2022-05-13] VITALS: BP 110/54; PULSE 74; RESP 16; TEMP 36.6; O2SAT 99
[2022-05-13] MEDS: 0.9 % Sodium Chloride 1,000 ML 100 ML IVCONT (04:24)
[2022-05-13 07:47] VITALS: BP 121/58; PULSE 71; RESP 12; TEMP 36.6; O2SAT 100
[2022-05-13] MEDS: Heparin Sodium,Porcine Flush 50 UNITS, 0.9 % Sodium Chloride Flush 5 ML IVFLUSH ×2 (09:35→13:35)
[2022-05-13] MEDS: Lactulose 20 GM/30 ML SOLUTION 13.333 GM PO (09:35)
[2022-05-13] MEDS: oxyCODONE HCl Immed Release 5 MG TABLET PO ×3 (09:36→17:22)
[2022-05-13] MEDS: Morphine Sulfate ER 30 MG TABLET.ER PO (09:36)
[2022-05-13] MEDS: Multivitamin TABLET 1 TAB PO (09:36)
[2022-05-13] MEDS: QUEtiapine Fumarate 25 MG TABLET PO (09:37)
[2022-05-13] MEDS: Metoprolol Succinate ER 25 MG TAB.ER.24H PO (09:37)
[2022-05-13] MEDS: Zinc Sulfate 220 MG CAPSULE PO (09:37)
[2022-05-13] MEDS: Cyanocobalamin (Vitamin B-12) 500 MCG TABLET PO (09:37)
[2022-05-13] MEDS: Apixaban 5 MG TABLET PO (09:38)
[2022-05-13] MEDS: Magnesium Oxide 400 MG TABLET PO (09:38)
[2022-05-13] MEDS: Finasteride 5 MG TABLET PO (09:38)
[2022-05-13] MEDS: acetaZOLAMIDE 250 MG TABLET PO (09:45)
[2022-05-13 11:20] LABS: Anion Gap 8 (12-20); Blood Urea Nitrogen 6 mg/dL (9-16); Calcium 8.1 mg/dL (8.4-10.2); Carbon Dioxide 36 mmol/L (22-29); Chloride 102 mmol/L (96-108); Chloride 103 mmol/L (96-108); Creatinine Clr Calc Pharmacy 148.9; Estimated Glomerular Filt Rate > 60; Glucose Random 132 mg/dL (60-115); Potassium 3.4 mmol/L (3.3-5.1); Sodium 143 mmol/L (135-145); Sodium 144 mmol/L (135-145)
[2022-05-13 11:45] VITALS: BP 133/63; PULSE 71; RESP 20; TEMP 36.8; O2SAT 100
[2022-05-13] MEDS: acetaZOLAMIDE 250 MG TABLET 500 MG PO (13:34)
--- NOTE | 2022-05-13 14:10 | P.PNIM_ITS ---
Subjective Subjective Date of Service: 05/13/22 Interval History: the patient was seen and evaluated this morning Laying in bed, more sleepy this morning More alert in the afternoon, feeling better overall but not comfortable in the bed Bicarb level stable No reported other overnight events. Systemic review: No fever, chills but has generalized weakness No chest pain, palpitation No shortness of breath or coughing No abdominal pain, nausea or vomiting No urinary symptoms No any rash or wounds Reporting back pain Physical Exam 2 Vital Signs: Vital Signs: Last Vital Signs Temp 98.3 F 05/13/22 11:45 Pulse 71 05/13/22 11:45 Resp 20 05/13/22 11:45 BP 133/63 05/13/22 11:45 Pulse Ox 100 05/13/22 11:45 O2 Del Method 05/13/22 11:45 O2 Flow Rate 2 05/13/22 11:45 Oxygen Flow Rate 2 05/12/22 15:00 BMI result Body Mass Index 29.2 Const: Other: Constitutional : Alert, not in distress Neck : Normal inspection, Supple Cardiovascular : RRR, no JVP, no lower extremity edema Respiratory : fair bilateral air entry, no crackles, wheezes or rhonchi, on oxygen supplement Gastrointestinal: soft, lax, Normal bowel sounds, no tenderness Skin : Warm, Dry, stage II decubitus ulcers with no drainage Neurological : Alert & oriented x3, No focal deficit , CN 2-12 within normal Objective Data Active Medications Acetazolamide (Acetazolamide 250 Mg Tablet) 500 mg PO TID [facility] Last Admin: 05/13/22 13:34 Dose: 500 mg Documented By: MARGARITA Albuterol/Ipratropium (Albuterol/Iprat 2.5/0.5mg 3 Ml Ampul.Neb) 3 ml INHALE Q6H PRN PRN Reason: Shortness Of Breath Or Wheezing Apixaban (Apixaban 5 Mg Tablet) 5 mg PO BID [facility] Last Admin: 05/13/22 09:38 Dose: 5 mg Documented By: MARGARITA Heparin Sodium (Porcine) 50 (units/ Sodium Chloride 5 ml) 0 units IVFLUSH TID [facility] Last Admin: 05/13/22 13:35 Dose: 50 unit Documented By: MARGARITA Cyanocobalamin (Cyanocobalamin (Vitamin B-12) 500 Mcg Tablet) 500 mcg PO DAILY [facility] Last Admin: 05/13/22 09:37 Dose: 500 mcg Documented By: MARGARITA Finasteride (Finasteride 5 Mg Tablet) 5 mg PO DAILY [facility] Last Admin: 05/13/22 09:38 Dose: 5 mg Documented By: MARGARITA Lactulose (Lactulose 20 Gm/30 Ml Solution) 13.333 gm PO DAILY [facility] Last Admin: 05/13/22 09:35 Dose: 13.333 gm Documented By: MARGARITA Lidocaine (Lidocaine 4 % Patch Adh..Patch) 2 patch TRANSDERMA DAILY PRN; Protocol PRN Reason: Pain, Mild Last Admin: 05/11/22 07:29 Dose: 2 patch Documented By: LIDYA Magnesium Oxide (Magnesium Oxide 400 Mg Tablet) 400 mg PO DAILY [facility] Last Admin: 05/13/22 09:38 Dose: 400 mg Documented By: MARGARITA Melatonin (Melatonin 3 Mg Tablet) 6 mg PO BEDTIME PRN PRN Reason: Sleep Last Admin: 05/12/22 20:56 Dose: 6 mg Documented By: SHYAM Metoprolol Succinate (Metoprolol Succinate Er 25 Mg Tab.Er.24h) 25 mg PO DAILY [facility]; Protocol Last Admin: 05/13/22 09:37 Dose: 25 mg Documented By: MARGARITA Morphine Sulfate (Morphine Sulfate Er 15 Mg Tablet.Er) 15 mg PO BID PRN PRN Reason: Pain, Severe Multivitamins/Vitamin C (Multivitamin Tablet) 1 tab PO DAILY [facility] Last Admin: 05/13/22 09:36 Dose: 1 tab Documented By: MARGARITA Ondansetron HCl (Ondansetron Hcl 4 Mg/2 Ml Vial) 4 mg IVPUSH ONCE PRN PRN Reason: Nausea and Vomiting Oxycodone HCl (Oxycodone Hcl Immed Release 5 Mg Tablet) 5 mg PO Q4H PRN PRN Reason: Pain, Severe (Pain Scale 7-10) Last Admin: 05/13/22 13:34 Dose: 5 mg Documented By: MARGARITA Pharmacy Consult (Consult Rx Perform Med Rec) 1 each MISCELLANE ONCE PRN PRN Reason: Consult order Pregabalin (Pregabalin 75 Mg Capsule) 75 mg PO BEDTIME [facility] Quetiapine Fumarate (Quetiapine Fumarate 25 Mg Tablet) 25 mg PO BID PRN PRN Reason: agitation Last Admin: 05/13/22 09:37 Dose: 25 mg Documented By: MARGARITA Senna (Sennosides 8.6 Mg Tablet) 17.2 mg PO BEDTIME [facility] Last Admin: 05/12/22 20:58 Dose: 17.2 mg Documented By: SHYAM Tamsulosin HCl (Tamsulosin Hcl 0.4 Mg Capsule) 0.8 mg PO BEDTIME [facility] Last Admin: 05/12/22 20:56 Dose: 0.8 mg Documented By: SYHAM Zinc Oxide (Zinc Oxide 20% Ointment 28.35 Gm Tube) 1 appl TOPICAL ONCE PRN; Protocol PRN Reason: Rash Zinc Sulfate (Zinc Sulfate 220 Mg Capsule) 220 mg PO DAILY [facility] Last Admin: 05/13/22 09:37 Dose: 220 mg Documented By: MARGARITA Zolpidem Tartrate (Zolpidem Tartrate 5 Mg Tablet) 5 mg PO BEDTIME PRN PRN Reason: Insomnia Last Admin: 05/12/22 20:57 Dose: 5 mg Documented By: SHYAM Labs CBC & Chem 7: 05/12/22 06:11 05/13/22 10:44 Labs: Laboratory Results - last 24 hr 05/13/22 05/13/22 10:44 10:44 Anion Gap 8 L 8 L Estim Creat Clear Calc 148.9 Estimated GFR > 60 Random Glucose 132 H Calcium 8.1 L Assessment and Plan (1) Bacteremia: Status: Acute (2) Metabolic alkalosis: Status: Acute Plan 76-year-old male? hypertensive and hyperlipidemic with remote history of ST- elevation PR, possible chf (etiology unclear) ,htn ,lbbb,and what and about a year status post COVID 19 infection that was complicated by deep vein thrombosis and he remains on Eliquis-came with abdominal pain-initially admitted to the ICU because of severe sepsis . ( patient had few admissions to [facility] for sepsis/pneumonia, nstemi ,chf? , gram neg sepsis in from last few months -january to now) -records are in the chart. ESBL E coli bacteremia Secondary to hydrops of gallbladder Pod 9 post cholecystectomy LFTs improving Change meropenem to ertapenem tolerating diet, had BM ID evaluation , 14 days of meropenem or ertapenem, no need to treat Pseudomonas, end may 18 Midline placed metabolic alkalosis Stable in 30s Could be due to meropenem causing renal K+ and H+ loss Continue NS, diamox, potassium monitor bmp d/w ID and renal, changed to ertapenem and manage metabolic effects rather than changing to gentamicin Stage II decubitus ulcers Local measures htn continue metoprolol History of dvt Eliquis bph has ch barton continue flomax anxiety Psych evaluation appreciated, recommended gabapentin prn for anxiety DVT PPX Lovenox reason for continued hospitalization: ESBL E coli bacteremia on ertapenem with alkalosis pending safe discharge plan and resolve electrolyte abnormality to prevent possible decompensation. Quality Stroke Does the patient have a stroke diagnosis?: No VTE Prior VTE?: Yes VTE Risk Level:: Medical - moderate - high VTE Device Contraindication: N/A - Device Ordered VTE Drug Contraindication: N/A - Med Ordered
--- NOTE | 2022-05-13 14:24 | P.DS_ITS ---
DS: Providers Provider Date of Service: 05/13/22 Date of admission: 04/29/22 21:45 Primary care physician: Deniz Livingston MD Consults: 04/29/22 23:14 Consult to Gastroenterology Routine Consulting Provider: Justin Rubio Reason for consultation: pancreatritis and GB disease Has provider been notified: Yes 04/29/22 23:43 Consult to Wound Care Routine Consulting Provider: Mayela Barahona Reason for consultation: pressure ulcers I, II Has provider been notified: No 05/01/22 17:28 Consult to Care Team Routine Comment: Reason for consultation: severe anxiety 05/02/22 09:29 Consult to Psychiatry Routine Consulting Provider: Psych Covering Reason for consultation: severe anxiety Has provider been notified: No 05/02/22 15:15 Consult to Infectious Diseases Routine Consulting Provider: Claudia Latif Reason for consultation: severe sepsis,bacteremia Has provider been notified: No 05/03/22 13:22 Consult to General Surgery Routine Consulting Provider: [facility] General Surgeons Reason for consultation: sepsis /bacteremia/gall bladder hydrops Has provider been notified: No 05/03/22 16:50 Consult to Cardiology Routine Consulting Provider: [facility] Cardiovascular Services Reason for consultation: grm neg sepsis sec to cholecystitis-clearence for surgery Has provider been notified: No 05/05/22 08:21 Consult to Infectious Diseases Stat Consulting Provider: Claudia Latif Reason for consultation: MEROPENEM 05/05/22 15:01 Consult to Wound Care Routine Consulting Provider: Mayela Barahona Reason for consultation: stage 2 decubetus ulcer for eval and rec 05/09/22 10:06 Consult to Nephrology Routine Consulting Provider: Familia Espinal Reason for consultation: metabolic alkalosis DS: Diagnosis Discharge Diagnosis (1) Bacteremia: Status: Acute (2) Metabolic alkalosis: Status: Acute (3) Stage 2 skin ulcer of sacral region: Status: Acute (4) ESBL (extended spectrum beta-lactamase) producing bacteria infection: Status: Acute (5) Gram negative sepsis: Status: Acute (6) Acute hypotension: Status: Acute (7) Elevated transaminase level: Status: Acute (8) Abnormal CT scan, gallbladder: Status: Acute (9) Hydrops of gallbladder: Status: Acute DS: Summary Hospital Course Hospital Course: Admission note HPI by ICU provider ?76-year-old male with underlying history of cervical stenosis of the spine, chronic indwelling Butts catheter due to retention and BPH, COVID-19, DVT about 1 year ago currently on Eliquis, hypertension, hyperlipidemia, rheumatoid arthritis, and STEMI, so right thick arthritis among others presents to us after being seen in the emergency room where he was [facility] ([facility]) due to complaints of abdominal pain. ?Reportedly the patient had received a new bowel regimen medication in the form of a stool softener.? Later on in the day the patient had complained of lower abdominal pain, developed a fever of 101.3 and at that point they decided to call EMS.? The patient's only complaint at the time was feeling centralized epigastric abdominal pain and feeling very cold without any nausea, vomiting, chest pain or shortness of breath. Upon arrival to the emergency room, the patient was noted to be normotensive but febrile with temperature of 101.4 degrees F, heart rate of 121, respiratory rate of 35 and O2 sat 93% on 2 L nasal cannula; discontinue for the next 3-4 hours however around 5 in the afternoon the patient decompensated with a blood pressure of 78/39, is still tachycardic and tachypneic. ?His initial workup reveal a white count of 11.9, hemoglobin of 10.7 and hematocrit 33.2, platelets 210.? Sodium 139, potassium 4.0, chloride 95, carbon dioxide 32, BUN 13, creatinine 0.62, random glucose 198, calcium 8.3, magnesium 1.8, lactic acid 1.2. ?LFTs were abnormal with total bilirubin of 2.5, SATB2 42, ALT 152, alk- phos 680, lipase [address] of the abdomen and pelvis suggest mild thickening of the gallbladder wall and common duct as well as intrahepatic duct dilation without visualized obstructing is tone as well as evidence of fecal material consistent with constipation.? A follow-up ultrasound was reported as distended gallbladder with to meth factive is large in the neck of the gallbladder and possible stone with a positive Lopez sign.? Findings equivocal for acute cholecystitis consider HIDA scan versus MRCP. ?At this point I kindly asked the ER physician to contact the general surgeon for further input in this matter, to which no surgical intervention was deemed that the time. During my evaluation, the patient does complain of epigastric pain radiating towards the right upper quadrant 8/10 in waves, sharp, lasting a few seconds to a few minutes at a time, not sure what makes it worse but pain medications make it better and the morphine he received earlier did help somewhat, denies any nausea or vomiting.? He stills feels very cold. Hospital course The patient was admitted to the ICU for acute hypotension secondary to severe sepsis at time of presentation. Responded well to IV fluid as he was started on broad-spectrum antibiotics. CT scan was concerning for gallbladder abnormality that was evaluated by surgical team who recommended cholecystectomy for hydrops of gallbladder. Placed on TPN after surgery for 3 days until he started to tolerate diet again which was advanced back to regular diet. Liver function tests improved back to normal baseline as blood cultures grew ESBL E coli bacteria. Infectious disease specialist evaluated the patient and recommended treatment with meropenem for total of 14 days. The patient receive total of 9 days during the hospital stay as a midline catheter placed. Noted to have worsening metabolic alkalosis that was evaluated by flower maker who suggested that could be secondary to meropenem itself. Responded well to IV fluid and Diamox. Plan to continue Diamox for 3 more days at time of discharge and to repeat blood work as outpatient with a plan of nephrology to follow the blood test. Noticed to have stage II decubitus ulcers with no signs of infection. Treated with local measures. urine culture grew citrobacter and psudomonas resistant to meropenem. Id recommended against treating the urine infection as like colony from chronic catheterization. Decrease Lyrica to 75 mg at bedtime only Continue Diamox 250 mg for 3 more days Continue ertapenem for 5 more days To repeat blood test as outpatient Time Spent with Patient Time attestation: Total time spent providing and/or coordinating discharge services: Discharge coordination time: Greater than 30 minutes Quality: Safe Use of Opioids Does Pt have an Active Cancer Diagnosis on the Problem List?: No Quality: Stroke Does the patient have a stroke diagnosis?: No Physical Exam Vital Signs: Vital Signs: Last Vital Signs Temp 98.3 F 05/13/22 11:45 Pulse 71 05/13/22 11:45 Resp 20 05/13/22 11:45 BP 133/63 05/13/22 11:45 Pulse Ox 100 05/13/22 11:45 O2 Del Method 05/13/22 11:45 O2 Flow Rate 2 05/13/22 11:45 Oxygen Flow Rate 2 05/12/22 15:00 BMI result Body Mass Index 29.2 Const: Other: Constitutional : Alert, not in distress Neck : Normal inspection, Supple Cardiovascular : RRR, no JVP, no lower extremity edema Respiratory : fair bilateral air entry, no crackles, wheezes or rhonchi, on oxygen supplement Gastrointestinal: soft, lax, Normal bowel sounds, no tenderness Skin : Warm, Dry, stage II decubitus ulcers with no drainage Neurological : Alert & oriented x3, No focal deficit , CN 2-12 within normal DS: Data Data Completed and Pending Completed studies during hospitalization [Text1]: Pending at discharge 05/04/22 14:46 Surgical [PTH] Routine Labs on day of discharge: Laboratory Results - last 24 hr 05/13/22 05/13/22 10:44 10:44 Sodium 143 144 Potassium 3.4 3.4 Chloride 102 103 Carbon Dioxide 36 H 36 H Anion Gap 8 L 8 L BUN 6 L Creatinine 0.46 L Estim Creat Clear Calc 148.9 Estimated GFR > 60 Random Glucose 132 H Calcium 8.[address] scan - abdomen: Radiologist's impression: ITS Impressions Abdomen/Pelvis CT 04/29/22 15:01 IMPRESSION: * Gallbladder hydrops and mild thickening of gallbladder wall. Although the common duct and intrahepatic ducts are dilated, no obstructing stones are visualized within the biliary tree. Also, no stones are identified within the hydropic gallbladder. Consider correlation with liver function tests, bilirubin levels and right upper quadrant ultrasound (or MRCP). Acute cholecystitis and cholangitis would be considered in this patient with abdominal pain and fever. * There are opacities with air bronchograms from airspace disease and/or atelectasis in the visualized bases. * Splenomegaly is of uncertain chronicity. There are no comparison abdominal imaging exams. * Bilateral renal stones. Well-positioned right ureteral stent in place. No hydronephrosis. * Large amount of fecal material in the sigmoid colon and rectum is suggestive of constipation. The subtle haziness of perirectal fat is suspicious for mild proctitis. Chest X-Ray 04/29/22 15:02 IMPRESSION: Low inspiratory effort with bibasilar atelectasis. Abdomen Ultrasound 04/29/22 17:29 IMPRESSION: Distended gallbladder. Tumefactive sludge in the neck of the gallbladder. Possible gallstone. Positive ultrasound Lopez's sign. Findings equivocal for acute cholecystitis. Consider HIDA scan for further assessment. MRCP may be helpful for assessment of the gallbladder and bile ducts. Chest X-Ray 04/29/22 23:05 IMPRESSION: 1. The tip of the catheter is seen at the cavoatrial junction. There is no pneumothorax. Hepatobiliary Scan Nuclear Medicine 05/03/22 12:50 IMPRESSION: Obstructed cystic duct. Patent CBD. Normal hepatic uptake. Results were discussed with Dr. Dobson at 1:10 PM Discharge Plan Discharge Patient Disposition: er [facility] Discharge Diagnosis: ESBL E coli bacteremia secondary to gallbladder infection Referrals: [facility] [Outside] - 1 Week Deniz Livingston MD [Primary Care Provider] - 1 Week Discharge Medications: New acetazolamide 250 mg Tablet 250 mg PO TID 3 Days Qty: 9 0RF morphine 15 mg Tablet Extended Release 15 mg PO BID PRN (Reason: Pain, Severe) Qty: 12 0RF Rx Instructions: Partial Fill upon patient request. ertapenem 1 gram recon soln 1 g IV Q24H Qty: 5 0RF Continued furosemide 20 mg tablet 20 mg PO Q2D finasteride 5 mg tablet 1 tab PO DAILY lactulose 10 gram/15 mL solution 20 ml PO DAILY Rx Instructions: HOLD IF DIARRHEA Eliquis 5 mg tablet 1 tab PO BID sennosides [senna] 8.6 mg Tablet 17.2 mg PO BEDTIME Label Comments: HOLD FOR LOOSE STOOL acetaminophen 325 mg Tablet 650 mg PO TID ipratropium-albuterol 0.5 mg-3 mg(2.5 mg base)/3 mL Solution For Nebulization 3 ml INHALATION Q6H PRN (Reason: Shortness Of Breath Or Wheezing) lidocaine [Aspercreme (lidocaine)] 4 % Adhesive Patch,Medicated 2 patch TOPICAL DAILY PRN (Reason: Pain, Mild) Label Comments: 1 PATCH TO BACK OF NECK AND 1 PATCH TO RIGHT SHOULDER melatonin 3 mg Tablet 3 mg PO BEDTIME PRN (Reason: Sleep) magnesium oxide 400 mg (241.3 mg magnesium) Tablet 400 mg PO DAILY cyanocobalamin (vitamin B-12) 500 mcg Tablet 500 mcg PO DAILY ascorbic acid (vitamin C) 500 mg Tablet 500 mg PO BID Label Comments: END 05/19/22 tamsulosin 0.4 mg capsule 2 cap PO BEDTIME nystatin 100,000 unit/gram Cream 1 appl TOPICAL TID ammonium lactate 12 % Cream 1 appl TOPICAL BID zinc 50 mg Tablet 50 mg PO DAILY Rx Instructions: END 05/19/22 metoprolol succinate 25 mg tablet extended release 24 hr 1 tab PO DAILY Protocol: Hold for SBP/HR < HOLD for SBP < : 110 HOLD for HR < : 65 Multiple Vitamin-Minerals Tablet 1 tab PO DAILY diclofenac sodium 1 % Gel 2 g TOPICAL Q6H PRN (Reason: Pain, Mild) Rx Instructions: apply to single elbow, wrist or hand; for hand includes palm/fingers/back of hand oxycodone 5 mg Tablet 5 mg PO Q6H PRN (Reason: Pain, Moderate) Qty: 12 0RF Changed pregabalin 75 mg capsule 75 mg PO BEDTIME Qty: 30 0RF Discontinued morphine 30 mg tablet extended release 1 tab PO BID PRN (Reason: Pain, Severe) Discharge Orders: Discharge Order (Routine); Ordered 05/13/22 Ordered By: Georgette Hayden Diet: Advance to usual diet Activity on Discharge: As tolerated Stand Alone Forms: Patient Portal Discharge page Other Ambulatory Orders: Basic Metabolic Panel (Routine) Timeframe: 1 Week Facility: [facility] - Location: Laboratory Ordered By: Georgette Hayden Care Plan Goals: Read below Health Concerns: Read below Plan of Treatment: Read below Assessment: Admitted to the hospital for evaluation of abdominal pain. Blood culture grew E coli bacteria. Images were concerning for gallbladder infection. Has surgical removal of the gallbladder with good response as your liver enzymes improved and sepsis resolved. Treated with IV antibiotics of meropenem finishing total of 9 days during the hospital stay as you were evaluated by infectious disease specialist who recommended finishing 14 days of antibiotics. Noticed to have abnormal kidney function that was evaluated by kidney specialist who recommended Diamox for the short-term after discharge and to repeat blood test as outpatient. Decrease Lyrica to 75 mg at bedtime only Continue Diamox 250 mg for 3 more days Continue ertapenem for 5 more days To repeat blood test as outpatient
--- NOTE | 2022-05-13 14:43 | MHC.CM.PN ---
Per MD, Patient has been medically cleared for dc to LTC/SNF today. Patient is a [facility] and he will return there today via [facility] at 5PM. Patient and HCP/Friend/Efrain @ [phone] are aware of and in agreement with the dc plan. IMM addressed with Efrain(copy on the chart).
[2022-05-13 15:07] VITALS: BP 131/60; PULSE 80; RESP 18; TEMP 36.4; O2SAT 91
[2022-05-13 16:08] LABS: COVID-19 Test Negative (Negative)
[2022-05-13] MEDS: Ertapenem Sodium 1 GM in 0.9 % Sodium Chloride 50 ML IV (16:26)
[2022-05-13 18:12] LABS: Urea, Random Urine 96 mg/dL
--- NOTE | 2022-05-13 18:42 | PC.NURSE ---
Patient left the hospital at 1842 via stretcher,accompanied by 2 equal opportunity counselor.
== END 2022-05-13 18:42 | disposition skilled nursing facility (03) | DRG 853 ==
LOC: HO.ED 20:47 → HO.EDOVER 21:49 → HO.ICU 21:51 → HO.IMC 05-01 08:40
PROVIDERS: Internal Medicine; Internal Medicine Cardiovascular Disease; Internal Medicine Nephrology; Nurse Practitioner Family; Surgery; Admitting Provider Physician Assistant Medical; Emergency Provider Emergency Medicine; PCP Internal Medicine; Visit Provider Student in an Organized Health Care Education/Training Program
PROC: 0FT44ZZ Resection of Gallbladder, Percutaneous Endoscopic Approach (ICD-10-PCS; CPT 47562; principal; 2022-05-04 12:00)
DX: A41.51 Sepsis due to Escherichia coli [E. coli] (principal); R65.21 Severe sepsis with septic shock; T83.511A Infection and inflammatory reaction due to indwelling urethral catheter, initial encounter; N39.0 Urinary tract infection, site not specified; E87.3 Alkalosis; K80.00 Calculus of gallbladder with acute cholecystitis without obstruction; F11.20 Opioid dependence, uncomplicated; K82.1 Hydrops of gallbladder; Z16.12 Extended spectrum beta lactamase (ESBL) resistance; E78.5 Hyperlipidemia, unspecified; N40.1 Benign prostatic hyperplasia with lower urinary tract symptoms; R33.8 Other retention of urine; M08.00 Unspecified juvenile rheumatoid arthritis of unspecified site; I25.2 Old myocardial infarction; G89.29 Other chronic pain; L89.151 Pressure ulcer of sacral region, stage 1; L89.312 Pressure ulcer of right buttock, stage 2; E87.6 Hypokalemia; K59.09 Other constipation; K82.8 Other specified diseases of gallbladder; B96.5 Pseudomonas (aeruginosa) (mallei) (pseudomallei) as the cause of diseases classified elsewhere; R79.1 Abnormal coagulation profile; F41.9 Anxiety disorder, unspecified; I44.7 Left bundle-branch block, unspecified; E86.0 Dehydration; E88.09 Other disorders of plasma-protein metabolism, not elsewhere classified; Z86.718 Personal history of other venous thrombosis and embolism; Z20.822 Contact with and (suspected) exposure to COVID-19; Z86.16 Personal history of COVID-19; Z96.651 Presence of right artificial knee joint; Z87.442 Personal history of urinary calculi; Z88.0 Allergy status to penicillin; Z79.01 Long term (current) use of anticoagulants; Z79.899 Other long term (current) drug therapy
CPT/HCPCS: 36410; 36415; 71045; 71046; 74177; 76705; 78226; 80048; 80051; 80053; 80076; 81001; 82040; 82248; 82436; 82803; 82943; 82947; 83605; 83690; 83735; 83880; 83935; 84100; 84133; 84300; 84478; 84484; 84540; 85007; 85025; 85027; 85610; 85730; 86140; 87040; 87077; 87086; 87088; 87186; 87205; 87635; 88304; 93005; 96361; 96374; 96375; 99285; A9537; C1758; J0131; J0692; J0696; J1170; J1335; J1610; J1642; J1650; J2185; J2250; J2270; J2370; J2405; J2550; J2795; J3010; J3475; P9047; Q9967

== ENCOUNTER → 2022-05-20 16:08 | Outpatient (BNVA) | payer MEDICARE, MEDICAID, SELFPAY | PROVIDERS: PCP Internal Medicine; Visit Provider Surgery | DX: Z09 Encounter for follow-up examination after completed treatment for conditions other than malignant neoplasm (principal); Z90.49 Acquired absence of other specified parts of digestive tract | CPT/HCPCS: 99212 ==